=== PATIENT | male | born 1945 | race Caucasian/White ===

== ENCOUNTER → 2019-06-24 13:10 | Outpatient (CLI) | payer OTHER, MEDICAID, SELFPAY ==
--- NOTE | 2019-06-24 13:46 | DI.RAD.S_ITS ---
PROCEDURE: XR CHEST 2V INDICATIONS: PNEUMONIA TECHNIQUE: 2 views of the chest were acquired. COMPARISON: None. FINDINGS: Surgical changes and devices: None. Lungs and pleura: Lungs are abnormal with flattening of the diaphragms on the lateral view, and large lung volumes. No pleural effusions or pneumothorax. Mediastinum: Mediastinal contours are normal. Heart size is normal. Bones and chest wall: No suspicious bony abnormalities. Soft tissues appear unremarkable. IMPRESSION: COPD, mild interstitial prominence over the mid and lower lungs, a definite focal pneumonia is not seen. Dictated by: Red Ramos M.D. on 06/24/2019 at 14:50 Approved by: Red Ramos M.D. on 06/24/2019 at 14:51
== END ==
PROVIDERS: Referring Provider Nurse Practitioner; Visit Provider Nurse Practitioner
DX: J18.9 Pneumonia, unspecified organism (principal); J44.9 Chronic obstructive pulmonary disease, unspecified
CPT/HCPCS: 71046

== ENCOUNTER → 2019-08-02 18:10 | Outpatient (ROUT) | payer OTHER, MEDICAID, SELFPAY ==
[2019-08-02 18:22] LABS: Add Manual Diff / Slide Review NO; Basophils Absolute Auto 0 /uL (0-100); Basophils Percent Auto 0.4 % (0-2); Eosinophils Absolute Auto 200 /uL (0-450); Eosinophils Percent Auto 2.6 % (2-4); Hematocrit 48.2 % (41-53); Lymphocytes Absolute Auto 1200 /uL (1100-4500); Lymphocytes Percent Auto 17.8 % (25-40); Mean Corpuscular HGB Conc 33.1 % (30-36); Mean Corpuscular Hemoglobin 30.4 PG (26-34); Mean Corpuscular Volume 91.7 fL (80-100); Monocytes Absolute Auto 800 /uL (0-900); Monocytes Percent Auto 11.4 % (3-14); Neutrophils Absolute Auto 4500 /uL (1500-7000); Neutrophils Percent Auto 67.8 % (50-75); Platelet Count 183 X10^3/uL (150-400); Red Blood Cell Count 5.26 X10^6/uL (4.5-5.9); Red Cell Distribution Width 14.6 % (11.6-14.8); White Blood Cell Count 6.6 X10^3/uL (4.5-11.0)
== END ==
PROVIDERS: Visit Provider Internal Medicine
DX: I10 Essential (primary) hypertension (principal)
CPT/HCPCS: 85025

== ENCOUNTER → 2019-08-28 15:55 | Outpatient (CLI) | payer OTHER, MEDICAID, SELFPAY | PROVIDERS: PCP Internal Medicine; Referring Provider Nurse Practitioner; Visit Provider Nurse Practitioner | DX: I25.10 Atherosclerotic heart disease of native coronary artery without angina pectoris (principal); J44.9 Chronic obstructive pulmonary disease, unspecified; R62.7 Adult failure to thrive; E66.01 Morbid (severe) obesity due to excess calories; Z68.41 Body mass index [BMI] 40.0-44.9, adult; E11.9 Type 2 diabetes mellitus without complications; F32.9 Major depressive disorder, single episode, unspecified | CPT/HCPCS: 93005 ==

== ENCOUNTER → 2019-09-05 16:20 | Outpatient (CLI) | payer OTHER, MEDICAID, SELFPAY ==
--- NOTE | 2019-09-05 | DI.RAD.S_ITS ---
PROCEDURE: XR FOOT LT MIN 3V INDICATIONS: R/O OSTEOMYELITIS OF THE DISTAL PHALANGES TECHNIQUE: 3 views of the foot were acquired. COMPARISON: None. FINDINGS: Bones: No fractures or dislocations. No suspicious bony lesions. Scattered IP degenerative changes. No definitive erosions are identified. Soft tissues: No tibiotalar joint effusion. Achilles tendon appears normal. IMPRESSION: Scattered IP degenerative changes of definitive or protrusions. If this remains of concern, MRI or bone scan is recommended. Dictated by: Noa Headley M.D. on 09/06/2019 at 10:21 Approved by: Noa Headley M.D. on 09/06/2019 at 10:22
== END ==
PROVIDERS: PCP Internal Medicine; Referring Provider Nurse Practitioner; Visit Provider Nurse Practitioner
DX: R26.89 Other abnormalities of gait and mobility (principal)
CPT/HCPCS: 73630

== ENCOUNTER 2019-09-12 07:53 | Emergency (ER) | payer OTHER, MEDICAID, SELFPAY ==
--- NOTE | 2019-09-12 07:57 | DI.RAD.S_ITS ---
PROCEDURE: XR CHEST 1V INDICATIONS: SOB TECHNIQUE: One view of the chest was acquired. COMPARISON: [facility], , XR CHEST 2V, 06/24/2019, 13:54. FINDINGS: Surgical changes and devices: None. Lungs and pleura: Mild interstitial prominence centrally and bilaterally which is increased compared to prior exam. Emphysematous change. Question of a trace left pleural effusion. No pneumothorax. Mediastinum: Mediastinal contours appear unchanged. Heart size is prominent. Bones and chest wall: No suspicious bony lesions. Overlying soft tissues appear unremarkable. IMPRESSION: Mild fluid overload and questionable trace left pleural effusion. Cardiomegaly. Emphysematous change. Dictated by: Edward Becker M.D. on 09/12/2019 at 9:05 Approved by: Edward Becker M.D. on 09/12/2019 at 9:08
[2019-09-12 08:00] VITALS: BP 177/81; PULSE 66; RESP 19; O2SAT 93
--- NOTE | 2019-09-12 08:02 | ED.SOB ---
HPI - SOB/Dyspnea General Chief Complaint: Shortness of Breath/Dyspnea Stated Complaint: Shortness of Breath Time Seen by Provider: 09/12/19 07:54 Source: patient and EMS Mode of arrival: EMS Limitations: no limitations History of Present Illness HPI Narrative: 74M former smoker with history of COPD, coronary artery disease, morbid obesity presents from a local residential facility with the chief complaint of sudden onset significant shortness of breath with burning sensation in his head. He routinely uses 2 L of oxygen by nasal cannula. Patient is DNR with limited interventions. He went to bed in his normal state of health and woke up feeling this way. Medics were dispatched and found him cyanotic with pulse ox in the 70s, he improved with a non-rebreather to the mid 90s on his arrival here. He denies any chest pain or recent injuries. Recent travel. He denies any headache, runny nose, sore throat, fever or exposure to persons known to be COVID-19 positive Related Data Allergies Allergy/AdvReac Type Severity Reaction Status Date / Time No Known Drug Allergies Allergy Verified 09/12/19 08:56 Review of Systems Constitutional Constitutional: Denies chills, Reports fatigue, Denies fever(s), Denies frequent falls, Reports headache(s), Denies lethargy and Reports weakness Eyes Eyes: Denies change in vision, Denies eye discharge, Denies irritation and Denies loss of vision ENT Ears, Nose, Mouth, and Throat: Denies change in voice, Denies dizziness, Reports headache(s), Denies neck pain, Denies sore throat and Denies throat swelling Cardiovascular Cardiovascular: Denies chest pain, Denies irregular heart rhythm, Denies lightheadedness, Denies palpitations, Reports dyspnea, Denies dyspnea on exertion and Denies orthopnea Respiratory Respiratory: Denies cough, Reports dyspnea, Denies dyspnea on exertion and Denies wheezing Gastrointestinal Gastrointestinal: Denies abdominal pain, Denies change in bowel habits, Denies diarrhea, Denies nausea and Denies vomiting Genitourinary Genitourinary: Denies hematuria, Denies flank pain, Denies urinary incontinence and Denies urinary urgency Musculoskeletal Musculoskeletal: Denies back pain, Denies muscle weakness, Denies neck pain, Denies numbness and Denies tingling Integumentary/Breasts Skin/Breast: Denies pruritus, Denies erythema, Denies rash and Denies wounds Neurologic Neurologic: Denies behavioral changes, Denies confusion, Denies dizziness, Denies frequent falls, Reports headache(s), Denies loss of vision, Denies numbness, Denies tingling and Reports weakness Psychiatric Psychiatric: Denies anxiety, Denies behavioral changes, Denies confusion, Denies depression, Denies homicidal ideation and Denies suicidal ideation Endocrine Endocrine: Reports fatigue, Denies flushing and Denies palpitations Hematologic/Lymphatic Hematologic/Lymphatic: Denies easy bruising Allergic/Immunologic Allergic/Immunologic: Denies urticaria, Denies throat swelling and Denies wheezing Patient History Social History Smoking Status: Former smoker Smoking Status: Former smoker Exam Narrative Exam Narrative: GENERAL: [74] year old patient appears stated age. Morbidly obese, in moderate distress though now is completing full sentences with non-rebreather HEAD: Atraumatic. Normocephalic. EYES: Pupils equal round and reactive. Extraocular motions intact. No scleral icterus. No injection or drainage. ENT: Nose without bleeding, purulent drainage. Throat without erythema, tonsillar hypertrophy or exudate. Airway patent. NECK: Trachea midline. Non tender CARDIOVASCULAR: Regular rate and rhythm without murmurs, gallops, or rubs. RESPIRATORY: Decreased breath sounds bilaterally with prolonged expiratory phase and expiratory wheeze in all matias GASTROINTESTINAL: Abdomen soft, non-tender, nondistended. EXTREMITIES: No edema or joint tenderness. BACK: Nontender without deformity or crepitance. No flank tenderness. NEURO: AOx3. SKIN: No rash or erythema of visible areas Initial Vital Signs Initial Vital Signs: Vital Signs Pulse Rate 66 09/12/19 08:00 Respiratory Rate 19 09/12/19 08:00 Blood Pressure 177/81 H 09/12/19 08:00 Pulse Oximetry 93 09/12/19 08:00 Course Orders Ordered: ED Orders 09/12/19 07:57 XR chest 1V Stat EKG-12 Lead Stat 09/12/19 08:24 C-Reactive Protein Quant Stat Complete Blood Count AUTO DIFF Stat Comprehensive Metabolic Panel Stat D Dimer Stat Ferritin Stat Lactate (Lactic Acid) Stat Lactate Dehydrogenase Stat Lipase Stat NT-proBNP (BNP-Adult 18+) Stat Procalcitonin Stat Troponin & CK Cardiac Panel Stat 09/12/19 08:38 Arterial Blood Gas Stat 09/12/19 09:21 CT angio chest PE protocol Stat 09/12/19 10:45 Blood Culture Stat Sodium Chloride (Normal Saline 0.9%) 1,000 mls @ 150 mls/hr IV CONT JF Last Admin: 09/12/19 09:03 Dose: 150 mls/hr Documented by: CVANCE Discontinued Medications Albuterol (Ventolin Hfa) 2 puff INH NOW ONE Stop: 09/12/19 07:58 Last Admin: 09/12/19 08:03 Dose: 2 puff Documented by: LUIS ENRIQUE Furosemide (Lasix) 40 mg IV NOW ONE Stop: 09/12/19 09:09 Methylprednisolone (Solu-Medrol 125 Mg Vial) 125 mg IV NOW ONE Stop: 09/12/19 07:58 Last Admin: 09/12/19 09:02 Dose: 125 mg Documented by: CVANCE Consultations Consultation #1: call to PCP to discuss, we share the opinion that PE, [place], CHF, Pneumonia ruled out. Patient tremendously improved with above stated therapies. They are happy to accept him back. Patient requiring 2 L oxygen by nasal cannula at 92% which is his baseline Vital Signs Vital signs: Vital Signs - 8 hr 09/12/19 08:00 09/12/19 08:38 09/12/19 08:51 Temperature 97.6 F Pulse Rate 66 74 69 Respiratory Rate 19 23 Blood Pressure 177/81 H Blood Pressure [Left Arm] 177/81 H 157/70 H Pulse Oximetry 93 97 94 09/12/19 11:30 Temperature Pulse Rate 69 Respiratory Rate 22 Blood Pressure Blood Pressure [Left Arm] 140/63 Pulse Oximetry 92 MDM - SOB/Dyspnea Lab Data Result diagrams: 09/12/19 08:24 09/12/19 08:24 Labs: Lab Results 09/12/19 09/12/19 09/12/19 Range/Units 08:24 08:24 08:24 WBC 8.1 (4.5-11.0) X10^3/uL RBC 5.17 (4.5-5.9) X10^6/uL Hgb 15.4 (13.5-17.5) g/dL Hct 48.0 (41-53) % MCV 92.9 (80-100) fL MCH 29.8 (26-34) PG MCHC 32.1 (30-36) % RDW 15.4 H (11.6-14.8) % Plt Count 158 (150-400) X10^3/uL Neut % (Auto) 82.1 H (50-75) % Lymph % (Auto) 14.8 L (25-40) % [place] % (Auto) 2.3 L (3-14) % Eos % (Auto) 0.6 L (2-4) % Baso % (Auto) 0.2 (0-2) % Neut # (Auto) 6700 (7575-5632) /uL Lymph # (Auto) 1200 (3774-7190) /uL [place] # (Auto) 200 (0-900) /uL Eos # (Auto) 100 (0-450) /uL Baso # (Auto) 0 (0-100) /uL D-Dimer 273 H (<230) ng/mL ABG pH (7.35-7.45) ABG pCO2 (35-45) mmHg ABG pO2 (80-100) mmHg ABG HCO3 (22-26) mmol/L ABG Total CO2 (21-31) mmol/L ABG O2 Saturation (95-100) % ABG Base Excess (-2-2) mmol/L FiO2 Sodium 138 (137-145) mmol/L Potassium 4.6 (3.4-5.1) mmol/L Chloride 97 L (98-107) mmol/L Carbon Dioxide 36 H (22-32) mmol/L BUN 18 (9-20) mg/dL Creatinine 0.75 (0.66-1.25) mg/dL Estimated GFR > 60.0 (>60) mL/min BUN/Creatinine Ratio 24.0 H (6-22) Glucose 154 H (80-110) mg/dL Lactate (0.7-2.1) mmol/L Calcium 8.7 (8.4-10.2) mg/dL Ferritin (18-464) ng/mL Total Bilirubin 0.9 (0.2-1.3) mg/dL AST 28 (17-59) IU/L ALT 20 (<50) IU/L Alkaline Phosphatase 43 (38-126) U/L Lactate Dehydrogenase (313-618) U/L Total Creatine Kinase 62 (55-170) U/L CK-MB (CK-2) TNP CK-MB (CK-2) Rel Index TNP Troponin I < 0.012 (0.01-0.034) ng/mL C-Reactive Protein (<1.0) mg/dL NT-Pro-B Natriuret Pep 66 (<450) pg/mL Total Protein 6.6 (6.3-8.2) g/dL Albumin 3.7 (3.5-5.0) g/dL Globulin 2.9 (1.7-4.1) g/dL Albumin/Globulin Ratio 1.3 (1.0-2.8) Lipase 501 H (23-300) U/L Procalcitonin (<0.5) ng/mL COVID-19 PCR (Negative) 09/12/19 09/12/19 09/12/19 Range/Units 08:24 08:24 08:24 WBC (4.5-11.0) X10^3/uL RBC (4.5-5.9) X10^6/uL Hgb (13.5-17.5) g/dL Hct (41-53) % MCV (80-100) fL MCH (26-34) PG MCHC (30-36) % RDW (11.6-14.8) % Plt Count (150-400) X10^3/uL Neut % (Auto) (50-75) % Lymph % (Auto) (25-40) % [place] % (Auto) (3-14) % Eos % (Auto) (2-4) % Baso % (Auto) (0-2) % Neut # (Auto) (6376-2893) /uL Lymph # (Auto) (7324-0649) /uL [place] # (Auto) (0-900) /uL Eos # (Auto) (0-450) /uL Baso # (Auto) (0-100) /uL D-Dimer (<230) ng/mL ABG pH (7.35-7.45) ABG pCO2 (35-45) mmHg ABG pO2 (80-100) mmHg ABG HCO3 (22-26) mmol/L ABG Total CO2 (21-31) mmol/L ABG O2 Saturation (95-100) % ABG Base Excess (-2-2) mmol/L FiO2 Sodium (137-145) mmol/L Potassium (3.4-5.1) mmol/L Chloride (98-107) mmol/L Carbon Dioxide (22-32) mmol/L BUN (9-20) mg/dL Creatinine (0.66-1.25) mg/dL Estimated GFR (>60) mL/min BUN/Creatinine Ratio (6-22) Glucose (80-110) mg/dL Lactate 1.5 (0.7-2.1) mmol/L Calcium (8.4-10.2) mg/dL Ferritin 38 (18-464) ng/mL Total Bilirubin (0.2-1.3) mg/dL AST (17-59) IU/L ALT (<50) IU/L Alkaline Phosphatase (38-126) U/L Lactate Dehydrogenase 368 (313-618) U/L Total Creatine Kinase (55-170) U/L CK-MB (CK-2) CK-MB (CK-2) Rel Index Troponin I (0.01-0.034) ng/mL C-Reactive Protein < 0.5 (<1.0) mg/dL NT-Pro-B Natriuret Pep (<450) pg/mL Total Protein (6.3-8.2) g/dL Albumin (3.5-5.0) g/dL Globulin (1.7-4.1) g/dL Albumin/Globulin Ratio (1.0-2.8) Lipase (23-300) U/L Procalcitonin < 0.05 (<0.5) ng/mL COVID-19 PCR (Negative) 09/12/19 09/12/19 Range/Units 08:25 08:38 WBC (4.5-11.0) X10^3/uL RBC (4.5-5.9) X10^6/uL Hgb (13.5-17.5) g/dL Hct (41-53) % MCV (80-100) fL MCH (26-34) PG MCHC (30-36) % RDW (11.6-14.8) % Plt Count (150-400) X10^3/uL Neut % (Auto) (50-75) % Lymph % (Auto) (25-40) % [place] % (Auto) (3-14) % Eos % (Auto) (2-4) % Baso % (Auto) (0-2) % Neut # (Auto) (4739-6429) /uL Lymph # (Auto) (3464-9636) /uL [place] # (Auto) (0-900) /uL Eos # (Auto) (0-450) /uL Baso # (Auto) (0-100) /uL D-Dimer (<230) ng/mL ABG pH 7.27 L* (7.35-7.45) ABG pCO2 76.0 H* (35-45) mmHg ABG pO2 67 L (80-100) mmHg ABG HCO3 35 H (22-26) mmol/L ABG Total CO2 37 H (21-31) mmol/L ABG O2 Saturation 89 L (95-100) % ABG Base Excess 8.0 H (-2-2) mmol/L FiO2 40 Sodium (137-145) mmol/L Potassium (3.4-5.1) mmol/L Chloride (98-107) mmol/L Carbon Dioxide (22-32) mmol/L BUN (9-20) mg/dL Creatinine (0.66-1.25) mg/dL Estimated GFR (>60) mL/min BUN/Creatinine Ratio (6-22) Glucose (80-110) mg/dL Lactate (0.7-2.1) mmol/L Calcium (8.4-10.2) mg/dL Ferritin (18-464) ng/mL Total Bilirubin (0.2-1.3) mg/dL AST (17-59) IU/L ALT (<50) IU/L Alkaline Phosphatase (38-126) U/L Lactate Dehydrogenase (313-618) U/L Total Creatine Kinase (55-170) U/L CK-MB (CK-2) CK-MB (CK-2) Rel Index Troponin I (0.01-0.034) ng/mL C-Reactive Protein (<1.0) mg/dL NT-Pro-B Natriuret Pep (<450) pg/mL Total Protein (6.3-8.2) g/dL Albumin (3.5-5.0) g/dL Globulin (1.7-4.1) g/dL Albumin/Globulin Ratio (1.0-2.8) Lipase (23-300) U/L Procalcitonin (<0.5) ng/mL COVID-19 PCR Negative (Negative) Discharge Plan Departure Patient Disposition: Home Clinical Impression: Acute exacerbation of chronic obstructive airways disease Activity Restrictions/Additional Instructions: *You have been diagnosed with [acute exacerbation of COPD] *What to do: *Take medications as directed *Follow up with your primary care provider in 2-3 days, call for an appointment. Let them know you were seen in the Emergency Department and that we ask that you be seen in follow up *Return to ER if you should have any new, worsening or concerning symptoms Referrals: Dillon Burr [Primary Care Provider] -
[2019-09-12] MEDS: ALBUTEROL HFA 60 PUFF/8 GM INH INH (08:03)
[2019-09-12 08:33] LABS: Add Manual Diff / Slide Review NO; Basophils Absolute Auto 0 /uL (0-100); Basophils Percent Auto 0.2 % (0-2); Eosinophils Absolute Auto 100 /uL (0-450); Eosinophils Percent Auto 0.6 % (2-4); Hemoglobin 15.4 g/dL (13.5-17.5); Lymphocytes Absolute Auto 1200 /uL (1100-4500); Lymphocytes Percent Auto 14.8 % (25-40); Mean Corpuscular HGB Conc 32.1 % (30-36); Mean Corpuscular Hemoglobin 29.8 PG (26-34); Mean Corpuscular Volume 92.9 fL (80-100); Monocytes Absolute Auto 200 /uL (0-900); Monocytes Percent Auto 2.3 % (3-14); Neutrophils Absolute Auto 6700 /uL (1500-7000); Neutrophils Percent Auto 82.1 % (50-75); Platelet Count 158 X10^3/uL (150-400); Red Blood Cell Count 5.17 X10^6/uL (4.5-5.9); Red Cell Distribution Width 15.4 % (11.6-14.8); White Blood Cell Count 8.1 X10^3/uL (4.5-11.0)
[2019-09-12 08:38] VITALS: BP 177/81; PULSE 74; RESP 23; O2SAT 97
[2019-09-12 08:44] LABS: D Dimer 273 ng/mL (<230)
[2019-09-12 08:46] LABS: Alanine Aminotransferase 20 IU/L (<50); Albumin 3.7 g/dL (3.5-5.0); Albumin Globulin Ratio 1.3 (1.0-2.8); Alkaline Phosphatase 43 U/L (38-126); Aspartate Aminotransferase 28 IU/L (17-59); Bilirubin Total 0.9 mg/dL (0.2-1.3); Blood Urea Nitrogen 18 mg/dL (9-20); Calcium 8.7 mg/dL (8.4-10.2); Carbon Dioxide 36 mmol/L (22-32); Chloride 97 mmol/L (98-107); Creatine Kinase 62 U/L (55-170); Estimated Glomerular Filt Rate > 60.0 mL/min (>60); Globulin 2.9 g/dL (1.7-4.1); Glucose 154 mg/dL (80-110); HEMOLYSIS 21 (0-50); Lipase 501 U/L (23-300); Potassium 4.6 mmol/L (3.4-5.1); Sodium 138 mmol/L (137-145); Total Protein 6.6 g/dL (6.3-8.2)
[2019-09-12 08:47] LABS: Lactate (Lactic Acid) 1.5 mmol/L (0.7-2.1)
[2019-09-12 08:50] LABS: C-Reactive Protein Quant < 0.5 mg/dL (<1.0); Lactate Dehydrogenase 368 U/L (313-618)
[2019-09-12 08:51] VITALS: BP 157/70; PULSE 69; TEMP 36.4; O2SAT 94
[2019-09-12 08:57] LABS: NT-proBNP (BNP-Adult 18+) 66 pg/mL (<450); Troponin I < 0.012 ng/mL (0.01-0.034)
[2019-09-12 09:01] LABS: Procalcitonin < 0.05 ng/mL (<0.5)
[2019-09-12] MEDS: methylPREDNISolone 125 MG/2 ML VIAL IV (09:02)
[2019-09-12] MEDS: SODIUM CHLORIDE 0.9% 1,000 ML 150 ML IV (09:03)
[2019-09-12 09:21] LABS: Ferritin 38 ng/mL (18-464)
--- NOTE | 2019-09-12 09:21 | DI.CT.S_ITS ---
PROCEDURE: CT ANGIO CHEST PE PROTOCOL INDICATIONS: dyspnea, hypoxia TECHNIQUE: After the administration of intravenous contrast, 2 mm thick sections acquired from the pulmonary apices to the posterior costophrenic angles. 3-dimensional maximum intensity projection (MIP) coronal and sagittal reformats were then acquired through the thorax. For radiation dose reduction, the following was used: automated exposure control, adjustment of mA and/or kV according to patient size. COMPARISON: None. FINDINGS: Image quality: Good. Mild beam hardening artifact. Diagnostic to the level of the segmental pulmonary arteries. Pulmonary arteries: Pulmonary arteries are normal in size, and demonstrate no intraluminal filling defects to suggest central pulmonary embolism. Lungs and pleura: Mild dependent atelectasis. Left lower lobe pulmonary nodule measuring 1.8 x 1.3 cm, (6/42). A 2 mm pulmonary nodule in the right middle lobe, (6/46). Punctate calcified granuloma in the left upper lobe. No pleural effusions or pneumothorax. Left hemidiaphragm eventration. Central and peripheral airways are patent. Mediastinum: Heart size is normal, without pericardial effusion. No mediastinal or hilar adenopathy. Thoracic aorta is normal in caliber and enhancement. Esophagus is normal in caliber, small hiatal hernia. Bones and chest wall: No suspicious bony lesions. A few tiny bone islands. Ribs and thoracic spine appear intact throughout. Small subcutaneous sebaceous cysts in the back. Thyroid gland demonstrates a hypodense right thyroid nodule measuring 2.1 cm. No axillary or supraclavicular adenopathy. Abdomen: Right adrenal nodule measuring 2.9 cm, (4/169), containing macroscopic fat consistent with a benign myolipoma. A subtle hypodensities in the left lobe of the liver. Left renal simple appearing cyst partially visualized. IMPRESSION: 1. No pulmonary embolism. 2. Mild dependent atelectasis. 3. Incidental left lower lobe pulmonary nodule with a mean diameter of 1.6 cm. -Recommend followup chest CT without IV contrast in 3 months. PET/CT could also be considered. 4. Incidental right thyroid nodule measuring 2.1 cm. -Recommend dedicated thyroid ultrasound for further evaluation. Additional incidental findings: Small hiatal hernia. Right adrenal benign myelolipoma. Dictated by: Edward Becker M.D. on 09/12/2019 at 9:46 Approved by: Edward Becker M.D. on 09/12/2019 at 10:03
[2019-09-12 09:48] LABS: COVID19 -Nasal RAPID Negative (Negative)
[2019-09-12 11:06] LABS: HCO3 ABG 35 mmol/L (22-26); PO2 ABG 67 mmHg (80-100); pH ABG 7.27 (7.35-7.45)
[2019-09-12 11:07] LABS: Fractionated Inspired Oxygen 40; Oxygen Saturation ABG 89 % (95-100); TCO2 ABG 37 mmol/L (21-31)
[2019-09-12 11:30] VITALS: BP 140/63; PULSE 69; RESP 22; O2SAT 92
[2019-09-12 12:30] VITALS: BP 116/58; PULSE 73; RESP 17; O2SAT 91
== END 2019-09-12 13:31 | disposition home or self-care (01) ==
PROVIDERS: Emergency Provider Emergency Medicine; PCP Internal Medicine
DX: J44.1 Chronic obstructive pulmonary disease with (acute) exacerbation (principal); I25.10 Atherosclerotic heart disease of native coronary artery without angina pectoris; E66.01 Morbid (severe) obesity due to excess calories
CPT/HCPCS: 36415; 36600; 71045; 71275; 80053; 82550; 82728; 82805; 83605; 83615; 83690; 83880; 84145; 84484; 85025; 85379; 86140; 87040; 87635; 93005; 96374; 99285; J2930; Q9967

== ENCOUNTER 2019-10-07 12:59 | Emergency (ER) | payer OTHER, MEDICAID, SELFPAY ==
[2019-10-07 13:13] VITALS: BP 154/68; PULSE 70; RESP 26; TEMP 36.8; O2SAT 97; BMI 43.8
--- NOTE | 2019-10-07 13:14 | ED_ITS ---
HPI - General Adult General Chief complaint: Upper Respiratory Symptoms Stated complaint: change in respiratory fuction Time Seen by Provider: 10/07/19 13:13 Source: patient Mode of arrival: Wheelchair Limitations: no limitations History of Present Illness HPI narrative: Patient is a 74-year-old male. History of COPD. On 3 L by nasal cannula at baseline. Was sent over for concerns of potential pneumonia. Patie nt states he is unsure as to why he is here. He states ?they think I have pneumonia ?patient denies fever. He does have a productive cough but he states this is not new for him. He states he does not think that his respiratory status is any worse than what it normally is. Denies any chest pain. He is on 2 L by nasal cannula upon arrival. Patient states that he feels like he is at his baseline state health. Related Data Previous Rx's Medication Instructions Recorded albuterol sulfate 2 puff INHALATION Q4-6H PRN #18 10/07/19 gram azithromycin 250 mg PO DAILY 4 Days #4 tab 10/07/19 Allergies Allergy/AdvReac Type Severity Reaction Status Date / Time No Known Drug Allergies Allergy Verified 09/12/19 08:56 Review of Systems Constitutional Constitutional: Denies fever(s) Cardiovascular Cardiovascular: Denies chest pain Respiratory Comments: Productive cough which is baseline Shortness of breath which is baseline Gastrointestinal Gastrointestinal: Denies abdominal pain and Denies change in bowel habits Integumentary/Breasts Skin/Breast: Denies rash Neurologic Neurologic: Denies behavioral changes Psychiatric Psychiatric: Denies behavioral changes Hematologic/Lymphatic Hematologic/Lymphatic: Denies easy bleeding and Denies easy bruising Patient History Medical History COPD (chronic obstructive pulmonary disease) (Acute) Social History Smoking Status: Former smoker Smoking Status: Former smoker tobacco type: cigarettes Exam Initial Vital Signs Initial Vital Signs: Vital Signs Temperature 98.3 F 10/07/19 13:13 Pulse Rate 70 10/07/19 13:13 Respiratory Rate 26 H 10/07/19 13:13 Blood Pressure 154/68 H 10/07/19 13:13 Pulse Oximetry 97 10/07/19 13:13 Const General: cooperative Limitations: mental status not altered HENMT Head: normal to inspection and normocephalic Resp Effort & Inspection: not labored and tachypneic Auscultation: rhonchi and wheezes Cardio Rate: regular rate Neuro General: patient alert and patient awake Cognition: normal cognition Psych Appearance: grossly normal and well kempt Course Orders Ordered: ED Orders 10/07/19 13:19 XR chest 1V Stat Discontinued Medications Albuterol (Ventolin) 2.5 mg INH NOW ONE Stop: 10/07/19 13:20 Last Admin: 10/07/19 13:27 Dose: 2.5 mg Documented by: JEFF Azithromycin (Zithromax) 500 mg PO NOW ONE Stop: 10/07/19 14:04 Vital Signs Vital signs: Vital Signs - 8 hr 10/07/19 13:13 10/07/19 13:33 Temperature 98.3 F Pulse Rate 70 70 Respiratory Rate 26 H 20 Blood Pressure 154/68 H Pulse Oximetry 97 Medical Decision Making Imaging Data Chest x-ray: Radiologist's Impression: [address] [id number] XRay Report Signed Patient: Suman Baumann OMR#: [id number] : 5Acct:[id number] Age/Sex: 74 / MDate of Service: 10/07/19 Loc: ED Accession Number: [id number] Procedure: XR chest 1V Ordering Provider: Ector Ngo D.O. PROCEDURE: XR CHEST 1V INDICATIONS: Worsening respiratory status history of COPD TECHNIQUE: One view of the chest was acquired. COMPARISON: [facility], , XR CHEST 1V, 09/12/2019, 8:47. FINDINGS: Surgical changes and devices: None. Lungs and pleura: Developing left basilar consolidation is present. There may also be developing airspace disease at the right lung base. The pulmonary vascular markings are slightly increased. No pneumothorax or pleural effusion is evident. Mediastinum: Mediastinal contours appear normal. Heart size is normal. There is aortic atherosclerosis. Bones and chest wall: No suspicious bony lesions. Overlying soft tissues appear unremarkable. IMPRESSION: Atelectasis versus pneumonia within the lung bases is more pronounced on the left. Dictated by: Tom Marroquin M.D. on 10/07/2019 at 12:43 Approved by: Tom Marroquin M.D. on 10/07/2019 at 12:43 MDM Narrative Medical decision making narrative: Patient's chest x-ray is concerning for potential pneumonia versus atelectasis. Given the fact that the patient was sent over here for concerns of pneumonia feel that treating him with antibiotics is not unreasonable especially given his chronic baseline respiratory status. This is however in the setting of an individual who reports no change in his baseline state of health. He stated that he did feel somewhat better after the albuterol nebulizer. He does not think that he has any nebulizers at the nursing facility. Will send him home with a spacer and a prescription for albuterol. Was given 1st dose of antibiotics here in the emergency department. I do not feel the patient needs admitted to the hospital. He does have oxygen supplementation if needed. He was given return precautions. He expressed understanding and agreement. Discharge Plan Departure Patient Disposition: Home Clinical Impression: COPD (chronic obstructive pulmonary disease) Qualifiers: COPD type: unspecified COPD Qualified Code(s): J44.9 - Chronic obstructive pulmonary disease, unspecified Pneumonia Qualifiers: Pneumonia type: due to unspecified organism Laterality: left Lung location: lower lobe of lung Qualified Code(s): J18.9 - Pneumonia, unspecified organism Instructions: Chronic Obstructive Pulmonary Disease Activity Restrictions/Additional Instructions: Continue with all of your medications as directed. Your 1st dose of antibiotics was given here in the emergency department. Your next dose will be tomorrow. Return to the emergency department for any new or worsening symptoms. Contact your primary provider for follow-up. Prescriptions: New azithromycin 250 mg tablet 250 mg PO DAILY 4 Days Qty: 4 RF: 0 albuterol sulfate 90 mcg/actuation HFA aerosol inhaler 2 puff INHALATION Q4-6H PRN (Reason: shortness of breath or wheezing) Qty: 18 RF: 0 Referrals: Dillon Burr [Primary Care Provider] -
--- NOTE | 2019-10-07 13:19 | DI.RAD.S_ITS ---
PROCEDURE: XR CHEST 1V INDICATIONS: Worsening respiratory status history of COPD TECHNIQUE: One view of the chest was acquired. COMPARISON: [facility], CR, XR CHEST 1V, 09/12/2019, 8:47. FINDINGS: Surgical changes and devices: None. Lungs and pleura: Developing left basilar consolidation is present. There may also be developing airspace disease at the right lung base. The pulmonary vascular markings are slightly increased. No pneumothorax or pleural effusion is evident. Mediastinum: Mediastinal contours appear normal. Heart size is normal. There is aortic atherosclerosis. Bones and chest wall: No suspicious bony lesions. Overlying soft tissues appear unremarkable. IMPRESSION: Atelectasis versus pneumonia within the lung bases is more pronounced on the left. Dictated by: Tom Marroquin M.D. on 10/07/2019 at 12:43 Approved by: Tom Marroquin M.D. on 10/07/2019 at 12:43
[2019-10-07] MEDS: ALBUTEROL 2.5 MG/3 ML NEB (ADULT) INH (13:27)
--- NOTE | 2019-10-07 13:27 | PC.NURSE ---
RT at bedside
[2019-10-07 13:33] VITALS: PULSE 70; RESP 20
[2019-10-07 14:00] VITALS: BP 118/56; PULSE 67; RESP 18; O2SAT 93
[2019-10-07] MEDS: AZITHROMYCIN 250 MG TABLET 500 MG PO (14:15)
[2019-10-07 14:25] VITALS: BP 118/63; PULSE 88; RESP 22; O2SAT 94
== END 2019-10-07 14:26 | disposition home or self-care (01) ==
PROVIDERS: Emergency Provider Emergency Medicine; PCP Internal Medicine
DX: J18.9 Pneumonia, unspecified organism (principal); J44.9 Chronic obstructive pulmonary disease, unspecified
CPT/HCPCS: 71045; 94640; 99283; 99284; J7613

== ENCOUNTER → 2019-10-18 11:25 | Outpatient (ROUT) | payer OTHER, SELFPAY ==
[2019-10-20 19:43] LABS: COVID19 Sendout Not Detected (Not Detected)
== END ==
PROVIDERS: PCP Internal Medicine; Visit Provider Internal Medicine
DX: Z03.818 Encounter for observation for suspected exposure to other biological agents ruled out (principal)
CPT/HCPCS: 87635

== ENCOUNTER → 2019-11-05 07:49 | Outpatient (ROUT) | payer OTHER, MEDICAID, SELFPAY ==
[2019-11-05 08:23] LABS: Hemoglobin A1C% w Est Avg Glu 6.2 % (4.0-6.0)
[2019-11-05 08:26] LABS: Blood Urea Nitrogen 18 mg/dL (9-20); Calcium 9.2 mg/dL (8.4-10.2); Chloride 94 mmol/L (98-107); Estimated Glomerular Filt Rate > 60.0 mL/min (>60); Glucose 98 mg/dL (80-110); HEMOLYSIS < 15 (0-50); Potassium 4.3 mmol/L (3.4-5.1); Sodium 138 mmol/L (137-145)
[2019-11-05 08:32] LABS: Carbon Dioxide 36 mmol/L (22-32)
== END ==
PROVIDERS: PCP Internal Medicine; Visit Provider Internal Medicine
DX: E11.9 Type 2 diabetes mellitus without complications (principal)
CPT/HCPCS: 36415; 80048; 83036

== ENCOUNTER → 2019-11-14 07:34 | Outpatient (ROUT) | payer OTHER, MEDICAID, SELFPAY ==
[2019-11-14 08:29] LABS: Add Manual Diff / Slide Review NO; Basophils Absolute Auto 0 /uL (0-100); Basophils Percent Auto 0.4 % (0-2); Eosinophils Absolute Auto 200 /uL (0-450); Eosinophils Percent Auto 2.8 % (2-4); Hematocrit 43.5 % (41-53); Hemoglobin 14.1 g/dL (13.5-17.5); Lymphocytes Absolute Auto 1100 /uL (1100-4500); Mean Corpuscular HGB Conc 32.5 % (30-36); Mean Corpuscular Hemoglobin 30.3 PG (26-34); Mean Corpuscular Volume 93.1 fL (80-100); Monocytes Absolute Auto 800 /uL (0-900); Monocytes Percent Auto 11.3 % (3-14); Neutrophils Absolute Auto 5100 /uL (1500-7000); Neutrophils Percent Auto 70.5 % (50-75); Platelet Count 187 X10^3/uL (150-400); Red Blood Cell Count 4.67 X10^6/uL (4.5-5.9); Red Cell Distribution Width 14.7 % (11.6-14.8); White Blood Cell Count 7.2 X10^3/uL (4.5-11.0)
[2019-11-14 09:18] LABS: BUN Creatinine Ratio 27.5 (6-22); Blood Urea Nitrogen 22 mg/dL (9-20); Calcium 9.1 mg/dL (8.4-10.2); Chloride 94 mmol/L (98-107); Estimated Glomerular Filt Rate > 60.0 mL/min (>60); Glucose 100 mg/dL (80-110); HEMOLYSIS < 15 (0-50); Potassium 4.3 mmol/L (3.4-5.1); Sodium 137 mmol/L (137-145)
[2019-11-14 09:26] LABS: Carbon Dioxide 35 mmol/L (22-32)
[2019-11-14 09:28] LABS: NT-proBNP (BNP-Adult 18+) 41 pg/mL (<450)
== END ==
PROVIDERS: PCP Internal Medicine; Visit Provider Nurse Practitioner Family
DX: R53.83 Other fatigue (principal); R60.9 Edema, unspecified; Z79.899 Other long term (current) drug therapy; H35.53 Other dystrophies primarily involving the sensory retina
CPT/HCPCS: 36415; 80048; 83880; 85025

== ENCOUNTER → 2019-11-21 07:43 | Outpatient (ROUT) | payer OTHER, MEDICAID, SELFPAY ==
[2019-11-21 09:36] LABS: BUN Creatinine Ratio 28.2 (6-22); Blood Urea Nitrogen 22 mg/dL (9-20); Calcium 9.1 mg/dL (8.4-10.2); Carbon Dioxide 39 mmol/L (22-32); Chloride 94 mmol/L (98-107); Estimated Glomerular Filt Rate > 60.0 mL/min (>60); Glucose 106 mg/dL (80-110); HEMOLYSIS < 15 (0-50); Potassium 4.4 mmol/L (3.4-5.1); Sodium 137 mmol/L (137-145)
== END ==
PROVIDERS: PCP Internal Medicine; Visit Provider Nurse Practitioner Family
DX: I10 Essential (primary) hypertension (principal); Z79.899 Other long term (current) drug therapy
CPT/HCPCS: 36415; 80048

== ENCOUNTER → 2019-12-03 12:05 | Outpatient (CLI) | payer OTHER, SELFPAY ==
--- NOTE | 2019-12-03 | DI.US.S_ITS ---
PROCEDURE: US THYROID INDICATIONS: NODULE TECHNIQUE: Real-time scanning was performed of the thyroid gland, with image documentation. COMPARISON: None. FINDINGS: Bilaterally, no sonographically visible thyroid tissue is seen. No nodule identified. No lymphadenopathy IMPRESSION: No thyroid tissue is sonographically visible which could indicate severe atrophy (reportedly, no history of thyroidectomy) Dictated by: Tian Solomon M.D. on 12/03/2019 at 13:48 Approved by: Tian Solomon M.D. on 12/03/2019 at 13:51
--- NOTE | 2019-12-03 12:13 | DI.CT.S_ITS ---
PROCEDURE: CT CHEST WO CON INDICATIONS: Nontoxic single CHRONIC COUGH TECHNIQUE: Noncontrast 5 mm thick sections acquired from the pulmonary apices to the posterior costophrenic angles. 1 mm lung window, 5 mm thick coronal and sagittal and 7 mm axial MIP reformats were then acquired. For radiation dose reduction, the following was used: automated exposure control, adjustment of mA and/or kV according to patient size. COMPARISON: [facility], CT, CT ANGIO CHEST PE PROTOCOL, 09/12/2019, 9:24. FINDINGS: Image quality: Degraded by motion artifact. Upper lobe centrilobular emphysema. Scattered subsegmental atelectasis and/or scarring. No focal consolidation. No pleural effusions or pneumothorax. Central and peripheral airways are patent and normal in caliber. Mediastinum: Heart size is normal. No pericardial effusion. No mediastinal adenopathy by size criteria. Thoracic aorta and central pulmonary arteries are normal in size. Esophagus is normal in caliber. No hiatal hernia. Bones and chest wall: No suspicious bony lesions. No vertebral body compression fractures. No axillary or supraclavicular adenopathy by size criteria. Thyroid gland negative . Bilateral adrenal nodules , right larger than left, which are only partially visualized. These are likely grossly unchanged since 09/12/19. Partially visualized presumed left renal cyst. IMPRESSION: No acute consolidation. Scattered atelectasis/scarring. Upper lobe predominant centrilobular emphysema. Bilateral adrenal nodules, technically indeterminate although unchanged. Recommend continued surveillance to exclude metastatic or malignant possibilities. As clinically warranted, dedicated adrenal protocol MRI could be performed for further assessment. Dictated by: Tian Solomon M.D. on 12/03/2019 at 15:45 Approved by: Tian Solomon M.D. on 12/03/2019 at 15:53
== END ==
PROVIDERS: PCP Internal Medicine; Referring Provider Nurse Practitioner Family; Visit Provider Nurse Practitioner Family
DX: E04.1 Nontoxic single thyroid nodule (principal); R05 Cough; R91.1 Solitary pulmonary nodule; J43.2 Centrilobular emphysema; E27.9 Disorder of adrenal gland, unspecified
CPT/HCPCS: 71250; 76536

== ENCOUNTER → 2019-12-26 08:23 | Outpatient (ROUT) | payer OTHER, MEDICAID, SELFPAY ==
[2019-12-26 08:51] LABS: BUN Creatinine Ratio 25.5 (6-22); Blood Urea Nitrogen 25 mg/dL (9-20); Calcium 9.1 mg/dL (8.4-10.2); Carbon Dioxide 35 mmol/L (22-32); Chloride 93 mmol/L (98-107); Estimated Glomerular Filt Rate > 60.0 mL/min (>60); Glucose 114 mg/dL (80-110); HEMOLYSIS < 15 (0-50); Potassium 4.7 mmol/L (3.4-5.1); Sodium 134 mmol/L (137-145)
== END ==
PROVIDERS: PCP Internal Medicine; Visit Provider Nurse Practitioner Gerontology
DX: R03.0 Elevated blood-pressure reading, without diagnosis of hypertension (principal); E11.9 Type 2 diabetes mellitus without complications
CPT/HCPCS: 36415; 80048

== ENCOUNTER 2020-01-27 01:48 | Emergency (ER) | payer OTHER, MEDICAID, SELFPAY ==
--- NOTE | 2020-01-27 01:50 | DI.RAD.S_ITS ---
PROCEDURE: XR HIP W PEL IF DONE RT 2V INDICATIONS: pain hx of GEN TECHNIQUE: AP pelvis with lateral view(s) of the right hip(s). COMPARISON: None. FINDINGS: Bones: No fractures or dislocations. Pelvic ring appears intact. No suspicious bony lesions. Bilateral hip arthroplasties. Hardware is intact without evidence of hardware fracture or periprosthetic loosening. Soft tissues: The visualized bowel gas pattern is normal. No suspicious soft tissue calcifications. IMPRESSION: No visualized acute fracture or dislocation. However, if clinical concern and/or pain persist, short interval imaging followup in 7-10 days is recommended, as occult injury cannot be definitively excluded. The above findings are concordant with preliminary report. Dictated by: Noa Headley M.D. on 01/27/2020 at 10:16 Approved by: Noa Headley M.D. on 01/27/2020 at 10:17
--- NOTE | 2020-01-27 01:52 | ED_ITS ---
HPI - General Adult General Chief complaint: Extremity Injury, Lower Stated complaint: Hip pain Time Seen by Provider: 01/27/20 01:50 Source: patient and EMS Mode of arrival: EMS Limitations: no limitations History of Present Illness HPI narrative: 74-year-old male with history of COPD on 3 L of oxygen by nasal cannula here for evaluation of right-sided hip pain. Initial reports were that the patient had bilateral hip pain however in the ambulance and here in the emergency department patient was only complaining of right-sided pain. There was no specific trauma. He states that is been hurting for the past several days purchased increased throughout today. He states he did not fall. He has had bilateral hip replacements. He received Tylenol by his living facility earlier this evening without much improvement in his symptoms. Patient states that he wanted to get ?checked out? Related Data Previous Rx's Medication Instructions Recorded albuterol sulfate 2 puff INHALATION Q4-6H PRN #18 10/07/19 gram Allergies Allergy/AdvReac Type Severity Reaction Status Date / Time No Known Drug Allergies Allergy Verified 09/12/19 08:56 Review of Systems Constitutional Constitutional: Denies fever(s) Cardiovascular Cardiovascular: Denies chest pain Musculoskeletal Comments: Right hip pain Integumentary/Breasts Comments: No changes in skin Neurologic Neurologic: Denies paresthesias Hematologic/Lymphatic Hematologic/Lymphatic: Denies easy bleeding and Denies easy bruising Patient History Medical History COPD (chronic obstructive pulmonary disease) (Acute) Social History Smoking Status: Former smoker Smoking Status: Former smoker tobacco type: cigarettes alcohol intake frequency: 0-2 drinks per day Substance Use Type: does not use Exam Initial Vital Signs Initial Vital Signs: Vital Signs Temperature 98 F 01/27/20 01:54 Pulse Rate 68 01/27/20 01:54 Respiratory Rate 14 01/27/20 01:54 Blood Pressure 124/59 L 01/27/20 01:54 Pulse Oximetry 92 01/27/20 01:54 Const General: cooperative Limitations: mental status not altered HENMT Head: normal to inspection and normocephalic Cardio Rate: regular rate Rhythm: regular rhythm Neuro General: patient alert, patient awake and patient oriented x3 Cognition: normal cognition Extrem Other: Patient can flex and extend at the hip and has minimal tenderness to palpation around the right hip. Psych Appearance: grossly normal and well kempt Course Orders Ordered: ED Orders 01/27/20 01:50 XR hip w pel if done RT 2V Stat Discontinued Medications Hydrocodone Bitart/Acetaminophen ([place] 5/325) 1 tab PO NOW ONE Stop: 01/27/20 02:33 Hydrocodone Bitart/Acetaminophen (Vicod[place] 5/325 Prepack) 1 bottle MISC SEEINSTR ONE Stop: 01/27/20 02:33 Vital Signs Vital signs: Vital Signs - 8 hr 01/27/20 01:54 Temperature 98 F Pulse Rate 68 Respiratory Rate 14 Blood Pressure 124/59 L Pulse Oximetry 92 Medical Decision Making Imaging Data Extremity x-ray #1: Attestation: I personally reviewed and interpreted this imaging study as follows: My Impression: No fractures, no dislocations MDM Narrative Medical decision making narrative: X-rays negative for fractures or dislocations. Patient has minimal objective findings on exam related to his right hip pain. He has not had any falls. Will hold on further workup and treat his symptoms for now. Will discharge home with a prepack of [place]. Patient is not ambulatory at baseline. Will send home by S. Patient was given return precautions. Incidentally we also noted that the forms from [facility] has him down has a DNR code status however his PLOST form has him as a full code. After discussion with the patient he states that he wishes to be full code. Informed him that he needed to talk with his nursing facility to change his code status on their paperwork. He expressed understanding. Discharge Plan Departure Patient Disposition: Home Clinical Impression: Hip pain Instructions: DI for Hip Pain Activity Restrictions/Additional Instructions: There were no fractures on the x-rays. The medication that you were given this evening would be in place of your regular Tylenol. I do recommend you contact your primary provider for follow-up. Also recommend that you discuss your code status with your living facility. Your PLOST form says that you would like us to attempt resuscitation if your heart were to stop or if you were to quit breathing however the forms from the living facility says that you do not want us to make any attempts. I would talk with them about this and make appropriate changes. No restrictions on your activities. Prescriptions: No Action albuterol sulfate 90 mcg/actuation HFA aerosol inhaler 2 puff INHALATION Q4-6H PRN (Reason: shortness of breath or wheezing) Qty: 18 RF: 0 Referrals: Steffi Infante MD [Primary Care Provider] -
[2020-01-27 01:54] VITALS: BP 124/59; PULSE 68; RESP 14; TEMP 36.6; O2SAT 92; BMI 42.5
[2020-01-27] MEDS: HYDROCODONE/ACET 5/325 PREPACK 1 BOTTLE MISC (02:38)
[2020-01-27] MEDS: HYDROCODONE/ACET 5/325 TABLET 1 TAB PO (02:38)
[2020-01-27 03:00] VITALS: BP 136/63; PULSE 63; RESP 14; O2SAT 99
== END 2020-01-27 03:41 | disposition home or self-care (01) ==
LOC: ED 02:51
PROVIDERS: Emergency Provider Emergency Medicine; PCP Internal Medicine
DX: M25.551 Pain in right hip (principal)
CPT/HCPCS: 73502; 99284

== ENCOUNTER → 2020-01-29 10:36 | Outpatient (CLI) | payer OTHER, MEDICAID, SELFPAY | PROVIDERS: PCP Internal Medicine; Referring Provider Internal Medicine; Visit Provider Family Medicine | DX: E11.628 Type 2 diabetes mellitus with other skin complications (principal); S80.821A Blister (nonthermal), right lower leg, initial encounter; S71.101A Unspecified open wound, right thigh, initial encounter; S71.102A Unspecified open wound, left thigh, initial encounter; R21 Rash and other nonspecific skin eruption | CPT/HCPCS: 97597; 97598; 99213 ==

== ENCOUNTER → 2020-02-07 10:38 | Outpatient (CLI) | payer OTHER, MEDICAID, SELFPAY | PROVIDERS: PCP Internal Medicine; Referring Provider Internal Medicine; Visit Provider Family Medicine | DX: S80.821A Blister (nonthermal), right lower leg, initial encounter (principal); S80.822A Blister (nonthermal), left lower leg, initial encounter | CPT/HCPCS: 29581 ==

== ENCOUNTER → 2020-02-19 10:54 | Outpatient (CLI) | payer OTHER, MEDICAID, SELFPAY | PROVIDERS: PCP Internal Medicine; Referring Provider Internal Medicine; Visit Provider Family Medicine | DX: S80.821A Blister (nonthermal), right lower leg, initial encounter (principal); S80.822A Blister (nonthermal), left lower leg, initial encounter | CPT/HCPCS: 29581 ==

== ENCOUNTER → 2020-03-09 11:01 | Outpatient (CLI) | payer OTHER, MEDICAID, SELFPAY | PROVIDERS: PCP Internal Medicine; Referring Provider Internal Medicine; Visit Provider Family Medicine | DX: S31.819A Unspecified open wound of right buttock, initial encounter (principal); S31.829A Unspecified open wound of left buttock, initial encounter; L24.89 Irritant contact dermatitis due to other agents; E11.40 Type 2 diabetes mellitus with diabetic neuropathy, unspecified; R60.0 Localized edema | CPT/HCPCS: 97597; 99212 ==

== ENCOUNTER → 2020-03-18 14:18 | Outpatient (CLI) | payer OTHER, MEDICAID, SELFPAY | PROVIDERS: PCP Internal Medicine; Referring Provider Internal Medicine; Visit Provider Family Medicine | DX: S31.819A Unspecified open wound of right buttock, initial encounter (principal); S31.829A Unspecified open wound of left buttock, initial encounter; L24.89 Irritant contact dermatitis due to other agents; E11.40 Type 2 diabetes mellitus with diabetic neuropathy, unspecified | CPT/HCPCS: 99212; 99213 ==

== ENCOUNTER → 2020-04-08 14:31 | Outpatient (CLI) | payer OTHER, MEDICAID, SELFPAY | PROVIDERS: PCP Internal Medicine; Referring Provider Internal Medicine; Visit Provider Family Medicine | DX: S31.819A Unspecified open wound of right buttock, initial encounter (principal); S31.829A Unspecified open wound of left buttock, initial encounter; L24.89 Irritant contact dermatitis due to other agents; E11.40 Type 2 diabetes mellitus with diabetic neuropathy, unspecified | CPT/HCPCS: 99212; 99213 ==

== ENCOUNTER → 2020-05-04 13:51 | Outpatient (CLI) | payer OTHER, MEDICAID, SELFPAY | PROVIDERS: Visit Provider Family Medicine | DX: E11.628 Type 2 diabetes mellitus with other skin complications (principal); S31.819A Unspecified open wound of right buttock, initial encounter; S31.829A Unspecified open wound of left buttock, initial encounter; L24.89 Irritant contact dermatitis due to other agents; E11.40 Type 2 diabetes mellitus with diabetic neuropathy, unspecified; R53.1 Weakness; R60.0 Localized edema; E27.8 Other specified disorders of adrenal gland | CPT/HCPCS: 99212; 99214 ==

== ENCOUNTER → 2020-05-12 08:04 | Outpatient (ROUT) | payer OTHER, MEDICAID, SELFPAY ==
[2020-05-12 08:47] LABS: BUN Creatinine Ratio 26.3 (6-22); Blood Urea Nitrogen 30 mg/dL (9-20); Calcium 9.2 mg/dL (8.4-10.2); Carbon Dioxide 38 mmol/L (22-32); Chloride 97 mmol/L (98-107); Estimated Glomerular Filt Rate > 60.0 mL/min (>60); Glucose 95 mg/dL (80-110); HEMOLYSIS < 15 (0-50); Potassium 4.7 mmol/L (3.4-5.1); Sodium 136 mmol/L (137-145)
[2020-05-12 09:19] LABS: Thyroid Stimulating Hormone 0.918 uIU/mL (0.47-4.68)
[2020-05-21 15:58] LABS: Renin Activity 14.625 ng/mL/hr (0.167-5.380)
== END ==
PROVIDERS: Family Medicine; Visit Provider Nurse Practitioner Gerontology
DX: M62.81 Muscle weakness (generalized) (principal); R53.83 Other fatigue; E66.9 Obesity, unspecified; E11.9 Type 2 diabetes mellitus without complications
CPT/HCPCS: 36415; 80048; 82088; 83036; 84244; 84443

== ENCOUNTER → 2020-05-15 13:26 | Outpatient (CLI) | payer OTHER, MEDICAID, SELFPAY | PROVIDERS: Referring Provider Nurse Practitioner Family; Visit Provider Nurse Practitioner Family | DX: E27.9 Disorder of adrenal gland, unspecified (principal); Z53.20 Procedure and treatment not carried out because of patient's decision for unspecified reasons ==

== ENCOUNTER → 2020-05-25 14:30 | Outpatient (CLI) | payer OTHER, MEDICAID, SELFPAY | PROVIDERS: Referring Provider Internal Medicine; Visit Provider Family Medicine | DX: S31.819A Unspecified open wound of right buttock, initial encounter (principal); S31.829A Unspecified open wound of left buttock, initial encounter; L24.89 Irritant contact dermatitis due to other agents; E11.622 Type 2 diabetes mellitus with other skin ulcer; E27.8 Other specified disorders of adrenal gland | CPT/HCPCS: 99213; 99214 ==

== ENCOUNTER → 2020-06-15 13:57 | Outpatient (CLI) | payer OTHER, MEDICAID, SELFPAY | PROVIDERS: PCP Nurse Practitioner Gerontology; Referring Provider Nurse Practitioner Gerontology; Visit Provider Family Medicine | DX: E11.628 Type 2 diabetes mellitus with other skin complications (principal); S31.819A Unspecified open wound of right buttock, initial encounter; S31.829A Unspecified open wound of left buttock, initial encounter; L24.89 Irritant contact dermatitis due to other agents; E27.8 Other specified disorders of adrenal gland | CPT/HCPCS: 97597; 99214 ==

== ENCOUNTER 2020-07-05 00:21 | Observation (INO) | payer OTHER, MEDICAID, SELFPAY ==
[2020-07-05] VITALS (23 sets, daily range): BP systolic 105–136; BP diastolic 46–80; PULSE 65–89; RESP 20–24; TEMP 36.6–37.5; O2SAT 87–96; BMI 41.7
--- NOTE | 2020-07-05 01:57 | ED.GIBLEED ---
HPI - GI Bleed General Chief complaint: GI Bleed Stated complaint: Rectal Bleed Time Seen by Provider: 07/05/20 01:56 Source: patient and EMS Mode of arrival: EMS Limitations: no limitations History of Present Illness HPI Narrative: This is a 75-year-old male comes emergency department with complaint of rectal bleeding. Patient states he has had hemorrhoids that have been longstanding he has had bright red blood in his stool in the past. He states today he was having a bowel movement. He has been very constipated and there blood present. He is unsure if it was bright or melanotic. He was being assisted at his care facility and he states that they insisted he come here for evaluation. Patient denies fevers, he denies chills. He denies any abdominal pain. He denies any nausea or vomiting. He does state he has been constipated. He denies any urinary symptoms. He states he is on a lot of medications but he does not know what they are. Patient does wear home O2 regularly. He states he has had multiple orthopedic surgeries in the past including on bilateral feet well as hip replacement. Related Data Home Medications Medication Instructions Recorded Confirmed acetaminophen 650 mg PO BID 07/05/20 07/05/20 acetaminophen [Tylenol] 650 mg PO Q6H PRN 07/05/20 07/05/20 albuterol sulfate 2 puff INHALATION BID 07/05/20 07/05/20 albuterol sulfate 2 puff INHALATION Q4H PRN 07/05/20 07/05/20 aspirin 325 mg PO DAILY 07/05/20 07/05/20 baclofen 10 mg PO BID 07/05/20 07/05/20 cholecalciferol (vitamin D3) 5,000 unit PO DAILY 07/05/20 07/05/20 citalopram 30 mg PO DAILY 07/05/20 07/05/20 docusate sodium [Colace] 200 mg PO BID 07/05/20 07/05/20 furosemide [Lasix] 40 mg PO DAILY 07/05/20 07/05/20 furosemide [Lasix] 80 mg PO DAILY 07/05/20 07/05/20 hydrocodone-acetaminophen 1 tab PO Q6H PRN 07/05/20 07/05/20 hydrocortisone [Anusol-HC] ea TOPICAL Q8H PRN 07/05/20 lisinopril 20 mg PO DAILY 07/05/20 07/05/20 loratadine 10 mg PO DAILY 07/05/20 07/05/20 menthol [Biofreeze (menthol)] 1 applic TOPICAL BID 07/05/20 07/05/20 menthol [Biofreeze (menthol)] 1 applic TOPICAL Q4H PRN 07/05/20 07/05/20 metformin 500 mg PO BID 07/05/20 07/05/20 multivitamin with iron-mineral 1 tab PO DAILY 07/05/20 07/05/20 [Multivitamin-Minerals] nystatin 1 applic TOPICAL BID 07/05/20 07/05/20 nystatin 1 applic TOPICAL PRN 07/05/20 potassium chloride 40 meq PO DAILY 07/05/20 07/05/20 sennosides [senna] 8.6 mg PO Q12HR PRN 07/05/20 07/05/20 trazodone 25 mg PO BEDTIME 07/05/20 07/05/20 Allergies Allergy/AdvReac Type Severity Reaction Status Date / Time No Known Drug Allergies Allergy Verified 09/12/19 08:56 Review of Systems Review of Systems ROS Unobtainable: All systems reviewed & are unremarkable except as noted in HPI and below Patient History Medical History (Updated 07/05/20 @ 03:34 by ARIELLE Lopez) Atherosclerotic heart disease of [place] coronary artery without angina pectoris Benign prostatic hyperplasia without lower urinary tract symptoms Cardiomegaly COPD (chronic obstructive pulmonary disease) Essential hypertension History of traumatic brain injury Major depressive disorder Morbid obesity with BMI of 40.0-44.9, adult Muscle weakness (generalized) Nocturia Other abnormalities of gait and mobility Surgical History (Updated 07/05/20 @ 05:52 by ARIELLE Lopez) H/O left knee surgery History of ankle surgery History of foot surgery History of hip surgery Family History Mother Diabetes mellitus Hypertension Father Congestive heart failure Social History household members: caregiver Smoking Status: Former smoker alcohol intake: former Smoking Status: Former smoker tobacco type: cigarettes alcohol intake frequency: 0-2 drinks per day Substance Use Type: does not use Exam Initial Vital Signs Initial Vital Signs: Vital Signs Temperature 99.5 F 07/05/20 00:25 Pulse Rate 65 07/05/20 00:25 Respiratory Rate 22 07/05/20 00:25 Blood Pressure 135/80 07/05/20 00:25 Pulse Oximetry 94 07/05/20 00:25 GENERAL: Alert and oriented x three obese male in mild distress. HEENT: Head normocephalic, atraumatic, EOMI, pupils reactive, face symmetric, moist mucous membranes, patient is on nasal cannula. NECK: Supple, full range of motion CARDIOVASCULAR: Regular rate and rhythm without murmurs, rubs or gallops. RESPIRATORY: Breath sounds equal bilaterally, no wheezes rales or rhonchi. ABDOMEN: Soft, nontender. Normoactive bowel sounds all 4 quadrants. No guarding or rebound, rigidity, no mass, patient does have hemorrhoids present. There is some scant bright red blood on the bed and on stool occult positive guaiac. Patient also has significant erythema and some skin breakdown of the buttocks as well as perineal area. : No CVA tenderness EXTREMITIES: Normal range of motion, no clubbing or edema. Neurovascularly intact NEUROLOGICAL: Cranial nerves II through XII grossly intact. Moving all extremities. SKIN: Warm, dry, patient has some erythema bilateral feet. No warmth to the area. Course Orders Ordered: ED Orders 07/05/20 01:50 Complete Blood Count AUTO DIFF Stat Comprehensive Metabolic Panel Stat Partial Thromboplastin Time Stat Prothrombin Time INR Stat 07/05/20 03:10 COVID19 Stat Acetaminophen (Acetaminophen 325 Mg Tablet) 650 mg PO Q6HR PRN PRN Reason: Fever/Mild Pain (1-3) Acetaminophen (Acetaminophen 325 Mg Tablet) 650 mg PO Q6H PRN PRN Reason: pain management Hydrocodone Bitart/Acetaminophen (Hydrocodone/Acet 5/325 Tablet) 1 tab PO Q6H PRN PRN Reason: pain management Albuterol/Ipratropium (Albuterol/Ipratropium 3 Ml Ampul) 3 ml INH RTQ4HR JF Albuterol/Ipratropium (Albuterol/Ipratropium 3 Ml Ampul) 3 ml INH RTQ4HR PRN PRN Reason: Shortness Of Breath Aspirin (Aspirin 325 Mg Tablet) 325 mg PO DAILY JF Baclofen (Baclofen 10 Mg Tablet) 10 mg PO BID PRN PRN Reason: Muscle Pain Citalopram Hydrobromide (Citalopram 10 Mg Tablet) 30 mg PO DAILY JF Dextrose (Dextrose 50 % In Water 25 Gm/50 Ml Syringe) 25 gm IV PRN PRN PRN Reason: Hypoglycemia Docusate Sodium (Docusate 100 Mg Capsule) 100 mg PO BID JF Sodium Chloride (Normal Saline 0.9%) 1,000 mls @ 125 mls/hr IV CONT JF Last Infusion: 07/05/20 04:05 Dose: 0 mls/hr Documented by: Admin: 07/05/20 03:12 Dose: 125 mls/hr Documented by: NEDA Sodium Chloride (Normal Saline 0.9%) 1,000 mls @ 60 mls/hr IV CONT JF Last Admin: 07/05/20 04:18 Dose: 60 mls/hr Documented by: AMELIA Insulin Aspart (Insulin Aspart 100 Unit/Ml Insuln Pen) 0 unit SUBCUT ACHS [facility]; Protocol Lisinopril (Lisinopril 20 Mg Tablet) 20 mg PO DAILY [facility] Naloxone HCl (Naloxone 0.4 Mg/Ml Vial) 0.2 mg IV Q2MIN PRN PRN Reason: Opiate Reversal Nystatin (Nystatin Powder 15gm) 1 applic TOP BID [facility] Ondansetron HCl (Ondansetron 4 Mg Odt) 4 mg PO Q8HR PRN PRN Reason: Nausea And Vomiting Pantoprazole Sodium (Pantoprazole 20 Mg Tablet) 20 mg PO 0600 [facility] Sennosides (Sennosides 8.6 Mg Tablet) 17.2 mg PO BEDTIME [facility] Trazodone HCl (Trazodone 50 Mg Tablet) 25 mg PO BEDTIME [facility] Discontinued Medications Acetaminophen (Acetaminophen 325 Mg Tablet) 975 mg PO NOW ONE Stop: 07/05/20 04:06 Last Admin: 07/05/20 04:45 Dose: Not Given Documented by: AMELIA Pantoprazole Sodium (Pantoprazole 40 Mg Vial) 40 mg IV NOW ONE Stop: 07/05/20 03:59 Last Admin: 07/05/20 04:39 Dose: 40 mg Documented by: AMELIA Reevaluation(s) Reevaluation #1: patient states he is feeling bored but otherwise fine. Reviewed his labs and findings from tonight. Time: 03:00 Consultations Consultation #1: Spoke with Dr. Padilla general surgery she is happy to consult on the patient this morning. Time: 03:00 Consultation #2: Spoke with SEEDLING SORTER Binh. Will get covid and will see patient. Time: 03:09 Vital Signs Vital signs: Vital Signs - 8 hr 07/05/20 00:25 07/05/20 00:28 07/05/20 00:30 Temperature 99.5 F Pulse Rate 65 69 71 Respiratory Rate 22 Blood Pressure 135/80 135/80 135/69 Pulse Oximetry 94 94 94 07/05/20 01:00 07/05/20 01:01 07/05/20 01:30 Temperature Pulse Rate 80 74 71 Respiratory Rate Blood Pressure 123/58 L Pulse Oximetry 95 95 94 07/05/20 02:00 07/05/20 02:13 07/05/20 02:22 Temperature Pulse Rate 74 72 69 Respiratory Rate Blood Pressure 123/60 136/64 Pulse Oximetry 87 L 94 95 07/05/20 02:30 07/05/20 03:01 Temperature Pulse Rate 69 69 Respiratory Rate Blood Pressure 126/60 128/62 Pulse Oximetry 95 95 MDM - GI Bleed Lab Data Attestation: I reviewed the patient's lab results. Result diagrams: 07/05/20 04:33 07/05/20 04:33 Labs: Lab Results 07/05/20 07/05/20 07/05/20 Range/Units 01:50 01:50 01:50 WBC 7.1 (4.5-11.0) X10^3/uL RBC 4.01 L (4.5-5.9) X10^6/uL Hgb 12.2 L (13.5-17.5) g/dL Hct 38.1 L (41-53) % MCV 95.0 (80-100) fL MCH 30.4 (26-34) PG MCHC 32.0 (30-36) % RDW 13.7 (11.6-14.8) % Plt Count 180 (150-400) X10^3/uL Neut % (Auto) 62.5 (50-75) % Lymph % (Auto) 20.7 L (25-40) % [place] % (Auto) 12.0 (3-14) % Eos % (Auto) 4.6 H (2-4) % Baso % (Auto) 0.2 (0-2) % Neut # (Auto) 4400 (0738-2734) /uL Lymph # (Auto) 1500 (8482-6789) /uL [place] # (Auto) 800 (0-900) /uL Eos # (Auto) 300 (0-450) /uL Baso # (Auto) 0 (0-100) /uL PT 11.1 (10.1-12.7) SECONDS INR 1.0 (0.9-1.3) APTT 32 (26.4-36.2) SECONDS Sodium 137 (137-145) mmol/L Potassium 5.2 H (3.4-5.1) mmol/L Chloride 94 L (98-107) mmol/L Carbon Dioxide 40 H* (22-32) mmol/L BUN 38 H (9-20) mg/dL Creatinine 1.30 H (0.66-1.25) mg/dL Estimated GFR 53.7 L (>60) mL/min BUN/Creatinine Ratio 29.2 H (6-22) Glucose 100 (80-110) mg/dL Hemoglobin A1c (4.0-6.0) % Calcium 9.4 (8.4-10.2) mg/dL Magnesium (1.6-2.3) mg/dL Total Bilirubin 0.2 (0.2-1.3) mg/dL AST 21 (17-59) IU/L ALT 19 (<50) IU/L Alkaline Phosphatase 47 (38-126) U/L Total Protein 6.6 (6.3-8.2) g/dL Albumin 3.8 (3.5-5.0) g/dL Globulin 2.8 (1.7-4.1) g/dL Albumin/Globulin Ratio 1.4 (1.0-2.8) SARS-CoV-2 (PCR) (Negative) 07/05/20 07/05/20 07/05/20 Range/Units 01:50 01:50 03:10 WBC (4.5-11.0) X10^3/uL RBC (4.5-5.9) X10^6/uL Hgb (13.5-17.5) g/dL Hct (41-53) % MCV (80-100) fL MCH (26-34) PG MCHC (30-36) % RDW (11.6-14.8) % Plt Count (150-400) X10^3/uL Neut % (Auto) (50-75) % Lymph % (Auto) (25-40) % [place] % (Auto) (3-14) % Eos % (Auto) (2-4) % Baso % (Auto) (0-2) % Neut # (Auto) (0994-8038) /uL Lymph # (Auto) (1233-3177) /uL [place] # (Auto) (0-900) /uL Eos # (Auto) (0-450) /uL Baso # (Auto) (0-100) /uL PT (10.1-12.7) SECONDS INR (0.9-1.3) APTT (26.4-36.2) SECONDS Sodium (137-145) mmol/L Potassium (3.4-5.1) mmol/L Chloride (98-107) mmol/L Carbon Dioxide (22-32) mmol/L BUN (9-20) mg/dL Creatinine (0.66-1.25) mg/dL Estimated GFR (>60) mL/min BUN/Creatinine Ratio (6-22) Glucose (80-110) mg/dL Hemoglobin A1c 6.2 H (4.0-6.0) % Calcium (8.4-10.2) mg/dL Magnesium 1.9 (1.6-2.3) mg/dL Total Bilirubin (0.2-1.3) mg/dL AST (17-59) IU/L ALT (<50) IU/L Alkaline Phosphatase (38-126) U/L Total Protein (6.3-8.2) g/dL Albumin (3.5-5.0) g/dL Globulin (1.7-4.1) g/dL Albumin/Globulin Ratio (1.0-2.8) SARS-CoV-2 (PCR) Negative (Negative) Point of Care Testing Stool Occult Blood Positive Urine Dip Bedside Urine Glucose Negative Bedside Urine Bilirubin - Negative Bedside Urine Ketone - Negative Urine Specific [place] 1.025 Bedside Urine Occult Blood - Negative Bedside Urine pH 6.0 Bedside Urine Protein - Negative Bedside Urine Urobilinogen - Negative Bedside Urine Nitrite - Negative Bedside Urine Leukocytes - Negative Esterase MDM Narrative Medical decision making narrative: 75 year old male comes in with complaint of rectal bleeding. Patient did not visualize the bleeding but the staff at his assisted living were concerned enough to that patient need to be seen in the emergency department. Patient hemoglobin is 12 today with prior from October at 14. Patient has some mild electrolyte abnormalities with a potassium of 5.2, creatinine is slightly elevated 1.3 but fairly close to his normal baseline. Suspect he has slightly dry from his regular medications. Stool occult patient has bright red blood on exam with hemorrhoids. Unclear if all of his bleeding is hemorrhoidal. He is on aspirin 325 mg. Discussed with general surgery is happy to consult with the patient. He seems stable here in the department today. Patient was admitted for observation to the hospitalist. Discharge Plan Departure Patient Disposition: Admitted as Observation Clinical Impression: Bright red rectal bleeding, Anemia Admit Date/Time: 07/05/20 03:11 Admit Provider: Rosaura Purcell
[2020-07-05 02:05] LABS: Add Manual Diff / Slide Review NO; Basophils Absolute Auto 0 /uL (0-100); Basophils Percent Auto 0.2 % (0-2); Eosinophils Absolute Auto 300 /uL (0-450); Eosinophils Percent Auto 4.6 % (2-4); Hematocrit 38.1 % (41-53); Hemoglobin 12.2 g/dL (13.5-17.5); Lymphocytes Absolute Auto 1500 /uL (1100-4500); Lymphocytes Percent Auto 20.7 % (25-40); Mean Corpuscular Hemoglobin 30.4 PG (26-34); Monocytes Absolute Auto 800 /uL (0-900); Neutrophils Absolute Auto 4400 /uL (1500-7000); Neutrophils Percent Auto 62.5 % (50-75); Platelet Count 180 X10^3/uL (150-400); Red Blood Cell Count 4.01 X10^6/uL (4.5-5.9); Red Cell Distribution Width 13.7 % (11.6-14.8); White Blood Cell Count 7.1 X10^3/uL (4.5-11.0)
[2020-07-05 02:09] LABS: Prothrombin Time 11.1 SECONDS (10.1-12.7)
[2020-07-05 02:12] LABS: PTT Partial Thromboplastin Tim 32 SECONDS (26.4-36.2)
[2020-07-05 02:13] LABS: Alanine Aminotransferase 19 IU/L (<50); Albumin 3.8 g/dL (3.5-5.0); Albumin Globulin Ratio 1.4 (1.0-2.8); Alkaline Phosphatase 47 U/L (38-126); Aspartate Aminotransferase 21 IU/L (17-59); BUN Creatinine Ratio 29.2 (6-22); Bilirubin Total 0.2 mg/dL (0.2-1.3); Blood Urea Nitrogen 38 mg/dL (9-20); Calcium 9.4 mg/dL (8.4-10.2); Chloride 94 mmol/L (98-107); Estimated Glomerular Filt Rate 53.7 mL/min (>60); Globulin 2.8 g/dL (1.7-4.1); Glucose 100 mg/dL (80-110); HEMOLYSIS < 15 (0-50); Sodium 137 mmol/L (137-145); Total Protein 6.6 g/dL (6.3-8.2)
[2020-07-05 02:22] LABS: Carbon Dioxide 40 mmol/L (22-32); Potassium 5.2 mmol/L (3.4-5.1)
[2020-07-05] MEDS: SODIUM CHLORIDE 0.9% 1,000 ML 125 ML IV (03:12)
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
[2020-07-05 03:33] LABS: COVID19 -Nasal RAPID Negative (Negative)
[2020-07-05] MEDS: SODIUM CHLORIDE 0.9% 1,000 ML 60 ML IV ×2 (04:18→20:25)
[2020-07-05 04:22] LABS: Magnesium 1.9 mg/dL (1.6-2.3)
[2020-07-05 04:28] LABS: Hemoglobin A1C% w Est Avg Glu 6.2 % (4.0-6.0)
[2020-07-05] MEDS: PANTOPRAZOLE 40 MG VIAL IV (04:39)
[2020-07-05 04:56] LABS: Prothrombin Time 11.6 SECONDS (10.1-12.7)
[2020-07-05 04:57] LABS: Add Manual Diff / Slide Review NO; Basophils Absolute Auto 0 /uL (0-100); Basophils Percent Auto 0.5 % (0-2); Eosinophils Absolute Auto 400 /uL (0-450); Eosinophils Percent Auto 5.3 % (2-4); Hematocrit 37.4 % (41-53); Hemoglobin 12.2 g/dL (13.5-17.5); Lymphocytes Absolute Auto 1600 /uL (1100-4500); Lymphocytes Percent Auto 22.8 % (25-40); Mean Corpuscular HGB Conc 32.5 % (30-36); Mean Corpuscular Hemoglobin 30.8 PG (26-34); Mean Corpuscular Volume 94.8 fL (80-100); Monocytes Absolute Auto 700 /uL (0-900); Monocytes Percent Auto 10.5 % (3-14); Neutrophils Absolute Auto 4300 /uL (1500-7000); Neutrophils Percent Auto 60.9 % (50-75); Platelet Count 176 X10^3/uL (150-400); Red Blood Cell Count 3.94 X10^6/uL (4.5-5.9)
[2020-07-05 05:04] LABS: Alanine Aminotransferase 19 IU/L (<50); Albumin 3.7 g/dL (3.5-5.0); Albumin Globulin Ratio 1.3 (1.0-2.8); Alkaline Phosphatase 45 U/L (38-126); Aspartate Aminotransferase 24 IU/L (17-59); BUN Creatinine Ratio 29.8 (6-22); Bilirubin Total 0.2 mg/dL (0.2-1.3); Blood Urea Nitrogen 37 mg/dL (9-20); Calcium 9.2 mg/dL (8.4-10.2); Chloride 93 mmol/L (98-107); Estimated Glomerular Filt Rate 56.7 mL/min (>60); Globulin 2.8 g/dL (1.7-4.1); Glucose 100 mg/dL (80-110); HEMOLYSIS < 15 (0-50); Potassium 4.9 mmol/L (3.4-5.1); Sodium 136 mmol/L (137-145); Total Protein 6.5 g/dL (6.3-8.2)
--- NOTE | 2020-07-05 05:07 | DI.CT.S_ITS ---
PROCEDURE: CT CHEST WO CON INDICATIONS: SOB exac/morbidobesity w/o con TECHNIQUE: Noncontrast 5 mm thick sections acquired from the pulmonary apices to the posterior costophrenic angles. 1 mm lung window, 5 mm thick coronal and sagittal and 7 mm axial MIP reformats were then acquired. For radiation dose reduction, the following was used: automated exposure control, adjustment of mA and/or kV according to patient size. COMPARISON: [facility], CT, CT ANGIO CHEST PE PROTOCOL, 09/12/2019, 9:24. [facility], [place], PET NECK TO MID THIGH, 05/13/2020, 9:52. [facility], CT, CT CHEST WO CON, 12/03/2019, 12:03. FINDINGS: Image quality: Excellent. Lungs and pleura: Moderate centrilobular emphysema. A 1.4 cm left lower lobe pulmonary nodule is unchanged from the initial CT chest imaging study dated 09/12/2019. Interestingly, it had the appearance of a solid pulmonary nodule on the initial study, but on more recent imaging, appear to represent a subsolid pulmonary nodule. It again has a solid appearance. Minimal bibasilar scarring, left greater than right. No acute air space opacities. No pleural effusions or pneumothorax. Central and peripheral airways are patent and normal in caliber. Mediastinum: Heart size is normal. No pericardial effusion. No mediastinal adenopathy by size criteria. Thoracic aorta and central pulmonary arteries are normal in size. Esophagus is normal in caliber. No hiatal hernia. Bones and chest wall: No suspicious bony lesions. No vertebral body compression fractures. No axillary or supraclavicular adenopathy by size criteria. Thyroid gland is unremarkable as imaged. Abdomen: Diffuse hepatic steatosis. Visualized upper abdominal solid organs and bowel loops otherwise appear normal in the absence of contrast. IMPRESSION: 1. Moderate centrilobular emphysema. 2. Unchanged 1.4 cm left lower lobe pulmonary nodule. 3. No evidence acute pulmonary process. 4. Diffuse hepatic steatosis. Comment: As per recent PET-CT dated 05/13/2020, the left lower lobe pulmonary nodule has low FDG activity. However, it could potentially represent a indolent adenocarcinoma. Therefore, follow-up CT is recommended in 6 months. Dictated by: Vidal Garibay M.D. on 07/05/2020 at 7:50 Approved by: Vidal Garibay M.D. on 07/05/2020 at 8:03
[2020-07-05 05:11] LABS: Carbon Dioxide 39 mmol/L (22-32)
[2020-07-05] MEDS: ALBUTEROL/IPRATROPIUM 3 ML AMPUL INH ×4 (05:32→19:32)
[2020-07-05 06:14] LABS: HEMOLYSIS < 15 (0-50); Iron 55 ug/dL (49-181); Lactate (Lactic Acid) 0.9 mmol/L (0.7-2.1)
[2020-07-05 06:24] LABS: Percent Iron Saturation 18 % (20-50); Total Iron Binding Capacity 303 ug/dL (261-462); Transferrin 213 mg/dL (206-381)
--- NOTE | 2020-07-05 06:26 | PC.NURSE ---
[id number] Pt. was first assigned to room 221, but the lift in the room is not functioning. He was moved to room 218, pt. reported he's bed & wheel chair bound in [place] assisted [facility]. Reported he has multiple falls, fall precautions implemented. Denies any CP & other discomfort. Oriented to his room, poor historian not able to recall 's, daughter's cell or telephone numbers. States I keep their tel. phone numbers in [place]. Will get info.from [place] [facility]. Cont. POC & monitor.
--- NOTE | 2020-07-05 09:00 | P.CONS_ITS ---
History of Present Illness Consult details Date Patient Seen: 07/05/20 Time Patient Seen: 09:00 Chief complaint: Rectal Bleed Reason for consult: rectal bleeding and anemia Requesting provider: Sarah Bailey Narrative: Patient brought to ED after BM with bright red blood. no other symptoms, no bm since that time. Hydrodynamics normal, no pain, no GI distress. has history of hemorrhoids. last colonoscopy was 4 - 5 years ago where polyps where found. Meds Home Medications and Allergies Home Medications Medication Instructions Recorded Confirmed Type acetaminophen 650 mg PO BID 07/05/20 07/05/20 History acetaminophen [Tylenol] 650 mg PO Q6H PRN 07/05/20 07/05/20 History albuterol sulfate 2 puff INHALATION BID 07/05/20 07/05/20 History albuterol sulfate 2 puff INHALATION Q4H PRN 07/05/20 07/05/20 History aspirin 325 mg PO DAILY 07/05/20 07/05/20 History baclofen 10 mg PO BID 07/05/20 07/05/20 History cholecalciferol (vitamin D3) 5,000 unit PO DAILY 07/05/20 07/05/20 History citalopram 30 mg PO DAILY 07/05/20 07/05/20 History docusate sodium [Colace] 200 mg PO BID 07/05/20 07/05/20 History furosemide [Lasix] 40 mg PO DAILY 07/05/20 07/05/20 History furosemide [Lasix] 80 mg PO DAILY 07/05/20 07/05/20 History hydrocodone-acetaminophen 1 tab PO Q6H PRN 07/05/20 07/05/20 History hydrocortisone [Anusol-HC] ea TOPICAL Q8H PRN 07/05/20 History lisinopril 20 mg PO DAILY 07/05/20 07/05/20 History loratadine 10 mg PO DAILY 07/05/20 07/05/20 History menthol [Biofreeze (menthol)] 1 applic TOPICAL BID 07/05/20 07/05/20 History menthol [Biofreeze (menthol)] 1 applic TOPICAL Q4H PRN 07/05/20 07/05/20 History metformin 500 mg PO BID 07/05/20 07/05/20 History multivitamin with iron-mineral 1 tab PO DAILY 07/05/20 07/05/20 History [Multivitamin-Minerals] nystatin 1 applic TOPICAL BID 07/05/20 07/05/20 History nystatin 1 applic TOPICAL PRN 07/05/20 History potassium chloride 40 meq PO DAILY 07/05/20 07/05/20 History sennosides [senna] 8.6 mg PO Q12HR PRN 07/05/20 07/05/20 History trazodone 25 mg PO BEDTIME 07/05/20 07/05/20 History Allergies Allergy/AdvReac Type Severity Reaction Status Date / Time No Known Drug Allergies Allergy Verified 09/12/19 08:56 Review of Systems Review of Systems Narrative: blood in stool, cough, SOB ROS: Yes All systems reviewed with the patient and are negative except as otherwise documented Exam Vital Signs (past 8 hours): - 07/05/20 01:01 07/05/20 01:30 07/05/20 02:00 Temperature Pulse Rate 74 71 74 Respiratory Rate Blood Pressure 123/58 L Pulse Oximetry 95 94 87 L 07/05/20 02:13 07/05/20 02:22 07/05/20 02:30 Temperature Pulse Rate 72 69 69 Respiratory Rate Blood Pressure 123/60 136/64 126/60 Pulse Oximetry 94 95 95 07/05/20 03:01 07/05/20 03:31 07/05/20 04:45 Temperature 97.8 F Pulse Rate 69 70 75 Respiratory Rate 22 Blood Pressure 128/62 134/62 115/46 L Pulse Oximetry 95 95 96 07/05/20 05:32 07/05/20 05:53 07/05/20 08:00 Temperature 97.8 F Pulse Rate 89 68 Respiratory Rate 22 21 Blood Pressure 110/67 Pulse Oximetry 95 95 93 07/05/20 08:49 Temperature Pulse Rate 74 Respiratory Rate 20 Blood Pressure Pulse Oximetry 95 Oxygen Delivery Method Nasal Cannula Oxygen Flow Rate 3 Const General: cooperative Nutritional Appearance: obese Orientation: alert and awake [facility] Head: normocephalic and atraumatic Eyes General: appearance normal, both eyes and all related structures Neck Neck: trachea midline Chest Chest: normal inspection of the chest Resp Effort & Inspection: able to speak in complete sentences and cough Quality of cough: wet Cardio Rate: regular rate Rhythm: abnormal rhythm GI Inspection: obesity Palpation: soft Other: non tender Skin General: turgor normal Neuro General: patient alert, patient awake and patient oriented x3 Psych Appearance: grossly normal and disheveled Judgment: judgment good Objective Labs Result Diagrams: 07/05/20 04:33 07/05/20 04:33 Labs: Laboratory Results - last 24 hr 07/05/20 07/05/20 07/05/20 01:50 01:50 01:50 WBC 7.1 RBC 4.01 L Hgb 12.2 L Hct 38.1 L MCV 95.0 MCH 30.4 MCHC 32.0 RDW 13.7 Plt Count 180 Neut % (Auto) 62.5 Lymph % (Auto) 20.7 L [place] % (Auto) 12.0 Eos % (Auto) 4.6 H Baso % (Auto) 0.2 Neut # (Auto) 4400 Lymph # (Auto) 1500 [place] # (Auto) 800 Eos # (Auto) 300 Baso # (Auto) 0 Percent Retic PT 11.1 INR 1.0 APTT 32 Sodium 137 Potassium 5.2 H Chloride 94 L Carbon Dioxide 40 H* BUN 38 H Creatinine 1.30 H Estimated GFR 53.7 L BUN/Creatinine Ratio 29.2 H Glucose 100 Hemoglobin A1c Lactate Calcium 9.4 Magnesium Iron TIBC % Saturation Transferrin Total Bilirubin 0.2 AST 21 ALT 19 Alkaline Phosphatase 47 Total Protein 6.6 Albumin 3.8 Globulin 2.8 Albumin/Globulin Ratio 1.4 SARS-CoV-2 (PCR) Blood Type Antibody Screen 07/05/20 07/05/20 07/05/20 01:50 01:50 01:50 WBC RBC Hgb Hct MCV MCH MCHC RDW Plt Count Neut % (Auto) Lymph % (Auto) [place] % (Auto) Eos % (Auto) Baso % (Auto) Neut # (Auto) Lymph # (Auto) [place] # (Auto) Eos # (Auto) Baso # (Auto) Percent Retic PT INR APTT Sodium Potassium Chloride Carbon Dioxide BUN Creatinine Estimated GFR BUN/Creatinine Ratio Glucose Hemoglobin A1c 6.2 H Lactate 0.9 Calcium Magnesium 1.9 Iron TIBC % Saturation Transferrin Total Bilirubin AST ALT Alkaline Phosphatase Total Protein Albumin Globulin Albumin/Globulin Ratio SARS-CoV-2 (PCR) Blood Type Antibody Screen 07/05/20 07/05/20 07/05/20 01:50 03:10 04:33 WBC RBC Hgb Hct MCV MCH MCHC RDW Plt Count Neut % (Auto) Lymph % (Auto) [place] % (Auto) Eos % (Auto) Baso % (Auto) Neut # (Auto) Lymph # (Auto) [place] # (Auto) Eos # (Auto) Baso # (Auto) Percent Retic PT INR APTT Sodium Potassium Chloride Carbon Dioxide BUN Creatinine Estimated GFR BUN/Creatinine Ratio Glucose Hemoglobin A1c Lactate Calcium Magnesium Iron 55 TIBC 303 % Saturation 18 L Transferrin 213 Total Bilirubin AST ALT Alkaline Phosphatase Total Protein Albumin Globulin Albumin/Globulin Ratio SARS-CoV-2 (PCR) Negative Blood Type AB Positive Antibody Screen Negative 07/05/20 07/05/20 07/05/20 04:33 04:33 04:33 WBC 7.0 RBC 3.94 L Hgb 12.2 L Hct 37.4 L MCV 94.8 MCH 30.8 MCHC 32.5 RDW 14.0 Plt Count 176 Neut % (Auto) 60.9 Lymph % (Auto) 22.8 L [place] % (Auto) 10.5 Eos % (Auto) 5.3 H Baso % (Auto) 0.5 Neut # (Auto) 4300 Lymph # (Auto) 1600 [place] # (Auto) 700 Eos # (Auto) 400 Baso # (Auto) 0 Percent Retic PT 11.6 INR 1.0 APTT Sodium 136 L Potassium 4.9 Chloride 93 L Carbon Dioxide 39 H BUN 37 H Creatinine 1.24 Estimated GFR 56.7 L BUN/Creatinine Ratio 29.8 H Glucose 100 Hemoglobin A1c Lactate Calcium 9.2 Magnesium Iron TIBC % Saturation Transferrin Total Bilirubin 0.2 AST 24 ALT 19 Alkaline Phosphatase 45 Total Protein 6.5 Albumin 3.7 Globulin 2.8 Albumin/Globulin Ratio 1.3 SARS-CoV-2 (PCR) Blood Type Antibody Screen 07/05/20 04:33 WBC RBC Hgb Hct MCV MCH MCHC RDW Plt Count Neut % (Auto) Lymph % (Auto) [place] % (Auto) Eos % (Auto) Baso % (Auto) Neut # (Auto) Lymph # (Auto) [place] # (Auto) Eos # (Auto) Baso # (Auto) Percent Retic 2.0 PT INR APTT Sodium Potassium Chloride Carbon Dioxide BUN Creatinine Estimated GFR BUN/Creatinine Ratio Glucose Hemoglobin A1c Lactate Calcium Magnesium Iron TIBC % Saturation Transferrin Total Bilirubin AST ALT Alkaline Phosphatase Total Protein Albumin Globulin Albumin/Globulin Ratio SARS-CoV-2 (PCR) Blood Type Antibody Screen Assessment & Plan Assessment & Plan narrative: GI bleed with associated mild anemia in a male with multiple comorbidities including COPD, obesity and diabetes. Plan: bowel prep and colonoscopy tomorrow. COVID-19 COVID-19 status: Negative Time Spent With Patient Time with patient: 25 - 35 minutes
[2020-07-05] MEDS: ASPIRIN 325 MG TABLET PO (10:00)
[2020-07-05] MEDS: CITALOPRAM 10 MG TABLET 30 MG PO (10:00)
[2020-07-05] MEDS: PEG3350/SOD SULF,BICARB,CL/KCL 4,000 ML SOLUTION 4000 ML PO (10:00)
[2020-07-05] MEDS: lisinopriL 20 MG TABLET PO (10:00)
[2020-07-05] MEDS: NYSTATIN POWDER 15GM 1 APPLIC TOP ×2 (10:01→20:26)
[2020-07-05] MEDS: HYDROCODONE/ACET 5/325 TABLET 1 TAB PO ×2 (10:20→20:26)
--- NOTE | 2020-07-05 12:50 | PC.NURSE ---
Assess-Patient is alert and oriented x3. Given 1 hydrocodone for neck discomfort and helpful. Patient just started on his bowel prep after he ate a carb consistent diet, he will now be clear liquid diet and npo after midnight. Tele taken off as patient has too much body hair even after shaving area's off. He uses the urinal to void and is unable to stand or ambulate at this time. He lives in assisted living and is in wheel chair bound. BS wnl and no sliding scale coverage needed. He does have some skin issues and these can be seen under physical assessment under work list. Gown changed and he is watching television. Patient will either use the bedpan when he starts having bowel movements from prep or may use a sit to stand key. We will get orders as needed when patient needs to start getting up.
--- NOTE | 2020-07-05 14:32 | P.EN_ITS ---
Event Note Date Patient Seen: 07/05/20 Event Note: Patient was seen in follow-up from his admission earlier this morning. Patient is a 75-year-old male with history of DM 2, COPD, chronic hypoxic respiratory failure on 3 liters/minute HTN, TBI/major depression, morbid obesity who presents to the ED via EMS from an assisted living facility with complaint of rectal bleeding. Blood was noted on his sheets. Patient states that he was unaware of any bleeding other than reported to him by the nursing staff. Patient's body habitus makes it impossible for him to visualize rectal bleeding. He was therefore admitted for his rectal bleeding. Also when seen on the floor during admission he was significantly tachypneic and short of breath, audible respiratory wheezing, using accessory muscles following transfer by lift from [facility] to the bed. Because of his pulmonary symptoms he underwent CT chest noncontrast which revealed: 1. Moderate centrilobular emphysema. 2. Unchanged 1.4 cm left lower lobe pulmonary nodule. 3. No evidence acute pulmonary process. 4. Diffuse hepatic steatosis. He is felt to have COPD exacerbation His H&H has remained stable at 12.2. He is hemodynamically stable with blood pressure is 105/56-115/46 and heart rate 68-89 On my exam is a morbidly obese male with some tachypnea but no respiratory distress no chest pain Plan will continue as per DANISHA Lopez, [facility] hospitalist Service Surgery has seen and plan on colonoscopy in a.m.
--- NOTE | 2020-07-05 15:14 | CM.DANOTE ---
Discharge Planning/Care Management DCP: assessment: case received, EMR reviewed and met with pt. Introduced self and role. Pt is a 75 year old male who admitted early this morning to care of hospitalist team. Consulting: [facility] team: colonoscopy is planned for tomorrow. Pt reports he has been living at [facility] [place] for about 4 months. Prior to this he was in [place]. Has a daughter Aylin in [place]. Pt admits with signs of rectal bleeding. Carries dx of morbid obesity (342 lbs). He states he sleeps in a special recliner at the facility. Uses supplemental oxygen / for COPD). Mobility is very limited. Recliner: up via key lift to manual w/c and also to Bedside commode. Says he has a motorized w/c but they don't let me use it in the facility. He hopes to return to [facility] when ok'd for d/c. DCP team will follow tomorrow with [facility] staff. CM Discharge Assessment Start: 07/05/20 15:12 Freq: Status: Active Protocol: Document 07/05/20 15:12 ITV (Rec: 07/05/20 15:14 ITV [id number]) Discharge Planning Assessment Advance Directives? Yes: POLST History Provided By Patient,Medical Record Prior Living Arrangements Assisted Living Facility Name Admitted From: [facility] Willing to Return to Facility? Yes Independent with ADL's No Is patient alert and oriented? Yes Comment has all needed DME at his Assisted living facility Discharge Plan Assisted Living Facility Review Status In Process
[2020-07-05] MEDS: SENNOSIDES 8.6 MG TABLET 17.2 MG PO (20:26)
[2020-07-05] MEDS: TRAZODONE 50 MG TABLET 25 MG PO (20:26)
[2020-07-05] MEDS: DOCUSATE 100 MG CAPSULE PO (20:26)
[2020-07-06] VITALS (16 sets, daily range): BP systolic 107–134; BP diastolic 53–63; PULSE 57–85; RESP 18–24; TEMP 36.4–36.8; O2SAT 92–97
[2020-07-06] MEDS: BACLOFEN 10 MG TABLET PO (04:21)
[2020-07-06 05:09] LABS: Add Manual Diff / Slide Review NO; Basophils Absolute Auto 0 /uL (0-100); Basophils Percent Auto 0.3 % (0-2); Eosinophils Absolute Auto 300 /uL (0-450); Eosinophils Percent Auto 4.4 % (2-4); Hematocrit 34.6 % (41-53); Hemoglobin 11.4 g/dL (13.5-17.5); INR 1.1 (0.9-1.3); Lymphocytes Absolute Auto 1100 /uL (1100-4500); Lymphocytes Percent Auto 19.7 % (25-40); Mean Corpuscular HGB Conc 32.9 % (30-36); Mean Corpuscular Hemoglobin 30.9 PG (26-34); Monocytes Absolute Auto 600 /uL (0-900); Monocytes Percent Auto 10.8 % (3-14); Neutrophils Absolute Auto 3700 /uL (1500-7000); Neutrophils Percent Auto 64.8 % (50-75); Platelet Count 154 X10^3/uL (150-400); Prothrombin Time 12.7 SECONDS (10.1-12.7); Red Blood Cell Count 3.68 X10^6/uL (4.5-5.9); Red Cell Distribution Width 14.1 % (11.6-14.8); White Blood Cell Count 5.7 X10^3/uL (4.5-11.0)
[2020-07-06 05:17] LABS: Alanine Aminotransferase 19 IU/L (<50); Albumin 3.5 g/dL (3.5-5.0); Albumin Globulin Ratio 1.3 (1.0-2.8); Alkaline Phosphatase 46 U/L (38-126); Aspartate Aminotransferase 28 IU/L (17-59); Bilirubin Total 0.3 mg/dL (0.2-1.3); Blood Urea Nitrogen 30 mg/dL (9-20); Calcium 8.7 mg/dL (8.4-10.2); Carbon Dioxide 38 mmol/L (22-32); Chloride 95 mmol/L (98-107); Estimated Glomerular Filt Rate > 60.0 mL/min (>60); Globulin 2.7 g/dL (1.7-4.1); Glucose 96 mg/dL (80-110); HEMOLYSIS < 15 (0-50); Potassium 4.5 mmol/L (3.4-5.1); Sodium 135 mmol/L (137-145); Total Protein 6.2 g/dL (6.3-8.2)
[2020-07-06] MEDS: PEG3350/SOD SULF,BICARB,CL/KCL 4,000 ML SOLUTION 4000 ML PO ×2 (09:28→22:08)
[2020-07-06] MEDS: lisinopriL 20 MG TABLET PO (09:28)
[2020-07-06] MEDS: DOCUSATE 100 MG CAPSULE PO ×2 (09:28→22:08)
[2020-07-06] MEDS: CITALOPRAM 10 MG TABLET 30 MG PO (09:28)
[2020-07-06] MEDS: ALBUTEROL/IPRATROPIUM 3 ML AMPUL INH ×2 (09:28→20:40)
[2020-07-06] MEDS: ASPIRIN 325 MG TABLET PO (09:29)
[2020-07-06] MEDS: NYSTATIN POWDER 15GM 1 APPLIC TOP ×2 (09:31→22:09)
[2020-07-06] MEDS: BISACODYL 5 MG TABLET 20 MG PO (09:33)
--- NOTE | 2020-07-06 10:39 | P.PN_ITS ---
Subjective Subjective Date Patient Seen: 07/06/20 Time Patient Seen: 09:30 Interval history: No acute events overnight. Attempted bowel prep yesterday, but still passing solid stool and blood per nursing notes. Pt states he is not sure what he has been passing. Exam Vital Signs (past 8 hours): - 07/06/20 04:00 07/06/20 07:30 07/06/20 08:00 Temperature 97.9 F 97.8 F Pulse Rate 67 76 73 Respiratory Rate 18 24 24 Blood Pressure 116/57 L 127/61 Pulse Oximetry 94 92 93 07/06/20 08:31 07/06/20 09:28 07/06/20 09:32 Temperature Pulse Rate 73 81 Respiratory Rate 20 Blood Pressure 127/61 Pulse Oximetry 93 93 Oxygen Delivery Method Nasal Cannula Oxygen Flow Rate 2 Narrative Exam Narrative: GENERAL: Drowsy, lethargic, slow to awaken. He gives appropriate verbal responses once awakened; morbidly obese. HENT: Normocephalic, atraumatic. Hearing intact. EYES: Conjunctiva pink, sclera white, no periorbital swelling. CARDIOVASCULAR: Regular rate.2+ pedal edema with skin changes c/w venous stasis RESPIRATORY: Non-tachypneic, breathing comfortably on room 2L NC GASTROINTESTINAL: Abdomen soft, severely obese; nontender MUSCULOSKELETAL: Equal tone and mass bilaterally. SKIN: Warm, dry, soft, appropriate color for ethnicity. No other lesions, rashes, or wounds. NEURO: Oriented to self and situation. No gross sensory deficits on visual exam; no gross cognitive issues. PSYCH: Flattened affect and mood. Objective Labs Result Diagrams: 07/06/20 04:41 07/06/20 04:41 Labs: Laboratory Results - last 24 hr 07/06/20 07/06/20 07/06/20 04:41 04:41 04:41 WBC 5.7 RBC 3.68 L Hgb 11.4 L Hct 34.6 L MCV 94.0 MCH 30.9 MCHC 32.9 RDW 14.1 Plt Count 154 Neut % (Auto) 64.8 Lymph % (Auto) 19.7 L Christian % (Auto) 10.8 Eos % (Auto) 4.4 H Baso % (Auto) 0.3 Neut # (Auto) 3700 Lymph # (Auto) 1100 Christian # (Auto) 600 Eos # (Auto) 300 Baso # (Auto) 0 PT 12.7 INR 1.1 Sodium 135 L Potassium 4.5 Chloride 95 L Carbon Dioxide 38 H BUN 30 H Creatinine 1.11 Estimated GFR > 60.0 BUN/Creatinine Ratio 27.0 H Glucose 96 Calcium 8.7 Total Bilirubin 0.3 AST 28 ALT 19 Alkaline Phosphatase 46 Total Protein 6.2 L Albumin 3.5 Globulin 2.7 Albumin/Globulin Ratio 1.3 PFSH Medical History Atherosclerotic heart disease of [place] coronary artery without angina pectoris Benign prostatic hyperplasia without lower urinary tract symptoms Cardiomegaly COPD (chronic obstructive pulmonary disease) Essential hypertension History of traumatic brain injury Major depressive disorder Morbid obesity with BMI of 40.0-44.9, adult Muscle weakness (generalized) Nocturia Other abnormalities of gait and mobility Surgical History H/O left knee surgery History of ankle surgery History of foot surgery History of hip surgery Family History Mother Diabetes mellitus Hypertension Father Congestive heart failure Social History household members: caregiver Smoking Status: Former smoker alcohol intake: former Assessment & Plan Assessment and plan (1) Diabetes mellitus type 2, controlled, without complications: Qualifiers: 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 His prep was not adequate, and was recommended to continue prep today, make NPO tonight, and attempt colonoscopy tomorrow. Dr. Velasco will plan on colonoscopy in the OR tomorrow with anesthesia due to his high risk for respiratory or cardiac complications. PLan: Repeat prep today clear liquid diet today Medical management per hospitalist NPO at midnight scope tomorrow COVID-19 COVID-19 status: Negative Result date/Date tested (Pos, Neg/Pending): 07/05/20 Time Spent With Patient Time with patient: Greater than 35 minutes (reviewing records, examining and talking with patient, talking with nurse, talking with Dr. Velasco and Dr. Larson) Quality VTE Deep Vein Thrombosis/Pulmonary Embolism Present on Admission: No
--- NOTE | 2020-07-06 15:28 | P.PN_ITS ---
Subjective Subjective Date Patient Seen: 07/06/20 Time Patient Seen: 16:04 Interval history: Suman Baumann is a 75-year-old male with a past medical history of type 2 diabetes, COPD on home O2, CAD, and hypertension, resident of an assisted living facility who was sent in for bright red blood per rectum. He is awaiting colonoscopy. Unfortunately, his prep yesterday did not result in clear bowel movements, so colonoscopy has been delayed until tomorrow. He feels well today, denies chest pain shortness of breath, nausea, vomiting abdominal pain. Hg dropped slightly to 11.4. Will continue to trend with AM labs unless more hematochezia or becomes symptomatic. Exam Vital Signs (past 8 hours): - 07/06/20 07:30 07/06/20 08:00 07/06/20 08:31 Temperature 97.8 F Pulse Rate 76 73 Respiratory Rate 24 24 Blood Pressure 127/61 Pulse Oximetry 92 93 93 07/06/20 09:28 07/06/20 09:32 07/06/20 12:00 Temperature 97.7 F Pulse Rate 73 81 85 Respiratory Rate 20 24 Blood Pressure 127/61 131/53 L Pulse Oximetry 93 92 07/06/20 12:01 Temperature Pulse Rate Respiratory Rate Blood Pressure Pulse Oximetry 95 Oxygen Delivery Method Nasal Cannula Oxygen Flow Rate 4 Narrative Exam Narrative: General: Patient is a well-developed, morbidly obese male in moderate respiratory distress at this time. Patient has difficulty moving around due to his weight and body habitus. HEENT: Normocephalic, atraumatic, extraocular muscles intact, oral pharynx is clear and mucous membranes are dry. Neck is supple and symmetric, trachea is midline, no adenopathy, no thyroid enlargement, nontender, no masses palpated. Negative for JVD Chest: Normal AP diameter and contour without kyphoscoliosis, no nasal flaring, retractions, or tachypneic labored Lungs: Auscultation of all lung matias are profound expiratory wheezing throughout, decreased, tight, shallow. Cardio: S1 & S2 with regular rate and rhythm without murmur, rubs, or gallops, no carotid bruit, no cardiac pulsations present. Abdomen: Soft nontender, negative for organomegaly, or masses. Bowel sounds are hyperactive in the right upper quadrant present in all 4 quadrants without guarding or rebound, no CVA tenderness. patient does have hemorrhoids present. There is some scant bright red blood on the bed and on stool occult positive guaiac in ED. Patient also has significant erythema and some skin breakdown of the buttocks as well as perineal area. Musculoskeletal: Muscle strength and tone are equal within normal limits, no deformity, crepitus, effusions, cyanosis, clubbing or edema present. Full range of motion impaired by obesity radial and pedal pulses are normal. Skin: Bilateral erythematous and nonpitting mildly edematous lower extremities with bilateral wrapping of calfs and bilateral feet. Bilateral feet are also dry cracked and highly callused on the soles of his feet nail fungus present to all toenails. Neuro: Alert and orientated x3, strength is +5/5 in all extremities, sensation to touch intact, no gross deficits noted of cranial nerves. Psych: Patient has a moderate kept appearance, appropriate affect, mental status attitude thought context and judgment are appropriate for age. Objective Labs Result Diagrams: 07/06/20 04:41 07/06/20 04:41 Labs: Laboratory Results - last 24 hr 07/06/20 07/06/20 07/06/20 04:41 04:41 04:41 WBC 5.7 RBC 3.68 L Hgb 11.4 L Hct 34.6 L MCV 94.0 MCH 30.9 MCHC 32.9 RDW 14.1 Plt Count 154 Neut % (Auto) 64.8 Lymph % (Auto) 19.7 L [place] % (Auto) 10.8 Eos % (Auto) 4.4 H Baso % (Auto) 0.3 Neut # (Auto) 3700 Lymph # (Auto) 1100 [place] # (Auto) 600 Eos # (Auto) 300 Baso # (Auto) 0 PT 12.7 INR 1.1 Sodium 135 L Potassium 4.5 Chloride 95 L Carbon Dioxide 38 H BUN 30 H Creatinine 1.11 Estimated GFR > 60.0 BUN/Creatinine Ratio 27.0 H Glucose 96 Calcium 8.7 Total Bilirubin 0.3 AST 28 ALT 19 Alkaline Phosphatase 46 Total Protein 6.2 L Albumin 3.5 Globulin 2.7 Albumin/Globulin Ratio 1.3 PFSH Medical History Atherosclerotic heart disease of [place] coronary artery without angina pectoris Benign prostatic hyperplasia without lower urinary tract symptoms Cardiomegaly COPD (chronic obstructive pulmonary disease) Essential hypertension History of traumatic brain injury Major depressive disorder Morbid obesity with BMI of 40.0-44.9, adult Muscle weakness (generalized) Nocturia Other abnormalities of gait and mobility Surgical History H/O left knee surgery History of ankle surgery History of foot surgery History of hip surgery Family History Mother Diabetes mellitus Hypertension Father Congestive heart failure Social History household members: caregiver Smoking Status: Former smoker alcohol intake: former Assessment & Plan Assessment & Plan narrative: Suman Baumann is a 75-year-old male with a past medical history of type 2 diabetes, COPD, CAD, and hypertension, resident of an assisted living facility who was sent in for bright red blood per rectum. He is awaiting colonoscopy. Unfortunately, his prep yesterday did not result in clear bowel movement, so colonoscopy has been delayed until tomorrow. 1. Acute lower GI bleed/ acute blood loss Anemia, acute, present on admission -possibly secondary to hemorrhoids, however differential is broad. -plan for colonoscopy with surgery tomorrow, repeat bowel prep ordered today. Continue until clear stools are present. -continue CLD today, NPO @ [facility]. -Hg stable today, 12.2 on admission, 11.4 today. Asymptomatic today, will continue to follow tomorrow unless more bleeding is noted. Transfusion goal Hg >7 unless symptomatic. 2. Chronic acute respiratory failure secondary to COPD, requires oxygen at assisted living, acute exacerbation on chronic, present on admission -respiratory consult, patient O2 saturation 95% on 3 liters/minute continue patient's albuterol inhaler as needed -DuoNeb nebulizers ordered 4 times daily -consults ordered: respiratory therapy. -chest CT ordered without contrast rule out PE 3. Atherosclerotic heart disease of [place] coronary artery as caused by in conjunction with essential hypertension, type 2 diabetes, resulting in cardiomegaly, chronic, not present on admission -continue patient's lisinopril, Lasix, potassium. Hold home asa 325. Consider reducing to baby aspirin as an outpatient. 4. Type 2 non insulin dependent diabetes, control unknown, not present on admission -will hold patient's oral medication and ordered insulin low-dose sliding scale per hospital protocol, blood sugar checks ACHS 5. Morbid obesity, as evidence by documented BMI 40-44 per patient's medical record, acute on chronic, present on admission -patient's morbid obesity will worsen contribute to his chronic acute respiratory failure secondary to COPD, and a combination of both may also limit surgical interventions such as a colonoscopy to diagnose cause of rectal bleeding -encouraged dietary, lifestyle changes, and weight management. Code status: Limited code- see polst on file Surrogate/plan of care: Aurelia Waterman (in [facility] with family) COVID PCR: Negative VTE prophylaxis: SCDs only, medication prophylaxis contraindicated. Quality VTE Deep Vein Thrombosis/Pulmonary Embolism Present on Admission: No
--- NOTE | 2020-07-06 15:35 | CM.DPC ---
Addendum entered by Keila Payne R.N. 07/06/20 15:51: Met with patient in his room. He is pleasant, let him know that the delay in discharge is regarding getting more specifics on his chemo medications. Let him know that there is a second referral over at [facility], if the [facility] facility does not work out. Eusebia Greenberg called back and indicated that she has been in contact with fdc services. They are working with Mary Ann at [facility] to get a carve out for his medications. [facility] is also in touch with oncology regarding plan of treatment. Discharge should occur tomorrow, and will be back in contact with Johanna Bush, since she will be back in the office tomorrow and is patient's supervisor case loading. Original Note: DCP Cont: Contacted Israel at [facility], and gave him an updated. During team rounds it was indicated that patient would be having his colonoscopy today, and being prepped. Dr. Larson indicated that patient would most likely be ready for discharge tomorrow. Israel stated that this supervisor case loading can contact him, and he will be here to evaluate patient, and then, can set up transportation back to their facility. P: DCP to continue to follow. Patient could possibly go back to [facility] tomorrow if medically stable. Keila Payne RN/[employer]
[2020-07-06] MEDS: LACTATED RINGERS 1,000 ML 42 ML IV (17:49)
--- NOTE | 2020-07-06 18:46 | PC.NURSE ---
Pt is sitting up in chair, feet on the floor; 2+ edema to BLLE, venous stasis; patient does not want to put feet up because of difficulty moving and using urinal; O2 4L=94%, ls diminished, expiratory wheeze to LLL; pt is still working on last of 2nd bottle of Go-lyte and is encouraged and instructed regarding need for Go-lyte throughout shift
[2020-07-06] MEDS: SENNOSIDES 8.6 MG TABLET 17.2 MG PO (22:08)
[2020-07-06] MEDS: TRAZODONE 50 MG TABLET 25 MG PO (22:09)
[2020-07-07] VITALS (12 sets, daily range): BP systolic 109–142; BP diastolic 45–65; PULSE 55–84; RESP 10–22; TEMP 36.3–37.3; O2SAT 94–99; BMI 41.7
[2020-07-07] MEDS: SODIUM CHLORIDE 0.9% 1,000 ML 100 ML IV (01:00)
--- NOTE | 2020-07-07 02:49 | PC.NURSE ---
0117: patient is alert and oriented. Breath sounds diminished with expiratory wheezes throughout; denies SOB. On oxygen at 3L/min per NC (per home regimen) with sat of 96%. HRR. Denies nausea. Drinking Go-Lytely at shift change for planned colonoscopy in a.m. and at time of this charting has just been up to commode and had highly colored brown liquid stool with blood tinge noted. Is voiding per urinal; denies dysuria. Sitting up in recliner and refuses to get into bed. Is being moved via key lift as not able to walk. Refuses SCD's. Denies pain. Fall risk score is high and chair alarm placed.
[2020-07-07] MEDS: ALBUTEROL/IPRATROPIUM 3 ML AMPUL INH ×2 (07:26→10:00)
[2020-07-07 08:43] LABS: Add Manual Diff / Slide Review NO; Basophils Absolute Auto 0 /uL (0-100); Basophils Percent Auto 0.2 % (0-2); Eosinophils Absolute Auto 300 /uL (0-450); Eosinophils Percent Auto 4.7 % (2-4); Hematocrit 36.1 % (41-53); Hemoglobin 11.7 g/dL (13.5-17.5); Lymphocytes Absolute Auto 1400 /uL (1100-4500); Lymphocytes Percent Auto 24.7 % (25-40); Mean Corpuscular HGB Conc 32.4 % (30-36); Mean Corpuscular Hemoglobin 30.8 PG (26-34); Mean Corpuscular Volume 95.1 fL (80-100); Monocytes Absolute Auto 500 /uL (0-900); Monocytes Percent Auto 9.6 % (3-14); Neutrophils Absolute Auto 3500 /uL (1500-7000); Neutrophils Percent Auto 60.8 % (50-75); Platelet Count 138 X10^3/uL (150-400); Red Cell Distribution Width 14.1 % (11.6-14.8); White Blood Cell Count 5.7 X10^3/uL (4.5-11.0)
[2020-07-07 08:53] LABS: INR 1.1 (0.9-1.3); Prothrombin Time 12.6 SECONDS (10.1-12.7)
[2020-07-07 08:58] LABS: Alanine Aminotransferase 21 IU/L (<50); Albumin 3.7 g/dL (3.5-5.0); Albumin Globulin Ratio 1.4 (1.0-2.8); Alkaline Phosphatase 49 U/L (38-126); Aspartate Aminotransferase 32 IU/L (17-59); BUN Creatinine Ratio 19.6 (6-22); Bilirubin Total 0.2 mg/dL (0.2-1.3); Blood Urea Nitrogen 20 mg/dL (9-20); Calcium 8.7 mg/dL (8.4-10.2); Carbon Dioxide 38 mmol/L (22-32); Chloride 97 mmol/L (98-107); Estimated Glomerular Filt Rate > 60.0 mL/min (>60); Globulin 2.7 g/dL (1.7-4.1); Glucose 94 mg/dL (80-110); HEMOLYSIS < 15 (0-50); Magnesium 1.8 mg/dL (1.6-2.3); Potassium 4.1 mmol/L (3.4-5.1); Sodium 136 mmol/L (137-145); Total Protein 6.4 g/dL (6.3-8.2)
--- NOTE | 2020-07-07 09:49 | PM.PREOP ---
Pre-operative Note Interval Note History & Physical reviewed/Exam performed by Physician: Yes Changes to H&P: No
--- NOTE | 2020-07-07 10:51 | P.OP.ENDO_ITS ---
Operative Date/Time/Diagnoses Date of procedure: 07/07/20 Time of procedure: 10:51 Pre-op diagnosis: GI bleed Post-op diagnosis: same Procedure & Clinicians Study performed: colonoscopy Same procedure as scheduled: Yes Indications: 75M morbidly obese COPD admitted for bright red blood per rectum last colonoscopy 5 yrs ago. Surgeon: Brendan Velasco Procedure Notes Procedure in detail: The history and physical was performed/updated and the patient is ASA class is 4. The procedure was discussed in detail with the patient. Potential risks complications including infection, bleeding, missed diagnosis, perforation, need for surgery, and were explained. Their questions were answered and informed consent was obtained. Patient was brought to the procedure room and placed standard monitoring equipment. The patient's vital signs were monitored continuously throughout the entire procedure. Prior to starting time-out was performed. The patient was placed in the left lateral recumbent position. Anesthesia provided MAC. [place] began with a thorough inspection of the perianal area there was no evidence of fissures, fistulae, external hemorrhoids or cutaneous malignancy. The colonoscopy scope was then placed into the anal canal and was advanced to the cecum, which was identified by the ileocecal valve, the appendiceal orifice and the confluence of the taenia. The scope was then slowly withdrawn examining colon thoroughly in all directions, irrigating it of any residual stool. No masses or polyps No active hemorrhage or clot Diverticulosis The patient tolerated the procedure well. The prep was of fair quality. The withdrawl time was 10 minutes. Specimen(s): none sent Complications: none Impression: Diverticulosis Post-procedure Plan for aftercare: May return to [facility], follow up as needed
--- NOTE | 2020-07-07 11:43 | CM.DPNOTE ---
Faxed OP & last 2 PN on 07/07/20 per Regina, and received fax confirmation. Florencia Paul CM Asst.
[2020-07-07] MEDS: INSULIN ASPART 100 UNIT/ML INSULN PEN SUBCUT (13:17)
--- NOTE | 2020-07-07 14:49 | P.DS_ITS ---
History of Present Illness History of Present Illness Date Patient Seen: 07/07/20 Time Patient Seen: 14:49 Chief complaint: Rectal Bleed Narrative: As per ARIELLE Lopez: Patient is a 75-year-old male Suman Baumann who presents to the ED via EMS from an assisted living facility with complaint of rectal bleeding. Patient sta olaf he has had hemorrhoids that have been longstanding he has had bright red blood in his stool in the past. He states today he was having a bowel movement. He has been very constipated and there blood present. He is unsure if it was bright or melanotic due to his size he is unable to visualize and the nurses at his facility witnessed. He was being assisted at his care facility and he states that they insisted he come here for evaluation. Patient denies fevers, he denies chills. He denies any abdominal pain. He denies any nausea or vomiting. He does state he has been constipated. He denies any urinary symptoms. He states he is on a lot of medications but he does not know what they are. Patient does wear home O2 regularly. He states he has had multiple orthopedic surgeries in the past including on bilateral feet well as hip replacement. Upon admit to the floor patient is significantly tachypneic and short of breath, audible respiratory wheezing, using accessory muscles following transfer by lift from [facility] to the bed. Patient's obesity required changing rooms because the staffs inability to transfer him to the bed and requiring overhead lift. Respiratory called for bedside consult. Patient complains of chronic back of head and neck pain related [email or web address], denies chest pain, shortness of breath, acute changes in vision, abdominal pain, nausea or vomiting, acute numbness or tingling, rectal pain, or pain with bowel movements, or dysuria, fever, body aches, or chills. Patient states that he was unaware of any bleeding other than reported to him by the nursing staff. Patient's body habitus makes it impossible for him to visualize rectal bleeding. Patient's vitals upon admit to floor temp 99.5? BP 126/60, HR 22, 95% on 3 L nasal cannula. Labs HGB 12.2, HCT 38.1, RBC 4.01, K 5.2, chloride 94, bicarb 40, BUN 38, creatinine 1.3, EGFR 53.7, BUN creatinine ratio 29.2. Patient is Min for lower GI bleed and acute on chronic respiratory failure complicated by morbid obesity. Discharge Providers Provider Date of admission: 07/05/20 03:11 Discharge Date: 07/07/20 Primary care physician: DANISHA Lay Consults: 07/05/20 03:59 Consult to Discharge Planning Routine Comment: 07/05/20 04:01 Consult to General Surgery Routine Comment: Consulting Provider: Isaura Padilla Reason for consultation: Lower GI bleed Has provider been notified: Yes Discharge provider: Ramírez Larson DO Summary Hospital Course Discharge Diagnosis: Please see hospital course by problem list noted below. Hospital Course: Suman Baumann is a 75-year-old male with a past medical history of type 2 diabetes, COPD, CAD, and hypertension, resident of an assisted living facility who was sent in for bright red blood per rectum. Hemoglobin and hemocrit remained stable during his hospital stay. He underwent colonoscopy which revealed diverticulosis but no overt source of bleeding. 1. Acute lower GI bleed/ acute blood loss Anemia, acute, present on admission -unclear source but possibly hemorrhoids or diverticular. Colonoscopy did not reveal an acute source of bleeding, only diverticulosis. -h/h remained stable during his hospital stay and he had no recurrence of bloody bowel movements. 2. acute exacerbation of COPD, resolved. acute on chronic hypoxemic respiratory failure, acute resolved. -CT negative for PE. Acute exacerbation may be related to acute blood loss anemia. -resolved quickly with nebulizer treaments, no need for continued steroid therapy. -patient required as high as 6L of supplemental oxygen, improved with above therapies. Returned to baseline home O2 use quickly and stable upon discharge. 3. Atherosclerotic heart disease of [place] coronary artery as caused by in conjunction with essential hypertension, type 2 diabetes, resulting in cardiomegaly, chronic, not present on admission -continue patient's lisinopril, Lasix, potassium. Hold home asa 325 upon di scharge. Consider reducing to baby aspirin as an outpatient. 4. Type 2 non insulin dependent diabetes, control unknown, not present on admission -no medication changes are recommended upon discharge. sliding scal insulin provided during admission. 5. Morbid obesity, as evidence by documented BMI 40-44 per patient's medical record, acute on chronic, present on admission -patient's morbid obesity will worsen contribute to his chronic acute respiratory failure secondary to COPD, and a combination of both may also limit surgical interventions such as a colonoscopy to diagnose cause of rectal ble eding -encouraged dietary, lifestyle changes, and weight management. Exam Vital Signs (past 8 hours): - 07/07/20 07:30 07/07/20 08:00 07/07/20 09:43 Temperature 97.8 F 99.1 F Pulse Rate 64 58 L 59 L Respiratory Rate 20 17 18 Blood Pressure 131/64 109/56 L Pulse Oximetry 97 96 94 07/07/20 10:50 07/07/20 10:55 07/07/20 11:00 Temperature 97.7 F Pulse Rate 59 L 84 63 Respiratory Rate 10 L 22 16 Blood Pressure 117/56 L 119/61 122/65 Pulse Oximetry 97 98 98 07/07/20 11:05 07/07/20 11:10 07/07/20 11:20 Temperature 97.3 F L Pulse Rate 62 62 60 Respiratory Rate 17 21 18 Blood Pressure 137/62 132/64 130/52 L Pulse Oximetry 99 99 99 07/07/20 11:35 07/07/20 12:48 Temperature 97.6 F Pulse Rate 63 Respiratory Rate 16 Blood Pressure 142/62 H Pulse Oximetry 95 95 Oxygen Delivery Method Nasal Cannula Oxygen Flow Rate 3 Narrative Exam Narrative: General: Patient is a well-developed, morbidly obese male in no acute distress. HEENT: Normocephalic, atraumatic, extraocular muscles intact, oral pharynx is clear and mucous membranes are dry. Neck is supple and symmetric, trachea is midline, no adenopathy, no thyroid enlargement, nontender, no masses palpated. Negative for JVD Chest: Normal AP diameter and contour without kyphoscoliosis, no nasal flaring, retractions, or tachypneic labored Lungs: Auscultation of all lung matias are clear without wheezing, rhonchi, rales. Cardio: S1 & S2 with regular rate and rhythm without murmur, rubs, or gallops, no carotid bruit, no cardiac pulsations present. Abdomen: Soft nontender, non-distended. Musculoskeletal: Muscle strength and tone are equal within normal limits, no deformity, crepitus, effusions, cyanosis, clubbing or edema present. Skin: Bilateral erythematous and nonpitting mildly edematous lower extremities with bilateral wrapping of calfs and bilateral feet. Bilateral feet are also dry cracked and highly callused on the soles of his feet nail fungus present to all toenails. Neuro: Alert and orientated x3, strength is +5/5 in all extremities, sensation to touch intact, no gross deficits noted of cranial nerves. Psych: Patient has a moderate kept appearance, appropriate affect, mental status attitude thought context and judgment are appropriate for age. Objective Labs Result Diagrams: 07/07/20 08:20 07/07/20 08:20 Labs: Laboratory Results - last 24 hr 07/07/20 07/07/20 07/07/20 08:20 08:20 08:20 WBC 5.7 RBC 3.80 L Hgb 11.7 L Hct 36.1 L MCV 95.1 MCH 30.8 MCHC 32.4 RDW 14.1 Plt Count 138 L Neut % (Auto) 60.8 Lymph % (Auto) 24.7 L [place] % (Auto) 9.6 Eos % (Auto) 4.7 H Baso % (Auto) 0.2 Neut # (Auto) 3500 Lymph # (Auto) 1400 [place] # (Auto) 500 Eos # (Auto) 300 Baso # (Auto) 0 PT 12.6 INR 1.1 Sodium 136 L Potassium 4.1 Chloride 97 L Carbon Dioxide 38 H BUN 20 Creatinine 1.02 Estimated GFR > 60.0 BUN/Creatinine Ratio 19.6 Glucose 94 Calcium 8.7 Magnesium Total Bilirubin 0.2 AST 32 ALT 21 Alkaline Phosphatase 49 Total Protein 6.4 Albumin 3.7 Globulin 2.7 Albumin/Globulin Ratio 1.4 07/07/20 08:20 WBC RBC Hgb Hct MCV MCH MCHC RDW Plt Count Neut % (Auto) Lymph % (Auto) [place] % (Auto) Eos % (Auto) Baso % (Auto) Neut # (Auto) Lymph # (Auto) [place] # (Auto) Eos # (Auto) Baso # (Auto) PT INR Sodium Potassium Chloride Carbon Dioxide BUN Creatinine Estimated GFR BUN/Creatinine Ratio Glucose Calcium Magnesium 1.8 Total Bilirubin AST ALT Alkaline Phosphatase Total Protein Albumin Globulin Albumin/Globulin Ratio [facility] Medical History Atherosclerotic heart disease of [place] coronary artery without angina pectoris Benign prostatic hyperplasia without lower urinary tract symptoms Cardiomegaly COPD (chronic obstructive pulmonary disease) Essential hypertension History of traumatic brain injury Major depressive disorder Morbid obesity with BMI of 40.0-44.9, adult Muscle weakness (generalized) Nocturia Other abnormalities of gait and mobility Surgical History H/O left knee surgery History of ankle surgery History of foot surgery History of hip surgery Family History Mother Diabetes mellitus Hypertension Father Congestive heart failure Social History household members: caregiver Smoking Status: Former smoker alcohol intake: former Discharge Plan Discharge Plan Patient Disposition: Home Provider Discharge Comment: Patient admitted with suspected lower GI bleeding. Colonoscopy performed revealed diverticulosis without active bleeding. h/h now stable and improving. Patient stable for return to assisted living. Recommend discontinuation of asa 325 mg daily, can reconsider baby aspirin at a later date with PCP. Discharge orders & Medications Prescriptions: Continued citalopram 20 mg Tablet 30 mg PO DAILY RF: 0 furosemide [Lasix] 40 mg Tablet 40 mg PO DAILY RF: 0 furosemide [Lasix] 80 mg Tablet 80 mg PO DAILY RF: 0 lisinopril 20 mg Tablet 20 mg PO DAILY RF: 0 loratadine 10 mg Tablet 10 mg PO DAILY RF: 0 multivitamin with iron-mineral Tablet 1 tab PO DAILY RF: 0 potassium chloride 20 mEq Tablet Extended Release 40 meq PO DAILY RF: 0 trazodone 50 mg Tablet 25 mg PO BEDTIME RF: 0 acetaminophen 325 mg Tablet 650 mg PO BID RF: 0 cholecalciferol (vitamin D3) 125 mcg (5,000 unit) Tablet 5,000 unit PO DAILY RF: 0 albuterol sulfate 90 mcg/actuation HFA aerosol inhaler 2 puff INHALATION BID RF: 0 baclofen 10 mg Tablet 10 mg PO BID RF: 0 Biofreeze (menthol) 4 % Gel 1 applic TOPICAL BID RF: 0 metformin 500 mg Tablet 500 mg PO BID RF: 0 docusate sodium [Colace] 100 mg Capsule 200 mg PO BID RF: 0 nystatin 100,000 unit/gram Powder 1 applic TOPICAL BID RF: 0 hydrocodone-acetaminophen 5-325 mg Tablet 1 tab PO Q6H PRN (Reason: pain management) RF: 0 nystatin 100,000 unit/gram Powder 1 applic TOPICAL PRN (Reason: Rash) RF: 0 albuterol sulfate 90 mcg/actuation Hfa Aerosol Inhaler 2 puff INHALATION Q4H PRN (Reason: wheezing/SOB) RF: 0 Biofreeze (menthol) 4 % Gel 1 applic TOPICAL Q4H PRN (Reason: pain management) RF: 0 hydrocortisone 2.5 % Cream With Applicator topical Q8H PRN (Reason: rectal itching) RF: 0 sennosides [senna] 8.6 mg Tablet 8.6 mg PO Q12HR PRN (Reason: Constipation) RF: 0 acetaminophen [Tylenol] 325 mg Tablet 650 mg PO Q6H PRN (Reason: pain management) RF: 0 Discontinued aspirin 325 mg Tablet 325 mg PO DAILY RF: 0 Follow up/Referrals: Ellen Us ARNP [Primary Care Provider] - Diet/Activity/Treatments Diet: Diet as Tolerated Activity: As tolerated Visit Report/Discharge Packet Instructions: DI for Colon Polypectomy, DI for Diverticulosis Stand Alone Forms: Colonoscopy Result: [facility] Discharge Data Primary Care Provider: Ellen Us Attending Provider: Rosaura Purcell VTE Deep Vein Thrombosis/Pulmonary Embolism Present on Admission: No
--- NOTE | 2020-07-07 15:15 | PC.NURSE ---
Patient alert, oriented, denies pain. Abelardo used to transfer patient to the bed for colonoscopy. After removing sling this RN noted bilat abrasions to groin from the abelrado sling. Abrasions cleansed. Used sit to stand to transfer back to chair.
--- NOTE | 2020-07-07 17:27 | PC.NURSE ---
discharge paper work given to patient. pt on 2L O2 94%. pt used sit to stand to transfer to the wheelchair. placed allyvn dressing to L. side buttock/groin area, day shift RN said it might have been from using the key lift sling. picture taken.
--- NOTE | 2020-07-10 11:11 | PC.NURSE ---
Late Entry; LR infusion initiated 07/06 at 17:49, stopped per MD order 07/07 at 00:56. NS infusion initiated 07/07 at 01:00 stopped per MD order at 11:32.
== END 2020-07-07 16:15 | disposition home or self-care (01) ==
LOC: ED 03:09 → AC 03:11
PROVIDERS: Internal Medicine; Surgery; Admitting Provider Nurse Practitioner Family; Emergency Provider Emergency Medicine; PCP Nurse Practitioner Gerontology; Visit Provider Nurse Practitioner Family
PROC: 0DJD8ZZ Inspection of Lower Intestinal Tract, Via Natural or Artificial Opening Endoscopic (ICD-10-PCS; CPT 45378; principal; 2020-07-07 09:15)
DX: K62.5 Hemorrhage of anus and rectum (principal); K57.30 Diverticulosis of large intestine without perforation or abscess without bleeding; D62 Acute posthemorrhagic anemia; J96.01 Acute respiratory failure with hypoxia; R91.1 Solitary pulmonary nodule; J44.9 Chronic obstructive pulmonary disease, unspecified; I25.10 Atherosclerotic heart disease of native coronary artery without angina pectoris; I10 Essential (primary) hypertension; E11.9 Type 2 diabetes mellitus without complications; K76.0 Fatty (change of) liver, not elsewhere classified; E66.01 Morbid (severe) obesity due to excess calories; Z68.41 Body mass index [BMI] 40.0-44.9, adult; Z99.81 Dependence on supplemental oxygen; Z87.891 Personal history of nicotine dependence; Z79.84 Long term (current) use of oral hypoglycemic drugs; Z20.822 Contact with and (suspected) exposure to COVID-19
CPT/HCPCS: 45378; 36415; 71250; 80053; 81003; 82272; 82962; 83036; 83540; 83550; 83605; 83735; 85025; 85045; 85610; 85730; 86850; 86900; 86901; 87635; 93005; 94640; 94760; 96361; 96372; 96374; 99218; 99224; 99284; C9803; G0378; A9270; C9113

== ENCOUNTER → 2020-07-14 08:57 | Outpatient (ROUT) | payer OTHER, MEDICAID, SELFPAY ==
[2020-07-05 05:37] VITALS: BMI 41.7
[2020-07-14 09:18] LABS: Add Manual Diff / Slide Review NO; Basophils Absolute Auto 0 /uL (0-100); Basophils Percent Auto 0.3 % (0-2); Eosinophils Absolute Auto 300 /uL (0-450); Eosinophils Percent Auto 4.7 % (2-4); Hematocrit 38.4 % (41-53); Hemoglobin 12.6 g/dL (13.5-17.5); Lymphocytes Absolute Auto 1200 /uL (1100-4500); Lymphocytes Percent Auto 21.2 % (25-40); Mean Corpuscular HGB Conc 32.8 % (30-36); Mean Corpuscular Hemoglobin 31.1 PG (26-34); Mean Corpuscular Volume 94.5 fL (80-100); Monocytes Absolute Auto 400 /uL (0-900); Neutrophils Absolute Auto 3700 /uL (1500-7000); Neutrophils Percent Auto 66.8 % (50-75); Platelet Count 172 X10^3/uL (150-400); Red Blood Cell Count 4.07 X10^6/uL (4.5-5.9); Red Cell Distribution Width 14.1 % (11.6-14.8); White Blood Cell Count 5.6 X10^3/uL (4.5-11.0)
[2020-07-14 09:39] LABS: BUN Creatinine Ratio 26.5 (6-22); Blood Urea Nitrogen 31 mg/dL (9-20); Calcium 9.5 mg/dL (8.4-10.2); Chloride 92 mmol/L (98-107); Estimated Glomerular Filt Rate > 60.0 mL/min (>60); Glucose 151 mg/dL (80-110); HEMOLYSIS < 15 (0-50); Potassium 4.3 mmol/L (3.4-5.1); Sodium 136 mmol/L (137-145)
[2020-07-14 09:48] LABS: Carbon Dioxide 39 mmol/L (22-32)
== END ==
PROVIDERS: PCP Nurse Practitioner Gerontology; Visit Provider Nurse Practitioner Family
DX: K60.4 Rectal fistula (principal)
CPT/HCPCS: 36415; 80048; 85025

== ENCOUNTER → 2020-07-21 08:07 | Outpatient (ROUT) | payer OTHER, MEDICAID, SELFPAY ==
[2020-07-05 05:37] VITALS: BMI 41.7
[2020-07-21 08:50] LABS: Add Manual Diff / Slide Review NO; Basophils Absolute Auto 0 /uL (0-100); Basophils Percent Auto 0.3 % (0-2); Eosinophils Absolute Auto 300 /uL (0-450); Eosinophils Percent Auto 4.3 % (2-4); Hemoglobin 12.3 g/dL (13.5-17.5); Lymphocytes Absolute Auto 1400 /uL (1100-4500); Lymphocytes Percent Auto 22.1 % (25-40); Mean Corpuscular HGB Conc 32.4 % (30-36); Mean Corpuscular Hemoglobin 30.4 PG (26-34); Mean Corpuscular Volume 93.8 fL (80-100); Monocytes Absolute Auto 700 /uL (0-900); Monocytes Percent Auto 11.1 % (3-14); Neutrophils Absolute Auto 3900 /uL (1500-7000); Neutrophils Percent Auto 62.2 % (50-75); Platelet Count 171 X10^3/uL (150-400); Red Blood Cell Count 4.06 X10^6/uL (4.5-5.9); Red Cell Distribution Width 14.2 % (11.6-14.8); White Blood Cell Count 6.3 X10^3/uL (4.5-11.0)
== END ==
PROVIDERS: PCP Nurse Practitioner Gerontology; Visit Provider Nurse Practitioner Gerontology
DX: K62.5 Hemorrhage of anus and rectum (principal)
CPT/HCPCS: 36415; 85025

== ENCOUNTER → 2020-07-21 14:35 | Outpatient (CLI) | payer OTHER, MEDICAID, SELFPAY ==
[2020-07-05 05:37] VITALS: BMI 41.7
== END ==
PROVIDERS: PCP Nurse Practitioner Gerontology; Referring Provider Nurse Practitioner Gerontology; Visit Provider Family Medicine
DX: S31.819A Unspecified open wound of right buttock, initial encounter (principal); S31.829A Unspecified open wound of left buttock, initial encounter; L24.89 Irritant contact dermatitis due to other agents; E11.622 Type 2 diabetes mellitus with other skin ulcer; E27.8 Other specified disorders of adrenal gland; S71.102A Unspecified open wound, left thigh, initial encounter; L03.116 Cellulitis of left lower limb
CPT/HCPCS: 99213; 99214

== ENCOUNTER → 2020-08-11 13:26 | Outpatient (CLI) | payer OTHER, MEDICAID, SELFPAY ==
[2020-07-05 05:37] VITALS: BMI 41.7
== END ==
PROVIDERS: PCP Nurse Practitioner Gerontology; Referring Provider Nurse Practitioner Gerontology; Visit Provider Family Medicine
DX: S31.819A Unspecified open wound of right buttock, initial encounter (principal); S31.829A Unspecified open wound of left buttock, initial encounter; L24.89 Irritant contact dermatitis due to other agents; E11.622 Type 2 diabetes mellitus with other skin ulcer; S71.102A Unspecified open wound, left thigh, initial encounter
CPT/HCPCS: 99213

== ENCOUNTER 2020-10-19 10:23 | Emergency (ER) | payer OTHER, MEDICAID, SELFPAY ==
[2020-07-05 05:37] VITALS: BMI 41.7
[2020-10-19] VITALS (23 sets, daily range): BP systolic 103–154; BP diastolic 45–67; PULSE 57–67; RESP 34; TEMP 37.3; O2SAT 89–98
--- NOTE | 2020-10-19 10:31 | DI.RAD.S_ITS ---
PROCEDURE: XR CHEST 1V INDICATIONS: suspected sepsis TECHNIQUE: One view of the chest was acquired. COMPARISON: [facility], CR, XR CHEST 1V, 10/07/2019, 13:25. FINDINGS: Surgical changes and devices: None. Lungs and pleura: Scattered subsegmental scarring and/or atelectasis. No acute consolidation. No pleural effusions or pneumothorax. Mediastinum: Mediastinal contours appear normal. Heart size is normal. Bones and chest wall: No suspicious bony lesions. Overlying soft tissues appear unremarkable. IMPRESSION: No acute disease. Dictated by: Tian Solomon M.D. on 10/19/2020 at 11:03 Approved by: Tian Solomon M.D. on 10/19/2020 at 11:16
[2020-10-19 11:56] LABS: Add Manual Diff / Slide Review NO; Basophils Absolute Auto 0 /uL (0-100); Basophils Percent Auto 0.1 % (0-2); Eosinophils Absolute Auto 100 /uL (0-450); Eosinophils Percent Auto 2.3 % (2-4); Hematocrit 39.1 % (41-53); Hemoglobin 12.8 g/dL (13.5-17.5); Lymphocytes Absolute Auto 1200 /uL (1100-4500); Lymphocytes Percent Auto 20.3 % (25-40); Mean Corpuscular HGB Conc 32.6 % (30-36); Mean Corpuscular Hemoglobin 30.6 PG (26-34); Mean Corpuscular Volume 93.9 fL (80-100); Monocytes Absolute Auto 700 /uL (0-900); Monocytes Percent Auto 11.8 % (3-14); Neutrophils Absolute Auto 4000 /uL (1500-7000); Neutrophils Percent Auto 65.5 % (50-75); Platelet Count 179 X10^3/uL (150-400); Red Blood Cell Count 4.17 X10^6/uL (4.5-5.9); Red Cell Distribution Width 14.6 % (11.6-14.8); White Blood Cell Count 6.1 X10^3/uL (4.5-11.0)
[2020-10-19 12:02] LABS: Lactate (Lactic Acid) 1.3 mmol/L (0.7-2.1)
[2020-10-19 12:05] LABS: Alanine Aminotransferase 23 IU/L (<50); Albumin 4.1 g/dL (3.5-5.0); Albumin Globulin Ratio 1.3 (1.0-2.8); Alkaline Phosphatase 53 U/L (38-126); Aspartate Aminotransferase 28 IU/L (17-59); Bilirubin Total 0.2 mg/dL (0.2-1.3); Blood Urea Nitrogen 31 mg/dL (9-20); Calcium 9.7 mg/dL (8.4-10.2); Carbon Dioxide 36 mmol/L (22-32); Chloride 96 mmol/L (98-107); Creatine Kinase 104 U/L (55-170); Estimated Glomerular Filt Rate > 60.0 mL/min (>60); Globulin 3.2 g/dL (1.7-4.1); Glucose 127 mg/dL (80-110); HEMOLYSIS < 15 (0-50); Lipase 194 U/L (23-300); Potassium 5.1 mmol/L (3.4-5.1); Sodium 138 mmol/L (137-145); Total Protein 7.3 g/dL (6.3-8.2)
[2020-10-19 12:16] LABS: NT-proBNP (BNP-Adult 18+) 168 pg/mL (<450); Troponin I < 0.012 ng/mL (0.01-0.034)
--- NOTE | 2020-10-19 12:18 | ED.WEAKNESS ---
HPI - Weakness General Chief complaint: Weakness Stated complaint: dizzy, weak, confusion Time Seen by Provider: 10/19/20 11:32 Source: patient and EMS Mode of arrival: EMS Limitations: no limitations History of Present Illness HPI Narrative: This is a 75-year-old male who comes emergency department with complaint of weakness and shortness of breath. Patient has known history of COPD is normally on 2 L nasal cannula. Patient has noted he has had some just slowly worsening shortness of breath. He states maybe he has some worsening orthopnea. He denies any fevers or chills. Denies any headache, no vision changes, denies any chest pain or pressure. He has not any nausea or vomiting he denies any GI issues such as diarrhea constipation or black or bloody stools. He states he has had some urinary frequency. He has chronic wounds on both his legs as well as on his left buttock and sacral region. Patient is currently at a [facility] locally. Patient states he does not have any known CHF but he is on diuretics. He has known COPD, he denies any known cardiac issues but states he does take medication for hypertension, possibly dyslipidemia and diabetes. Patient states he spends the majority time either in a recliner or wheelchair in isn't really ambulatory. He denies any surgeries besides orthopedic surgeries on his lower extremities. He states none of these are recent. He was a prior smoker, used to drink alcohol, denies any illicit. Related Data Home Medications Medication Instructions Recorded Confirmed Biofreeze (menthol) 1 applic TOPICAL BID 07/05/20 07/05/20 Biofreeze (menthol) 1 applic TOPICAL Q4H PRN 07/05/20 07/05/20 acetaminophen 650 mg PO BID 07/05/20 07/05/20 acetaminophen [Tylenol] 650 mg PO Q6H PRN 07/05/20 07/05/20 albuterol sulfate 2 puff INHALATION BID 07/05/20 07/05/20 albuterol sulfate 2 puff INHALATION Q4H PRN 07/05/20 07/05/20 baclofen 10 mg PO BID 07/05/20 07/05/20 cholecalciferol (vitamin D3) 5,000 unit PO DAILY 07/05/20 07/05/20 citalopram 30 mg PO DAILY 07/05/20 07/05/20 docusate sodium [Colace] 200 mg PO BID 07/05/20 07/05/20 furosemide [Lasix] 40 mg PO DAILY 07/05/20 07/05/20 furosemide [Lasix] 80 mg PO DAILY 07/05/20 07/05/20 hydrocodone-acetaminophen 1 tab PO Q6H PRN 07/05/20 07/05/20 hydrocortisone ea TOPICAL Q8H PRN 07/05/20 lisinopril 20 mg PO DAILY 07/05/20 07/05/20 loratadine 10 mg PO DAILY 07/05/20 07/05/20 metformin 500 mg PO BID 07/05/20 07/05/20 multivitamin with iron-mineral 1 tab PO DAILY 07/05/20 07/05/20 nystatin 1 applic TOPICAL BID 07/05/20 07/05/20 nystatin 1 applic TOPICAL PRN 07/05/20 potassium chloride 40 meq PO DAILY 07/05/20 07/05/20 sennosides [senna] 8.6 mg PO Q12HR PRN 07/05/20 07/05/20 trazodone 25 mg PO BEDTIME 07/05/20 07/05/20 Previous Rx's Medication Instructions Recorded furosemide [Lasix] 40 mg PO DAILY #7 tab 10/19/20 Allergies Allergy/AdvReac Type Severity Reaction Status Date / Time No Known Drug Allergies Allergy Verified 09/12/19 08:56 Review of Systems Review of Systems ROS Unobtainable: All systems reviewed & are unremarkable except as noted in HPI and below Patient History Medical History Atherosclerotic heart disease of [place] coronary artery without angina pectoris Benign prostatic hyperplasia without lower urinary tract symptoms Cardiomegaly COPD (chronic obstructive pulmonary disease) Essential hypertension History of traumatic brain injury Major depressive disorder Morbid obesity with BMI of 40.0-44.9, adult Muscle weakness (generalized) Nocturia Other abnormalities of gait and mobility Surgical History H/O left knee surgery History of ankle surgery History of foot surgery History of hip surgery Family History Mother Diabetes mellitus Hypertension Father Congestive heart failure Social History household members: caregiver Smoking Status: Former smoker alcohol intake: former Smoking Status: Former smoker tobacco type: cigarettes alcohol intake frequency: 0-2 drinks per day Substance Use Type: does not use Exam Narrative Exam Narrative: GEN: Obese, chronically ill-appearing male, alert and oriented x 3, patient appears to be in mild distress. HEENT: Atraumatic, pupils are equal round reactive to light, extraocular movements are intact, nares are clear. Throat is clear without any exudates, erythema, tonsillar enlargement or uvular deviation, no facial droop. Clear speech. HEART: Regular rate and rhythm without murmur, clicks, rubs. Pulses are equal in upper and lower extremities LUNGS:Lungs clear to auscultation, no wheezes, rales, crackles, chest moves symmetrically, mild tachypnea. Lungs are difficult to auscultate secondary to body habitus. ABD:bowel sounds normal, soft, non-tender, no guarding, rebound, rigidity, no masses noted, no hepatosplenomegaly :No CVA tenderness MSCL: Non-tender, no muscle atrophy. Patient has swelling of all 4 extremities. He has some erythema of his bilateral lower extremities with wounds on his lower legs. Patient also has skin breakdown on the left buttock as well as hyperkeratotic changes on the sacral decubitus NEURO:CN 2-12 intact, sensation normal Initial Vital Signs Initial Vital Signs: Vital Signs Temperature 99.2 F 10/19/20 10:32 Pulse Rate 67 10/19/20 10:32 Respiratory Rate 34 H 10/19/20 10:32 Pulse Oximetry 96 10/19/20 10:32 Scores GCS Aguilar coma scale eye opening: Spontaneous [place] coma scale verbal response: Orientated [place] coma scale motor response: Obey commands [place] coma scale total score: 15 Course Orders Ordered: ED Orders 10/19/20 11:40 Complete Blood Count AUTO DIFF Stat Comprehensive Metabolic Panel Stat Lactate (Lactic Acid) Stat Lipase Stat NT-proBNP (BNP-Adult 18+) Stat Procalcitonin Stat Troponin & CK Cardiac Panel Stat 10/19/20 12:25 Blood Culture Stat COVID19 - ADMIT ([employer] swab/PCR) Stat Partial Thromboplastin Time Stat Prothrombin Time INR Stat 10/19/20 13:10 ABG [Arterial Blood Gas] Stat 10/19/20 14:50 CT head/brain wo con Stat Discontinued Medications Furosemide (Furosemide 40 Mg/4 Ml Vial) 40 mg IV NOW ONE Stop: 10/19/20 12:18 Last Admin: 10/19/20 12:25 Dose: 40 mg Documented by: ANAHI Methylprednisolone (Methylprednisolone 125 Mg/2 Ml Vial) 125 mg IV NOW ONE Stop: 10/19/20 12:18 Last Admin: 10/19/20 12:25 Dose: 125 mg Documented by: ANAHI Reevaluation(s) Reevaluation #1: Patient labs reviewed. Patient notes his weight is up by 7 lb from his last visit. We discussed his findings today plan to give him a course of Lasix although his BNP is not elevated he otherwise appears fluid overloaded clinically. Reviewed patient's labs and imaging. Time: 15:24 Vital Signs Vital signs: Vital Signs - 8 hr 10/19/20 12:00 10/19/20 12:25 10/19/20 12:30 Pulse Rate 61 62 61 Respiratory Rate 34 H Blood Pressure 135/60 Pulse Oximetry 95 95 98 10/19/20 12:31 10/19/20 12:57 10/19/20 13:01 Pulse Rate 63 60 Respiratory Rate Blood Pressure 128/56 L 113/54 L Pulse Oximetry 93 97 10/19/20 13:02 10/19/20 13:30 10/19/20 13:31 Pulse Rate 61 60 61 Respiratory Rate Blood Pressure 137/62 Pulse Oximetry 98 92 92 10/19/20 14:00 10/19/20 14:01 10/19/20 14:30 Pulse Rate 59 L 58 L 61 Respiratory Rate Blood Pressure 140/63 Pulse Oximetry 93 10/19/20 14:32 10/19/20 14:52 10/19/20 15:00 Pulse Rate 61 62 61 Respiratory Rate Blood Pressure 154/67 H 103/45 L Pulse Oximetry 89 L 93 95 10/19/20 15:01 10/19/20 15:30 10/19/20 15:31 Pulse Rate 61 58 L 58 L Respiratory Rate Blood Pressure 129/63 119/56 L Pulse Oximetry 95 93 93 10/19/20 16:00 10/19/20 16:01 10/19/20 16:30 Pulse Rate 58 L 57 L 61 Respiratory Rate Blood Pressure 125/58 L Pulse Oximetry 94 92 94 10/19/20 16:41 Pulse Rate 65 Respiratory Rate Blood Pressure 138/63 Pulse Oximetry 94 MDM - Weakness Lab Data Attestation: I reviewed the patient's lab results. Result diagrams: 10/19/20 11:40 10/19/20 11:40 Labs: Lab Results 10/19/20 10/19/20 10/19/20 Range/Units 11:40 11:40 11:40 WBC 6.1 (4.5-11.0) X10^3/uL RBC 4.17 L (4.5-5.9) X10^6/uL Hgb 12.8 L (13.5-17.5) g/dL Hct 39.1 L (41-53) % MCV 93.9 (80-100) fL MCH 30.6 (26-34) PG MCHC 32.6 (30-36) % RDW 14.6 (11.6-14.8) % Plt Count 179 (150-400) X10^3/uL Neut % (Auto) 65.5 (50-75) % Lymph % (Auto) 20.3 L (25-40) % [place] % (Auto) 11.8 (3-14) % Eos % (Auto) 2.3 (2-4) % Baso % (Auto) 0.1 (0-2) % Neut # (Auto) 4000 (5387-5354) /uL Lymph # (Auto) 1200 (0732-3314) /uL [place] # (Auto) 700 (0-900) /uL Eos # (Auto) 100 (0-450) /uL Baso # (Auto) 0 (0-100) /uL PT (10.1-12.7) SECONDS INR (0.9-1.3) APTT (26.4-36.2) SECONDS ABG pH (7.35-7.45) ABG pCO2 (35-45) mmHg ABG pO2 (80-100) mmHg ABG HCO3 (22-26) mmol/L ABG Total CO2 (21-31) mmol/L ABG O2 Saturation (95-100) % ABG Base Excess (-2-2) mmol/L FiO2 Sodium 138 (137-145) mmol/L Potassium 5.1 (3.4-5.1) mmol/L Chloride 96 L (98-107) mmol/L Carbon Dioxide 36 H (22-32) mmol/L BUN 31 H (9-20) mg/dL Creatinine 1.15 (0.66-1.25) mg/dL Estimated GFR > 60.0 (>60) mL/min BUN/Creatinine Ratio 27.0 H (6-22) Glucose 127 H (80-110) mg/dL Lactate 1.3 (0.7-2.1) mmol/L Calcium 9.7 (8.4-10.2) mg/dL Total Bilirubin 0.2 (0.2-1.3) mg/dL AST 28 (17-59) IU/L ALT 23 (<50) IU/L Alkaline Phosphatase 53 (38-126) U/L Total Creatine Kinase 104 (55-170) U/L CK-MB (CK-2) 6.07 H (<2.37) ng/mL CK-MB (CK-2) Rel Index 5.8 H (1.5-5.0) % Troponin I < 0.012 (0.01-0.034) ng/mL NT-Pro-B Natriuret Pep 168 (<450) pg/mL Total Protein 7.3 (6.3-8.2) g/dL Albumin 4.1 (3.5-5.0) g/dL Globulin 3.2 (1.7-4.1) g/dL Albumin/Globulin Ratio 1.3 (1.0-2.8) Lipase 194 (23-300) U/L Procalcitonin 0.23 (<0.5) ng/mL SARS-CoV-2 (PCR) (Negative) 10/19/20 10/19/20 10/19/20 Range/Units 12:25 12:25 13:10 WBC (4.5-11.0) X10^3/uL RBC (4.5-5.9) X10^6/uL Hgb (13.5-17.5) g/dL Hct (41-53) % MCV (80-100) fL MCH (26-34) PG MCHC (30-36) % RDW (11.6-14.8) % Plt Count (150-400) X10^3/uL Neut % (Auto) (50-75) % Lymph % (Auto) (25-40) % [place] % (Auto) (3-14) % Eos % (Auto) (2-4) % Baso % (Auto) (0-2) % Neut # (Auto) (1016-6085) /uL Lymph # (Auto) (1807-9215) /uL [place] # (Auto) (0-900) /uL Eos # (Auto) (0-450) /uL Baso # (Auto) (0-100) /uL PT 11.7 (10.1-12.7) SECONDS INR 1.0 (0.9-1.3) APTT 32 (26.4-36.2) SECONDS ABG pH 7.34 L (7.35-7.45) ABG pCO2 70.2 H* (35-45) mmHg ABG pO2 92 (80-100) mmHg ABG HCO3 38 H (22-26) mmol/L ABG Total CO2 40 H (21-31) mmol/L ABG O2 Saturation 96 (95-100) % ABG Base Excess 12.0 H (-2-2) mmol/L FiO2 28 Sodium (137-145) mmol/L Potassium (3.4-5.1) mmol/L Chloride (98-107) mmol/L Carbon Dioxide (22-32) mmol/L BUN (9-20) mg/dL Creatinine (0.66-1.25) mg/dL Estimated GFR (>60) mL/min BUN/Creatinine Ratio (6-22) Glucose (80-110) mg/dL Lactate (0.7-2.1) mmol/L Calcium (8.4-10.2) mg/dL Total Bilirubin (0.2-1.3) mg/dL AST (17-59) IU/L ALT (<50) IU/L Alkaline Phosphatase (38-126) U/L Total Creatine Kinase (55-170) U/L CK-MB (CK-2) (<2.37) ng/mL CK-MB (CK-2) Rel Index (1.5-5.0) % Troponin I (0.01-0.034) ng/mL NT-Pro-B Natriuret Pep (<450) pg/mL Total Protein (6.3-8.2) g/dL Albumin (3.5-5.0) g/dL Globulin (1.7-4.1) g/dL Albumin/Globulin Ratio (1.0-2.8) Lipase (23-300) U/L Procalcitonin (<0.5) ng/mL SARS-CoV-2 (PCR) Negative (Negative) Imaging Data Chest x-ray: Radiologist Impression: [address] [id number] ReportSigned Patient: Suman Baumann OMR#: [id number]: 5Acct:[id number]/Sex: 75 / MDate of Service: 10/19/20Lo: EDAccession Number: [id number] Procedure: XR chest 1V Ordering Provider: Michelle Zuniga D.O. PROCEDURE: XR CHEST 1V INDICATIONS: suspected sepsis TECHNIQUE: One view of the chest was acquired. COMPARISON: [facility], XR CHEST 1V, 10/07/2019, 13:25. FINDINGS: Surgical changes and devices: None. Lungs and pleura: Scattered subsegmental scarring and/or atelectasis. No acute consolidation. No pleural effusions or pneumothorax. Mediastinum: Mediastinal contours appear normal. Heart size is normal. Bones and chest wall: No suspicious bony lesions. Overlying soft tissues appear unremarkable. IMPRESSION: No acute disease. Dictated by: Tian Solomon M.D. on 10/19/2020 at 11:03 Approved by: Tian Solomon M.D. on 10/19/2020 at 11:16 CT scan - head: Radiologist Impression: [address] [id number] Scan ReportSigned Patient: Suman Baumann OMR#: [id number]: 5Acct:[id number]/Sex: 75 / MDate of Service: 10/19/20Loc: EDAccession Number: [id number] Procedure: CT head/brain wo con Ordering Provider: Michelle Zuniga D.O. PROCEDURE: CT HEAD/BRAIN WO CON INDICATIONS: confusion TECHNIQUE: Noncontrast 4.5 mm thick angled axial sections acquired from the foramen magnum to the vertex, with coronal and sagittal reformats. For radiation dose reduction, the following was used: automated exposure control, adjustment of mA and/or kV according to patient size. COMPARISON: [facility], MR, MR BRAIN WITH/WITHOUT CONTRAST, 09/11/2020, 11:54. FINDINGS: Image quality: Excellent. CSF spaces: Basal cisterns are patent. No extra-axial fluid collections. The ventricles are symmetric in size and shape. Brain: No intracranial bleeds. 19 millimeter hyperdense, parafalcine, left parietal extra-axial mass most compatible with meningioma is stable compared to prior MRIs. There is cerebral volume loss for age, with resultant ventricular and sulcal prominence. There are periventricular and deep white matter chronic small vessel ischemic changes. There is intracranial internal carotid artery atherosclerosis. Skull and face: Calvarium and visualized facial bones appear intact, without suspicious lesions. Sinuses: Chronic inspissated mucosal thickening noted in the right frontal sinus which is stable compared to prior MRIs. mastoids are clear. IMPRESSION: No acute intracranial disease process. Dictated by: Jenelle Meeks MD, PhD on 10/19/2020 at 14:55 Approved by: Jenelle Meeks MD, PhD on 10/19/2020 at 15:00 ECG Data Attestation: I personally reviewed and interpreted this ECG as follows: Prior ECG tracings: available for review Interpretation: Normal sinus rhythm, left axis deviation. Rate of 63 P are 202 QRS of [address] No acute [address] elevation depression appreciated. Patient has prior EKG from 07/[address] appears [address] [facility] Narrative Medical decision making narrative: This is a 75-year-old male who comes in with complaint of possible episode confusion. Patient states he feels generally weak and more short of breath than normal. On his usual 2 L nasal cannula for COPD with chronic wounds on his lower extremities. Patient's head CT, neuro exam not show any acute findings. Patient appears to be stable. Patient ABG appears similar to prior with chronic hypercapnic respiratory, increasing oxygen requirements here in the department. Hemoglobin is stable although chronically anemia. Patient has BUN at 31 but similar to prior from June of 2020. No acute renal dysfunction. Potassium and sodium were not significantly elevated or low. Patient's troponin is negative. CK-MB is slightly elevated at 6 negative procalcitonin. COVID swab today is negative. Patient has not any chest pain or pressure. Symptoms do not seem consistent with an anginal equivalent today. In for turned patient's facility which he feels comfortable with. He has not had any altered mental status or confusion here in the department that I appreciate. Discharge Plan Departure Patient Disposition: Home Clinical Impression: Chronic wound of extremity, Chronic skin ulcer of sacrum, Weakness Activity Restrictions/Additional Instructions: Follow up with your physician in the next 2-3 days for recheck. You have chronic appearing changes to your labs but no acute changes. Your anemia is at baseline with no changes. You have stable renal function. Glucose is appropriate at 127 with no obvious infection or other changes today. I would recommend some additional lasix for the short term you may still have some fluid overload although your bnp is normal today. Return for new or worsening symptoms, passing out, altered mental status, persistent vomiting, new chest pain or shortness of breath, black or bloody stools, or other new or concerning symptoms. Prescriptions: New furosemide [Lasix] 40 mg tablet 40 mg PO DAILY Qty: 7 RF: 0 No Action citalopram 20 mg Tablet 30 mg PO DAILY RF: 0 furosemide [Lasix] 40 mg Tablet 40 mg PO DAILY RF: 0 furosemide [Lasix] 80 mg Tablet 80 mg PO DAILY RF: 0 lisinopril 20 mg Tablet 20 mg PO DAILY RF: 0 loratadine 10 mg Tablet 10 mg PO DAILY RF: 0 multivitamin with iron-mineral Tablet 1 tab PO DAILY RF: 0 potassium chloride 20 mEq Tablet Extended Release 40 meq PO DAILY RF: 0 trazodone 50 mg Tablet 25 mg PO BEDTIME RF: 0 acetaminophen 325 mg Tablet 650 mg PO BID RF: 0 cholecalciferol (vitamin D3) 125 mcg (5,000 unit) Tablet 5,000 unit PO DAILY RF: 0 albuterol sulfate 90 mcg/actuation HFA aerosol inhaler 2 puff INHALATION BID RF: 0 baclofen 10 mg Tablet 10 mg PO BID RF: 0 Biofreeze (menthol) 4 % Gel 1 applic TOPICAL BID RF: 0 metformin 500 mg Tablet 500 mg PO BID RF: 0 docusate sodium [Colace] 100 mg Capsule 200 mg PO BID RF: 0 nystatin 100,000 unit/gram Powder 1 applic TOPICAL BID RF: 0 hydrocodone-acetaminophen 5-325 mg Tablet 1 tab PO Q6H PRN (Reason: pain management) RF: 0 nystatin 100,000 unit/gram Powder 1 applic TOPICAL PRN (Reason: Rash) RF: 0 albuterol sulfate 90 mcg/actuation Hfa Aerosol Inhaler 2 puff INHALATION Q4H PRN (Reason: wheezing/SOB) RF: 0 Biofreeze (menthol) 4 % Gel 1 applic TOPICAL Q4H PRN (Reason: pain management) RF: 0 hydrocortisone 2.5 % Cream With Applicator topical Q8H PRN (Reason: rectal itching) RF: 0 sennosides [senna] 8.6 mg Tablet 8.6 mg PO Q12HR PRN (Reason: Constipation) RF: 0 acetaminophen [Tylenol] 325 mg Tablet 650 mg PO Q6H PRN (Reason: pain management) RF: 0 Referrals: Ellen Us ARNP [Primary Care Provider] -
[2020-10-19 12:20] LABS: CKMB % Relative Index 5.8 % (1.5-5.0); Creatine Kinase MB 6.07 ng/mL (<2.37); Procalcitonin 0.23 ng/mL (<0.5)
[2020-10-19] MEDS: FUROSEMIDE 40 MG/4 ML VIAL IV (12:25)
[2020-10-19] MEDS: methylPREDNISolone 125 MG/2 ML VIAL IV (12:25)
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
--- NOTE | 2020-10-19 12:30 | PC.NURSE ---
Patient has urinated in bed. Was turned with 2 person assist. Rupal care provided while bed linens were changed. Wounds noted to upper thighs in stages of healing. Left inner thigh wound still draining serosanguinous fluid. Patient repositioned in bed.
[2020-10-19 12:43] LABS: Prothrombin Time 11.7 SECONDS (10.1-12.7)
[2020-10-19 12:45] LABS: PTT Partial Thromboplastin Tim 32 SECONDS (26.4-36.2)
[2020-10-19 13:19] LABS: COVID19 - ADMIT (NP swab/PCR) Negative (Negative)
[2020-10-19 13:25] LABS: PCO2 ABG 70.2 mmHg (35-45); PO2 ABG 92 mmHg (80-100); pH ABG 7.34 (7.35-7.45)
[2020-10-19 13:26] LABS: Fractionated Inspired Oxygen 28; HCO3 ABG 38 mmol/L (22-26); Oxygen Saturation ABG 96 % (95-100); TCO2 ABG 40 mmol/L (21-31)
--- NOTE | 2020-10-19 14:50 | DI.CT.S_ITS ---
PROCEDURE: CT HEAD/BRAIN WO CON INDICATIONS: confusion TECHNIQUE: Noncontrast 4.5 mm thick angled axial sections acquired from the foramen magnum to the vertex, with coronal and sagittal reformats. For radiation dose reduction, the following was used: automated exposure control, adjustment of mA and/or kV according to patient size. COMPARISON: [facility], MR, MR BRAIN WITH/WITHOUT CONTRAST, 09/11/2020, 11:54. FINDINGS: Image quality: Excellent. CSF spaces: Basal cisterns are patent. No extra-axial fluid collections. The ventricles are symmetric in size and shape. Brain: No intracranial bleeds. 19 millimeter hyperdense, parafalcine, left parietal extra-axial mass most compatible with meningioma is stable compared to prior MRIs. There is cerebral volume loss for age, with resultant ventricular and sulcal prominence. There are periventricular and deep white matter chronic small vessel ischemic changes. There is intracranial internal carotid artery atherosclerosis. Skull and face: Calvarium and visualized facial bones appear intact, without suspicious lesions. Sinuses: Chronic inspissated mucosal thickening noted in the right frontal sinus which is stable compared to prior MRIs. mastoids are clear. IMPRESSION: No acute intracranial disease process. Dictated by: Jenelle Meeks MD, PhD on 10/19/2020 at 14:55 Approved by: Jenelle Meeks MD, PhD on 10/19/2020 at 15:00
== END 2020-10-19 17:09 | disposition home or self-care (01) ==
PROVIDERS: Emergency Provider Emergency Medicine; PCP Nurse Practitioner Gerontology
DX: L98.429 Non-pressure chronic ulcer of back with unspecified severity (principal); S80.922A Unspecified superficial injury of left lower leg, initial encounter; S80.921A Unspecified superficial injury of right lower leg, initial encounter; J44.9 Chronic obstructive pulmonary disease, unspecified; R53.1 Weakness; Z20.822 Contact with and (suspected) exposure to COVID-19
CPT/HCPCS: 36415; 36600; 70450; 71045; 80053; 82550; 82553; 82805; 83605; 83690; 83880; 84145; 84484; 85025; 85610; 85730; 87040; 87635; 93005; 93010; 96374; 96375; 99285; C9803; J1940; J2930

== ENCOUNTER 2020-12-24 12:24 | Emergency (ER) | payer OTHER, MEDICAID, SELFPAY ==
[2020-07-05 05:37] VITALS: BMI 41.7
[2020-12-24] VITALS (15 sets, daily range): BP systolic 101–130; BP diastolic 49–61; PULSE 58–75; RESP 16–26; TEMP 36.6; O2SAT 82–94
--- NOTE | 2020-12-24 12:38 | ED.ALLEREA ---
HPI - Allergic Reaction <Nestor Vargas PA-C - Last Filed: 12/24/20 17:00> General Chief complaint: Allergic Reaction Stated complaint: angioedema Time Seen by Provider: 12/24/20 12:38 History of Present Illness HPI narrative: Suman presents today with chief complaint of left tongue swelling that he 1st noticed this morning after waking up. He has never experienced this before. He denies any significant difficulty breathing, difficulty swallowing, sore throat, neck swelling, chest pain, fever, facial swelling or any other acute concerns or complaints at this time. He lives at an assisted living home and was brought here via EMS. He takes lisinopril daily and has been doing so since last June. Denies any new medications, new foods, new environmental exposures. Related Data Home Medications Medication Instructions Recorded Confirmed acetaminophen 325 mg tablet 650 mg PO BID 07/05/20 07/05/20 acetaminophen 325 mg tablet 650 mg PO Q6H PRN 07/05/20 07/05/20 (Tylenol) albuterol sulfate 90 mcg/actuation 2 puff INHALATION BID 07/05/20 07/05/20 aerosol inhaler albuterol sulfate 90 mcg/actuation 2 puff INHALATION Q4H PRN 07/05/20 07/05/20 aerosol inhaler baclofen 10 mg tablet 10 mg PO BID 07/05/20 07/05/20 cholecalciferol (vitamin D3) 125 5,000 unit PO DAILY 07/05/20 07/05/20 mcg (5,000 unit) tablet citalopram 20 mg tablet 30 mg PO DAILY 07/05/20 07/05/20 docusate sodium 100 mg capsule 200 mg PO BID 07/05/20 07/05/20 (Colace) furosemide 40 mg tablet (Lasix) 40 mg PO DAILY 07/05/20 07/05/20 furosemide 80 mg tablet (Lasix) 80 mg PO DAILY 07/05/20 07/05/20 hydrocodone 5 mg-acetaminophen 325 1 tab PO Q6H PRN 07/05/20 07/05/20 mg tablet hydrocortisone 2.5 % rectal cream ea TOPICAL Q8H PRN 07/05/20 with applicator loratadine 10 mg tablet 10 mg PO DAILY 07/05/20 07/05/20 menthol 4 % topical gel (Biofreeze 1 applic TOPICAL BID 07/05/20 07/05/20 (menthol)) menthol 4 % topical gel (Biofreeze 1 applic TOPICAL Q4H PRN 07/05/20 07/05/20 (menthol)) metformin 500 mg tablet 500 mg PO BID 07/05/20 07/05/20 multivitamin with iron-mineral 1 tab PO DAILY 07/05/20 07/05/20 nystatin 100,000 unit/gram topical 1 applic TOPICAL BID 07/05/20 07/05/20 powder nystatin 100,000 unit/gram topical 1 applic TOPICAL PRN 07/05/20 powder potassium chloride 20 mEq 40 meq PO DAILY 07/05/20 07/05/20 tablet,extended release sennosides 8.6 mg tablet (senna) 8.6 mg PO Q12HR PRN 07/05/20 07/05/20 trazodone 50 mg tablet 25 mg PO BEDTIME 07/05/20 07/05/20 Previous Rx's Medication Instructions Recorded furosemide 40 mg tablet (Lasix) 40 mg PO DAILY #7 tab 10/19/20 famotidine 40 mg tablet 40 mg PO DAILY #7 tab 12/24/20 fexofenadine 60 mg tablet 60 mg PO BID 7 Days #14 tab 12/24/20 methylprednisolone 4 mg tablets in See Rx Instructions .ROUTE 12/24/20 a dose pack (Medrol ([place])) .COMPLEX #21 ea Allergies Allergy/AdvReac Type Severity Reaction Status Date / Time No Known Drug Allergies Allergy Verified 09/12/19 08:56 Review of Systems <Nestor Vargas PA-C - Last Filed: 12/24/20 17:00> Review of Systems Narrative: As per HPI Patient History <Nestor Vargas PA-C - Last Filed: 12/24/20 17:00> Medical History Atherosclerotic heart disease of [place] coronary artery without angina pectoris Benign prostatic hyperplasia without lower urinary tract symptoms Cardiomegaly COPD (chronic obstructive pulmonary disease) Essential hypertension History of traumatic brain injury Major depressive disorder Morbid obesity with BMI of 40.0-44.9, adult Muscle weakness (generalized) Nocturia Other abnormalities of gait and mobility Surgical History H/O left knee surgery History of ankle surgery History of foot surgery History of hip surgery Family History Mother Diabetes mellitus Hypertension Father Congestive heart failure Social History household members: caregiver Smoking Status: Former smoker alcohol intake: former Smoking Status: Former smoker tobacco type: cigarettes alcohol intake frequency: 0-2 drinks per day Substance Use Type: does not use Exam <Nestor Vargas PA-C - Last Filed: 12/24/20 17:00> Narrative Exam Narrative: Const General: Cooperative, comfortable, no acute distress Nutritional Appearance: Morbidly obese Orientation: alert and oriented x3 HENMT Head: normal to inspection and normocephalic Ears: hearing grossly normal bilaterally, external ears normal, TM's normal bilaterally, EAC's normal, mastoids normal and no periauricular adenopathy Nose: external nose normal, nares normal and no nasal discharge Face and sinus: normal facial exam, sinuses nontender and face symmetric Mouth: oral mucosae normal, lip normal, left-sided tongue swelling noted, and moist mucous membranes Throat: posterior oropharynx normal, uvula midline, no uvular edema Eyes periorbital findings normal, eyelids normal, conjunctivae normal Neck: normal visual inspection, full ROM, no lymphadenopathy, no meningeal signs and supple Resp normal respiratory effort, on oxygen via nasal cannula, non tachypneic, decreased breath sounds bilaterally, no retractions Cardio regular rate regular rhythm Heart Sounds: no gallops, no murmurs and no rubs Skin Nonhealing abrasion noted to left buttock. Tender to the touch. No significant discharge, surrounding erythema, or underlying fluctuations appreciated. Initial Vital Signs Initial Vital Signs: Vital Signs Temperature 97.8 F 12/24/20 12:29 Pulse Rate 70 12/24/20 12:29 Respiratory Rate 20 12/24/20 12:29 Blood Pressure 101/49 L 12/24/20 12:29 Pulse Oximetry 94 12/24/20 12:29 <Kong Fernandez MD - Last Filed: 12/26/20 21:27> Initial Vital Signs Initial Vital Signs: Vital Signs Temperature 97.8 F 12/24/20 12:29 Pulse Rate 70 12/24/20 12:29 Respiratory Rate 20 12/24/20 12:29 Blood Pressure 101/49 L 12/24/20 12:29 Pulse Oximetry 94 12/24/20 12:29 Course <Nestor Vargas PA-C - Last Filed: 12/24/20 17:00> Orders Ordered: Discontinued Medications Diphenhydramine HCl (Diphenhydramine 50 Mg/Ml Vial) 50 mg IV NOW ONE Stop: 12/24/20 12:43 Last Admin: 12/24/20 12:54 Dose: 50 mg Documented by: YVONNE Famotidine (Famotidine 20 Mg/2 Ml Vial) 20 mg IV NOW JF Last Admin: 12/24/20 12:54 Dose: 20 mg Documented by: YVONNE Methylprednisolone (Methylprednisolone 125 Mg/2 Ml Vial) 125 mg IV NOW ONE Stop: 12/24/20 12:43 Last Admin: 12/24/20 12:54 Dose: 125 mg Documented by: YVONNE Vital Signs Vital signs: Vital Signs - 8 hr 12/24/20 12:29 12/24/20 12:32 12/24/20 12:52 Temperature 97.8 F Pulse Rate 70 72 67 Respiratory Rate 20 23 17 Blood Pressure 101/49 L Pulse Oximetry 94 86 L 93 12/24/20 12:53 12/24/20 13:00 12/24/20 13:30 Temperature Pulse Rate 66 66 68 Respiratory Rate 17 17 17 Blood Pressure 113/56 L 116/54 L Pulse Oximetry 93 94 93 12/24/20 13:31 12/24/20 14:00 12/24/20 14:01 Temperature Pulse Rate 69 72 69 Respiratory Rate 19 21 26 H Blood Pressure 118/56 L 126/61 Pulse Oximetry 92 89 L 90 L 12/24/20 14:30 12/24/20 14:31 12/24/20 15:00 Temperature Pulse Rate 64 58 L 64 Respiratory Rate 16 Blood Pressure 129/60 Pulse Oximetry 82 L 82 L 94 12/24/20 15:01 12/24/20 15:30 12/24/20 15:31 Temperature Pulse Rate 68 69 75 Respiratory Rate 19 20 Blood Pressure 121/58 L 130/60 Pulse Oximetry 94 92 <Kong Fernandez MD - Last Filed: 12/26/20 21:27> Orders Ordered: Discontinued Medications Diphenhydramine HCl (Diphenhydramine 50 Mg/Ml Vial) 50 mg IV NOW ONE Stop: 12/24/20 12:43 Last Admin: 12/24/20 12:54 Dose: 50 mg Documented by: YVONNE Famotidine (Famotidine 20 Mg/2 Ml Vial) 20 mg IV NOW JF Last Admin: 12/24/20 12:54 Dose: 20 mg Documented by: YVONNE Methylprednisolone (Methylprednisolone 125 Mg/2 Ml Vial) 125 mg IV NOW ONE Stop: 12/24/20 12:43 Last Admin: 12/24/20 12:54 Dose: 125 mg Documented by: YVONNE Vital Signs Vital signs: Vital Signs - 8 hr 12/24/20 12:29 12/24/20 12:32 12/24/20 12:52 Temperature 97.8 F Pulse Rate 70 72 67 Respiratory Rate 20 23 17 Blood Pressure 101/49 L Pulse Oximetry 94 86 L 93 12/24/20 12:53 12/24/20 13:00 12/24/20 13:30 Temperature Pulse Rate 66 66 68 Respiratory Rate 17 17 17 Blood Pressure 113/56 L 116/54 L Pulse Oximetry 93 94 93 12/24/20 13:31 12/24/20 14:00 12/24/20 14:01 Temperature Pulse Rate 69 72 69 Respiratory Rate 19 21 26 H Blood Pressure 118/56 L 126/61 Pulse Oximetry 92 89 L 90 L 12/24/20 14:30 12/24/20 14:31 12/24/20 15:00 Temperature Pulse Rate 64 58 L 64 Respiratory Rate 16 Blood Pressure 129/60 Pulse Oximetry 82 L 82 L 94 12/24/20 15:01 12/24/20 15:30 12/24/20 15:31 Temperature Pulse Rate 68 69 75 Respiratory Rate 19 20 Blood Pressure 121/58 L 130/60 Pulse Oximetry 94 92 MDM - Allergic Reaction <Nestor Vargas PA-C - Last Filed: 12/24/20 17:00> MDM Narrative Medical decision making narrative: Differential diagnosis includes anaphylaxis, sepsis, dental abscess, [place] angina. No significant evidence of infection at this time. Patient does not have any other systemic symptoms that would suggest anaphylaxis. He is on CARLOS-inhibitor which is a contributor to angioedema. Symptoms improved significantly with methylprednisolone and antihistamine therapy. We will have him discontinue his lisinopril and continue on a short course of steroid and antihistamine therapy. Strict ER return precautions were discussed with the patient. Patient verbalizes understanding and agrees to plan and has no further concerns at this time. Thank you A [id number] system was used with the dictation of this note. Please disregard any spelling or grammatical errors. Discharge Plan Departure Patient Disposition: Home Clinical Impression: Angioedema Qualifiers: Encounter type: initial encounter Qualified Code(s): T78.3XXA - Angioneurotic edema, initial encounter Instructions: DI for Adverse Drug Reaction -- Allergic Activity Restrictions/Additional Instructions: It was very nice to meet you this afternoon. Please take the medications as recommended and discussed. Recommend stopping the lisinopril as this is likely the reason why your tongue started swelling. Please consult with your PCP for another antihypertensive. Return precautions include difficulty swallowing, difficulty breathing, worsening tongue swelling, chest tightness or any other acute concerns or complaints at this time. Thank you Nestor Vargas PA-C Prescriptions: New methylprednisolone [Medrol ([place])] 4 mg tablets,dose pack See Rx Instructions .ROUTE .COMPLEX Qty: 21 RF: 0 famotidine 40 mg tablet 40 mg PO DAILY Qty: 7 RF: 0 fexofenadine 60 mg tablet 60 mg PO BID 7 Days Qty: 14 RF: 0 Discontinued lisinopril 20 mg Tablet 20 mg PO DAILY RF: 0 No Action citalopram 20 mg Tablet 30 mg PO DAILY RF: 0 furosemide [Lasix] 40 mg Tablet 40 mg PO DAILY RF: 0 furosemide [Lasix] 80 mg Tablet 80 mg PO DAILY RF: 0 loratadine 10 mg Tablet 10 mg PO DAILY RF: 0 multivitamin with iron-mineral Tablet 1 tab PO DAILY RF: 0 potassium chloride 20 mEq Tablet Extended Release 40 meq PO DAILY RF: 0 trazodone 50 mg Tablet 25 mg PO BEDTIME RF: 0 acetaminophen 325 mg Tablet 650 mg PO BID RF: 0 cholecalciferol (vitamin D3) 125 mcg (5,000 unit) Tablet 5,000 unit PO DAILY RF: 0 albuterol sulfate 90 mcg/actuation HFA aerosol inhaler 2 puff INHALATION BID RF: 0 baclofen 10 mg Tablet 10 mg PO BID RF: 0 Biofreeze (menthol) 4 % Gel 1 applic TOPICAL BID RF: 0 metformin 500 mg Tablet 500 mg PO BID RF: 0 docusate sodium [Colace] 100 mg Capsule 200 mg PO BID RF: 0 nystatin 100,000 unit/gram Powder 1 applic TOPICAL BID RF: 0 hydrocodone-acetaminophen 5-325 mg Tablet 1 tab PO Q6H PRN (Reason: pain management) RF: 0 nystatin 100,000 unit/gram Powder 1 applic TOPICAL PRN (Reason: Rash) RF: 0 albuterol sulfate 90 mcg/actuation Hfa Aerosol Inhaler 2 puff INHALATION Q4H PRN (Reason: wheezing/SOB) RF: 0 Biofreeze (menthol) 4 % Gel 1 applic TOPICAL Q4H PRN (Reason: pain management) RF: 0 hydrocortisone 2.5 % Cream With Applicator topical Q8H PRN (Reason: rectal itching) RF: 0 sennosides [senna] 8.6 mg Tablet 8.6 mg PO Q12HR PRN (Reason: Constipation) RF: 0 acetaminophen [Tylenol] 325 mg Tablet 650 mg PO Q6H PRN (Reason: pain management) RF: 0 furosemide [Lasix] 40 mg tablet 40 mg PO DAILY Qty: 7 RF: 0 Referrals: Ellen Us ARNP [Primary Care Provider] - <Kong Fernandez MD - Last Filed: 12/26/20 21:27> Cosign ED Attending Cosignature Attestation: I was immediately available in the department for consultation. This documentation has been reviewed and I agree with assessment and plan. Supervised by Kong Fernandez MD
[2020-12-24] MEDS: FAMOTIDINE 20 MG/2 ML VIAL IV (12:54)
[2020-12-24] MEDS: diphenhydrAMINE 50 MG/ML VIAL IV (12:54)
[2020-12-24] MEDS: methylPREDNISolone 125 MG/2 ML VIAL IV (12:54)
--- NOTE | 2020-12-24 14:58 | PC.NURSE ---
L sided tongue swelling appears to be improving
== END 2020-12-24 16:10 | disposition home or self-care (01) ==
PROVIDERS: Emergency Provider Physician Assistant; PCP Nurse Practitioner Gerontology
DX: T78.3XXA Angioneurotic edema, initial encounter (principal)
CPT/HCPCS: 36415; 96374; 96375; 99284; J1200; J2930

== ENCOUNTER → 2021-02-16 08:15 | Outpatient (ROUT) | payer OTHER, MEDICAID, SELFPAY ==
[2020-07-05 05:37] VITALS: BMI 41.7
[2021-02-16 08:51] LABS: Add Manual Diff / Slide Review NO; Basophils Absolute Auto 0 /uL (0-100); Basophils Percent Auto 0.3 % (0-2); Eosinophils Absolute Auto 200 /uL (0-450); Eosinophils Percent Auto 4.2 % (2-4); Hematocrit 41.9 % (41-53); Hemoglobin 13.3 g/dL (13.5-17.5); Lymphocytes Absolute Auto 1200 /uL (1100-4500); Lymphocytes Percent Auto 23.1 % (25-40); Mean Corpuscular HGB Conc 31.8 % (30-36); Mean Corpuscular Hemoglobin 28.6 PG (26-34); Mean Corpuscular Volume 89.9 fL (80-100); Monocytes Absolute Auto 400 /uL (0-900); Monocytes Percent Auto 8.6 % (3-14); Neutrophils Absolute Auto 3200 /uL (1500-7000); Neutrophils Percent Auto 63.8 % (50-75); Platelet Count 157 X10^3/uL (150-400); Red Blood Cell Count 4.66 X10^6/uL (4.5-5.9); Red Cell Distribution Width 14.8 % (11.6-14.8)
[2021-02-16 08:58] LABS: Alanine Aminotransferase 18 IU/L (<50); Albumin 4.1 g/dL (3.5-5.0); Albumin Globulin Ratio 1.6 (1.0-2.8); Alkaline Phosphatase 54 U/L (38-126); Aspartate Aminotransferase 21 IU/L (17-59); BUN Creatinine Ratio 22.5 (6-22); Bilirubin Total 0.3 mg/dL (0.2-1.3); Blood Urea Nitrogen 25 mg/dL (9-20); Calcium 9.1 mg/dL (8.4-10.2); Carbon Dioxide 36 mmol/L (22-32); Chloride 97 mmol/L (98-107); Estimated Glomerular Filt Rate > 60.0 mL/min (>60); Globulin 2.6 g/dL (1.7-4.1); Glucose 94 mg/dL (80-110); HEMOLYSIS < 15 (0-50); Potassium 4.4 mmol/L (3.4-5.1); Sodium 140 mmol/L (137-145); Total Protein 6.7 g/dL (6.3-8.2)
== END ==
PROVIDERS: PCP Nurse Practitioner Gerontology; Visit Provider Nurse Practitioner Family
DX: I10 Essential (primary) hypertension (principal); E11.8 Type 2 diabetes mellitus with unspecified complications
CPT/HCPCS: 36415; 80053; 85025

== ENCOUNTER 2021-07-23 13:33 | Emergency (ER) | payer OTHER, MEDICAID, SELFPAY ==
[2020-07-05 05:37] VITALS: BMI 41.7
[2021-07-23] VITALS (19 sets, daily range): BP systolic 89–175; BP diastolic 53–143; PULSE 58–69; RESP 10–28; TEMP 37.2; O2SAT 83–97; BMI 43.7
--- NOTE | 2021-07-23 14:05 | DI.RAD.S_ITS ---
PROCEDURE: XR CHEST 1V INDICATIONS: chest pain TECHNIQUE: One view of the chest was acquired. COMPARISON: [facility], CT, CT CHEST WITHOUT CONTRAST, 01/05/2021, 10:58. [facility], CR, XR CHEST 1V, 10/19/2020, 10:33. [facility], CR, XR CHEST 1V, 10/07/2019, 13:25. FINDINGS: Surgical changes and devices: None. Lungs and pleura: Lungs appear clear. Emphysematous change. No pleural effusions or pneumothorax. Mediastinum: Mediastinal contours appear normal. Heart size is normal. Bones and chest wall: No suspicious bony lesions. Overlying soft tissues appear unremarkable. IMPRESSION: No acute cardiopulmonary abnormality. Dictated by: Edward Becker M.D. on 07/23/2021 at 14:42 Approved by: Edward Becker M.D. on 07/23/2021 at 14:43
[2021-07-23 14:26] LABS: Add Manual Diff / Slide Review NO; Basophils Absolute Auto 0 /uL (0-100); Basophils Percent Auto 0.2 % (0-2); Eosinophils Absolute Auto 200 /uL (0-450); Eosinophils Percent Auto 3.3 % (2-4); Hematocrit 40.3 % (41-53); Hemoglobin 13.2 g/dL (13.5-17.5); Lymphocytes Absolute Auto 1100 /uL (1100-4500); Lymphocytes Percent Auto 18.5 % (25-40); Mean Corpuscular HGB Conc 32.6 % (30-36); Mean Corpuscular Hemoglobin 29.6 PG (26-34); Mean Corpuscular Volume 90.7 fL (80-100); Monocytes Absolute Auto 500 /uL (0-900); Monocytes Percent Auto 8.9 % (3-14); Neutrophils Absolute Auto 4100 /uL (1500-7000); Neutrophils Percent Auto 69.1 % (50-75); Platelet Count 162 X10^3/uL (150-400); Red Blood Cell Count 4.45 X10^6/uL (4.5-5.9); Red Cell Distribution Width 15.1 % (11.6-14.8)
[2021-07-23 14:30] LABS: D Dimer 247 ng/mL (<230)
[2021-07-23 14:38] LABS: Lactate (Lactic Acid) 1.8 mmol/L (0.7-2.1)
[2021-07-23 14:40] LABS: BUN Creatinine Ratio 22.7 (6-22); Blood Urea Nitrogen 29 mg/dL (9-20); Calcium 8.7 mg/dL (8.4-10.2); Carbon Dioxide 36 mmol/L (22-32); Chloride 97 mmol/L (98-107); Creatine Kinase 102 U/L (55-170); Estimated Glomerular Filt Rate 54.5 mL/min (>60); Glucose 145 mg/dL (80-110); HEMOLYSIS 16 (0-50); Magnesium 1.9 mg/dL (1.6-2.3); Potassium 4.5 mmol/L (3.4-5.1); Sodium 138 mmol/L (137-145)
[2021-07-23 14:51] LABS: NT-proBNP (BNP-Adult 18+) 124 pg/mL (<450); Troponin I < 0.012 ng/mL (0.01-0.034)
[2021-07-23 14:55] LABS: CKMB % Relative Index 3.5 % (1.5-5.0); Creatine Kinase MB 3.56 ng/mL (<2.37)
--- NOTE | 2021-07-23 15:11 | ED.SOB ---
HPI - SOB/Dyspnea General Chief Complaint: Shortness of Breath/Dyspnea Stated Complaint: sob Time Seen by Provider: 07/23/21 14:04 Source: patient and EMS Mode of arrival: EMS History of Present Illness HPI Narrative: The patient is a resident of a nearby care facility. He is O2 dependent COPD. He arrives by EMS with increased work of breathing. Apparently there was an episode or drooling, his mentation was felt to apparently to apparently be altered. Upon arrival he is alert, oriented, he comprehends all interactions. He denies headache or sore throat. He denies fever. He has intermittent, nonproductive cough. He has COPD. He does have slight increased effort of breathing. He denies orthopnea. He takes Lasix. He has no peripheral edema. Medical records indicate a history of atherosclerotic heart disease with cardiomegaly. He personally denies a history of CHF. Related Data Home Medications Medication Instructions Recorded Confirmed acetaminophen 325 mg tablet 650 mg PO BID 07/05/20 07/05/20 acetaminophen 325 mg tablet 650 mg PO Q6H PRN 07/05/20 07/05/20 (Tylenol) albuterol sulfate 90 mcg/actuation 2 puff INHALATION BID 07/05/20 07/05/20 aerosol inhaler albuterol sulfate 90 mcg/actuation 2 puff INHALATION Q4H PRN 07/05/20 07/05/20 aerosol inhaler baclofen 10 mg tablet 10 mg PO BID 07/05/20 07/05/20 cholecalciferol (vitamin D3) 125 5,000 unit PO DAILY 07/05/20 07/05/20 mcg (5,000 unit) tablet citalopram 20 mg tablet 30 mg PO DAILY 07/05/20 07/05/20 docusate sodium 100 mg capsule 200 mg PO BID 07/05/20 07/05/20 (Colace) furosemide 40 mg tablet (Lasix) 40 mg PO DAILY 07/05/20 07/05/20 furosemide 80 mg tablet (Lasix) 80 mg PO DAILY 07/05/20 07/05/20 hydrocodone 5 mg-acetaminophen 325 1 tab PO Q6H PRN 07/05/20 07/05/20 mg tablet hydrocortisone 2.5 % rectal cream ea TOPICAL Q8H PRN 07/05/20 with applicator loratadine 10 mg tablet 10 mg PO DAILY 07/05/20 07/05/20 menthol 4 % topical gel (Biofreeze 1 applic TOPICAL BID 07/05/20 07/05/20 (menthol)) menthol 4 % topical gel (Biofreeze 1 applic TOPICAL Q4H PRN 07/05/20 07/05/20 (menthol)) metformin 500 mg tablet 500 mg PO BID 07/05/20 07/05/20 multivitamin with iron-mineral 1 tab PO DAILY 07/05/20 07/05/20 nystatin 100,000 unit/gram topical 1 applic TOPICAL BID 07/05/20 07/05/20 powder nystatin 100,000 unit/gram topical 1 applic TOPICAL PRN 07/05/20 powder potassium chloride 20 mEq 40 meq PO DAILY 07/05/20 07/05/20 tablet,extended release sennosides 8.6 mg tablet (senna) 8.6 mg PO Q12HR PRN 07/05/20 07/05/20 trazodone 50 mg tablet 25 mg PO BEDTIME 07/05/20 07/05/20 Previous Rx's Medication Instructions Recorded furosemide 40 mg tablet (Lasix) 40 mg PO DAILY #7 tab 10/19/20 famotidine 40 mg tablet 40 mg PO DAILY #7 tab 12/24/20 methylprednisolone 4 mg tablets in See Rx Instructions .ROUTE 12/24/20 a dose pack (Medrol ([place])) .COMPLEX #21 ea prednisone 20 mg tablet 60 mg PO DAILY 5 Days tab 07/23/21 Allergies Allergy/AdvReac Type Severity Reaction Status Date / Time No Known Drug Allergies Allergy Verified 07/23/21 13:36 Review of Systems Constitutional Constitutional: Denies body ache(s), Denies chills, Reports fatigue and Denies fever(s) Eyes Eyes: Denies blurry vision and Denies change in vision ENT Ears, Nose, Mouth, and Throat: Denies vertigo, Denies dizziness, Denies dry mouth, Denies mouth lesions, Denies sinus pressure and Denies sore throat Cardiovascular Cardiovascular: Denies chest pain, Denies syncope, Denies rapid heart rate, Denies pedal edema, Denies edema and Reports dyspnea Respiratory Respiratory: Denies change in phlegm color, Denies chest congestion, Reports cough, Reports dyspnea and Denies wheezing Gastrointestinal Gastrointestinal: Denies abdominal pain, Denies nausea and Denies vomiting Genitourinary Genitourinary: Denies dysuria Musculoskeletal Musculoskeletal: Denies back pain, Denies joint swelling and Denies numbness Integumentary/Breasts Skin/Breast: Denies lesions and Denies rash Neurologic Neurologic: Denies confusion, Denies vertigo, Denies dizziness, Denies syncope and Denies numbness Psychiatric Psychiatric: Denies anxiety, Denies confusion and Denies depression Endocrine Endocrine: Reports fatigue Hematologic/Lymphatic On Anticoagulants: No Allergic/Immunologic Allergic/Immunologic: Denies wheezing Patient History Medical History Atherosclerotic heart disease of [place] coronary artery without angina pectoris Benign prostatic hyperplasia without lower urinary tract symptoms Cardiomegaly COPD (chronic obstructive pulmonary disease) Essential hypertension History of traumatic brain injury Major depressive disorder Morbid obesity with BMI of 40.0-44.9, adult Muscle weakness (generalized) Nocturia Other abnormalities of gait and mobility Surgical History H/O left knee surgery History of ankle surgery History of foot surgery History of hip surgery Family History Mother Diabetes mellitus Hypertension Father Congestive heart failure Social History household members: caregiver Smoking Status: Former smoker alcohol intake: former Smoking Status: Former smoker tobacco type: cigarettes alcohol intake frequency: 0-2 drinks per day Substance Use Type: does not use Exam Initial Vital Signs Initial Vital Signs: Vital Signs Temperature 98.9 F 07/23/21 13:36 Pulse Rate 67 07/23/21 13:36 Respiratory Rate 20 07/23/21 13:36 Blood Pressure 173/143 H 07/23/21 13:36 Pulse Oximetry 94 07/23/21 13:36 Const General: cooperative, healthy appearing and comfortable [facility] Head: normocephalic and atraumatic Face and sinus: normal facial exam and sinuses tender Mouth: mucous membranes abnormal Throat: posterior oropharynx normal Eyes General: appearance normal, both eyes and all related structures Neck Neck: normal visual inspection and No JVD Chest Chest: normal inspection of the chest Resp Effort & Inspection: normal respiratory effort Other: Mild bilateral wheezes. No rales or rhonchi. Cardio Rhythm: regular rhythm Heart Sounds: S1 normal, S2 normal, no click, no murmurs and no rubs GI Inspection: obesity Palpation: soft, No mass and No tender Auscultation: normal bowel sounds Back/Spine/Pelvis Back: normal to inspection and No CVA tenderness Skin General: no rashes or lesions noted Neuro General: patient alert, patient awake, patient oriented x3 and no focal motor deficits Extrem General: normal to inspection, no pedal edema and no calf tenderness Psych Mental Status: mental status grossly normal Course Course Course Narrative: The patient denied hip treatments, feeling he did not need them. He did accept Solu-Medrol. He has been alert, coherent his entire ER visit. There have been no neurologic deficits. There are no acute findings on chest x-ray. There is no obvious pneumonia. He has subjectively improved, he will be discharged home with his current medications with a burst dose of prednisone. Orders Ordered: Discontinued Medications Albuterol (Albuterol 2.5 Mg/3 Ml Neb (Adult)) 5 mg INH NOW ONE Stop: 07/23/21 15:13 Last Admin: 07/23/21 17:03 Dose: Not Given Documented by: DANIELA Albuterol/Ipratropium (Albuterol/Ipratropium 3 Ml Ampul) 3 ml INH NOW ONE Stop: 07/23/21 14:05 Last Admin: 07/23/21 17:03 Dose: Not Given Documented by: DANIELA Methylprednisolone (Methylprednisolone 125 Mg/2 Ml Vial) 125 mg IV NOW ONE Stop: 07/23/21 16:04 Last Admin: 07/23/21 16:44 Dose: 125 mg Documented by: DANIELA Vital Signs Vital signs: Vital Signs - 8 hr 07/23/21 13:36 07/23/21 13:39 07/23/21 14:00 Temperature 98.9 F Pulse Rate 67 66 63 Respiratory Rate 20 20 Blood Pressure 173/143 H Pulse Oximetry 94 94 96 07/23/21 14:01 07/23/21 14:30 07/23/21 14:31 Temperature Pulse Rate 64 64 65 Respiratory Rate 22 28 H 19 Blood Pressure 175/70 H 167/70 H Pulse Oximetry 97 93 93 07/23/21 15:00 07/23/21 15:30 07/23/21 15:31 Temperature Pulse Rate 65 62 65 Respiratory Rate 19 Blood Pressure 168/114 H 167/68 H Pulse Oximetry 92 96 95 07/23/21 16:00 07/23/21 16:01 07/23/21 16:19 Temperature Pulse Rate 62 61 61 Respiratory Rate 14 10 L 14 Blood Pressure 89/53 L 140/64 Pulse Oximetry 88 L 83 L 91 07/23/21 16:30 07/23/21 16:51 07/23/21 17:00 Temperature Pulse Rate 63 58 L 63 Respiratory Rate Blood Pressure 120/55 L 126/91 H 126/61 Pulse Oximetry 95 95 96 07/23/21 17:30 07/23/21 18:00 07/23/21 18:01 Temperature Pulse Rate 63 58 L 62 Respiratory Rate Blood Pressure 131/61 144/65 H Pulse Oximetry 92 94 93 07/23/21 18:30 Temperature Pulse Rate 69 Respiratory Rate Blood Pressure 134/91 H Pulse Oximetry 92 MDM - SOB/Dyspnea Lab Data Result diagrams: 07/23/21 13:30 07/23/21 13:30 Labs: Lab Results 07/23/21 07/23/21 07/23/21 Range/Units 13:30 13:30 13:30 WBC 6.0 (4.5-11.0) X10^3/uL RBC 4.45 L (4.5-5.9) X10^6/uL Hgb 13.2 L (13.5-17.5) g/dL Hct 40.3 L (41-53) % MCV 90.7 (80-100) fL MCH 29.6 (26-34) PG MCHC 32.6 (30-36) % RDW 15.1 H (11.6-14.8) % Plt Count 162 (150-400) X10^3/uL Neut % (Auto) 69.1 (50-75) % Lymph % (Auto) 18.5 L (25-40) % [place] % (Auto) 8.9 (3-14) % Eos % (Auto) 3.3 (2-4) % Baso % (Auto) 0.2 (0-2) % Neut # (Auto) 4100 (4252-5814) /uL Lymph # (Auto) 1100 (4520-9221) /uL [place] # (Auto) 500 (0-900) /uL Eos # (Auto) 200 (0-450) /uL Baso # (Auto) 0 (0-100) /uL D-Dimer 247 H (<230) ng/mL Sodium 138 (137-145) mmol/L Potassium 4.5 (3.4-5.1) mmol/L Chloride 97 L (98-107) mmol/L Carbon Dioxide 36 H (22-32) mmol/L BUN 29 H (9-20) mg/dL Creatinine 1.28 H (0.66-1.25) mg/dL Estimated GFR 54.5 L (>60) mL/min BUN/Creatinine Ratio 22.7 H (6-22) Glucose 145 H (80-110) mg/dL Lactate (0.7-2.1) mmol/L Calcium 8.7 (8.4-10.2) mg/dL Magnesium 1.9 (1.6-2.3) mg/dL Total Creatine Kinase 102 (55-170) U/L CK-MB (CK-2) 3.56 H (<2.37) ng/mL CK-MB (CK-2) Rel Index 3.5 (1.5-5.0) % Troponin I < 0.012 (0.01-0.034) ng/mL NT-Pro-B Natriuret Pep 124 (<450) pg/mL Procalcitonin 0.10 (<0.5) ng/mL Chlamy pneumoniae PCR (Not Detect) Adenovirus (PCR) (Not Detect) B. pertussis DNA (PCR) (Not Detecte) B.parapertussis DNA PCR (Not Detecte) Coronavirus OC43 (PCR) (Not Detect) Coronavirus HKU1 (PCR) (Not Detect) Coronavirus 229E (PCR) (Not Detect) SARS-CoV-2 (PCR) (Not Detecte) Coronavirus NL63 (PCR) (Not Detect) Human Metapneumovir PCR (Not Detect) Influenza Type A (PCR) (Not Detect) Influenza Type B (PCR) (Not Detect) M. pneumoniae (PCR) (Not Detect) Parainfluenza 1 (PCR) (Not Detect) Parainfluenza 2 (PCR) (Not Detect) Parainfluenza 3 (PCR) (Not Detect) Parainfluenza 4 (PCR) (Not Detect) RSV (PCR) (Not Detect) Entero/Rhino (PCR) (Not Detect) 07/23/21 07/23/21 Range/Units 13:30 14:07 WBC (4.5-11.0) X10^3/uL RBC (4.5-5.9) X10^6/uL Hgb (13.5-17.5) g/dL Hct (41-53) % MCV (80-100) fL MCH (26-34) PG MCHC (30-36) % RDW (11.6-14.8) % Plt Count (150-400) X10^3/uL Neut % (Auto) (50-75) % Lymph % (Auto) (25-40) % [place] % (Auto) (3-14) % Eos % (Auto) (2-4) % Baso % (Auto) (0-2) % Neut # (Auto) (4944-8188) /uL Lymph # (Auto) (9785-9849) /uL [place] # (Auto) (0-900) /uL Eos # (Auto) (0-450) /uL Baso # (Auto) (0-100) /uL D-Dimer (<230) ng/mL Sodium (137-145) mmol/L Potassium (3.4-5.1) mmol/L Chloride (98-107) mmol/L Carbon Dioxide (22-32) mmol/L BUN (9-20) mg/dL Creatinine (0.66-1.25) mg/dL Estimated GFR (>60) mL/min BUN/Creatinine Ratio (6-22) Glucose (80-110) mg/dL Lactate 1.8 (0.7-2.1) mmol/L Calcium (8.4-10.2) mg/dL Magnesium (1.6-2.3) mg/dL Total Creatine Kinase (55-170) U/L CK-MB (CK-2) (<2.37) ng/mL CK-MB (CK-2) Rel Index (1.5-5.0) % Troponin I (0.01-0.034) ng/mL NT-Pro-B Natriuret Pep (<450) pg/mL Procalcitonin (<0.5) ng/mL Chlamy pneumoniae PCR Not detected (Not Detect) Adenovirus (PCR) Not detected (Not Detect) B. pertussis DNA (PCR) Not detected (Not Detecte) B.parapertussis DNA PCR Not detected (Not Detecte) Coronavirus OC43 (PCR) Not detected (Not Detect) Coronavirus HKU1 (PCR) Not detected (Not Detect) Coronavirus 229E (PCR) Not detected (Not Detect) SARS-CoV-2 (PCR) Not detected (Not Detecte) Coronavirus NL63 (PCR) Not detected (Not Detect) Human Metapneumovir PCR Not detected (Not Detect) Influenza Type A (PCR) Not detected (Not Detect) Influenza Type B (PCR) Not detected (Not Detect) M. pneumoniae (PCR) Not detected (Not Detect) Parainfluenza 1 (PCR) Not detected (Not Detect) Parainfluenza 2 (PCR) Not detected (Not Detect) Parainfluenza 3 (PCR) Not detected (Not Detect) Parainfluenza 4 (PCR) Not detected (Not Detect) RSV (PCR) Not detected (Not Detect) Entero/Rhino (PCR) Not detected (Not Detect) Urine Dip Bedside Urine Glucose Negative Bedside Urine Bilirubin - Negative Bedside Urine Ketone - Negative Urine Specific Willis 1.02 Bedside Urine Occult Blood - Negative Bedside Urine pH 6.0 Bedside Urine Protein - Negative Bedside Urine Urobilinogen - Negative Bedside Urine Nitrite - Negative Bedside Urine Leukocytes - Negative Esterase Imaging Data Chest x-ray: Radiologist's Impression: 195 3 Wilmer Evans [facility] Routine Call Back Main ED ?18? My List ?8? Waiting ?5? Surge ED ?0? Sign Outs 3A? Charlie Bueno? Judy Barney? 67 M? With Doctor? 1h 5m? 4-Less Urgent? ?? Wound/Laceration? laceration left index finger? ?? 07/23/21 15:02? REG ER? Draft? Ellen Mcclellanw Soledad Sharma in triage room Order BP 181/87 Pulse 93 Resp 18 Temp 98.5 F O2 Sat 98% (RA) Imaging MAR R01? Moe? Susanne? 81 F? With Doctor? 3h 3m? 3-Urgent? ?? Shortness of Breath/Dyspnea? SOB & Pneumonia? C19S/S? 07/23/21 12:59? REG ER? Draft? Wilmer Sepulvedaah L Order BP 173/81 Pulse 97 Resp 21 Temp O2 Sat 97% Respirator... ?Chem ?Complete B... Magnesium ... Lactate (L... Troponin &... Imaging ?D Dimer St... MAR Consult to... EKG-12 Carie... Cardiac mo... Microbiolo... POC/IKE NT-proBNP ... R02? Cesar? Nusrat? 89 F? Waiting Room? 8m? 3-Urgent? ?? Urogenital-Female? UTI? ?? No Time Seen? PRE ER? No Document? Sign Up Order R04? Pastor? Suman? 76 M? With Doctor? 2h 28m? 3-Urgent? ?? Shortness of Breath/Dyspnea? sob? ISO, C19S/S? 07/23/21 14:04? REG ER? Draft? Wilmer Bird Aurelia Baumann- Would like update [phone] Order BP 167/70 Pulse 65 Resp 19 Temp O2 Sat 93% Respirator... ?D Dimer St... Lactate (L... NT-proBNP ... Procalcito... ?Chem ?Complete B... Magnesium ... ?Troponin &... Imaging MAR Consult to... Cardiac mo... Microbiolo... POC/IKE RT Consult... NPO Diet EKG-12 Carie... Measure pe... R06? Buchacher? Meenakshi? 64 F? With Doctor? 7h 47m? 3-Urgent? ?? Abdominal Pain? left side pain/diverticulitis/high fever? ISO, C19S/S? 07/23/21 08:32? REG ER? Draft? Wilmer Velasquez ? Order BP 213/95 Pulse 80 Resp Temp O2 Sat 97% ?Urine Micr... Imaging ?Chem COVID19 -N... ?Complete B... Lipase Sta... POC/IKE MAR R07? Jacob? Steffi? 53 F? With Doctor? 2h 3m? 3-Urgent? ?? Abdominal Pain? lower back and pelvic pain? ?? 07/23/21 15:03? REG ER? Draft? Ellen Osborne Nathalia S ? Order BP 131/59 Pulse 106 Resp 18 Temp 99.3 F O2 Sat 98% (RA) ?Complete B... ?Chem ?Lipase Sta... ?Urinalysis... Lactate (L... Imaging Amylase St... MAR NPO Diet Cardiac mo... POC/IEK Microbiolo... R08? Chris? Belinda? 81 F? With Doctor? 2h 46m? 2-Emergent? ?? Shortness of Breath/Dyspnea? hard time to breath x2days? C19S/S? 07/23/21 14:24? REG ER? Draft? Wilmer Evans Soledad H ? Order BP Pulse 75 Resp Temp O2 Sat 95% Lactate (L... Imaging ?Complete B... ?Chem COVID19 -N... ?NT-proBNP ... ?Troponin &... MAR EKG-12 Carie... Measure pe... RT Consult... Cardiac mo... R09? Ravinder? Suman? 37 M? With Doctor? 54m? 4-Less Urgent? ?? Eye Problems? Wood chip in eye, can't remove? ?? 07/23/21 15:34? REG ER? No Document? Ellen Crew Order BP Pulse 95 Resp 18 Temp 98.2 F O2 Sat 99% (RA) MAR R10? Barcott? Aurelia? 78 M? With Doctor? 6h 54m? 2-Emergent? ?? Weakness? Lower extremity weakness? ?? 07/23/21 09:26? REG ER? Draft? Wilmer Luissaeed Rodriguez ? Order BP 125/66 Pulse 89 Resp Temp O2 Sat 100% Imaging Magnesium ... ?Troponin &... ?Complete B... ?Chem ?Prothrombi... ?NT-proBNP ... ?Urine Micr... MAR EKG-12 Carie... NPO Diet Cardiac mo... Consult to... Microbiolo... R11? Daniel? Agustina? 89 F? With Doctor? 2h 24m? 2-Emergent? ?? Syncope? Syncope? ?? 07/23/21 14:40? REG ER? Draft? Wilmer Eastman Michael [phone] Lizzeth; daughter Order BP 219/95 (+) Pulse 88 (+) Resp Temp O2 Sat ?Chem Lipase Sta... Magnesium ... ?Complete B... Troponin &... Imaging ?Urine Micr... MAR EKG-12 Carie... NPO Diet EKG-12 Carie... Cardiac mo... Microbiolo... NT-proBNP ... R12? Macphail? Genesis? 87 F? Admitted Observation Patient? 4h 21m? 2-Emergent? ?? Neuro Symptoms/Deficit? TIA? ISO? 07/23/21 11:39? ADM MCKENNA? Draft? Wilmer Eastman S 206- Yossarian/Jackson Order BP 172/97 Pulse 80 Resp 17 Temp O2 Sat 95% Imaging ?Chem ?Complete B... Urine Drug... POC/IKE ?Urine Micr... MAR EKG-12 Carie... Cardiac mo... Microbiolo... COVID19 -N... R13? Zaidi? Sabrina? 11 F? Boarding? 24h 34m? 2-Emergent? ?? Psychiatric Symptoms? SI? SA, SI, ?? 07/22/21 15:44? REG ER? I-Signed? Michelle Eastman S voluntary, should not leave yet [facility], full & long waitlist -[facility] outpatient appt booked for 08/27 @ 10:30 AM Needs morning meds ordered Order BP 98/57 Pulse 80 Resp 20 Temp 98.3 F O2 Sat 99% (RA) Acetaminop... Free T4, D... ?Complete B... ?Chem Ethanol (E... Salicylate... Thyroid St... Urine Drug... POC/IKE COVID19 -N... ?Urine Micr... ?Microbiolo... MAR Consult to... General (R... General (R... Happy? Al? Ave? 40 F? In Room? 33m? 2-Emergent? ?? Chest Pain? Chest pains, high BP 160/123? ?? No Time Seen? REG ER? No Document? Sign Up Order BP Pulse 121 Resp 18 Temp 98.2 F O2 Sat 98% (RA) MAR NPO Diet Complete B... Magnesium ... EKG-12 Carie... Cardiac mo... Chem Lipase Sta... Troponin &... Imaging WRoom? Chacho? Claire? 80 F? Registered? 2h 15m? 4-Less Urgent? ?? Extremity Injury, Lower? Fell, Right leg injury, Kneecap injury? ?? No Time Seen? REG ER? No Document? Sign Up Order BP 146/67 Pulse 75 Resp 20 Temp 98.6 F O2 Sat 99% (RA) Imaging [facility]oom? Kev? Emelyn? 78 F? Registered? 32m? 2-Emergent? ?? Fever? pain from ear to chest from dental cleaning? C19S/S? No Time Seen? REG ER? No Document? Sign Up Order BP 193/87 Pulse 110 Resp 20 Temp 102.3 F O2 Sat 96% (RA) MAR NPO Diet NPO Diet Lactate (L... Lipase Sta... EKG-12 Carie... EKG-12 Carie... RT Consult... Cardiac mo... Cardiac mo... Complete B... Chem Magnesium ... Procalcito... Troponin &... Imaging Microbiolo... POC/IKE WRoom? Leisocorro? Neena? 58 F? Registered? 4m? No Chief Complaint? hallucinating? ?? No Time Seen? REG ER? No Document? Sign Up Order WRoom? Karin? Shea? 35 F? Registered? 2h 20m? 3-Urgent? ?? Abdominal Pain? jaundice? ?? No Time Seen? REG ER? No Document? Sign Up iv and blood done Order BP 156/85 Pulse 85 Resp 20 Temp 97.3 F O2 Sat 99% (RA) ?Complete B... ?Chem Lipase Sta... NPO Diet EKG-12 Carie... Cardiac mo... POC/IKE WRoom? Dung? Francisco? 49 M? Registered? 46m? 3-Urgent? ?? Wound/Laceration? rt leg infection? ?? No Time Seen? REG ER? No Document? Sign Up Order BP Pulse 73 Resp 18 Temp 97.8 F O2 Sat 100% (RA) Imaging - XR chest 1V Suman Baumann??76??M??1945 ? Allergy/Adv: No Known Drug Allergies (More??) Close Imaging ACTIVITY DATE EXAM STATUS AUTHOR 07/23/21 14:05 Chest X-Ray Signed Rosita,Edward Imaging Reports Close Chest X-Ray (Signed) Edward Becker - 07/23/21 Launch?Image [address] [address] XRay Report Signed Patient: Suman Baumann MR#: [id number] : 1945 Acct:[id number] Age/Sex: 76 / M Date of Service: 07/23/21 Loc: ED Accession Number: [id number] ?? Procedure: XR chest 1V Ordering Provider: Wilmer Evans MD PROCEDURE:? XR CHEST 1V ? INDICATIONS:? chest pain ? TECHNIQUE:? One view of the chest was acquired.? ? COMPARISON:? [facility], CT, CT CHEST WITHOUT CONTRAST, 01/05/2021, 10:58.? [facility], CR, XR CHEST 1V, 10/19/2020, 10:33.? [facility], CR, XR CHEST 1V, 10/07/2019, 13:25. ? FINDINGS:? ? Surgical changes and devices:? None.? ? Lungs and pleura:? Lungs appear clear.? Emphysematous change.? No pleural effusions or pneumothorax.? ? Mediastinum:? Mediastinal contours appear normal.? Heart size is normal.? ? Bones and chest wall:? No suspicious bony lesions.? Overlying soft tissues appear unremarkable.? ? IMPRESSION:? No acute cardiopulmonary abnormality. ? ? ? Dictated by: Edward Becker M.D. on 07/23/2021 at 14:42 ? ? Approved by: Edward Becker M.D. on 07/23/2021 at 14:43 ? ECG Data Attestation: I personally reviewed and interpreted this ECG as follows: (Normal sinus rhythm rate 66 beats per minute. First-degree AV block. Left axis deviation. Old inferior AR. No acute ST elevations.) Discharge Plan Departure Patient Disposition: Home Clinical Impression: COPD exacerbation Instructions: Chronic Obstructive Pulmonary Disease Activity Restrictions/Additional Instructions: Continue your current, regular medications. Prednisone 60 mg daily for 5 days. Oxygen as previously prescribed Return here if symptoms exacerbate. Prescriptions: New prednisone 20 mg tablet 60 mg PO DAILY 5 Days 0RF No Action citalopram 20 mg Tablet 30 mg PO DAILY 0RF furosemide [Lasix] 40 mg Tablet 40 mg PO DAILY 0RF furosemide [Lasix] 80 mg Tablet 80 mg PO DAILY 0RF loratadine 10 mg Tablet 10 mg PO DAILY 0RF multivitamin with iron-mineral Tablet 1 tab PO DAILY 0RF potassium chloride 20 mEq Tablet Extended Release 40 meq PO DAILY 0RF trazodone 50 mg Tablet 25 mg PO BEDTIME 0RF acetaminophen 325 mg Tablet 650 mg PO BID 0RF cholecalciferol (vitamin D3) 125 mcg (5,000 unit) Tablet 5,000 unit PO DAILY 0RF albuterol sulfate 90 mcg/actuation HFA aerosol inhaler 2 puff INHALATION BID 0RF baclofen 10 mg Tablet 10 mg PO BID 0RF Biofreeze (menthol) 4 % Gel 1 applic TOPICAL BID 0RF metformin 500 mg Tablet 500 mg PO BID 0RF docusate sodium [Colace] 100 mg Capsule 200 mg PO BID 0RF nystatin 100,000 unit/gram Powder 1 applic TOPICAL BID 0RF hydrocodone-acetaminophen 5-325 mg Tablet 1 tab PO Q6H PRN (Reason: pain management) 0RF Rx Instructions: do not reorder once medication gone nystatin 100,000 unit/gram Powder 1 applic TOPICAL PRN (Reason: Rash) 0RF albuterol sulfate 90 mcg/actuation Hfa Aerosol Inhaler 2 puff INHALATION Q4H PRN (Reason: wheezing/SOB) 0RF Biofreeze (menthol) 4 % Gel 1 applic TOPICAL Q4H PRN (Reason: pain management) 0RF hydrocortisone 2.5 % Cream With Applicator topical Q8H PRN (Reason: rectal itching) 0RF sennosides [senna] 8.6 mg Tablet 8.6 mg PO Q12HR PRN (Reason: Constipation) 0RF acetaminophen [Tylenol] 325 mg Tablet 650 mg PO Q6H PRN (Reason: pain management) 0RF furosemide [Lasix] 40 mg tablet 40 mg PO DAILY Qty: 7 0RF methylprednisolone [Medrol ([place])] 4 mg tablets,dose pack See Rx Instructions .ROUTE .COMPLEX Qty: 21 0RF Rx Instructions: orally per package directions famotidine 40 mg tablet 40 mg PO DAILY Qty: 7 0RF Referrals: Ellen Us ARNP [Primary Care Provider] -
[2021-07-23 15:46] LABS: Adenovirus Not Detected (Not Detect); B. parapertussis Not Detected (Not Detecte); Bordetella pertussis Not Detected (Not Detecte); Chlamydophila pneumoniae Not Detected (Not Detect); Coronavirus 229E Not Detected (Not Detect); Coronavirus HKU1 Not Detected (Not Detect); Coronavirus NL 63 Not Detected (Not Detect); Coronavirus OC43 Not Detected (Not Detect); Human Metapneumovirus Not Detected (Not Detect); Human Rhinovirus/Enterovirus Not Detected (Not Detect); Influenza A Not Detected (Not Detect); Influenza B Not Detected (Not Detect); Mycoplasma pneumoniae Not Detected (Not Detect); Parainfluenza Virus 1 Not Detected (Not Detect); Parainfluenza Virus 2 Not Detected (Not Detect); Parainfluenza Virus 3 Not Detected (Not Detect); Parainfluenza Virus 4 Not Detected (Not Detect); Respiratory Syncytial Virus Not Detected (Not Detect); SARS- CoV-2 Not Detected (Not Detecte)
[2021-07-23] MEDS: methylPREDNISolone 125 MG/2 ML VIAL IV (16:44)
== END 2021-07-23 20:10 | disposition home or self-care (01) ==
PROVIDERS: Emergency Provider Emergency Medicine; PCP Nurse Practitioner Gerontology
DX: J44.1 Chronic obstructive pulmonary disease with (acute) exacerbation (principal); I44.0 Atrioventricular block, first degree; Z87.891 Personal history of nicotine dependence
CPT/HCPCS: 36415; 71045; 80048; 81003; 82550; 82553; 83605; 83735; 83880; 84145; 84484; 85025; 85379; 87040; 87633; 93005; 99284; 99285; J2930

== ENCOUNTER → 2021-08-19 19:02 | Outpatient (ROUT) | payer OTHER, MEDICAID, SELFPAY ==
[2020-07-05 05:37] VITALS: BMI 41.7
[2021-08-19 19:11] LABS: Appearance Urine UA CLEAR; Bilirubin Urine UA NEGATIVE (NEGATIVE); Color Urine UA YELLOW; Glucose Urine UA NEGATIVE (Negative); Ketones Urine UA NEGATIVE (NEGATIVE); Leukocyte Esterase Urine UA NEGATIVE (NEGATIVE); Nitrite Urine UA NEGATIVE (Negative); Occult Blood Urine UA NEGATIVE (Negative); Protein Urine UA NEGATIVE (Negative); Urobilinogen Urine UA 0.2 E.U./dL (0.2)
[2021-08-19 19:28] LABS: Bacteria Urine None Seen; Culture Indicated Urine Cult Not Indicated; RBC Urine None Seen (0-5/HPF); WBC Urine None Seen (0-5/HPF)
== END ==
PROVIDERS: PCP Nurse Practitioner Gerontology; Visit Provider Nurse Practitioner Family
DX: R33.9 Retention of urine, unspecified (principal)
CPT/HCPCS: 81001

== ENCOUNTER → 2021-08-24 08:03 | Outpatient (ROUT) | payer OTHER, MEDICAID, SELFPAY ==
[2020-07-05 05:37] VITALS: BMI 41.7
[2021-08-24 08:29] LABS: Hemoglobin A1C% w Est Avg Glu 6.2 % (4.0-6.0)
[2021-08-24 08:36] LABS: Add Manual Diff / Slide Review NO; Basophils Absolute Auto 0 /uL (0-100); Basophils Percent Auto 0.2 % (0-2); Eosinophils Absolute Auto 200 /uL (0-450); Eosinophils Percent Auto 3.8 % (2-4); Hematocrit 41.5 % (41-53); Hemoglobin 13.4 g/dL (13.5-17.5); Lymphocytes Absolute Auto 1300 /uL (1100-4500); Lymphocytes Percent Auto 26.7 % (25-40); Mean Corpuscular HGB Conc 32.4 % (30-36); Mean Corpuscular Hemoglobin 29.7 PG (26-34); Mean Corpuscular Volume 91.6 fL (80-100); Monocytes Absolute Auto 500 /uL (0-900); Neutrophils Absolute Auto 2900 /uL (1500-7000); Neutrophils Percent Auto 59.3 % (50-75); Platelet Count 159 X10^3/uL (150-400); Red Blood Cell Count 4.53 X10^6/uL (4.5-5.9); Red Cell Distribution Width 14.9 % (11.6-14.8); White Blood Cell Count 4.8 X10^3/uL (4.5-11.0)
[2021-08-24 08:52] LABS: Alanine Aminotransferase 16 IU/L (<50); Albumin Globulin Ratio 1.5 (1.0-2.8); Alkaline Phosphatase 42 U/L (38-126); Aspartate Aminotransferase 23 IU/L (17-59); BUN Creatinine Ratio 21.6 (6-22); Bilirubin Total 0.4 mg/dL (0.2-1.3); Blood Urea Nitrogen 22 mg/dL (9-20); Calcium 8.9 mg/dL (8.4-10.2); Carbon Dioxide 37 mmol/L (22-32); Chloride 99 mmol/L (98-107); Estimated Glomerular Filt Rate > 60 mL/min (>60); Globulin 2.6 g/dL (1.7-4.1); Glucose 103 mg/dL (80-110); HEMOLYSIS 25 (0-50); Potassium 4.5 mmol/L (3.4-5.1); Sodium 140 mmol/L (137-145); Total Protein 6.6 g/dL (6.3-8.2)
[2021-08-24 09:13] LABS: Prostate Specific Antigen 0.596 ng/mL (0.10-4.00)
== END ==
PROVIDERS: PCP Nurse Practitioner Gerontology; Visit Provider Internal Medicine
DX: R73.03 Prediabetes (principal); R33.9 Retention of urine, unspecified
CPT/HCPCS: 36415; 80053; 83036; 84153; 85025

== ENCOUNTER → 2021-10-12 08:05 | Outpatient (ROUT) | payer OTHER, MEDICAID, SELFPAY ==
[2020-07-05 05:37] VITALS: BMI 41.7
[2021-10-12 08:48] LABS: Blood Urea Nitrogen 24 mg/dL (9-20); Calcium 8.9 mg/dL (8.4-10.2); Carbon Dioxide 38 mmol/L (22-32); Chloride 95 mmol/L (98-107); Estimated Glomerular Filt Rate > 60 mL/min (>60); Glucose 91 mg/dL (80-110); HEMOLYSIS < 15 (0-50); Potassium 4.5 mmol/L (3.4-5.1); Sodium 138 mmol/L (137-145)
== END ==
PROVIDERS: PCP Nurse Practitioner Gerontology; Visit Provider Nurse Practitioner Family
DX: N18.9 Chronic kidney disease, unspecified (principal)
CPT/HCPCS: 36415; 80048

== ENCOUNTER → 2021-10-14 10:01 | Outpatient (CLI) | payer OTHER, MEDICAID, SELFPAY ==
[2020-07-05 05:37] VITALS: BMI 41.7
--- NOTE | 2021-10-14 | DI.CT.S_ITS ---
PROCEDURE: CT ABDOMEN ADRENAL PROTOCOL INDICATIONS: Disorders of adrenal gland/Pulmonary nodule TECHNIQUE: Noncontrast 3 mm thick sections acquired from the diaphragms to the iliac crests. After the administration of intravenous contrast, 3 mm thick venous-phase and 15-minute delayed images acquired from the diaphragms to the iliac crests. For radiation dose reduction, the following was used: automated exposure control, adjustment of mA and/or kV according to patient size. COMPARISON: [facility], CT, CT CHEST WO CON, 12/03/2019, 12:03. Located Within [facility], MR, MR ABDOMEN ADRENAL PROTOCOL, 05/29/2020, 8:49. [facility], CT, CT ANGIO CHEST PE PROTOCOL, 09/12/2019, 9:24. [facility], CT, CT CHEST WO CON, 10/14/2021, 10:26. FINDINGS: Image quality: Excellent. Lung bases: Mild facet mass changes are seen at the lung bases. 1.6 cm nodule at the left lung base is demonstrated, previously evaluated. Tiny left posterior lung base consolidation. Normal size heart. Tiny hiatal hernia. Adrenal glands: 3.1 cm right adrenal nodule demonstrates heterogeneous attenuation precontrast, with both macroscopic fat foci and a 1.7 cm intrinsic hyperdense nodule. 2.5 x 1.7 cm left adrenal nodule also demonstrates precontrast Hounsfield units less than 10. No significant change in size or morphology of either nodule since 09/12/19. Solid organs: Liver is normal size and mildly diffusely hypodense. There are two cysts in the left hepatic lobe. The gallbladder, pancreas, and spleen appear normal. Kidneys are normal in size and enhancement. There are cysts in each kidney, largest arising from the left upper pole measuring 6.2 cm in diameter. There are a few mildly hyperdense cysts in each kidney. No suspicious masses. Nonobstructing nephrolithiasis in the lower pole of the left kidney measuring 6 mm with Hounsfield units of 335, and three punctate calculi in the right kidney. Peritoneum and bowel: Unenhanced bowel loops are normal in caliber and wall thickness. The colon is redundant. No free fluid or air. Nodes and vessels: No retroperitoneal or mesenteric adenopathy by size criteria. Aorta and inferior vena cava are normal in size. Miscellaneous: No ventral hernias. Bones: No suspicious bony lesions. Multilevel disc and endplate degeneration. No vertebral body compression fractures. IMPRESSION: 1. Stable bilateral adrenal adenomas. 2. Bilateral nonobstructing nephrolithiasis. 3. Multiple renal cysts, simple and hyperdense. 4. Mild hepatic steatosis. 5. Stable left lower lobe lung nodule. Dictated by: Petty Allen M.D. on 10/14/2021 at 13:27 Approved by: Petty Allen M.D. on 10/14/2021 at 13:46
--- NOTE | 2021-10-14 | DI.CT.S_ITS ---
PROCEDURE: CT CHEST WO CON INDICATIONS: /Pulmonary nodule follow up TECHNIQUE: Noncontrast 5 mm thick sections acquired from the pulmonary apices to the posterior costophrenic angles. 1 mm lung window, 5 mm thick coronal and sagittal and 7 mm axial MIP reformats were then acquired. For radiation dose reduction, the following was used: automated exposure control, adjustment of mA and/or kV according to patient size. COMPARISON: [facility], CT, CT ANGIO CHEST PE PROTOCOL, 09/12/2019, 9:24. [facility], CT, CT ABDOMEN ADRENAL PROTOCOL, 10/14/2021, 10:26. [facility], CT, CT CHEST WITHOUT CONTRAST, 01/05/2021, 10:58. [facility], CT, CT CHEST WO CON, 07/05/2020, 8:11. [facility], CT, CT CHEST WO CON, 12/03/2019, 12:03. FINDINGS: Image quality: Excellent. Lungs and pleura: Stable pulmonary nodule, left lower lobe. On previous image 222/3 it measured approximately 1.6 x 1.2 cm. On current image 208/3 it measures 1.7 x 1.0 cm. On the early study available, 09/12/2019, the lesion measured 1.7 x 1.1 cm, as well. No new or increasing pulmonary nodules. Moderate centrilobular emphysema. No acute air space opacities. No pleural effusions or pneumothorax. Central and peripheral airways are patent and normal in caliber. Mediastinum: Heart size is normal. No pericardial effusion. No mediastinal adenopathy by size criteria. Thoracic aorta and central pulmonary arteries are normal in size. Esophagus is normal in caliber. No hiatal hernia. Bones and chest wall: No suspicious bony lesions. No vertebral body compression fractures. No axillary or supraclavicular adenopathy by size criteria. Thyroid gland is unremarkable as visualized . Abdomen: Visualized upper abdominal solid organs and bowel loops appear normal in the absence of contrast. IMPRESSION: 1. Stable left lower lobe pulmonary nodule dating back to Aug, 2019. 2. Moderate centrilobular emphysema. Comment: Consider yearly lung screen CT in this patient. Dictated by: Vidal Garibay M.D. on 10/14/2021 at 12:46 Approved by: Vidal Garibay M.D. on 10/14/2021 at 12:56
== END ==
PROVIDERS: PCP Nurse Practitioner Gerontology; Referring Provider Nurse Practitioner Family; Visit Provider Nurse Practitioner Family
DX: D35.02 Benign neoplasm of left adrenal gland (principal); D35.01 Benign neoplasm of right adrenal gland; R91.1 Solitary pulmonary nodule; J43.2 Centrilobular emphysema; N20.0 Calculus of kidney; N28.1 Cyst of kidney, acquired; K76.0 Fatty (change of) liver, not elsewhere classified
CPT/HCPCS: 71250; 74170; Q9967

== ENCOUNTER → 2021-11-30 07:57 | Outpatient (ROUT) | payer OTHER, MEDICAID, SELFPAY ==
[2020-07-05 05:37] VITALS: BMI 41.7
[2021-11-30 09:41] LABS: Cholesterol 99 mg/dL (140-199); HDL Cholesterol 23 mg/dL (40-60); LDL Cholesterol Calculated 51 mg/dL (<100); Triglycerides 127 mg/dL (35-150)
[2021-11-30 09:53] LABS: Hemoglobin A1C% w Est Avg Glu 6.1 % (4.0-6.0)
== END ==
PROVIDERS: PCP Nurse Practitioner Gerontology; Visit Provider Nurse Practitioner Gerontology
DX: I10 Essential (primary) hypertension (principal); E78.5 Hyperlipidemia, unspecified; E11.01 Type 2 diabetes mellitus with hyperosmolarity with coma
CPT/HCPCS: 36415; 80061; 83036

== ENCOUNTER 2021-12-05 13:46 | Emergency (ER) | payer OTHER, MEDICAID, SELFPAY ==
[2020-07-05 05:37] VITALS: BMI 41.7
[2021-12-05] VITALS (14 sets, daily range): BP systolic 111–156; BP diastolic 60–69; PULSE 54–70; RESP 13–19; TEMP 36.8; O2SAT 94–98; BMI 50.5
--- NOTE | 2021-12-05 14:07 | DI.RAD.S_ITS ---
PROCEDURE: XR HIP W PEL IF DONE LT 2V INDICATIONS: fall TECHNIQUE: AP pelvis and lateral view of the left hip acquired. COMPARISON: [facility], DIANE, XR HIP W PEL IF DONE RT 2V, 01/27/2020, 1:42. FINDINGS: Bones: Patient is status post bilateral hip arthroplasty, with hardware components in expected positions. The hip joint appears congruent. The visualized bony structures appear intact. Stable osteophytic fragment adjacent to the left superolateral acetabulum. Soft tissues: Overlying postoperative changes are noted. No suspicious soft tissue densities. IMPRESSION: Postsurgical changes of bilateral hip replacements without evidence of an acute osseous abnormality or hardware complication. Dictated by: Kev Kilpatrick D.O. on 12/05/2021 at 13:44 Approved by: Kev Kilpatrick D.O. on 12/05/2021 at 13:46
--- NOTE | 2021-12-05 15:09 | ED_ITS ---
HPI - Extremity Injury (Lower) General Chief Complaint: Extremity Injury, Lower Stated Complaint: L hip px Time Seen by Provider: 12/05/21 14:47 Source: patient and EMS Mode of arrival: EMS History of Present Illness HPI Narrative: 76-year-old male, former smoker, presents emergency department with complaints of left hip pain after falling out of his wheelchair at [employer] earlier today. Patient states that he just lost his balance and fell forward out of his wheelchair. History of bilateral hip replacements 2-3 years ago. Patient denies hitting his head or any loss of consciousness. Patient is concerned because his left hip feels different. Related Data Home Medications Medication Instructions Recorded Confirmed acetaminophen 325 mg tablet 650 mg PO BID 07/05/20 07/05/20 acetaminophen 325 mg tablet 650 mg PO Q6H PRN pain management 07/05/20 07/05/20 (Tylenol) albuterol sulfate 90 mcg/actuation 2 puff inhalation BID 07/05/20 07/05/20 aerosol inhaler albuterol sulfate 90 mcg/actuation 2 puff inhalation Q4H PRN 07/05/20 07/05/20 aerosol inhaler wheezing/SOB baclofen 10 mg tablet 10 mg PO BID 07/05/20 07/05/20 cholecalciferol (vitamin D3) 125 5,000 unit PO DAILY 07/05/20 07/05/20 mcg (5,000 unit) tablet citalopram 20 mg tablet 30 mg PO DAILY 07/05/20 07/05/20 docusate sodium 100 mg capsule 200 mg PO BID 07/05/20 07/05/20 (Colace) furosemide 40 mg tablet (Lasix) 40 mg PO DAILY 07/05/20 07/05/20 furosemide 80 mg tablet (Lasix) 80 mg PO DAILY 07/05/20 07/05/20 hydrocodone 5 mg-acetaminophen 325 1 tab PO Q6H PRN pain management 07/05/20 07/05/20 mg tablet hydrocortisone 2.5 % rectal cream ea topical Q8H PRN rectal itching 07/05/20 with applicator loratadine 10 mg tablet 10 mg PO DAILY 07/05/20 07/05/20 menthol 4 % topical gel (Biofreeze 1 applic topical BID 07/05/20 07/05/20 (menthol)) menthol 4 % topical gel (Biofreeze 1 applic topical Q4H PRN pain 07/05/20 07/05/20 (menthol)) management metformin 500 mg tablet 500 mg PO BID 07/05/20 07/05/20 multivitamin with iron-mineral 1 tab PO DAILY 07/05/20 07/05/20 nystatin 100,000 unit/gram topical 1 applic topical BID 07/05/20 07/05/20 powder nystatin 100,000 unit/gram topical 1 applic topical PRN Rash 07/05/20 powder potassium chloride 20 mEq 40 meq PO DAILY 07/05/20 07/05/20 tablet,extended release sennosides 8.6 mg tablet (senna) 8.6 mg PO Q12HR PRN Constipation 07/05/20 07/05/20 trazodone 50 mg tablet 25 mg PO BEDTIME 07/05/20 07/05/20 Previous Rx's Medication Instructions Recorded furosemide 40 mg tablet (Lasix) 40 mg PO DAILY #7 tabs 10/19/20 famotidine 40 mg tablet 40 mg PO DAILY #7 tabs 12/24/20 methylprednisolone 4 mg tablets in See Rx Instructions PO .COMPLEX 12/24/20 a dose pack (Medrol ([place])) #21 ea Allergies Allergy/AdvReac Type Severity Reaction Status Date / Time No Known Drug Allergies Allergy Verified 07/23/21 13:36 Review of Systems Review of Systems Narrative: Narrative: GENERAL: Denies chills, fatigue, fever, sweats. See HPI HEENT: Denies sinus pain, ear pain, sore throat, difficulty swallowing, dizziness. RESPIRATORY: Denies dyspnea, cough, wheezing, sputum. CARDIOVASCULAR: Denies chest pain, palpitations, edema. GASTROINTESTINAL: Denies nausea, vomiting, abdominal pain, diarrhea, constipation. : Denies dysuria, frequency, incontinence, hematuria, urinary retention, flank pain. MSK: Denies unusual weakness but endorses left hip discomfort. SKIN: Denies rash, skin lesions, or pruritis. NEUROLOGIC: Denies weakness, dizziness, headache, numbness, confusion. PSYCHIATRIC: No concerning psychosocial issues. Patient History Medical History Atherosclerotic heart disease of [place] coronary artery without angina pectoris Benign prostatic hyperplasia without lower urinary tract symptoms Cardiomegaly COPD (chronic obstructive pulmonary disease) Essential hypertension History of traumatic brain injury Major depressive disorder Morbid obesity with BMI of 40.0-44.9, adult Muscle weakness (generalized) Nocturia Other abnormalities of gait and mobility Surgical History H/O left knee surgery History of ankle surgery History of foot surgery History of hip surgery Family History Mother Diabetes mellitus Hypertension Father Congestive heart failure Social History household members: caregiver Smoking Status: Former smoker alcohol intake: former Smoking Status: Former smoker tobacco type: cigarettes alcohol intake frequency: 0-2 drinks per day Substance Use Type: does not use Exam Narrative Exam Narrative: Exam Narrative: GENERAL: This is a well-nourished, well-developed patient, in no acute distress HEAD: Atraumatic. Normocephalic. EYES: Pupils equal round and reactive. Extraocular motions intact. No scleral icterus, injection or drainage. ENT: Nose without bleeding, purulent drainage. Throat without erythema, tonsillar hypertrophy or exudate. Airway patent. NECK: Trachea midline. No JVD or lymphadenopathy. Nontender. CARDIOVASCULAR: Regular rate and rhythm without murmurs, peripheral pulses intact, cap refill <2 sec. RESPIRATORY: Breath sounds equal and clear bilaterally. No wheezes, rales, or rhonchi. No cough. No increased respiratory effort. No accessory muscle use. GASTROINTESTINAL: Abdomen soft, non-tender, obese without guarding or rebound. No suprapubic pain. MSK: Moves all extremities, but weak. Limited range of motion, no clubbing or edema. Neurovascularly intact. NEURO: A&O x 3. SKIN: Warm, dry, no rashes or lesions noted. No bruising noted to left hip. Initial Vital Signs Initial Vital Signs: Vital Signs Pulse Rate 60 12/05/21 13:45 Pulse Oximetry 94 12/05/21 13:45 Reviewed Course Orders Ordered: ED Orders 12/05/21 14:07 XR hip w pel if done LT 2V Stat Vital Signs Vital signs: Vital Signs - 8 hr 12/05/21 13:53 12/05/21 13:45 12/05/21 13:53 Temperature 98.2 F Pulse Rate 70 60 Respiratory Rate 18 Blood Pressure 122/60 147/62 H Pulse Oximetry 98 94 Oxygen Delivery Method Nasal Cannula Oxygen Flow Rate 4 12/05/21 13:53 12/05/21 14:00 12/05/21 14:00 Temperature Pulse Rate 58 L 58 L Respiratory Rate 19 18 Blood Pressure 122/60 Pulse Oximetry 94 94 Oxygen Delivery Method Oxygen Flow Rate 12/05/21 14:32 12/05/21 15:00 12/05/21 15:30 Temperature Pulse Rate 59 L 58 L 58 L Respiratory Rate 18 Blood Pressure Pulse Oximetry 94 96 96 Oxygen Delivery Method Oxygen Flow Rate 12/05/21 15:41 12/05/21 16:06 Temperature Pulse Rate 62 54 L Respiratory Rate 18 18 Blood Pressure 111/60 122/60 Pulse Oximetry 97 96 Oxygen Delivery Method Nasal Cannula Nasal Cannula Oxygen Flow Rate MDM - Extremity Injury (Lower) Differential Diagnosis Differential diagnosis: Likely other (Fall injury, left hip pain) Imaging Data Extremity x-ray #1: Radiologist's Impression: [address] [address] XRay Report Signed Patient: Suman Baumann MR#: [id number] : 1945 Acct:[id number] Age/Sex: 76 / M Date of Service: 12/05/21 Loc: ED Accession Number: [id number] ?? Procedure: XR hip w pel if done LT 2V Ordering Provider: Yang Torres MD PROCEDURE:? XR HIP W PEL IF DONE LT 2V ? INDICATIONS:? fall ? TECHNIQUE:? AP pelvis and lateral view of the left hip acquired.? ? COMPARISON:? [facility], CR, XR HIP W PEL IF DONE RT 2V, 01/27/2020, 1:42. ? FINDINGS:? ? Bones:? Patient is status post bilateral hip arthroplasty, with hardware components in expected positions.? The hip joint appears congruent.? The visualized bony structures appear intact.? Stable osteophytic fragment adjacent to the left superolateral acetabulum. ? Soft tissues:? Overlying postoperative changes are noted.? No suspicious soft tissue densities.? ? ? IMPRESSION:? ? Postsurgical changes of bilateral hip replacements without evidence of an acute osseous abnormality or hardware complication. ? ? Dictated by: Kev Kilpatrick D.O. on 12/05/2021 at 13:44 ? ? Approved by: Kev Kilpatrick D.O. on 12/05/2021 at 13:46 ? MDM Narrative Medical decision making narrative: 76-year-old male that was brought into the emergency department via EMS after a ground level fall out of a wheelchair at [facility] earlier today. X-ray was normal. Assessment was unremarkable. Patient is neurovascularly intact with no obvious deformity or bruising of left hip. Discussed plan of care and return precautions with patient, who is agreeable to course of action. Discharge Plan Departure Patient Disposition: Home Clinical Impression: Acute pain of left hip Instructions: DI for Hip Pain Activity Restrictions/Additional Instructions: *You have been diagnosed with left hip pain. Your x-ray was normal and my assessment was unremarkable. I recommend you follow-up with your family doctor later this week. For any worsening symptoms, please feel free to return to the emergency department or see your family doctor or nearest urgent care. *What to do: *Please continue to take your regular medications as directed. [ ] New medication prescriptions sent to your pharmacy: [ ] [ ] New medication written as a paper prescription [x ] No new medications given *Please follow up with your primary care provider in 2-3 days, call for an appoi ntment. Let them know you were seen in the Emergency Department and that we ask that you be seen in follow up. We will electronically transmit a record of today's note if your PCP is in our system *If you do not have a primary care provider please contact the [facility] Resource line at [phone]. They will ask some questions about your medical history and help get you set up with a doctor in the community. ? Return to ER if you should have any new, worsening or concerning symptoms, such as worsening pain, severe headache, confusion, chest pain, difficulty breathing, fever greater than 101 F, shaking chills, persistent vomiting to the point that you cannot drink fluids, or other new or worsening symptoms. Prescriptions: No Action citalopram 20 mg Tablet 30 mg PO DAILY furosemide [Lasix] 40 mg Tablet 40 mg PO DAILY furosemide [Lasix] 80 mg Tablet 80 mg PO DAILY loratadine 10 mg Tablet 10 mg PO DAILY multivitamin with iron-mineral Tablet 1 tab PO DAILY potassium chloride 20 mEq Tablet Extended Release 40 meq PO DAILY trazodone 50 mg Tablet 25 mg PO BEDTIME acetaminophen 325 mg Tablet 650 mg PO BID cholecalciferol (vitamin D3) 125 mcg (5,000 unit) Tablet 5,000 unit PO DAILY albuterol sulfate 90 mcg/actuation HFA aerosol inhaler 2 puff INHALATION BID baclofen 10 mg Tablet 10 mg PO BID Biofreeze (menthol) 4 % Gel 1 applic TOPICAL BID metformin 500 mg Tablet 500 mg PO BID docusate sodium [Colace] 100 mg Capsule 200 mg PO BID nystatin 100,000 unit/gram Powder 1 applic TOPICAL BID hydrocodone-acetaminophen 5-325 mg Tablet 1 tab PO Q6H PRN (Reason: pain management) Rx Instructions: do not reorder once medication gone nystatin 100,000 unit/gram Powder 1 applic TOPICAL PRN (Reason: Rash) albuterol sulfate 90 mcg/actuation Hfa Aerosol Inhaler 2 puff INHALATION Q4H PRN (Reason: wheezing/SOB) Biofreeze (menthol) 4 % Gel 1 applic TOPICAL Q4H PRN (Reason: pain management) hydrocortisone 2.5 % Cream With Applicator topical Q8H PRN (Reason: rectal itching) sennosides [senna] 8.6 mg Tablet 8.6 mg PO Q12HR PRN (Reason: Constipation) acetaminophen [Tylenol] 325 mg Tablet 650 mg PO Q6H PRN (Reason: pain management) furosemide [Lasix] 40 mg tablet 40 mg PO DAILY Qty: 7 0RF methylprednisolone [Medrol ([place])] 4 mg tablets,dose pack See Rx Instructions .ROUTE .COMPLEX Qty: 21 0RF Rx Instructions: orally per package directions famotidine 40 mg tablet 40 mg PO DAILY Qty: 7 0RF Referrals: Ellen Us ARNP [Primary Care Provider] -
== END 2021-12-05 17:40 | disposition home or self-care (01) ==
PROVIDERS: Emergency Provider Registered Nurse; PCP Nurse Practitioner Gerontology
DX: M25.552 Pain in left hip (principal); W05.0XXA Fall from non-moving wheelchair, initial encounter
CPT/HCPCS: 73502; 99283; 99284

== ENCOUNTER → 2021-12-14 13:24 | Outpatient (ROUT) | payer OTHER, MEDICAID, SELFPAY ==
[2020-07-05 05:37] VITALS: BMI 41.7
[2021-12-14 14:13] LABS: Add Manual Diff / Slide Review NO; Basophils Absolute Auto 0 /uL (0-100); Basophils Percent Auto 0.4 % (0-2); Eosinophils Absolute Auto 200 /uL (0-450); Hematocrit 40.9 % (41-53); Hemoglobin 13.4 g/dL (13.5-17.5); Lymphocytes Absolute Auto 900 /uL (1100-4500); Lymphocytes Percent Auto 18.7 % (25-40); Mean Corpuscular HGB Conc 32.9 % (30-36); Mean Corpuscular Hemoglobin 29.7 PG (26-34); Mean Corpuscular Volume 90.3 fL (80-100); Monocytes Absolute Auto 400 /uL (0-900); Monocytes Percent Auto 8.3 % (3-14); Neutrophils Absolute Auto 3300 /uL (1500-7000); Neutrophils Percent Auto 68.6 % (50-75); Platelet Count 155 X10^3/uL (150-400); Red Blood Cell Count 4.52 X10^6/uL (4.5-5.9); Red Cell Distribution Width 14.9 % (11.6-14.8); White Blood Cell Count 4.9 X10^3/uL (4.5-11.0)
[2021-12-14 14:21] LABS: Alanine Aminotransferase 16 IU/L (<50); Albumin 3.8 g/dL (3.5-5.0); Albumin Globulin Ratio 1.5 (1.0-2.8); Alkaline Phosphatase 49 U/L (38-126); Aspartate Aminotransferase 26 IU/L (17-59); BUN Creatinine Ratio 18.6 (6-22); Bilirubin Total 0.4 mg/dL (0.2-1.3); Blood Urea Nitrogen 22 mg/dL (9-20); Calcium 8.6 mg/dL (8.4-10.2); Carbon Dioxide 34 mmol/L (22-32); Chloride 96 mmol/L (98-107); Estimated Glomerular Filt Rate > 60 mL/min (>60); Globulin 2.6 g/dL (1.7-4.1); Glucose 118 mg/dL (80-110); HEMOLYSIS < 15 (0-50); Potassium 4.2 mmol/L (3.4-5.1); Sodium 137 mmol/L (137-145); Total Protein 6.4 g/dL (6.3-8.2)
[2021-12-14 14:52] LABS: Thyroid Stimulating Hormone 0.464 uIU/mL (0.47-4.68)
[2021-12-14 15:10] LABS: Vitamin B12 375 pg/mL (239-931)
[2021-12-16 18:25] LABS: Vitamin D 25 Hydroxy (D3) 64.1 ng/mL (30.0-100.0)
== END ==
PROVIDERS: PCP Nurse Practitioner Gerontology; Visit Provider Nurse Practitioner Family
DX: F32.4 Major depressive disorder, single episode, in partial remission (principal); E56.9 Vitamin deficiency, unspecified
CPT/HCPCS: 80053; 82306; 82607; 84443; 85025

== ENCOUNTER → 2022-05-10 07:43 | Outpatient (ROUT) | payer OTHER, MEDICAID, SELFPAY ==
[2020-07-05 05:37] VITALS: BMI 41.7
[2022-05-10 09:06] LABS: Prostate Specific Antigen 1.19 ng/mL (0.10-4.00)
== END ==
PROVIDERS: PCP Nurse Practitioner Gerontology; Visit Provider Internal Medicine
DX: E11.9 Type 2 diabetes mellitus without complications (principal); Z12.5 Encounter for screening for malignant neoplasm of prostate
CPT/HCPCS: 36415; 84153; G0103

== ENCOUNTER → 2022-05-10 10:44 | Outpatient (CLI) | payer OTHER, MEDICAID, SELFPAY ==
[2020-07-05 05:37] VITALS: BMI 41.7
== END ==
PROVIDERS: PCP Nurse Practitioner Gerontology; Referring Provider Internal Medicine; Visit Provider Surgery
DX: S90.512A Abrasion, left ankle, initial encounter (principal); E11.628 Type 2 diabetes mellitus with other skin complications; R22.43 Localized swelling, mass and lump, lower limb, bilateral; Z99.3 Dependence on wheelchair
CPT/HCPCS: 99213; 99214

== ENCOUNTER → 2022-05-31 13:30 | Outpatient (CLI) | payer OTHER, MEDICAID, SELFPAY ==
[2020-07-05 05:37] VITALS: BMI 41.7
== END ==
PROVIDERS: PCP Nurse Practitioner Gerontology; Referring Provider Nurse Practitioner Gerontology; Visit Provider Surgery
DX: S90.512A Abrasion, left ankle, initial encounter (principal); E11.628 Type 2 diabetes mellitus with other skin complications; R22.43 Localized swelling, mass and lump, lower limb, bilateral
CPT/HCPCS: 97597

== ENCOUNTER → 2022-06-07 14:56 | Outpatient (CLI) | payer OTHER, MEDICAID, SELFPAY ==
[2020-07-05 05:37] VITALS: BMI 41.7
== END ==
PROVIDERS: PCP Nurse Practitioner Gerontology; Referring Provider Nurse Practitioner Gerontology; Visit Provider Surgery
DX: S90.512D Abrasion, left ankle, subsequent encounter (principal); Z99.3 Dependence on wheelchair
CPT/HCPCS: 99212; 99213

== ENCOUNTER → 2022-06-30 19:27 | Outpatient (ROUT) | payer OTHER, MEDICAID, SELFPAY ==
[2020-07-05 05:37] VITALS: BMI 41.7
== END ==
PROVIDERS: PCP Nurse Practitioner Gerontology; Visit Provider Nurse Practitioner Family
DX: S91.002A Unspecified open wound, left ankle, initial encounter (principal)
CPT/HCPCS: 87070; 87075; 87077; 87147; 87186; 87205

== ENCOUNTER 2022-07-13 01:46 | Emergency (ER) | payer OTHER, MEDICAID, SELFPAY ==
[2020-07-05 05:37] VITALS: BMI 41.7
[2022-07-13] VITALS (26 sets, daily range): BP systolic 116–151; BP diastolic 62–79; PULSE 54–71; RESP 18; O2SAT 86–98; BMI 40.7
--- NOTE | 2022-07-13 06:23 | DI.RAD.S_ITS ---
PROCEDURE: XR ANKLE LT MIN 3V INDICATIONS: chronic wound TECHNIQUE: 3 views of the ankle were acquired. COMPARISON: None. FINDINGS: Bones: No fractures or dislocations. Ankle mortise is normally aligned. No suspicious bony lesions. Soft tissues: No tibiotalar joint effusion. Achilles tendon appears normal. IMPRESSION: No evidence acute bony abnormality of the left ankle. Comment: Final report is concordant with preliminary interpretation provided by [facility]. If clinical suspicion and/or symptoms persist, further assessment with repeat plain films, or advanced imaging (e.g., CT, MRI, or bone scan) may be helpful for further assessment. Dictated by: iVdal Garibay M.D. on 07/13/2022 at 8:14 Approved by: Vidal Garibay M.D. on 07/13/2022 at 8:15
[2022-07-13] MEDS: HYDROCODONE/ACET 5/325 TABLET 1 TAB PO (06:36)
--- NOTE | 2022-07-13 06:57 | ED.EXTPRO ---
HPI - Extremity Problem General Chief complaint: Extremity Problem,Nontraumatic Stated complaint: leg pain x 2 weeks Time Seen by Provider: 07/13/22 06:23 Mode of arrival: EMS History of Present Illness HPI Narrative: Patient is a 77-year-old male who resides at [facility] care facility. He is history of COPD he is on O2, hypertension, diabetes cardiomegaly, coronary artery disease presents today with ongoing pain in his left ankle. He is had a chronic wound there for a couple of weeks he has an [place] dressing on it. He was already given his maximum out pain medications so he came to the ED for more pain meds. He is not had any fever or chills. There is no extra drainage from the wound. Related Data Home Medications Medication Instructions Recorded Confirmed acetaminophen 325 mg tablet 650 mg PO BID 07/05/20 07/05/20 acetaminophen 325 mg tablet 650 mg PO Q6H PRN pain management 07/05/20 07/05/20 (Tylenol) albuterol sulfate 90 mcg/actuation 2 puff inhalation BID 07/05/20 07/05/20 aerosol inhaler albuterol sulfate 90 mcg/actuation 2 puff inhalation Q4H PRN 07/05/20 07/05/20 aerosol inhaler wheezing/SOB baclofen 10 mg tablet 10 mg PO BID 07/05/20 07/05/20 cholecalciferol (vitamin D3) 125 5,000 unit PO DAILY 07/05/20 07/05/20 mcg (5,000 unit) tablet citalopram 20 mg tablet 30 mg PO DAILY 07/05/20 07/05/20 docusate sodium 100 mg capsule 200 mg PO BID 07/05/20 07/05/20 (Colace) furosemide 40 mg tablet (Lasix) 40 mg PO DAILY 07/05/20 07/05/20 furosemide 80 mg tablet (Lasix) 80 mg PO DAILY 07/05/20 07/05/20 hydrocodone 5 mg-acetaminophen 325 1 tab PO Q6H PRN pain management 07/05/20 07/05/20 mg tablet hydrocortisone 2.5 % rectal cream ea topical Q8H PRN rectal itching 07/05/20 with applicator loratadine 10 mg tablet 10 mg PO DAILY 07/05/20 07/05/20 menthol 4 % topical gel (Biofreeze 1 applic topical BID 07/05/20 07/05/20 (menthol)) menthol 4 % topical gel (Biofreeze 1 applic topical Q4H PRN pain 07/05/20 07/05/20 (menthol)) management metformin 500 mg tablet 500 mg PO BID 07/05/20 07/05/20 multivitamin with iron-mineral 1 tab PO DAILY 07/05/20 07/05/20 nystatin 100,000 unit/gram topical 1 applic topical BID 07/05/20 07/05/20 powder nystatin 100,000 unit/gram topical 1 applic topical PRN Rash 07/05/20 powder potassium chloride 20 mEq 40 meq PO DAILY 07/05/20 07/05/20 tablet,extended release sennosides 8.6 mg tablet (senna) 8.6 mg PO Q12HR PRN Constipation 07/05/20 07/05/20 trazodone 50 mg tablet 25 mg PO BEDTIME 07/05/20 07/05/20 Previous Rx's Medication Instructions Recorded furosemide 40 mg tablet (Lasix) 40 mg PO DAILY #7 tabs 10/19/20 famotidine 40 mg tablet 40 mg PO DAILY #7 tabs 12/24/20 methylprednisolone 4 mg tablets in See Rx Instructions PO .COMPLEX 12/24/20 a dose pack (Medrol ([place])) #21 ea Allergies Allergy/AdvReac Type Severity Reaction Status Date / Time No Known Drug Allergies Allergy Verified 07/23/21 13:36 Review of Systems Review of Systems ROS Unobtainable: All systems reviewed & are unremarkable except as noted in HPI and below Patient History Medical History Atherosclerotic heart disease of [place] coronary artery without angina pectoris Benign prostatic hyperplasia without lower urinary tract symptoms Cardiomegaly COPD (chronic obstructive pulmonary disease) Essential hypertension History of traumatic brain injury Major depressive disorder Morbid obesity with BMI of 40.0-44.9, adult Muscle weakness (generalized) Nocturia Other abnormalities of gait and mobility Surgical History H/O left knee surgery History of ankle surgery History of foot surgery History of hip surgery Family History Mother Diabetes mellitus Hypertension Father Congestive heart failure Social History household members: caregiver Smoking Status: Former smoker alcohol intake: former Smoking Status: Former smoker tobacco type: cigarettes alcohol intake frequency: 0-2 drinks per day Substance Use Type: does not use Exam Initial Vital Signs Initial Vital Signs: Vital Signs Pulse Rate 62 07/13/22 01:51 Respiratory Rate 18 07/13/22 01:51 Blood Pressure 132/64 07/13/22 01:51 Pulse Oximetry 98 07/13/22 01:51 Oxygen Delivery Method Room Air 07/13/22 01:51 GENERAL: Alert 69-year-old male chronically HEENT: Head atraumatic,EOMI, pupils reactive, CARDIOVASCULAR: Regular rate and rhythm without murmurs, rubs or gallops. RESPIRATORY: Breath sounds equal bilaterally, no wheezes rales or rhonchi. ABDOMEN: Soft, nontender. Normoactive bowel sounds all 4 quadrants. No guarding or rebound. EXTREMITIES: Normal range of motion, no clubbing or edema. Neurovascularly intact NEUROLOGICAL: Alert and oriented x4 moving all extremities SKIN: Left medial malleoli wound is chronic minimally erythematous tender to touch no gross drainage Xeroform has been placed. Course Orders Ordered: Discontinued Medications Hydrocodone Bitart/Acetaminophen (Hydrocodone/Acet 5/325 Tablet) 1 tab PO NOW ONE Stop: 07/13/22 06:26 Last Admin: 07/13/22 06:36 Dose: 1 tab Documented By: MERISSA Vital Signs Vital signs: Vital Signs - 8 hr 07/13/22 01:51 07/13/22 01:51 07/13/22 01:52 Pulse Rate 62 60 Respiratory Rate 18 Blood Pressure 132/64 132/64 Pulse Oximetry 98 90 L Oxygen Delivery Method Room Air 07/13/22 02:00 07/13/22 02:00 07/13/22 02:30 Pulse Rate 61 54 L Respiratory Rate Blood Pressure 116/71 Pulse Oximetry 91 Oxygen Delivery Method 07/13/22 02:31 07/13/22 02:31 07/13/22 03:00 Pulse Rate 54 L Respiratory Rate Blood Pressure 132/62 141/79 H Pulse Oximetry 86 L Oxygen Delivery Method 07/13/22 03:00 07/13/22 03:30 07/13/22 03:31 Pulse Rate 58 L 63 63 Respiratory Rate Blood Pressure Pulse Oximetry 92 94 93 Oxygen Delivery Method 07/13/22 03:31 07/13/22 04:00 07/13/22 04:01 Pulse Rate 59 L 60 Respiratory Rate Blood Pressure 137/71 Pulse Oximetry 90 L 89 L Oxygen Delivery Method 07/13/22 04:01 07/13/22 04:30 07/13/22 04:31 Pulse Rate 62 Respiratory Rate Blood Pressure 126/64 143/66 H Pulse Oximetry 89 L Oxygen Delivery Method 07/13/22 04:31 07/13/22 05:00 07/13/22 05:01 Pulse Rate 59 L 55 L Respiratory Rate Blood Pressure 151/65 H Pulse Oximetry 89 L 90 L Oxygen Delivery Method 07/13/22 05:01 07/13/22 05:30 07/13/22 05:31 Pulse Rate 55 L 59 L 59 L Respiratory Rate Blood Pressure Pulse Oximetry 90 L 92 91 Oxygen Delivery Method 07/13/22 05:31 07/13/22 06:00 07/13/22 06:01 Pulse Rate 57 L Respiratory Rate Blood Pressure 146/66 H 140/63 Pulse Oximetry 95 Oxygen Delivery Method 07/13/22 06:01 Pulse Rate 57 L Respiratory Rate Blood Pressure Pulse Oximetry 95 Oxygen Delivery Method MDM - Extremity (Nontraumatic) Imaging Data Extremity x-ray #1: Radiologist's Impression: Preliminary report: No acute findings MDM Narrative Medical decision making narrative: Patient is 69-year-old male with multiple comorbidities presenting today with ongoing and worsening pain of his left ankle wound. His wound is getting appropriate dressings. He is not had any fever there is no gross drainage. It is quite tender to touch. X-ray does not show any evidence of osteomyelitis pain is better after [place] after multiple hours in the ED he actually has been sleeping quite a bit. At this time I do not see need for blood work wound looks stable and chronic. I have explained this to patient he agrees he is overall much more comfortable Discharge Plan Departure Patient Disposition: Home Clinical Impression: Ankle pain, Chronic wound of extremity Instructions: DI for Wound Infection Activity Restrictions/Additional Instructions: *You have been diagnosed with ankle pain, chronic *What to do: At this time there is no evidence of bone infection. You do not need oral antibiotics. Please continue with wound care. *Continue to take medications as directed [place] 1 tablet every 4-6 hours if needed for severe pain *Follow up with your primary care provider in 2-3 days or call [phone] *Return to ER if you should have increasing pain increasing redness fever or any new, worsening or concerning symptoms Prescriptions: No Action citalopram 20 mg Tablet 30 mg PO DAILY furosemide [Lasix] 40 mg Tablet 40 mg PO DAILY furosemide [Lasix] 80 mg Tablet 80 mg PO DAILY loratadine 10 mg Tablet 10 mg PO DAILY multivitamin with iron-mineral Tablet 1 tab PO DAILY potassium chloride 20 mEq Tablet Extended Release 40 meq PO DAILY trazodone 50 mg Tablet 25 mg PO BEDTIME acetaminophen 325 mg Tablet 650 mg PO BID cholecalciferol (vitamin D3) 125 mcg (5,000 unit) Tablet 5,000 unit PO DAILY albuterol sulfate 90 mcg/actuation HFA aerosol inhaler 2 puff INHALATION BID baclofen 10 mg Tablet 10 mg PO BID Biofreeze (menthol) 4 % Gel 1 applic TOPICAL BID metformin 500 mg Tablet 500 mg PO BID docusate sodium [Colace] 100 mg Capsule 200 mg PO BID nystatin 100,000 unit/gram Powder 1 applic TOPICAL BID hydrocodone-acetaminophen 5-325 mg Tablet 1 tab PO Q6H PRN (Reason: pain management) Rx Instructions: do not reorder once medication gone nystatin 100,000 unit/gram Powder 1 applic TOPICAL PRN (Reason: Rash) albuterol sulfate 90 mcg/actuation Hfa Aerosol Inhaler 2 puff INHALATION Q4H PRN (Reason: wheezing/SOB) Biofreeze (menthol) 4 % Gel 1 applic TOPICAL Q4H PRN (Reason: pain management) hydrocortisone 2.5 % Cream With Applicator topical Q8H PRN (Reason: rectal itching) sennosides [senna] 8.6 mg Tablet 8.6 mg PO Q12HR PRN (Reason: Constipation) acetaminophen [Tylenol] 325 mg Tablet 650 mg PO Q6H PRN (Reason: pain management) furosemide [Lasix] 40 mg tablet 40 mg PO DAILY Qty: 7 0RF methylprednisolone [Medrol ([place])] 4 mg tablets,dose pack See Rx Instructions .ROUTE .COMPLEX Qty: 21 0RF Rx Instructions: orally per package directions famotidine 40 mg tablet 40 mg PO DAILY Qty: 7 0RF Referrals: Gruenwald,Ellen, EXTENSION EDUCATOR [Primary Care Provider] - Stand Alone Forms: Patient Portal/API
--- NOTE | 2022-07-13 07:43 | PC.NURSE ---
Went to tell pt transport will be here at 0840 but pt was sleeping. VS appear stable. Resp even and unlabored
--- NOTE | 2022-07-13 08:20 | PC.NURSE ---
ADRIANNA Joy at [facility] called and given report. Their transport will be here in approx 30 min
== END 2022-07-13 08:55 | disposition home or self-care (01) ==
PROVIDERS: Emergency Provider Emergency Medicine; PCP Nurse Practitioner Gerontology
DX: S90.912A Unspecified superficial injury of left ankle, initial encounter (principal); X58.XXXA Exposure to other specified factors, initial encounter
CPT/HCPCS: 73610; 99283

== ENCOUNTER → 2022-07-14 13:19 | Outpatient (CLI) | payer OTHER, MEDICAID, SELFPAY ==
[2020-07-05 05:37] VITALS: BMI 41.7
== END ==
PROVIDERS: PCP Nurse Practitioner Gerontology; Referring Provider Registered Nurse; Visit Provider Surgery
DX: E11.621 Type 2 diabetes mellitus with foot ulcer (principal); L97.322 Non-pressure chronic ulcer of left ankle with fat layer exposed; R60.0 Localized edema
CPT/HCPCS: 11042; 99213; 99214

== ENCOUNTER → 2022-07-28 13:13 | Outpatient (CLI) | payer OTHER, MEDICAID, SELFPAY ==
[2020-07-05 05:37] VITALS: BMI 41.7
== END ==
PROVIDERS: PCP Nurse Practitioner Gerontology; Referring Provider Nurse Practitioner Family; Visit Provider Surgery
DX: E11.621 Type 2 diabetes mellitus with foot ulcer (principal); L97.322 Non-pressure chronic ulcer of left ankle with fat layer exposed; I96 Gangrene, not elsewhere classified; R60.0 Localized edema; Z99.3 Dependence on wheelchair
CPT/HCPCS: 11042; 99213

== ENCOUNTER → 2022-08-01 13:11 | Outpatient (CLI) | payer OTHER, MEDICAID, SELFPAY ==
[2020-07-05 05:37] VITALS: BMI 41.7
--- NOTE | 2022-08-01 13:17 | DI.MRI.S_ITS ---
PROCEDURE: MR ANKLE LT WO/W CON INDICATIONS: non-healing ulcer on medial left ankle TECHNIQUE: Noncontrast sagittal T1 spin echo and T2 fast spin echo with fat saturation, axial proton density fast spin echo and T2 fast spin echo with fat saturation, axial T1 spin echo with fat saturation, coronal T1 spin echo and T2 fast spin echo with fat saturation through the ankle/hindfoot. Post-contrast axial, coronal, and sagittal T1 spin echo with fat saturation through the ankle/hindfoot. COMPARISON: None. FINDINGS: Image quality: Degraded by motion artifact. Bones and joints: No suspicious osseous enhancement. No bone marrow contusions or fractures. No hindfoot coalitions. No osteochondral injuries of the talar dome. No pathologic joint effusions. Medial structures: Moderate ill-defined T2 signal elevation within the medial subcutaneous fat. The posterior tibialis, flexor digitorum longus, and flexor hallucis longus tendons are intact. The posterior tibial neurovascular bundle appears normal within the tarsal tunnel, without extrinsic mass effect. The deep layer (anterior and posterior tibiotalar ligaments) and superficial layer (tibionavicular, tibiospring, and tibiocalcaneal ligaments) of the deltoid ligament appear normal. The spring ligament components (superomedial calcaneonavicular, medioplantar oblique calcaneonavicular, and inferoplantar longitudinal ligaments) are intact. Lateral structures: The anterior talofibular, calcaneofibular, and posterior talofibular ligaments appear intact. More superiorly, the anterior and posterior tibiofibular ligaments appear intact, as is the intermalleolar ligament. The tibiofibular syndesmosis is normal in width at 2 mm or less. The peroneus longus and brevis tendons demonstrate normal location and morphology. Adjacent bony peroneal tubercle and retrotrochlear prominence are normal in size. The sinus tarsi demonstrates normal fatty signal, without edema, fibrosis, or cyst formation. Visualized sinus tarsi components (cervical ligament, interosseous talocalcaneal ligament, roots of the inferior extensor retinaculum) appear normal. The calcaneonavicular and calcaneocuboid components of the bifurcate ligament appear intact. The dorsal calcaneocuboid ligament appears intact. Anterior structures: The tibialis anterior, extensor hallucis longus, and extensor digitorum longus tendons appear intact. The dorsal talonavicular ligament appears intact. Posterior and plantar structures: Achilles tendon is intact. Medial and lateral bands of the plantar fascia are of normal thickness. No abductor digiti quinti muscle atrophy to suggest [place] neuropathy. IMPRESSION: 1. Limited examination demonstrating no osseous abnormality. No evidence of osteomyelitis. Dictated by: Eleanor Carrillo M.D. on 08/01/2022 at 15:41 Transcribed by: ELICIA on 08/01/2022 at 15:43 Approved by: Eleanor Carrillo M.D. on 08/01/2022 at 16:48
[2022-08-01 14:31] LABS: Add Manual Diff / Slide Review NO; Basophils Absolute Auto 0 /uL (0-100); Basophils Percent Auto 0.2 % (0-2); Eosinophils Absolute Auto 200 /uL (0-450); Eosinophils Percent Auto 3.6 % (2-4); Hematocrit 44.4 % (41-53); Hemoglobin 14.5 g/dL (13.5-17.5); Lymphocytes Absolute Auto 1300 /uL (1100-4500); Mean Corpuscular HGB Conc 32.6 % (30-36); Monocytes Absolute Auto 500 /uL (0-900); Monocytes Percent Auto 8.3 % (3-14); Neutrophils Absolute Auto 4100 /uL (1500-7000); Neutrophils Percent Auto 66.9 % (50-75); Platelet Count 165 X10^3/uL (150-400); Red Blood Cell Count 4.83 X10^6/uL (4.5-5.9); Red Cell Distribution Width 15.2 % (11.6-14.8); White Blood Cell Count 6.1 X10^3/uL (4.5-11.0)
[2022-08-01 14:48] LABS: BUN Creatinine Ratio 19.3 (6-22); Blood Urea Nitrogen 26 mg/dL (9-20); C-Reactive Protein Quant 0.9 mg/dL (<1.0); Carbon Dioxide 30 mmol/L (22-32); Chloride 97 mmol/L (98-107); Estimated Glomerular Filt Rate 54 mL/min (>60); Glucose 124 mg/dL (80-110); HEMOLYSIS < 15 (0-50); Potassium 4.3 mmol/L (3.4-5.1); Sodium 137 mmol/L (137-145)
[2022-08-01 15:36] LABS: Erythrocyte Sedimentation Rate 2 MM/HR (0-15)
[2022-08-02 07:53] LABS: x Labcorp Estim. Avg Glu (eAG) 131 mg/dL (.); x Labcorp Hemoglobin A1c 6.2 % (4.8-5.6)
== END ==
PROVIDERS: PCP Nurse Practitioner Gerontology; Referring Provider Surgery; Visit Provider Surgery
DX: E11.621 Type 2 diabetes mellitus with foot ulcer (principal); L97.329 Non-pressure chronic ulcer of left ankle with unspecified severity; E11.22 Type 2 diabetes mellitus with diabetic chronic kidney disease; N18.9 Chronic kidney disease, unspecified; F32.A Depression, unspecified
CPT/HCPCS: 36415; 73723; 80048; 83036; 85025; 85651; 86140

== ENCOUNTER → 2022-08-11 13:20 | Outpatient (CLI) | payer OTHER, MEDICAID, SELFPAY ==
[2020-07-05 05:37] VITALS: BMI 41.7
== END ==
PROVIDERS: PCP Nurse Practitioner Gerontology; Referring Provider Nurse Practitioner Family; Visit Provider Surgery
DX: E11.621 Type 2 diabetes mellitus with foot ulcer (principal); L97.322 Non-pressure chronic ulcer of left ankle with fat layer exposed; Z99.3 Dependence on wheelchair
CPT/HCPCS: 11042; 99213

== ENCOUNTER → 2022-08-25 13:06 | Outpatient (CLI) | payer OTHER, MEDICAID, SELFPAY ==
[2020-07-05 05:37] VITALS: BMI 41.7
== END ==
PROVIDERS: PCP Nurse Practitioner Gerontology; Referring Provider Nurse Practitioner Family; Visit Provider Surgery
DX: E11.621 Type 2 diabetes mellitus with foot ulcer (principal); L97.322 Non-pressure chronic ulcer of left ankle with fat layer exposed; R60.0 Localized edema
CPT/HCPCS: 11042

== ENCOUNTER → 2022-09-08 13:02 | Outpatient (CLI) | payer OTHER, MEDICAID, SELFPAY ==
[2020-07-05 05:37] VITALS: BMI 41.7
== END ==
PROVIDERS: PCP Nurse Practitioner Gerontology; Referring Provider Nurse Practitioner Family; Visit Provider Surgery
DX: E11.621 Type 2 diabetes mellitus with foot ulcer (principal); L97.322 Non-pressure chronic ulcer of left ankle with fat layer exposed; R60.0 Localized edema
CPT/HCPCS: 11042; 99212; 99213

== ENCOUNTER → 2022-09-29 13:17 | Outpatient (CLI) | payer OTHER, MEDICAID, SELFPAY ==
[2020-07-05 05:37] VITALS: BMI 41.7
== END ==
PROVIDERS: PCP Nurse Practitioner Gerontology; Referring Provider Nurse Practitioner Gerontology; Visit Provider Surgery
DX: Z86.31 Personal history of diabetic foot ulcer (principal)
CPT/HCPCS: 99213

== ENCOUNTER → 2022-11-08 08:16 | Outpatient (ROUT) | payer OTHER, MEDICAID, SELFPAY ==
[2020-07-05 05:37] VITALS: BMI 41.7
[2022-11-08 08:56] LABS: Add Manual Diff / Slide Review NO; Basophils Absolute Auto 0 /uL (0-100); Basophils Percent Auto 0.3 % (0-2); Eosinophils Absolute Auto 200 /uL (0-450); Eosinophils Percent Auto 3.3 % (2-4); Hematocrit 39.4 % (41-53); Hemoglobin 13.3 g/dL (13.5-17.5); Lymphocytes Absolute Auto 1000 /uL (1100-4500); Lymphocytes Percent Auto 21.7 % (25-40); Mean Corpuscular HGB Conc 33.7 % (30-36); Mean Corpuscular Hemoglobin 30.7 PG (26-34); Mean Corpuscular Volume 91.2 fL (80-100); Monocytes Absolute Auto 400 /uL (0-900); Monocytes Percent Auto 9.5 % (3-14); Neutrophils Absolute Auto 2900 /uL (1500-7000); Neutrophils Percent Auto 65.2 % (50-75); Platelet Count 144 X10^3/uL (150-400); Red Blood Cell Count 4.32 X10^6/uL (4.5-5.9); White Blood Cell Count 4.5 X10^3/uL (4.5-11.0)
[2022-11-08 09:17] LABS: BUN Creatinine Ratio 18.3 (6-22); Blood Urea Nitrogen 24 mg/dL (9-20); Calcium 8.6 mg/dL (8.4-10.2); Carbon Dioxide 33 mmol/L (22-32); Chloride 98 mmol/L (98-107); Estimated Glomerular Filt Rate 56 mL/min (>60); Glucose 86 mg/dL (80-110); HEMOLYSIS < 15 (0-50); Potassium 4.1 mmol/L (3.4-5.1); Sodium 136 mmol/L (137-145)
== END ==
PROVIDERS: PCP Nurse Practitioner Gerontology; Visit Provider Nurse Practitioner Gerontology
DX: E87.5 Hyperkalemia (principal); A49.9 Bacterial infection, unspecified
CPT/HCPCS: 36415; 80048; 85025

== ENCOUNTER → 2023-01-19 11:14 | Outpatient (CLI) | payer OTHER, MEDICAID, SELFPAY ==
[2020-07-05 05:37] VITALS: BMI 41.7
== END ==
PROVIDERS: PCP Nurse Practitioner Gerontology; Referring Provider Internal Medicine; Visit Provider Surgery
DX: E11.621 Type 2 diabetes mellitus with foot ulcer (principal); L97.312 Non-pressure chronic ulcer of right ankle with fat layer exposed; R60.0 Localized edema; L53.9 Erythematous condition, unspecified
CPT/HCPCS: 11042; 87070; 87075; 87077; 87147; 87186; 87205; 99213

== ENCOUNTER → 2023-01-25 13:48 | Outpatient (CLI) | payer OTHER, MEDICAID, SELFPAY ==
[2020-07-05 05:37] VITALS: BMI 41.7
--- NOTE | 2023-01-25 13:50 | DI.RAD.S_ITS ---
PROCEDURE: XR ANKLE RT MIN 3V INDICATIONS: wound to right ankle TECHNIQUE: 3 views of the ankle were acquired. COMPARISON: [facility], CR, XR ANKLE LT MIN 3V, 07/13/2022, 6:24. FINDINGS: Bones: Moderate tibiotalar degenerative changes, without acute fracture or dislocation identified. There are tiny adjacent bone fragments, probably from degeneration or prior injury. Plantar calcaneal enthesopathy. Plantar fascia calcification. Partially evaluated fixation hardware in the calcaneus. No convincing osseous erosion. Soft tissues: There is soft tissue swelling. IMPRESSION: Postsurgical changes and degenerative changes of the ankle and calcaneus. No acute radiographic abnormality. There is soft tissue swelling. Consider cross-sectional imaging or nuclear medicine bone scan to further evaluate if there is further clinical concern. Dictated by: Bravo Thomas M.D. on 01/25/2023 at 15:37 Approved by: Bravo Thomas M.D. on 01/25/2023 at 15:39
== END ==
PROVIDERS: PCP Nurse Practitioner Gerontology; Referring Provider Surgery; Visit Provider Surgery
DX: S91.001A Unspecified open wound, right ankle, initial encounter (principal); M79.89 Other specified soft tissue disorders; M77.31 Calcaneal spur, right foot
CPT/HCPCS: 73610

== ENCOUNTER → 2023-01-26 13:54 | Outpatient (CLI) | payer OTHER, MEDICAID, SELFPAY ==
[2020-07-05 05:37] VITALS: BMI 41.7
== END ==
PROVIDERS: PCP Nurse Practitioner Gerontology; Referring Provider Internal Medicine; Visit Provider Surgery
DX: E11.621 Type 2 diabetes mellitus with foot ulcer (principal); L97.312 Non-pressure chronic ulcer of right ankle with fat layer exposed; E11.40 Type 2 diabetes mellitus with diabetic neuropathy, unspecified; L53.9 Erythematous condition, unspecified
CPT/HCPCS: 11042; 99213

== ENCOUNTER → 2023-02-02 15:34 | Outpatient (CLI) | payer OTHER, MEDICAID, SELFPAY ==
[2020-07-05 05:37] VITALS: BMI 41.7
== END ==
PROVIDERS: PCP Nurse Practitioner Gerontology; Referring Provider Internal Medicine; Visit Provider Surgery
DX: E11.628 Type 2 diabetes mellitus with other skin complications (principal); L97.312 Non-pressure chronic ulcer of right ankle with fat layer exposed; L53.9 Erythematous condition, unspecified; Z74.09 Other reduced mobility
CPT/HCPCS: 11042

== ENCOUNTER → 2023-02-09 15:34 | Outpatient (CLI) | payer OTHER, MEDICAID, SELFPAY ==
[2020-07-05 05:37] VITALS: BMI 41.7
== END ==
PROVIDERS: PCP Nurse Practitioner Gerontology; Referring Provider Internal Medicine; Visit Provider Surgery
DX: E11.621 Type 2 diabetes mellitus with foot ulcer (principal); L97.312 Non-pressure chronic ulcer of right ankle with fat layer exposed; E11.40 Type 2 diabetes mellitus with diabetic neuropathy, unspecified; M25.571 Pain in right ankle and joints of right foot; R60.0 Localized edema; L53.9 Erythematous condition, unspecified
CPT/HCPCS: 11042

== ENCOUNTER → 2023-02-23 15:43 | Outpatient (CLI) | payer OTHER, MEDICAID, SELFPAY ==
[2020-07-05 05:37] VITALS: BMI 41.7
== END ==
PROVIDERS: PCP Nurse Practitioner Gerontology; Referring Provider Nurse Practitioner Gerontology; Visit Provider Surgery
DX: E11.621 Type 2 diabetes mellitus with foot ulcer (principal); L97.312 Non-pressure chronic ulcer of right ankle with fat layer exposed; E11.40 Type 2 diabetes mellitus with diabetic neuropathy, unspecified; R60.0 Localized edema; L53.9 Erythematous condition, unspecified; L98.8 Other specified disorders of the skin and subcutaneous tissue
CPT/HCPCS: 11042

== ENCOUNTER 2023-02-26 00:57 | Emergency (ER) | payer OTHER, MEDICAID, SELFPAY ==
[2020-07-05 05:37] VITALS: BMI 41.7
[2023-02-26] VITALS (9 sets, daily range): BP systolic 122–171; BP diastolic 59–72; PULSE 54–60; RESP 16–18; TEMP 36.3–36.9; O2SAT 93–95; BMI 39.1
--- NOTE | 2023-02-26 01:10 | DI.CT.S_ITS ---
PROCEDURE: CT ABDOMEN PELVIS W CON INDICATIONS: L flank pain TECHNIQUE: After the administration of intravenous contrast, axial sections acquired from the lung bases to the pubic symphysis. Coronal and sagittal reformats were performed. For radiation dose reduction, the following was used: automated exposure control, adjustment of mA and/or kV according to patient size. COMPARISON: [facility], CT, CT ANGIO CHEST PE PROTOCOL, 09/12/2019, 9:24. [facility], CT, CT ABDOMEN ADRENAL PROTOCOL, 10/14/2021, 10:26. [facility], CT, CT CHEST WO CON, 10/14/2021, 10:26. FINDINGS: Image quality: Excellent. Lung bases: Unremarkable. Stable appearance of a small pulmonary nodule seen on multiple prior CT scans within the left lower lobe posteriorly. Heart: No significant findings. ABDOMEN: Liver: Unremarkable. Gallbladder: Unremarkable. Biliary ducts: Unremarkable. Pancreas: Unremarkable. Spleen: Unremarkable. Adrenal Glands: Bilateral adrenal nodules, previously present. The nodules have not changed appreciably in size from the comparison study in August of 2019. Kidneys and Ureters: Unremarkable except for interval development of a 3 mm rounded calculus that is nonobstructive adjacent to a previously present 6.5 cm cyst at the upper 3rd of the left kidney.. Stomach and Bowel: Stomach, small bowel loops, and colon are unremarkable. Peritoneum: No abnormal intraperitoneal fluid. No free air. Ventral Wall: No hernias. Abdominal Nodes: No retroperitoneal or mesenteric adenopathy by size criteria. Vessels: Aorta and inferior vena cava are normal in size. PELVIS: Pelvic Organs: Unremarkable. Bladder: Unremarkable. Pelvic Nodes: No enlarged lymph nodes. Miscellaneous: No hernias are seen. Bones: Unremarkable. IMPRESSION: There is a new finding of a 3 mm rounded left collecting system calculus that appears nonobstructive, at the upper 3rd of the left kidney, adjacent to a dominant previously present 6.5 cm renal cortical cyst. No inflammation is associated. No hydronephrosis or nephrolithiasis is found otherwise. The patient has previously documented bilateral adrenal nodules, larger on the right than the left, and these are again seen without change from August 2019. No follow-up recommended. Stable appearance of a small smoothly marginated nodule documented on multiple prior CT scans at the posterior left lung base. No follow-up recommended. Dictated by: Red Ramos M.D. on 02/26/2023 at 1:51 Approved by: Red Ramos M.D. on 02/26/2023 at 2:03
[2023-02-26 01:17] LABS: Add Manual Diff / Slide Review NO; Basophils Absolute Auto 100 /uL (0-100); Basophils Percent Auto 0.7 % (0-2); Eosinophils Absolute Auto 200 /uL (0-450); Eosinophils Percent Auto 2.6 % (2-4); Hematocrit 39.9 % (41-53); Hemoglobin 13.1 g/dL (13.5-17.5); Lymphocytes Absolute Auto 1500 /uL (1100-4500); Lymphocytes Percent Auto 19.1 % (25-40); Mean Corpuscular HGB Conc 32.8 % (30-36); Mean Corpuscular Hemoglobin 29.8 PG (26-34); Mean Corpuscular Volume 90.8 fL (80-100); Monocytes Absolute Auto 800 /uL (0-900); Monocytes Percent Auto 10.2 % (3-14); Neutrophils Absolute Auto 5300 /uL (1500-7000); Neutrophils Percent Auto 67.4 % (50-75); Platelet Count 219 X10^3/uL (150-400); Red Blood Cell Count 4.39 X10^6/uL (4.5-5.9); Red Cell Distribution Width 14.3 % (11.6-14.8); White Blood Cell Count 7.8 X10^3/uL (4.5-11.0)
--- NOTE | 2023-02-26 01:18 | ED_ITS ---
HPI - Back Pain/Injury General Chief Complaint: Back Pain/Injury Stated Complaint: Left flank pain Time Seen by Provider: 02/26/23 00:58 Source: patient and EMS Mode of arrival: EMS History of Present Illness HPI Narrative: 77-year-old male who is here for evaluation of 3 days of left-sided flank pain. States that it actually has been going on for the past couple days but he did not mentioned it to the nursing staff where he lives until today. No nausea or vomiting. No change in bowel habits. No urinary symptoms. No skin changes. He did receive a pain pill by the staff prior to arrival without any improvement. Related Data Home Medications Medication Instructions Recorded Confirmed acetaminophen 325 mg tablet 650 mg PO BID 07/05/20 07/05/20 acetaminophen 325 mg tablet 650 mg PO Q6H PRN pain management 07/05/20 07/05/20 (Tylenol) albuterol sulfate 90 mcg/actuation 2 puff inhalation BID 07/05/20 07/05/20 aerosol inhaler albuterol sulfate 90 mcg/actuation 2 puff inhalation Q4H PRN 07/05/20 07/05/20 aerosol inhaler wheezing/SOB baclofen 10 mg tablet 10 mg PO BID 07/05/20 07/05/20 cholecalciferol (vitamin D3) 125 5,000 unit PO DAILY 07/05/20 07/05/20 mcg (5,000 unit) tablet citalopram 20 mg tablet 30 mg PO DAILY 07/05/20 07/05/20 docusate sodium 100 mg capsule 200 mg PO BID 07/05/20 07/05/20 (Colace) furosemide 40 mg tablet (Lasix) 40 mg PO DAILY 07/05/20 07/05/20 furosemide 80 mg tablet (Lasix) 80 mg PO DAILY 07/05/20 07/05/20 hydrocodone 5 mg-acetaminophen 325 1 tab PO Q6H PRN pain management 07/05/20 07/05/20 mg tablet hydrocortisone 2.5 % rectal cream ea topical Q8H PRN rectal itching 07/05/20 with applicator loratadine 10 mg tablet 10 mg PO DAILY 07/05/20 07/05/20 menthol 4 % topical gel (Biofreeze 1 applic topical BID 07/05/20 07/05/20 (menthol)) menthol 4 % topical gel (Biofreeze 1 applic topical Q4H PRN pain 07/05/20 07/05/20 (menthol)) management metformin 500 mg tablet 500 mg PO BID 07/05/20 07/05/20 multivitamin with iron-mineral 1 tab PO DAILY 07/05/20 07/05/20 nystatin 100,000 unit/gram topical 1 applic topical BID 07/05/20 07/05/20 powder nystatin 100,000 unit/gram topical 1 applic topical PRN Rash 07/05/20 powder potassium chloride 20 mEq 40 meq PO DAILY 07/05/20 07/05/20 tablet,extended release sennosides 8.6 mg tablet (senna) 8.6 mg PO Q12HR PRN Constipation 07/05/20 07/05/20 trazodone 50 mg tablet 25 mg PO BEDTIME 07/05/20 07/05/20 Previous Rx's Medication Instructions Recorded furosemide 40 mg tablet (Lasix) 40 mg PO DAILY #7 tabs 10/19/20 famotidine 40 mg tablet 40 mg PO DAILY #7 tabs 12/24/20 methylprednisolone 4 mg tablets in See Rx Instructions PO .COMPLEX 12/24/20 a dose pack (Medrol ([place])) #21 ea Allergies Allergy/AdvReac Type Severity Reaction Status Date / Time No Known Drug Allergies Allergy Verified 07/23/21 13:36 Review of Systems Constitutional Constitutional: Reports system reviewed and no additional complaints, except as documented Gastrointestinal Gastrointestinal: Reports system reviewed and no additional complaints, except as documented Genitourinary Genitourinary: Reports system reviewed and no additional complaints, except as documented Musculoskeletal Musculoskeletal: Reports system reviewed and no additional complaints, except as documented Integumentary/Breasts Skin/Breast: Reports system reviewed and no additional complaints, except as documented Patient History Medical History Nocturia Morbid obesity with BMI of 40.0-44.9, adult Atherosclerotic heart disease of [place] coronary artery without angina pectoris History of traumatic brain injury Other abnormalities of gait and mobility Muscle weakness (generalized) Major depressive disorder Essential hypertension Cardiomegaly Benign prostatic hyperplasia without lower urinary tract symptoms COPD (chronic obstructive pulmonary disease) Surgical History H/O left knee surgery History of ankle surgery History of foot surgery History of hip surgery Family History Mother Diabetes mellitus Hypertension Father Congestive heart failure Social History household members: caregiver Smoking Status: Former smoker alcohol intake: former Smoking Status: Former smoker tobacco type: cigarettes alcohol intake frequency: holidays/special occasions only Substance Use Type: does not use Exam Initial Vital Signs Initial Vital Signs: Vital Signs Pulse Oximetry 93 02/26/23 00:58 Const General: cooperative, comfortable and No ill appearing HENMT Head: normal to inspection and normocephalic Resp Effort & Inspection: normal respiratory effort Auscultation: clear to auscultation bilaterally GI Inspection: normal to inspection and non-distended Palpation: soft and No tender Back/Spine/Pelvis Back: No CVA tenderness Skin General: no rashes or lesions noted Course Orders Ordered: ED Orders 02/26/23 01:04 Complete Blood Count AUTO DIFF Stat Comprehensive Metabolic Panel Stat Lipase Stat 02/26/23 01:10 CT abdomen pelvis w con Stat Discontinued Medications Ondansetron HCl (Ondansetron 4 Mg Odt Prepack) 1 bottle MISC SEEINSTR ONE Stop: 02/26/23 01:20 Last Admin: 02/26/23 01:25 Dose: Not Given Documented By: Vital Signs Vital signs: Vital Signs - 8 hr 02/26/23 00:58 02/26/23 00:59 02/26/23 01:00 Temperature Pulse Rate 56 L 55 L Respiratory Rate Blood Pressure Pulse Oximetry 93 94 94 Oxygen Delivery Method Oxygen Flow Rate 02/26/23 01:00 02/26/23 01:01 02/26/23 01:39 Temperature 97.4 F L Pulse Rate 54 L 55 L Respiratory Rate 16 Blood Pressure 136/66 136/66 Pulse Oximetry 93 95 Oxygen Delivery Method Nasal Cannula Oxygen Flow Rate 2 02/26/23 01:40 02/26/23 01:40 Temperature Pulse Rate 60 Respiratory Rate Blood Pressure 122/59 L Pulse Oximetry 95 Oxygen Delivery Method Oxygen Flow Rate MDM - Back Pain/Injury Lab Data Attestation: I reviewed the patient's lab results. 02/26/23 01:04 02/26/23 01:04 Labs: Lab Results 10/29/23 Range/Units 01:04 WBC 7.8 (4.5-11.0) X10^3/uL RBC 4.39 L (4.5-5.9) X10^6/uL Hgb 13.1 L (13.5-17.5) g/dL Hct 39.9 L (41-53) % MCV 90.8 (80-100) fL MCH 29.8 (26-34) PG MCHC 32.8 (30-36) % RDW 14.3 (11.6-14.8) % Plt Count 219 (150-400) X10^3/uL Neut % (Auto) 67.4 (50-75) % Lymph % (Auto) 19.1 L (25-40) % [place] % (Auto) 10.2 (3-14) % Eos % (Auto) 2.6 (2-4) % Baso % (Auto) 0.7 (0-2) % Neut # (Auto) 5300 (0783-5120) /uL Lymph # (Auto) 1500 (9948-6060) /uL [place] # (Auto) 800 (0-900) /uL Eos # (Auto) 200 (0-450) /uL Baso # (Auto) 100 (0-100) /uL Sodium 135 L (137-145) mmol/L Potassium 4.4 (3.4-5.1) mmol/L Chloride 100 (98-107) mmol/L Carbon Dioxide 29 (22-32) mmol/L BUN 29 H (9-20) mg/dL Creatinine 1.25 (0.66-1.25) mg/dL Estimated GFR 59 L (>60) mL/min BUN/Creatinine Ratio 23.2 H (6-22) Glucose 99 (80-110) mg/dL Calcium 8.9 (8.4-10.2) mg/dL Total Bilirubin 0.3 (0.2-1.3) mg/dL AST 23 (17-59) IU/L ALT 20 (<50) IU/L Alkaline Phosphatase 46 (38-126) U/L Total Protein 6.6 (6.3-8.2) g/dL Albumin 3.6 (3.5-5.0) g/dL Globulin 3.0 (1.7-4.1) g/dL Albumin/Globulin Ratio 1.2 (1.0-2.8) Lipase 279 (23-300) U/L Urine Dip Bedside Urine Glucose Negative Bedside Urine Bilirubin - Negative Bedside Urine Ketone - Negative Urine Specific [place] 1.015 Bedside Urine Occult Blood - Negative Bedside Urine pH 6 Bedside Urine Protein - Negative Bedside Urine Urobilinogen - Negative Bedside Urine Nitrite - Negative Bedside Urine Leukocytes - Negative Esterase Imaging Data CT scan - abdomen/pelvis: Radiologist's Impression: PROCEDURE: CT ABDOMEN PELVIS W CON INDICATIONS: L flank pain TECHNIQUE: After the administration of intravenous contrast, axial sections acquired from the lung bases to the pubic symphysis. Coronal and sagittal reformats were performed. For radiation dose reduction, the following was used: automated exposure control, adjustment of mA and/or kV according to patient size. COMPARISON: [facility], CT, CT ANGIO CHEST PE PROTOCOL, 09/12/2019, 9:24. [facility], CT, CT ABDOMEN ADRENAL PROTOCOL, 10/14/2021, 10:26. [facility], CT, CT CHEST WO CON, 10/14/2021, 10:26. FINDINGS: Image quality: Excellent. Lung bases: Unremarkable. Stable appearance of a small pulmonary nodule seen on multiple prior CT scans within the left lower lobe posteriorly. Heart: No significant findings. ABDOMEN: Liver: Unremarkable. Gallbladder: Unremarkable. Biliary ducts: Unremarkable. Pancreas: Unremarkable. Spleen: Unremarkable. Adrenal Glands: Bilateral adrenal nodules, previously present. The nodules have not changed appreciably in size from the comparison study in August of 2019. Kidneys and Ureters: Unremarkable except for interval development of a 3 mm rounded calculus that is nonobstructive adjacent to a previously present 6.5 cm cyst at the upper 3rd of the left kidney.. Stomach and Bowel: Stomach, small bowel loops, and colon are unremarkable. Peritoneum: No abnormal intraperitoneal fluid. No free air. Ventral Wall: No hernias. Abdominal Nodes: No retroperitoneal or mesenteric adenopathy by size criteria. Vessels: Aorta and inferior vena cava are normal in size. PELVIS: Pelvic Organs: Unremarkable. Bladder: Unremarkable. Pelvic Nodes: No enlarged lymph nodes. Miscellaneous: No hernias are seen. Bones: Unremarkable. IMPRESSION: There is a new finding of a 3 mm rounded left collecting system calculus that appears nonobstructive, at the upper 3rd of the left kidney, adjacent to a dominant previously present 6.5 cm renal cortical cyst. No inflammation is associated. No hydronephrosis or nephrolithiasis is found otherwise. The patient has previously documented bilateral adrenal nodules, larger on the right than the left, and these are again seen without change from August 2019. No follow-up recommended. Stable appearance of a small smoothly marginated nodule documented on multiple prior CT scans at the posterior left lung base. No follow-up recommended. [facility] Narrative Medical decision making narrative: He does have a left-sided kidney stone. His kidney function is unchanged. Afebrile. No skin changes concerning for zoster. The rest of his CT scan is unremarkable. Urinalysis shows no signs of infection. Low suspicion for pyelonephritis. No indication for admission to the hospital or urologic consultation. Will discharge patient home with return precautions. I discussed the CT scan with him. He was given return precautions. He expressed understanding and agreement. Discharge Plan Departure Patient Disposition: Home Clinical Impression: Kidney stone on left side Instructions: Acute Abdominal Pain Activity Restrictions/Additional Instructions: Like we discussed you do have a kidney stone on the left which could be the cause of your discomfort today. There is no signs of an infection. Recommend that you continue to take all of your medications as directed. You can continue to take pain medicine as needed. You can contact the urologist if your symptoms are not improving. Return to the emergency department for worsening symptoms. Prescriptions: No Action citalopram 20 mg Tablet 30 mg PO DAILY furosemide [Lasix] 40 mg Tablet 40 mg PO DAILY furosemide [Lasix] 80 mg Tablet 80 mg PO DAILY loratadine 10 mg Tablet 10 mg PO DAILY multivitamin with iron-mineral Tablet 1 tab PO DAILY potassium chloride 20 mEq Tablet Extended Release 40 meq PO DAILY trazodone 50 mg Tablet 25 mg PO BEDTIME acetaminophen 325 mg Tablet 650 mg PO BID cholecalciferol (vitamin D3) 125 mcg (5,000 unit) Tablet 5,000 unit PO DAILY albuterol sulfate 90 mcg/actuation HFA aerosol inhaler 2 puff INHALATION BID baclofen 10 mg Tablet 10 mg PO BID Biofreeze ([place]hol) 4 % Gel 1 applic TOPICAL BID metformin 500 mg Tablet 500 mg PO BID docusate sodium [Colace] 100 mg Capsule 200 mg PO BID nystatin 100,000 unit/gram Powder 1 applic TOPICAL BID hydrocodone-acetaminophen 5-325 mg Tablet 1 tab PO Q6H PRN (Reason: pain management) Rx Instructions: do not reorder once medication gone nystatin 100,000 unit/gram Powder 1 applic TOPICAL PRN (Reason: Rash) albuterol sulfate 90 mcg/actuation Hfa Aerosol Inhaler 2 puff INHALATION Q4H PRN (Reason: wheezing/SOB) Biofreeze ([place]hol) 4 % Gel 1 applic TOPICAL Q4H PRN (Reason: pain management) hydrocortisone 2.5 % Cream With Applicator topical Q8H PRN (Reason: rectal itching) sennosides [senna] 8.6 mg Tablet 8.6 mg PO Q12HR PRN (Reason: Constipation) acetaminophen [Tylenol] 325 mg Tablet 650 mg PO Q6H PRN (Reason: pain management) furosemide [Lasix] 40 mg tablet 40 mg PO DAILY Qty: 7 0RF methylprednisolone [Medrol ([place])] 4 mg tablets,dose pack See Rx Instructions .ROUTE .COMPLEX Qty: 21 0RF Rx Instructions: orally per package directions famotidine 40 mg tablet 40 mg PO DAILY Qty: 7 0RF Referrals: Ellen Us ARNP [Primary Care Provider] - Edwin Chao MD [Physician] - Stand Alone Forms: Patient Portal/API
[2023-02-26 01:22] LABS: Alanine Aminotransferase 20 IU/L (<50); Albumin 3.6 g/dL (3.5-5.0); Albumin Globulin Ratio 1.2 (1.0-2.8); Alkaline Phosphatase 46 U/L (38-126); Aspartate Aminotransferase 23 IU/L (17-59); BUN Creatinine Ratio 23.2 (6-22); Bilirubin Total 0.3 mg/dL (0.2-1.3); Blood Urea Nitrogen 29 mg/dL (9-20); Calcium 8.9 mg/dL (8.4-10.2); Carbon Dioxide 29 mmol/L (22-32); Chloride 100 mmol/L (98-107); Estimated Glomerular Filt Rate 59 mL/min (>60); Glucose 99 mg/dL (80-110); HEMOLYSIS 28 (0-50); Lipase 279 U/L (23-300); Potassium 4.4 mmol/L (3.4-5.1); Sodium 135 mmol/L (137-145); Total Protein 6.6 g/dL (6.3-8.2)
--- NOTE | 2023-02-26 01:27 | PC.NURSE ---
Pt cleaned of saturated urine linens that patient arrived in. Clean sheets and depends on patient.
== END 2023-02-26 03:46 | disposition home or self-care (01) ==
PROVIDERS: Emergency Provider Emergency Medicine; PCP Nurse Practitioner Gerontology
DX: N20.0 Calculus of kidney (principal)
CPT/HCPCS: 36415; 51701; 74177; 80053; 81003; 83690; 85025; 99284; Q9967

== ENCOUNTER → 2023-03-02 09:44 | Outpatient (CLI) | payer OTHER, MEDICAID, SELFPAY ==
[2020-07-05 05:37] VITALS: BMI 41.7
== END ==
PROVIDERS: PCP Nurse Practitioner Gerontology; Referring Provider Internal Medicine; Visit Provider Surgery
DX: E11.621 Type 2 diabetes mellitus with foot ulcer (principal); L97.312 Non-pressure chronic ulcer of right ankle with fat layer exposed; E11.42 Type 2 diabetes mellitus with diabetic polyneuropathy
CPT/HCPCS: 99213

== ENCOUNTER → 2023-10-10 08:10 | Outpatient (ROUT) | payer OTHER, MEDICAID, SELFPAY ==
[2020-07-05 05:37] VITALS: BMI 41.7
[2023-10-10 09:19] LABS: BUN Creatinine Ratio 20.9 (6-22); Blood Urea Nitrogen 31 mg/dL (9-20); Calcium 8.7 mg/dL (8.4-10.2); Carbon Dioxide 35 mmol/L (22-32); Chloride 101 mmol/L (98-107); Estimated Glomerular Filt Rate 48 mL/min (>60); Glucose 88 mg/dL (80-110); HEMOLYSIS < 15 (0-50); Potassium 4.5 mmol/L (3.4-5.1); Sodium 140 mmol/L (137-145)
[2023-10-10 10:08] LABS: Vitamin B12 383 pg/mL (239-931)
[2023-10-10 11:39] LABS: Hemoglobin A1C% w Est Avg Glu 5.6 % (4.0-6.0)
== END ==
PROVIDERS: PCP Nurse Practitioner Gerontology; Visit Provider Registered Nurse
DX: Z01.89 Encounter for other specified special examinations (principal)
CPT/HCPCS: 36415; 80048; 82607; 83036

== ENCOUNTER → 2023-10-23 16:30 | Outpatient (ROUT) | payer OTHER, MEDICAID, SELFPAY ==
[2020-07-05 05:37] VITALS: BMI 41.7
[2023-10-23 16:46] LABS: Add Manual Diff / Slide Review NO; Appearance Urine UA CLEAR; Basophils Absolute Auto 0 /uL (0-100); Basophils Percent Auto 0.4 % (0-2); Bilirubin Urine UA NEGATIVE (NEGATIVE); Color Urine UA YELLOW; Eosinophils Absolute Auto 200 /uL (0-450); Eosinophils Percent Auto 3.8 % (2-4); Glucose Urine UA NEGATIVE (Negative); Hemoglobin 14.2 g/dL (13.5-17.5); Ketones Urine UA NEGATIVE (NEGATIVE); Leukocyte Esterase Urine UA NEGATIVE (NEGATIVE); Lymphocytes Absolute Auto 1400 /uL (1100-4500); Lymphocytes Percent Auto 21.1 % (25-40); Mean Corpuscular HGB Conc 33.1 % (30-36); Mean Corpuscular Hemoglobin 30.8 PG (26-34); Mean Corpuscular Volume 93.2 fL (80-100); Monocytes Absolute Auto 500 /uL (0-900); Monocytes Percent Auto 7.2 % (3-14); Neutrophils Absolute Auto 4400 /uL (1500-7000); Neutrophils Percent Auto 67.5 % (50-75); Nitrite Urine UA NEGATIVE (Negative); Occult Blood Urine UA NEGATIVE (Negative); Platelet Count 179 X10^3/uL (150-400); Protein Urine UA NEGATIVE (Negative); Red Blood Cell Count 4.62 X10^6/uL (4.5-5.9); Red Cell Distribution Width 14.9 % (11.6-14.8); Urobilinogen Urine UA 0.2 E.U./dL (0.2); White Blood Cell Count 6.5 X10^3/uL (4.5-11.0); pH Urine UA 6.5 (4.5-8.0)
[2023-10-23 16:51] LABS: Bacteria Urine None Seen; Culture Indicated Urine Cult Not Indicated; RBC Urine None Seen (0-5/HPF); Squamous Epithelial Cell Urine 1-5 /HPF (0-5/HPF); Urine Volume 10mL (spun); WBC Urine 0-1/HPF (0-5/HPF)
[2023-10-23 16:56] LABS: Blood Urea Nitrogen 26 mg/dL (9-20); Calcium 8.7 mg/dL (8.4-10.2); Carbon Dioxide 27 mmol/L (22-32); Chloride 104 mmol/L (98-107); Estimated Glomerular Filt Rate 52 mL/min (>60); Glucose 117 mg/dL (80-110); HEMOLYSIS < 15 (0-50); Potassium 4.6 mmol/L (3.4-5.1); Sodium 139 mmol/L (137-145)
== END ==
PROVIDERS: PCP Nurse Practitioner Gerontology; Visit Provider Registered Nurse
DX: Z01.89 Encounter for other specified special examinations (principal)
CPT/HCPCS: 80048; 81001; 85025

== ENCOUNTER → 2023-10-24 07:21 | Outpatient (ROUT) | payer OTHER, MEDICAID, SELFPAY ==
[2020-07-05 05:37] VITALS: BMI 41.7
[2023-10-24 08:00] LABS: Add Manual Diff / Slide Review NO; Basophils Absolute Auto 0 /uL (0-100); Basophils Percent Auto 0.3 % (0-2); Eosinophils Absolute Auto 200 /uL (0-450); Eosinophils Percent Auto 3.8 % (2-4); Hematocrit 43.2 % (41-53); Hemoglobin 14.3 g/dL (13.5-17.5); Lymphocytes Absolute Auto 1400 /uL (1100-4500); Lymphocytes Percent Auto 24.5 % (25-40); Mean Corpuscular HGB Conc 33.1 % (30-36); Mean Corpuscular Hemoglobin 30.9 PG (26-34); Mean Corpuscular Volume 93.4 fL (80-100); Monocytes Absolute Auto 500 /uL (0-900); Monocytes Percent Auto 9.1 % (3-14); Neutrophils Absolute Auto 3700 /uL (1500-7000); Neutrophils Percent Auto 62.3 % (50-75); Platelet Count 160 X10^3/uL (150-400); Red Blood Cell Count 4.62 X10^6/uL (4.5-5.9); Red Cell Distribution Width 14.7 % (11.6-14.8); White Blood Cell Count 5.9 X10^3/uL (4.5-11.0)
[2023-10-24 08:21] LABS: BUN Creatinine Ratio 19.4 (6-22); Blood Urea Nitrogen 26 mg/dL (9-20); Calcium 9.2 mg/dL (8.4-10.2); Carbon Dioxide 33 mmol/L (22-32); Chloride 102 mmol/L (98-107); Estimated Glomerular Filt Rate 54 mL/min (>60); Glucose 89 mg/dL (80-110); HEMOLYSIS < 15 (0-50); Potassium 4.7 mmol/L (3.4-5.1); Sodium 138 mmol/L (137-145)
== END ==
PROVIDERS: PCP Nurse Practitioner Gerontology; Visit Provider Registered Nurse
DX: Z01.89 Encounter for other specified special examinations (principal)
CPT/HCPCS: 36415; 80048; 85025

== ENCOUNTER → 2023-10-25 13:22 | Outpatient (ROUT) | payer OTHER, MEDICAID, SELFPAY ==
[2020-07-05 05:37] VITALS: BMI 41.7
[2023-10-25 13:27] LABS: Appearance Urine UA CLEAR; Bilirubin Urine UA NEGATIVE (NEGATIVE); Color Urine UA YELLOW; Glucose Urine UA NEGATIVE (Negative); Ketones Urine UA NEGATIVE (NEGATIVE); Leukocyte Esterase Urine UA NEGATIVE (NEGATIVE); Nitrite Urine UA NEGATIVE (Negative); Occult Blood Urine UA NEGATIVE (Negative); Protein Urine UA NEGATIVE (Negative); Specific Gravity Urine UA 1.015 (1.000-1.035); Urobilinogen Urine UA 0.2 E.U./dL (0.2)
[2023-10-25 13:34] LABS: Bacteria Urine Occasional (0-1); Culture Indicated Urine Cult Not Indicated; RBC Urine 0-1/HPF (0-5/HPF); Squamous Epithelial Cell Urine None Seen (0-5/HPF); Urine Volume 10mL (spun); WBC Urine 0-1/HPF (0-5/HPF)
== END ==
PROVIDERS: PCP Nurse Practitioner Gerontology; Visit Provider Registered Nurse
DX: Z01.89 Encounter for other specified special examinations (principal)
CPT/HCPCS: 81001

== ENCOUNTER → 2023-12-18 12:33 | Outpatient (ROUT) | payer OTHER, MEDICAID, SELFPAY ==
[2020-07-05 05:37] VITALS: BMI 41.7
[2023-12-18 13:52] LABS: Appearance Urine UA CLEAR; Bilirubin Urine UA NEGATIVE (NEGATIVE); Color Urine UA YELLOW; Glucose Urine UA NEGATIVE (Negative); Ketones Urine UA NEGATIVE (NEGATIVE); Leukocyte Esterase Urine UA NEGATIVE (NEGATIVE); Nitrite Urine UA NEGATIVE (Negative); Occult Blood Urine UA NEGATIVE (Negative); Protein Urine UA NEGATIVE (Negative); Urobilinogen Urine UA 0.2 E.U./dL (0.2); pH Urine UA 5.5 (4.5-8.0)
[2023-12-18 14:10] LABS: Bacteria Urine Occasional (0-1); Culture Indicated Urine Cult Not Indicated; RBC Urine None Seen (0-5/HPF); Squamous Epithelial Cell Urine None Seen (0-5/HPF); Urine Volume 10mL (spun); WBC Urine 0-1/HPF (0-5/HPF)
== END ==
PROVIDERS: PCP Nurse Practitioner Gerontology; Visit Provider Registered Nurse
DX: R30.0 Dysuria (principal); R32 Unspecified urinary incontinence; R10.9 Unspecified abdominal pain
CPT/HCPCS: 81001

== ENCOUNTER 2024-01-06 01:50 | Emergency (ER) | payer OTHER, MEDICAID, SELFPAY ==
[2020-07-05 05:37] VITALS: BMI 41.7
[2024-01-06] VITALS (15 sets, daily range): BP systolic 125–153; BP diastolic 59–69; PULSE 53–62; RESP 18–24; TEMP 36.7; O2SAT 90–95; BMI 39.1
--- NOTE | 2024-01-06 01:54 | DI.RAD.S_ITS ---
PROCEDURE: XR CHEST 1V INDICATIONS: chest pain TECHNIQUE: One view of the chest was acquired. COMPARISON: [facility], CR, XR CHEST 1V, 07/23/2021, 14:26. [facility], CR, XR CHEST 1V, 10/19/2020, 10:33. FINDINGS: Surgical changes and devices: None. Lungs and pleura: Lungs show bibasilar atelectasis without consolidation. No pleural effusions or pneumothorax. Mediastinum: Mediastinal contours appear normal. Heart size is normal. Bones and chest wall: No suspicious bony lesions. Overlying soft tissues appear unremarkable. IMPRESSION: No acute cardiopulmonary abnormality is seen. Dictated by: Candy Choi M.D. on 01/06/2024 at 8:02 Approved by: Candy Choi M.D. on 01/06/2024 at 8:03
[2024-01-06 02:15] LABS: Add Manual Diff / Slide Review NO; Basophils Absolute Auto 0 /uL (0-100); Basophils Percent Auto 0.4 % (0-2); Eosinophils Absolute Auto 200 /uL (0-450); Eosinophils Percent Auto 3.5 % (2-4); Hematocrit 43.8 % (41-53); Hemoglobin 14.3 g/dL (13.5-17.5); Lymphocytes Absolute Auto 1800 /uL (1100-4500); Lymphocytes Percent Auto 26.1 % (25-40); Mean Corpuscular HGB Conc 32.7 % (30-36); Mean Corpuscular Hemoglobin 30.5 PG (26-34); Mean Corpuscular Volume 93.4 fL (80-100); Monocytes Absolute Auto 700 /uL (0-900); Monocytes Percent Auto 10.2 % (3-14); Neutrophils Absolute Auto 4100 /uL (1500-7000); Neutrophils Percent Auto 59.8 % (50-75); Platelet Count 161 X10^3/uL (150-400); Red Blood Cell Count 4.69 X10^6/uL (4.5-5.9); Red Cell Distribution Width 14.7 % (11.6-14.8); White Blood Cell Count 6.9 X10^3/uL (4.5-11.0)
[2024-01-06] MEDS: ALBUTEROL/IPRATROPIUM 3 ML AMPUL INH (02:19)
[2024-01-06] MEDS: methylPREDNISolone 125 MG/2 ML VIAL IV (02:19)
--- NOTE | 2024-01-06 02:30 | ED.SOB ---
HPI - SOB/Dyspnea General Chief Complaint: Shortness of Breath/Dyspnea Stated Complaint: SOB/Difficulty breathing Time Seen by Provider: 01/06/24 01:53 Source: patient and EMS Mode of arrival: EMS Limitations: physical limitation History of Present Illness HPI Narrative: Patient is 78-year-old male resides at long-term care facility history of COPD on as needed oxygen, hypertension diabetes cardiomegaly coronary artery disease presents today with increasing shortness of breath. He has had some congestion and clear cough ongoing for last couple of days. Denies any sort of chest pain. He is some audible wheezing currently. Denies any fever or chills.. No significant lower extremity edema. He received DuoNeb with EMS and reports improvement. He reports some weakness no significant fever. Related Data Home Medications Medication Instructions Recorded Confirmed acetaminophen 325 mg tablet 650 mg PO BID 07/05/20 07/05/20 acetaminophen 325 mg tablet 650 mg PO Q6H PRN pain management 07/05/20 07/05/20 (Tylenol) albuterol sulfate 90 mcg/actuation 2 puff inhalation BID 07/05/20 07/05/20 aerosol inhaler albuterol sulfate 90 mcg/actuation 2 puff inhalation Q4H PRN 07/05/20 07/05/20 aerosol inhaler wheezing/SOB baclofen 10 mg tablet 10 mg PO BID 07/05/20 07/05/20 cholecalciferol (vitamin D3) 125 5,000 unit PO DAILY 07/05/20 07/05/20 mcg (5,000 unit) tablet citalopram 20 mg tablet 30 mg PO DAILY 07/05/20 07/05/20 docusate sodium 100 mg capsule 200 mg PO BID 07/05/20 07/05/20 (Colace) furosemide 40 mg tablet (Lasix) 40 mg PO DAILY 07/05/20 07/05/20 furosemide 80 mg tablet (Lasix) 80 mg PO DAILY 07/05/20 07/05/20 hydrocodone 5 mg-acetaminophen 325 1 tab PO Q6H PRN pain management 07/05/20 07/05/20 mg tablet hydrocortisone 2.5 % rectal cream ea topical Q8H PRN rectal itching 07/05/20 with applicator loratadine 10 mg tablet 10 mg PO DAILY 07/05/20 07/05/20 menthol 4 % topical gel (Biofreeze 1 applic topical BID 07/05/20 07/05/20 (menthol)) menthol 4 % topical gel (Biofreeze 1 applic topical Q4H PRN pain 07/05/20 07/05/20 (menthol)) management metformin 500 mg tablet 500 mg PO BID 07/05/20 07/05/20 multivitamin with iron-mineral 1 tab PO DAILY 07/05/20 07/05/20 nystatin 100,000 unit/gram topical 1 applic topical BID 07/05/20 07/05/20 powder nystatin 100,000 unit/gram topical 1 applic topical PRN Rash 07/05/20 powder potassium chloride 20 mEq 40 meq PO DAILY 07/05/20 07/05/20 tablet,extended release sennosides 8.6 mg tablet (senna) 8.6 mg PO Q12HR PRN Constipation 07/05/20 07/05/20 trazodone 50 mg tablet 25 mg PO BEDTIME 07/05/20 07/05/20 Previous Rx's Medication Instructions Recorded furosemide 40 mg tablet (Lasix) 40 mg PO DAILY #7 tabs 10/19/20 famotidine 40 mg tablet 40 mg PO DAILY #7 tabs 12/24/20 methylprednisolone 4 mg tablets in See Rx Instructions PO .COMPLEX 12/24/20 a dose pack (Medrol ([place])) #21 ea levofloxacin 750 mg tablet 750 mg PO DAILY 5 days #5 tabs 01/06/24 prednisone 20 mg tablet 40 mg (2 x 20 mg) PO DAILY #10 tabs 01/06/24 Allergies Allergy/AdvReac Type Severity Reaction Status Date / Time lisinopril Allergy Unknown Cough Verified 01/06/24 01:58 Patient History Medical History Nocturia Morbid obesity with BMI of 40.0-44.9, adult Atherosclerotic heart disease of [place] coronary artery without angina pectoris History of traumatic brain injury Other abnormalities of gait and mobility Muscle weakness (generalized) Major depressive disorder Essential hypertension Cardiomegaly Benign prostatic hyperplasia without lower urinary tract symptoms COPD (chronic obstructive pulmonary disease) Surgical History H/O left knee surgery History of ankle surgery History of foot surgery History of hip surgery Family History Mother Diabetes mellitus Hypertension Father Congestive heart failure Social History household members: caregiver Smoking Status: Former smoker alcohol intake: former Smoking Status: Former smoker tobacco type: cigarettes alcohol intake frequency: holidays/special occasions only Substance Use Type: does not use Exam Initial Vital Signs Initial Vital Signs: Vital Signs Pulse Rate 53 L 01/06/24 01:54 Pulse Oximetry 93 01/06/24 01:54 GENERAL: Alert 78-year-old male and in no acute distress. HEENT: Head atraumatic,EOMI, pupils reactive, face symmetric, moist mucous membranes CARDIOVASCULAR: Regular rate and rhythm without murmurs, rubs or gallops. RESPIRATORY: Wheezing throughout no significant tachypnea speaks in full sentences without difficulty ABDOMEN: Soft, nontender. Normoactive bowel sounds all 4 quadrants. No guarding or rebound. EXTREMITIES: Normal range of motion, no clubbing or edema. Neurovascularly intact NEUROLOGICAL: Alert and oriented x4.Normal gait and speech. Cranial nerves II through XII grossly intact. SKIN: Warm, dry, no laceration, no petechiae, no rashes or lesions. Course Orders Ordered: ED Orders 01/06/24 01:54 XR chest 1V Stat EKG-12 Lead Stat 01/06/24 02:05 Complete Blood Count AUTO DIFF Stat 01/06/24 02:25 Respiratory Panel (Film Array) Stat 01/06/24 02:27 Blood Culture Stat Comprehensive Metabolic Panel Stat Lactate (Lactic Acid) Stat Lipase Stat NT-proBNP (BNP-Adult 18+) Stat Procalcitonin Stat Troponin & CK Cardiac Panel Stat Discontinued Medications Albuterol/Ipratropium (Albuterol/Ipratropium 3 Ml Ampul) 3 ml INH NOW ONE Stop: 01/06/24 01:54 Last Admin: 01/06/24 02:19 Dose: 3 ml Documented By: MARILEE Levofloxacin (Levofloxacin 250 Mg Tablet) 750 mg PO NOW ONE Stop: 01/06/24 04:15 Last Admin: 01/06/24 04:19 Dose: 750 mg Documented By: AB Methylprednisolone (Methylprednisolone 125 Mg/2 Ml Vial) 125 mg IV NOW ONE Stop: 01/06/24 01:54 Last Admin: 01/06/24 02:19 Dose: 125 mg Documented By: MARILEE Vital Signs Vital signs: Vital Signs - 8 hr 01/06/24 01:54 01/06/24 01:55 01/06/24 01:55 Temperature Pulse Rate 53 L 53 L Respiratory Rate Blood Pressure 141/67 H Pulse Oximetry 93 94 Oxygen Delivery Method Oxygen Flow Rate 01/06/24 01:58 01/06/24 02:00 01/06/24 02:30 Temperature 98.1 F Pulse Rate 54 L 53 L 58 L Respiratory Rate 24 Blood Pressure 141/67 H Pulse Oximetry 95 90 L Oxygen Delivery Method Room Air Room Air Oxygen Flow Rate 01/06/24 02:48 01/06/24 02:48 01/06/24 03:00 Temperature Pulse Rate 55 L Respiratory Rate Blood Pressure 153/69 H 139/65 Pulse Oximetry 95 Oxygen Delivery Method Nasal Cannula Oxygen Flow Rate 2 01/06/24 03:00 01/06/24 03:30 01/06/24 03:31 Temperature Pulse Rate 62 58 L Respiratory Rate 18 21 Blood Pressure 134/63 Pulse Oximetry 94 92 Oxygen Delivery Method Oxygen Flow Rate 01/06/24 03:31 01/06/24 04:00 01/06/24 04:01 Temperature Pulse Rate 57 L 59 L Respiratory Rate 21 20 Blood Pressure 129/62 Pulse Oximetry 92 93 Oxygen Delivery Method Oxygen Flow Rate 01/06/24 04:01 01/06/24 04:30 01/06/24 04:31 Temperature Pulse Rate 62 55 L Respiratory Rate 18 21 Blood Pressure 130/59 L Pulse Oximetry 95 95 Oxygen Delivery Method Oxygen Flow Rate 01/06/24 04:31 01/06/24 05:00 01/06/24 05:01 Temperature Pulse Rate 57 L 57 L 57 L Respiratory Rate 21 20 19 Blood Pressure Pulse Oximetry 95 93 94 Oxygen Delivery Method Nasal Cannula Nasal Cannula Oxygen Flow Rate 2 2 01/06/24 05:01 Temperature Pulse Rate Respiratory Rate Blood Pressure 125/60 Pulse Oximetry Oxygen Delivery Method Oxygen Flow Rate MDM - SOB/Dyspnea Lab Data 01/06/24 02:05 01/06/24 02:27 Labs: Lab Results 01/06/24 01/06/24 01/06/24 Range/Units 02:05 02:25 02:27 WBC 6.9 (4.5-11.0) X10^3/uL RBC 4.69 (4.5-5.9) X10^6/uL Hgb 14.3 (13.5-17.5) g/dL Hct 43.8 (41-53) % MCV 93.4 (80-100) fL MCH 30.5 (26-34) PG MCHC 32.7 (30-36) % RDW 14.7 (11.6-14.8) % Plt Count 161 (150-400) X10^3/uL Neut % (Auto) 59.8 (50-75) % Lymph % (Auto) 26.1 (25-40) % [place] % (Auto) 10.2 (3-14) % Eos % (Auto) 3.5 (2-4) % Baso % (Auto) 0.4 (0-2) % Neut # (Auto) 4100 (4380-7892) /uL Lymph # (Auto) 1800 (8385-5254) /uL [place] # (Auto) 700 (0-900) /uL Eos # (Auto) 200 (0-450) /uL Baso # (Auto) 0 (0-100) /uL Sodium 134 L (137-145) mmol/L Potassium 4.4 (3.4-5.1) mmol/L Chloride 98 (98-107) mmol/L Carbon Dioxide 33 H (22-32) mmol/L BUN 28 H (9-20) mg/dL Creatinine 1.43 H (0.66-1.25) mg/dL Estimated GFR 50 L (>60) mL/min BUN/Creatinine Ratio 19.6 (6-22) Glucose 106 (80-110) mg/dL Lactate 1.3 (0.7-2.1) mmol/L Calcium 8.9 (8.4-10.2) mg/dL Total Bilirubin 0.5 (0.2-1.3) mg/dL AST 23 (17-59) IU/L ALT 17 (<50) IU/L Alkaline Phosphatase 54 (38-126) U/L Total Creatine Kinase 91 (55-170) U/L Troponin I < 0.012 (0.01-0.034) ng/mL NT-Pro-B Natriuret Pep 67 (<450) pg/mL Total Protein 6.5 (6.3-8.2) g/dL Albumin 3.8 (3.5-5.0) g/dL Globulin 2.7 (1.7-4.1) g/dL Albumin/Globulin Ratio 1.4 (1.0-2.8) Lipase 349 H (23-300) U/L Procalcitonin 0.088 (<0.5) ng/mL Chlamy pneumoniae PCR Not detected (Not Detect) Adenovirus (PCR) Not detected (Not Detect) B.parapertussis DNA PCR Not detected (Not Detecte) Coronavirus OC43 (PCR) Not detected (Not Detect) Coronavirus HKU1 (PCR) Not detected (Not Detect) Coronavirus 229E (PCR) Not detected (Not Detect) SARS-CoV-2 (PCR) Not detected (Not Detecte) Coronavirus NL63 (PCR) Not detected (Not Detect) Human Metapneumovir PCR Not detected (Not Detect) Influenza Type A (PCR) Not detected (Not Detect) Influenza Type B (PCR) Not detected (Not Detect) M. pneumoniae (PCR) Not detected (Not Detect) Parainfluenza 1 (PCR) Not detected (Not Detect) Parainfluenza 2 (PCR) Not detected (Not Detect) Parainfluenza 3 (PCR) Not detected (Not Detect) Parainfluenza 4 (PCR) Not detected (Not Detect) RSV (PCR) Not detected (Not Detect) Entero/Rhino (PCR) Not detected (Not Detect) Imaging Data Chest x-ray: Radiologist's Impression: Preliminary report multifocal bilateral pulmonary infiltrates ECG Data Attestation: I personally reviewed and interpreted this ECG as follows: Prior ECG tracings: available for review Interpretation: Sinus rhythm rate [address] changes MDM Narrative Medical decision making narrative: MDM CC: Shortness of breath Complicating co-morbidities: halfway Care Facility COPD home oxygen as needed, hypertension diabetes TBI COPD Data collected from: Paperwork from [facility] assisted [facility], and EMS Medical records reviewed: Previous ED visits Differential considered: COPD CHF acute coronary syndrome pneumonia viral syndrome Exam documented above, pertinent findings include: Audible wheezing minimal conversational dyspnea no lower extremity edema Lab Test results independently reviewed as above. Pertinent findings: CBC does not show any significant leukocytosis or anemia, WBC is 6.9 hemoglobin 14.2 hematocrit 43.8 CMP no significant electrolyte abnormality or TACHO creatinine looks at about baseline sodium 134 potassium 4.4 chloride 98 carbon dioxide 33 BUN 28 creatinine 1.4 Lactate 1.3, procalcitonin 0.088 Troponin negative, BNP 67 Bilirubin AST ALT normal Independently reviewed EKG as above: Sinus rhythm without ischemia Imaging studies independently reviewed: Multifocal pneumonia Consultations: None Treatments: Albuterol Solu-Medrol Levaquin Re-evaluations: Patient improved significantly with albuterol he is requiring 1-2 L of oxygen he has oxygen at home as needed Discussion: Patient is 78-year-old male presents assisted living facility presents today with upper respiratory like symptoms ongoing for couple days and increased respiratory symptoms tonight. He did have some audible wheezing which improved with DuoNeb treatments. He does not clinically look fluid overloaded he has no pitting edema BNP is also less than 100 I do not suspect congestive heart failure at this time. He has no signs severe sepsis he has no leukocytosis he is afebrile his lactate is 1.3 however chest x-ray does suggest possible multifocal pneumonia. Reasonable to place him on Levaquin and steroids Levaquin would cover for more assisted-living organisms not necessarily community-acquired He is requiring oxygen but has oxygen at home he overall feels better nontoxic vitals are stable does seem reasonable to send him home with steroids and antibiotics he overall is feeling better and agrees with this plan Discharge Plan Departure Patient Disposition: Home Clinical Impression: Chronic obstructive pulmonary disease with (acute) exacerbation, Pneumonia Instructions: Chronic Obstructive Pulmonary Disease, DI for Pneumonia -- Adult Activity Restrictions/Additional Instructions: *You have been diagnosed with pneumonia and COPD *What to do: At this time you do have a mild pneumonia but blood work is overall reassuring. Please use your albuterol every 4 *Continue to take medications as directed Levaquin 750 mg once a day for 5 days Prednisone 40 mg once a day for 5 days Albuterol every 4 hours *Follow up with your primary care provider in 2-3 days or call [phone] *Return to ER if you should have increasing shortness of breath increasing oxygen need increasing cough confusion or any new, worsening or concerning symptoms Prescriptions: New prednisone 20 mg tablet 40 mg PO DAILY Qty: 10 0RF levofloxacin 750 mg tablet 750 mg PO DAILY 5 Days Qty: 5 0RF No Action citalopram 20 mg Tablet 30 mg PO DAILY furosemide [Lasix] 40 mg Tablet 40 mg PO DAILY furosemide [Lasix] 80 mg Tablet 80 mg PO DAILY loratadine 10 mg Tablet 10 mg PO DAILY multivitamin with iron-mineral Tablet 1 tab PO DAILY potassium chloride 20 mEq Tablet Extended Release 40 meq PO DAILY trazodone 50 mg Tablet 25 mg PO BEDTIME acetaminophen 325 mg Tablet 650 mg PO BID cholecalciferol (vitamin D3) 125 mcg (5,000 unit) Tablet 5,000 unit PO DAILY albuterol sulfate 90 mcg/actuation HFA aerosol inhaler 2 puff INHALATION BID baclofen 10 mg Tablet 10 mg PO BID Biofreeze (menthol) 4 % Gel 1 applic TOPICAL BID metformin 500 mg Tablet 500 mg PO BID docusate sodium [Colace] 100 mg Capsule 200 mg PO BID nystatin 100,000 unit/gram Powder 1 applic TOPICAL BID hydrocodone-acetaminophen 5-325 mg Tablet 1 tab PO Q6H PRN (Reason: pain management) Rx Instructions: do not reorder once medication gone nystatin 100,000 unit/gram Powder 1 applic TOPICAL PRN (Reason: Rash) albuterol sulfate 90 mcg/actuation Hfa Aerosol Inhaler 2 puff INHALATION Q4H PRN (Reason: wheezing/SOB) Biofreeze (menthol) 4 % Gel 1 applic TOPICAL Q4H PRN (Reason: pain management) hydrocortisone 2.5 % Cream With Applicator topical Q8H PRN (Reason: rectal itching) sennosides [senna] 8.6 mg Tablet 8.6 mg PO Q12HR PRN (Reason: Constipation) acetaminophen [Tylenol] 325 mg Tablet 650 mg PO Q6H PRN (Reason: pain management) furosemide [Lasix] 40 mg tablet 40 mg PO DAILY Qty: 7 0RF methylprednisolone [Medrol ([place])] 4 mg tablets,dose pack See Rx Instructions .ROUTE .COMPLEX Qty: 21 0RF Rx Instructions: orally per package directions famotidine 40 mg tablet 40 mg PO DAILY Qty: 7 0RF Referrals: Ellen Us ARNP [Primary Care Provider] - Stand Alone Forms: Patient Portal/API
--- NOTE | 2024-01-06 02:39 | EKG_ITS ---
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
--- NOTE | 2024-01-06 02:40 | EKG_ITS ---
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
[2024-01-06 02:48] LABS: Lactate (Lactic Acid) 1.3 mmol/L (0.7-2.1)
[2024-01-06 02:49] LABS: Alanine Aminotransferase 17 IU/L (<50); Albumin 3.8 g/dL (3.5-5.0); Albumin Globulin Ratio 1.4 (1.0-2.8); Alkaline Phosphatase 54 U/L (38-126); Aspartate Aminotransferase 23 IU/L (17-59); BUN Creatinine Ratio 19.6 (6-22); Bilirubin Total 0.5 mg/dL (0.2-1.3); Blood Urea Nitrogen 28 mg/dL (9-20); Calcium 8.9 mg/dL (8.4-10.2); Carbon Dioxide 33 mmol/L (22-32); Chloride 98 mmol/L (98-107); Creatine Kinase 91 U/L (55-170); Estimated Glomerular Filt Rate 50 mL/min (>60); Globulin 2.7 g/dL (1.7-4.1); Glucose 106 mg/dL (80-110); HEMOLYSIS < 15 (0-50); Lipase 349 U/L (23-300); Potassium 4.4 mmol/L (3.4-5.1); Sodium 134 mmol/L (137-145); Total Protein 6.5 g/dL (6.3-8.2)
[2024-01-06 03:01] LABS: NT-proBNP (BNP-Adult 18+) 67 pg/mL (<450); Troponin I < 0.012 ng/mL (0.01-0.034)
[2024-01-06 03:06] LABS: Procalcitonin 0.088 ng/mL (<0.5)
[2024-01-06 03:25] LABS: Adenovirus Not Detected (Not Detect); B. parapertussis Not Detected (Not Detecte); Bordetella pertussis Not Detected (Not Detect); Chlamydophila pneumoniae Not Detected (Not Detect); Coronavirus 229E Not Detected (Not Detect); Coronavirus HKU1 Not Detected (Not Detect); Coronavirus NL 63 Not Detected (Not Detect); Coronavirus OC43 Not Detected (Not Detect); Human Metapneumovirus Not Detected (Not Detect); Human Rhinovirus/Enterovirus Not Detected (Not Detect); Influenza A Not Detected (Not Detect); Influenza B Not Detected (Not Detect); Mycoplasma pneumoniae Not Detected (Not Detect); Parainfluenza Virus 1 Not Detected (Not Detect); Parainfluenza Virus 2 Not Detected (Not Detect); Parainfluenza Virus 3 Not Detected (Not Detect); Parainfluenza Virus 4 Not Detected (Not Detect); Respiratory Syncytial Virus Not Detected (Not Detect); SARS- CoV-2 Not Detected (Not Detecte)
[2024-01-06] MEDS: levoFLOXacin 250 MG TABLET 750 MG PO (04:19)
--- NOTE | 2024-01-06 04:58 | PC.NURSE ---
Attempted to contact Marycarmen at [phone]. LMTCB. 01/06/24 @ [id number]
--- NOTE | 2024-01-06 05:22 | PC.NURSE ---
Report to Raulito at [facility] advised that pt prescription was sent to [facility].
== END 2024-01-06 05:36 | disposition home or self-care (01) ==
PROVIDERS: Emergency Provider Emergency Medicine; PCP Nurse Practitioner Gerontology
DX: J44.1 Chronic obstructive pulmonary disease with (acute) exacerbation (principal); J18.9 Pneumonia, unspecified organism; R07.9 Chest pain, unspecified; I49.8 Other specified cardiac arrhythmias; I44.0 Atrioventricular block, first degree; Z79.899 Other long term (current) drug therapy; Z11.52 Encounter for screening for COVID-19
CPT/HCPCS: 36415; 71045; 80053; 82550; 83605; 83690; 83880; 84145; 84484; 85025; 87040; 87633; 93005; 93010; 96374; 99284; 99285; J2919

== ENCOUNTER → 2024-03-27 06:19 | Outpatient (ROUT) | payer OTHER, MEDICAID, SELFPAY ==
[2020-07-05 05:37] VITALS: BMI 41.7
[2024-03-27 08:09] LABS: Hemoglobin A1C% w Est Avg Glu 5.5 % (4.0-6.0)
== END ==
PROVIDERS: PCP Nurse Practitioner Gerontology
DX: E11.42 Type 2 diabetes mellitus with diabetic polyneuropathy (principal)
CPT/HCPCS: 36415; 83036

== ENCOUNTER 2024-06-11 16:06 | Emergency (ER) | payer MEDICAID, SELFPAY ==
[2020-07-05 05:37] VITALS: BMI 41.7
[2024-06-11] VITALS (19 sets, daily range): BP systolic 123–146; BP diastolic 58–85; PULSE 65–85; RESP 15–26; TEMP 36.5; O2SAT 93–96
--- NOTE | 2024-06-11 16:09 | DI.RAD.S_ITS ---
PROCEDURE: XR CHEST 1V INDICATIONS: chest pain TECHNIQUE: One view of the chest was acquired. COMPARISON: [facility], CR, XR CHEST 1V, 01/06/2024, 1:58. FINDINGS: Surgical changes and devices: None. Lungs and pleura: Patchy opacity of the left lung base. No pneumothorax. No substantial pleural effusion. Mediastinum: Mediastinal contours appear normal. Heart size is normal. Bones and chest wall: No suspicious bony lesions. Overlying soft tissues appear unremarkable. IMPRESSION: Patchy opacity of the left lung base which may represent atelectasis versus possible pneumonia aspiration. Recommend follow up chest radiograph 4-6 weeks after treatment to document resolution of findings and/or return to baseline examination. Dictated by: Larry Cruz M.D. on 06/11/2024 at 17:04 Approved by: Larry Cruz M.D. on 06/11/2024 at 17:05
--- NOTE | 2024-06-11 16:09 | EKG_ITS ---
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
--- NOTE | 2024-06-11 16:41 | EKG_ITS ---
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
[2024-06-11 16:48] LABS: Add Manual Diff / Slide Review NO; Basophils Absolute Auto 0 /uL (0-100); Basophils Percent Auto 0.1 % (0-2); Eosinophils Absolute Auto 0 /uL (0-450); Eosinophils Percent Auto 0.2 % (2-4); Hematocrit 50.3 % (41-53); Hemoglobin 16.2 g/dL (13.5-17.5); INR 1.1 (0.9-1.3); Lymphocytes Absolute Auto 300 /uL (1100-4500); Lymphocytes Percent Auto 2.5 % (25-40); Mean Corpuscular HGB Conc 32.2 % (30-36); Mean Corpuscular Hemoglobin 30.3 PG (26-34); Mean Corpuscular Volume 94.1 fL (80-100); Monocytes Absolute Auto 300 /uL (0-900); Monocytes Percent Auto 2.8 % (3-14); Neutrophils Absolute Auto 10800 /uL (1500-7000); Neutrophils Percent Auto 94.4 % (50-75); Platelet Count 171 X10^3/uL (150-400); Prothrombin Time 12.7 SECONDS (9.4-12.5); Red Blood Cell Count 5.35 X10^6/uL (4.5-5.9); White Blood Cell Count 11.4 X10^3/uL (4.5-11.0)
[2024-06-11 16:50] LABS: PTT Partial Thromboplastin Tim 35 SECONDS (25.1-36.5)
[2024-06-11 16:52] LABS: Alanine Aminotransferase 28 IU/L (<50); Albumin 4.5 g/dL (3.5-5.0); Albumin Globulin Ratio 1.6 (1.0-2.8); Alkaline Phosphatase 58 U/L (38-126); Aspartate Aminotransferase 30 IU/L (17-59); BUN Creatinine Ratio 27.5 (6-22); Bilirubin Total 0.7 mg/dL (0.2-1.3); Blood Urea Nitrogen 38 mg/dL (9-20); Calcium 9.1 mg/dL (8.4-10.2); Carbon Dioxide 28 mmol/L (22-32); Chloride 101 mmol/L (98-107); Creatine Kinase 77 U/L (55-170); Estimated Glomerular Filt Rate 52 mL/min (>60); Globulin 2.8 g/dL (1.7-4.1); Glucose 160 mg/dL (80-110); HEMOLYSIS 23 (0-50); Lipase 105 U/L (23-300); Magnesium 1.7 mg/dL (1.6-2.3); Potassium 5.2 mmol/L (3.4-5.1); Sodium 137 mmol/L (137-145); Total Protein 7.3 g/dL (6.3-8.2)
[2024-06-11 17:03] LABS: NT-proBNP (BNP-Adult 18+) 98 pg/mL (<450); Troponin I < 0.012 ng/mL (0.01-0.034)
--- NOTE | 2024-06-11 17:16 | PC.NURSE ---
Pt states his stomach feels fine. Pt otherwise resting with eyes closed, respirations regular and unlabored.
--- NOTE | 2024-06-11 17:58 | PC.NURSE ---
Pt denies abd pain. Pt states he has been feeling little under the weather (ie upper respiratory congestion). Pt noted to have vomit on himself at facility. Pt denies any current complaints. Pt denies having any fevers.
[2024-06-11 18:19] LABS: COVID-19 CEPHEID 4-PLEX PCR Negative (Negative); Influenza A - CEPHEID Flu A NEGATIVE (NEGATIVE); Influenza B - CEPHEID Flu B NEGATIVE (NEGATIVE); Respiratory Syncytial Virus Negative (Negative)
[2024-06-11] MEDS: LIDOCAINE 2% (GLYDO) 6 ML GEL TOP (18:28)
--- NOTE | 2024-06-11 19:59 | PC.NURSE ---
Estrellita from [facility] given update on pt status as of now
--- NOTE | 2024-06-11 21:16 | PC.NURSE ---
No signs noted of N/V/D since 1899. Will continue to monitor.
[2024-06-12] VITALS (9 sets, daily range): BP systolic 141–151; BP diastolic 63–76; PULSE 63–76; RESP 21–26; O2SAT 91–98
--- NOTE | 2024-06-12 00:09 | ED_ITS ---
HPI - Nausea/Vomiting/Diarrhea General Chief complaint: Nausea/Vomiting/Diarrhea Stated complaint: Vomit/Lethargic Time Seen by Provider: 06/12/24 00:09 Source: EMS Mode of arrival: EMS History of Present Illness HPI Narrative: Patient is an 79-year-old male resides at long-term care facility COPD on oxygen as needed, hypertension diabetes cardiomegaly coronary artery disease presents today with nausea. He has no vomiting does report productive cough but no significant shortness of breath or chest pain. He actually is tolerating fluids. No fever or chills. He was found with vomit all over this morning. He was alert and oriented at baseline mental status. No fall or trauma. Related Data Home Medications Medication Instructions Recorded Confirmed acetaminophen 325 mg tablet 650 mg PO BID 07/05/20 07/05/20 acetaminophen 325 mg tablet 650 mg PO Q6H PRN pain management 07/05/20 07/05/20 (Tylenol) albuterol sulfate 90 mcg/actuation 2 puff inhalation BID 07/05/20 07/05/20 aerosol inhaler albuterol sulfate 90 mcg/actuation 2 puff inhalation Q4H PRN 07/05/20 07/05/20 aerosol inhaler wheezing/SOB baclofen 10 mg tablet 10 mg PO BID 07/05/20 07/05/20 cholecalciferol (vitamin D3) 125 5,000 unit PO DAILY 07/05/20 07/05/20 mcg (5,000 unit) tablet citalopram 20 mg tablet 30 mg PO DAILY 07/05/20 07/05/20 docusate sodium 100 mg capsule 200 mg PO BID 07/05/20 07/05/20 (Colace) furosemide 40 mg tablet (Lasix) 40 mg PO DAILY 07/05/20 07/05/20 furosemide 80 mg tablet (Lasix) 80 mg PO DAILY 07/05/20 07/05/20 hydrocodone 5 mg-acetaminophen 325 1 tab PO Q6H PRN pain management 07/05/20 07/05/20 mg tablet hydrocortisone 2.5 % rectal cream ea topical Q8H PRN rectal itching 07/05/20 with applicator loratadine 10 mg tablet 10 mg PO DAILY 07/05/20 07/05/20 menthol 4 % topical gel (Biofreeze 1 applic topical BID 07/05/20 07/05/20 (menthol)) menthol 4 % topical gel (Biofreeze 1 applic topical Q4H PRN pain 07/05/20 07/05/20 (menthol)) management metformin 500 mg tablet 500 mg PO BID 07/05/20 07/05/20 multivitamin with iron-mineral 1 tab PO DAILY 07/05/20 07/05/20 nystatin 100,000 unit/gram topical 1 applic topical BID 07/05/20 07/05/20 powder nystatin 100,000 unit/gram topical 1 applic topical PRN Rash 07/05/20 powder potassium chloride 20 mEq 40 meq PO DAILY 07/05/20 07/05/20 tablet,extended release sennosides 8.6 mg tablet (senna) 8.6 mg PO Q12HR PRN Constipation 07/05/20 07/05/20 trazodone 50 mg tablet 25 mg PO BEDTIME 07/05/20 07/05/20 Previous Rx's Medication Instructions Recorded furosemide 40 mg tablet (Lasix) 40 mg PO DAILY #7 tabs 10/19/20 famotidine 40 mg tablet 40 mg PO DAILY #7 tabs 12/24/20 methylprednisolone 4 mg tablets in See Rx Instructions PO .COMPLEX 12/24/20 a dose pack (Medrol ([place])) #21 ea prednisone 20 mg tablet 40 mg (2 x 20 mg) PO DAILY #10 tabs 01/06/24 amoxicillin 500 mg capsule 1,000 mg (2 x 500 mg) PO TID 5 06/12/24 days #30 caps azithromycin 250 mg tablet See Rx Instructions PO .COMPLEX #6 06/12/24 tabs ondansetron 4 mg disintegrating 4 mg PO Q8H PRN nausea and 06/12/24 tablet vomiting #10 tabs Allergies Allergy/AdvReac Type Severity Reaction Status Date / Time lisinopril Allergy Unknown Cough Verified 01/06/24 01:58 Patient History Medical History Nocturia Morbid obesity with BMI of 40.0-44.9, adult Atherosclerotic heart disease of [place] coronary artery without angina pectoris History of traumatic brain injury Other abnormalities of gait and mobility Muscle weakness (generalized) Major depressive disorder Essential hypertension Cardiomegaly Benign prostatic hyperplasia without lower urinary tract symptoms COPD (chronic obstructive pulmonary disease) Surgical History H/O left knee surgery History of ankle surgery History of foot surgery History of hip surgery Family History Mother Diabetes mellitus Hypertension Father Congestive heart failure Social History household members: caregiver Smoking Status: Former smoker alcohol intake: former Smoking Status: Former smoker tobacco type: cigarettes alcohol intake frequency: holidays/special occasions only Exam Initial Vital Signs Initial Vital Signs: Vital Signs Temperature 97.7 F 06/11/24 16:06 Pulse Rate 84 06/11/24 16:06 Respiratory Rate 17 06/11/24 16:06 Blood Pressure 138/78 06/11/24 16:06 Pulse Oximetry 94 06/11/24 16:06 Oxygen Delivery Method Nasal Cannula 06/11/24 16:06 Oxygen Flow Rate 4 06/11/24 16:06 GENERAL: Alert pleasant elderly year old male and in no acute distress. HEENT: Head atraumatic,EOMI, pupils reactive, face symmetric, moist mucous membranes CARDIOVASCULAR: Regular rate and rhythm without murmurs, rubs or gallops. RESPIRATORY: Slight rales no conversational dyspnea no wheezing ABDOMEN: Soft, nontender. Normoactive bowel sounds all 4 quadrants. No guarding or rebound. EXTREMITIES: Normal range of motion, no clubbing or edema. Neurovascularly intact NEUROLOGICAL: Alert and oriented x4. Normal speech SKIN: Warm, dry, no laceration, no petechiae, no rashes or lesions. Course Orders Ordered: Discontinued Medications Ceftriaxone Sodium 1,000 mg/ (Sodium Chloride) 100 mls @ 200 mls/hr IV NOW ONE Stop: 06/12/24 00:22 Last Infusion: 06/12/24 01:10 Dose: Infused Documented By: Admin: 06/12/24 00:35 Dose: 200 mls/hr Documented By: BEN Azithromycin 500 mg/ Dextrose 250 mls @ 250 mls/hr IV NOW ONE Stop: 06/12/24 00:22 Last Infusion: 06/12/24 02:13 Dose: Infused Documented By: Admin: 06/12/24 01:11 Dose: 250 mls/hr Documented By: Lidocaine HCl (Lidocaine 2% (Glydo) 6 Ml Gel) 6 ml TOP NOW ONE Stop: 06/11/24 18:24 Last Admin: 06/11/24 18:28 Dose: 6 ml Documented By: TUCKER Ondansetron HCl (Ondansetron 4 Mg/2 Ml Inj) 4 mg IV NOW ONE Stop: 06/11/24 16:10 Last Admin: 06/11/24 20:52 Dose: Not Given Documented By: AB Vital Signs Vital signs: Vital Signs - 8 hr 06/11/24 21:30 06/11/24 21:30 06/11/24 22:00 Pulse Rate 75 73 Respiratory Rate 26 H 16 Blood Pressure 146/67 H Pulse Oximetry 96 95 Oxygen Delivery Method Oxygen Flow Rate 06/11/24 22:01 06/11/24 22:01 06/11/24 22:30 Pulse Rate 74 Respiratory Rate Blood Pressure 139/63 146/68 H Pulse Oximetry 94 Oxygen Delivery Method Oxygen Flow Rate 06/11/24 22:30 06/11/24 23:00 06/11/24 23:01 Pulse Rate 71 66 65 Respiratory Rate 26 H 16 15 Blood Pressure Pulse Oximetry 93 96 96 Oxygen Delivery Method Nasal Cannula Oxygen Flow Rate 3 06/11/24 23:01 06/11/24 23:30 06/11/24 23:31 Pulse Rate 65 Respiratory Rate 21 Blood Pressure 132/66 127/58 L Pulse Oximetry 95 Oxygen Delivery Method Oxygen Flow Rate 06/11/24 23:31 06/12/24 00:00 06/12/24 00:00 Pulse Rate 67 67 Respiratory Rate 23 23 Blood Pressure 144/64 H Pulse Oximetry 95 94 Oxygen Delivery Method Oxygen Flow Rate 06/12/24 00:30 06/12/24 00:30 06/12/24 01:00 Pulse Rate 67 67 Respiratory Rate 22 26 H Blood Pressure 141/65 H Pulse Oximetry 95 94 Oxygen Delivery Method Oxygen Flow Rate 06/12/24 01:30 06/12/24 01:30 06/12/24 02:00 Pulse Rate 63 72 Respiratory Rate 21 22 Blood Pressure 143/63 H Pulse Oximetry 98 92 Oxygen Delivery Method Room Air Oxygen Flow Rate 06/12/24 02:01 06/12/24 02:01 06/12/24 02:30 Pulse Rate 69 71 Respiratory Rate 22 23 Blood Pressure 149/68 H Pulse Oximetry 93 93 Oxygen Delivery Method Nasal Cannula Oxygen Flow Rate 3 06/12/24 02:31 02/12/25 02:31 06/12/24 02:36 Pulse Rate 76 68 Respiratory Rate 23 24 Blood Pressure 151/76 H Pulse Oximetry 91 Oxygen Delivery Method Oxygen Flow Rate 06/12/24 02:36 Pulse Rate Respiratory Rate Blood Pressure 143/76 H Pulse Oximetry Oxygen Delivery Method Oxygen Flow Rate MDM - Nausea/Vomiting/Diarrhea Lab Data 06/11/24 16:33 06/11/24 16:33 Labs: Lab Results 06/11/24 06/11/24 Range/Units 16:33 17:30 WBC 11.4 H (4.5-11.0) X10^3/uL RBC 5.35 (4.5-5.9) X10^6/uL Hgb 16.2 (13.5-17.5) g/dL Hct 50.3 (41-53) % MCV 94.1 (80-100) fL MCH 30.3 (26-34) PG MCHC 32.2 (30-36) % RDW 15.0 H (11.6-14.8) % Plt Count 171 (150-400) X10^3/uL Neut % (Auto) 94.4 H (50-75) % Lymph % (Auto) 2.5 L (25-40) % [place] % (Auto) 2.8 L (3-14) % Eos % (Auto) 0.2 L (2-4) % Baso % (Auto) 0.1 (0-2) % Neut # (Auto) 80776 H (8665-8477) /uL Lymph # (Auto) 300 L (8072-6085) /uL [place] # (Auto) 300 (0-900) /uL Eos # (Auto) 0 (0-450) /uL Baso # (Auto) 0 (0-100) /uL PT 12.7 H (9.4-12.5) SECONDS INR 1.1 (0.9-1.3) APTT 35 (25.1-36.5) SECONDS Sodium 137 (137-145) mmol/L Potassium 5.2 H (3.4-5.1) mmol/L Chloride 101 (98-107) mmol/L Carbon Dioxide 28 (22-32) mmol/L BUN 38 H (9-20) mg/dL Creatinine 1.38 H (0.66-1.25) mg/dL Estimated GFR 52 L (>60) mL/min BUN/Creatinine Ratio 27.5 H (6-22) Glucose 160 H (80-110) mg/dL Calcium 9.1 (8.4-10.2) mg/dL Magnesium 1.7 (1.6-2.3) mg/dL Total Bilirubin 0.7 (0.2-1.3) mg/dL AST 30 (17-59) IU/L ALT 28 (<50) IU/L Alkaline Phosphatase 58 (38-126) U/L Total Creatine Kinase 77 (55-170) U/L Troponin I < 0.012 (0.01-0.034) ng/mL NT-Pro-B Natriuret Pep 98 (<450) pg/mL Total Protein 7.3 (6.3-8.2) g/dL Albumin 4.5 (3.5-5.0) g/dL Globulin 2.8 (1.7-4.1) g/dL Albumin/Globulin Ratio 1.6 (1.0-2.8) Lipase 105 (23-300) U/L SARS-CoV-2 (PCR) Negative (Negative) Influenza A (RT-PCR) Flu a negative (NEGATIVE) Influenza B (RT-PCR) Flu b negative (NEGATIVE) RSV (PCR) Negative (Negative) Urine Dip Bedside Urine Glucose Negative Bedside Urine Bilirubin - Negative Bedside Urine Ketone - Negative Urine Specific [place] 1.020 Bedside Urine Occult Blood - Negative Bedside Urine pH 5.5 Bedside Urine Protein - Negative Bedside Urine Urobilinogen - Negative Bedside Urine Nitrite - Negative Bedside Urine Leukocytes - Negative Esterase Imaging Data Chest x-ray: Radiologist's Impression: PROCEDURE: XR CHEST 1V INDICATIONS: chest pain TECHNIQUE: One view of the chest was acquired. COMPARISON: [facility], CR, XR CHEST 1V, 01/06/2024, 1:58. FINDINGS: Surgical changes and devices: None. Lungs and pleura: Patchy opacity of the left lung base. No pneumothorax. No substantial pleural effusion. Mediastinum: Mediastinal contours appear normal. Heart size is normal. Bones and chest wall: No suspicious bony lesions. Overlying soft tissues appear unremarkable. IMPRESSION: Patchy opacity of the left lung base which may represent atelectasis versus possible pneumonia aspiration. Recommend follow up chest radiograph 4-6 weeks after treatment to document resolution of findings and/or return to baseline examination. Dictated by: Larry Cruz M.D. on 06/11/2024 at 17:04 ECG Data Attestation: I personally reviewed and interpreted this ECG as follows: Prior ECG tracings: available for review Interpretation: Sinus rhythm rate 88 UT interval 212 QRS [address] changes MDM Narrative Medical decision making narrative: MDM CC: Vomiting Complicating co-morbidities: Long-term care facility COPD Medical records reviewed: Previous ED visit Differential considered: Viral illness bowel obstruction Exam documented above, pertinent findings include: Awake alert appropriate 79-year-old male abdomen is soft nontender no peripheral edema mild crackles in lungs no significant respiratory distress Lab Test results independently reviewed as above. Pertinent findings: CBC mild leukocytosis 11.4 Slight hyperkalemia potassium 5.2 creatinine 1.38 which is baseline Troponin negative Viral panel negative Independently reviewed EKG as above No acute ischemia similar to prior no prolonged QT Imaging studies independently reviewed: Patchy opacity left lung base Consultations: [ ] Treatments: Zofran, Rocephin azithromycin Re-evaluations: Patient tolerating fluids membranes soft nontender Discussion: 79-year-old male long-term care facility multiple comorbidities presenting today with nausea and vomiting. Seems like vomiting was quickly controlled with 1 dose of Zofran he waited in the emergency department for number of hours. He was found to have mild leukocytosis of 11 with a probable left lower lobe pneumonia. He does not septic he is afebrile vitals are stable. At this time appropriate for outpatient management. He is tolerating fluids his abdomen is soft not complaining of any sort of pain see need for abdominal imaging at this time. He has no worsening shortness of breath or oxygen need Discharge Plan Departure Patient Disposition: Home Clinical Impression: Pneumonia Instructions: DI for Pneumonia -- Adult Activity Restrictions/Additional Instructions: *You have been diagnosed with pneumonia *What to do: At this time take antibiotics until gone I think this is the cause of your nausea *Continue to take medications as directed Amoxicillin 1000 mg 3 times a day for 5 days Azithromycin take as directed Zofran 4 mg every 8 hours for nausea or vomiting *Follow up with your primary care provider in 2-3 days or call [phone] *Return to ER if you should have persistent vomiting increasing shortness of breath altered mental status or any new, worsening or concerning symptoms Prescriptions: New amoxicillin 500 mg capsule 1,000 mg PO TID 5 Days Qty: 30 0RF azithromycin 250 mg tablet See Rx Instructions PO .COMPLEX Qty: 6 0RF Rx Instructions: For 250 mg dose pack: take 500 mg today (day 1), then 250 mg for 4 days (days 2-5) ondansetron 4 mg tablet,disintegrating 4 mg PO Q8H PRN (Reason: nausea and vomiting) Qty: 10 0RF No Action citalopram 20 mg Tablet 30 mg PO DAILY furosemide [Lasix] 40 mg Tablet 40 mg PO DAILY furosemide [Lasix] 80 mg Tablet 80 mg PO DAILY loratadine 10 mg Tablet 10 mg PO DAILY multivitamin with iron-mineral Tablet 1 tab PO DAILY potassium chloride 20 mEq Tablet Extended Release 40 meq PO DAILY trazodone 50 mg Tablet 25 mg PO BEDTIME acetaminophen 325 mg Tablet 650 mg PO BID cholecalciferol (vitamin D3) 125 mcg (5,000 unit) Tablet 5,000 unit PO DAILY albuterol sulfate 90 mcg/actuation HFA aerosol inhaler 2 puff INHALATION BID baclofen 10 mg Tablet 10 mg PO BID Biofreeze (menthol) 4 % Gel 1 applic TOPICAL BID metformin 500 mg Tablet 500 mg PO BID docusate sodium [Colace] 100 mg Capsule 200 mg PO BID nystatin 100,000 unit/gram Powder 1 applic TOPICAL BID hydrocodone-acetaminophen 5-325 mg Tablet 1 tab PO Q6H PRN (Reason: pain management) Rx Instructions: do not reorder once medication gone nystatin 100,000 unit/gram Powder 1 applic TOPICAL PRN (Reason: Rash) albuterol sulfate 90 mcg/actuation Hfa Aerosol Inhaler 2 puff INHALATION Q4H PRN (Reason: wheezing/SOB) Biofreeze (menthol) 4 % Gel 1 applic TOPICAL Q4H PRN (Reason: pain management) hydrocortisone 2.5 % Cream With Applicator topical Q8H PRN (Reason: rectal itching) sennosides [senna] 8.6 mg Tablet 8.6 mg PO Q12HR PRN (Reason: Constipation) acetaminophen [Tylenol] 325 mg Tablet 650 mg PO Q6H PRN (Reason: pain management) furosemide [Lasix] 40 mg tablet 40 mg PO DAILY Qty: 7 0RF prednisone 20 mg tablet 40 mg PO DAILY Qty: 10 0RF methylprednisolone [Medrol ([place])] 4 mg tablets,dose pack See Rx Instructions .ROUTE .COMPLEX Qty: 21 0RF Rx Instructions: orally per package directions famotidine 40 mg tablet 40 mg PO DAILY Qty: 7 0RF Referrals: Ellen Us ARNP [Primary Care Provider] - Stand Alone Forms: Patient Portal/API/Survey
[2024-06-12] MEDS: cefTRIAXone 1,000 MG in SODIUM CHLORIDE 0.9% 100 ML 200 MG IV (00:35)
--- NOTE | 2024-06-12 00:46 | PC.NURSE ---
Spoke to Lizzeth RODAS at [facility] at [phone]. Gave update of patient's status.
[2024-06-12] MEDS: AZITHROMYCIN 500 MG in DEXTROSE 5% IN WATER 250 ML 250 MG IV (01:11)
--- NOTE | 2024-06-12 01:48 | PC.NURSE ---
Pt has had no changes in status since this nurses last assessment. Pt has had oral fluids and IV antibiotics. He will return to [facility] via S after 3 am.
== END 2024-06-12 03:29 | disposition home or self-care (01) ==
PROVIDERS: Emergency Medicine; Emergency Provider Emergency Medicine; PCP Nurse Practitioner Gerontology
DX: J18.9 Pneumonia, unspecified organism (principal); R07.9 Chest pain, unspecified; J44.9 Chronic obstructive pulmonary disease, unspecified
CPT/HCPCS: 0241U; 36415; 51798; 71045; 80053; 81003; 82550; 83690; 83735; 83880; 84484; 85025; 85610; 85730; 93005; 93010; 96365; 96367; 99285; J0696

== ENCOUNTER 2024-08-13 22:50 | Inpatient (IN) | payer MEDICARE, SELFPAY ==
[2020-07-05 05:37] VITALS: BMI 41.7
[2024-08-13 22:57] VITALS: BP 128/62; PULSE 80; RESP 21; TEMP 37.8; O2SAT 92; BMI 38.2
--- NOTE | 2024-08-13 23:04 | DI.RAD.S_ITS ---
PROCEDURE: XR CHEST 1V INDICATIONS: short of breath TECHNIQUE: One view of the chest was acquired. COMPARISON: [facility], CR, XR CHEST 1V, 06/11/2024, 16:40. [facility], CR, XR CHEST 1V, 01/06/2024, 1:58. FINDINGS: Surgical changes and devices: None. Lungs and pleura: Bibasilar opacities suspicious for atelectasis or scarring versus pneumonia or aspiration. No pleural effusions or pneumothorax. Mediastinum: Mediastinal contours appear normal. Heart size is normal. Bones and chest wall: No suspicious bony lesions. Overlying soft tissues appear unremarkable. IMPRESSION: Bibasilar opacities may be secondary to atelectasis versus pneumonia or aspiration. Approved by: Erwin Mujica M.D. on 08/13/2024 at 23:33
--- NOTE | 2024-08-13 23:04 | EKG_ITS ---
[facility] [address] [place] [address] Test Date: 2024-08-13 Pat Name: Suman Baumann Department: [facility] Room: Gender: Male [employer] Designer: LACIE : 1945 Requested By: Order Number: [id number] Reading MD: Chris Loyd MD Measurements Intervals [place] Rate: 81 P: 84 TN: 228 QRS: -75 QRSD: 96 T: 49 QT: 368 QTc: 427 Interpretive Statements Sinus rhythm with 1st degree AV block Left axis deviation Inferior infarct , age undetermined Anterior infarct , age undetermined NO SIGNIFICANT CHANGE FROM PRIOR TRACING Electronically Signed On 08-14-2024 7:40:18 PDT by Chris Loyd MD
[2024-08-13 23:19] VITALS: PULSE 80; RESP 22; O2SAT 95
[2024-08-13 23:19] LABS: Add Manual Diff / Slide Review NO; Basophils Absolute Auto 0 /uL (0-100); Basophils Percent Auto 0.1 % (0-2); Eosinophils Absolute Auto 100 /uL (0-450); Eosinophils Percent Auto 0.7 % (2-4); Hematocrit 46.7 % (41-53); Hemoglobin 15.4 g/dL (13.5-17.5); Lymphocytes Absolute Auto 600 /uL (1100-4500); Lymphocytes Percent Auto 4.8 % (25-40); Mean Corpuscular Hemoglobin 30.3 PG (26-34); Mean Corpuscular Volume 91.8 fL (80-100); Monocytes Absolute Auto 900 /uL (0-900); Monocytes Percent Auto 6.8 % (3-14); Neutrophils Absolute Auto 11500 /uL (1500-7000); Neutrophils Percent Auto 87.6 % (50-75); Platelet Count 174 X10^3/uL (150-400); Red Blood Cell Count 5.09 X10^6/uL (4.5-5.9); Red Cell Distribution Width 15.1 % (11.6-14.8); White Blood Cell Count 13.1 X10^3/uL (4.5-11.0)
[2024-08-13 23:27] LABS: Alanine Aminotransferase 26 IU/L (<50); Albumin 4.2 g/dL (3.5-5.0); Albumin Globulin Ratio 1.6 (1.0-2.8); Alkaline Phosphatase 60 U/L (38-126); Aspartate Aminotransferase 30 IU/L (17-59); BUN Creatinine Ratio 21.5 (6-22); Bilirubin Total 0.6 mg/dL (0.2-1.3); Blood Urea Nitrogen 32 mg/dL (9-20); Calcium 9.1 mg/dL (8.4-10.2); Carbon Dioxide 30 mmol/L (22-32); Chloride 99 mmol/L (98-107); Creatine Kinase 90 U/L (55-170); Estimated Glomerular Filt Rate 47 mL/min (>60); Globulin 2.6 g/dL (1.7-4.1); Glucose 182 mg/dL (80-110); HEMOLYSIS 16 (0-50); Lactate (Lactic Acid) 2.2 mmol/L (0.7-2.1); Potassium 4.2 mmol/L (3.4-5.1); Sodium 137 mmol/L (137-145); Total Protein 6.8 g/dL (6.3-8.2)
[2024-08-13 23:30] VITALS: BP 141/69; PULSE 80; RESP 23; O2SAT 95
[2024-08-13 23:39] LABS: NT-proBNP (BNP-Adult 18+) 126 pg/mL (<450); Troponin I < 0.012 ng/mL (0.01-0.034)
[2024-08-13 23:44] LABS: Procalcitonin 0.111 ng/mL (<0.5)
[2024-08-14] VITALS (16 sets, daily range): BP systolic 113–159; BP diastolic 51–74; PULSE 64–79; RESP 17–23; TEMP 36.1–37.7; O2SAT 90–97; BMI 38.2
[2024-08-14] MEDS: PIPERACILLIN/TAZO 4.5 GM in SODIUM CHLORIDE 0.9% 100 ML IV
--- NOTE | 2024-08-14 00:02 | ED_ITS ---
HPI - SOB/Dyspnea General Chief Complaint: Shortness of Breath/Dyspnea Stated Complaint: SOB Time Seen by Provider: 08/13/24 23:04 Source: EMS Mode of arrival: EMS Limitations: physical limitation History of Present Illness HPI Narrative: Patient is a an 79-year-old male low is a long-term care facility chronic COPD oxygen as needed, hypertension diabetes cardiomegaly coronary artery disease, frequent pneumonia presenting today with fever and shortness of breath. He was awake alert oriented not having any complaints but is febrile with a temperature of a 100.6?. No abdominal pain nausea vomiting no chest pain. Appears to not feel well. He is normally on 2 L of oxygen but now requiring 4 received albuterol prior to my evaluation. Related Data Home Medications Medication Instructions Recorded Confirmed acetaminophen 325 mg tablet 1,000 mg PO BID 07/05/20 07/05/20 acetaminophen 325 mg tablet 650 mg PO Q6H PRN pain management 07/05/20 07/05/20 (Tylenol) albuterol sulfate 90 mcg/actuation 2 puff inhalation BID 07/05/20 08/13/24 aerosol inhaler albuterol sulfate 90 mcg/actuation 2 puff inhalation Q4H PRN 07/05/20 08/13/24 aerosol inhaler wheezing/SOB baclofen 10 mg tablet 10 mg PO BID 07/05/20 08/13/24 cholecalciferol (vitamin D3) 125 5,000 unit PO DAILY 07/05/20 07/05/20 mcg (5,000 unit) tablet citalopram 20 mg tablet 30 mg PO DAILY 07/05/20 07/05/20 docusate sodium 100 mg capsule 200 mg PO BID 07/05/20 07/05/20 (Colace) furosemide 80 mg tablet (Lasix) 80 mg PO DAILY 07/05/20 08/13/24 hydrocodone 5 mg-acetaminophen 325 1 tab PO Q6H PRN pain management 07/05/20 08/13/24 mg tablet hydrocortisone 2.5 % rectal cream ea topical Q8H PRN rectal itching 07/05/20 with applicator loratadine 10 mg tablet 10 mg PO DAILY 07/05/20 08/13/24 menthol 4 % topical gel (Biofreeze 1 applic topical BID 07/05/20 07/05/20 (menthol)) menthol 4 % topical gel (Biofreeze 1 applic topical Q4H PRN pain 07/05/20 07/05/20 (menthol)) management metformin 500 mg tablet 500 mg PO BID 07/05/20 08/13/24 multivitamin with iron-mineral 1 tab PO DAILY 07/05/20 07/05/20 nystatin 100,000 unit/gram topical 1 applic topical BID 07/05/20 08/13/24 powder potassium chloride 20 mEq 40 meq PO DAILY 07/05/20 08/13/24 tablet,extended release sennosides 8.6 mg tablet (senna) 8.6 mg PO Q12HR PRN Constipation 07/05/20 08/13/24 trazodone 50 mg tablet 25 mg PO BEDTIME 07/05/20 08/13/24 acetaminophen 500 mg tablet 1,000 mg PO TID 08/13/24 08/13/24 atorvastatin 40 mg tablet 40 mg PO DAILY 08/13/24 08/13/24 bupropion HCl 100 mg tablet mg PO 08/13/24 gabapentin 100 mg capsule 100 mg PO 3XD 08/13/24 08/13/24 sertraline 100 mg tablet 100 mg PO DAILY 08/13/24 08/13/24 tamsulosin 0.4 mg capsule mg PO DAILY 08/13/24 tiotropium bromide 2.5 inhalation 08/13/24 mcg/actuation mist for inhalation (Spiriva Respimat) Previous Rx's Medication Instructions Recorded furosemide 40 mg tablet (Lasix) 40 mg PO DAILY #7 tabs 10/19/20 famotidine 40 mg tablet 40 mg PO DAILY #7 tabs 12/24/20 methylprednisolone 4 mg tablets in See Rx Instructions PO .COMPLEX 12/24/20 a dose pack (Medrol ([place])) #21 ea prednisone 20 mg tablet 40 mg (2 x 20 mg) PO DAILY #10 tabs 01/06/24 azithromycin 250 mg tablet See Rx Instructions PO .COMPLEX #6 06/12/24 tabs ondansetron 4 mg disintegrating 4 mg PO Q8H PRN nausea and 06/12/24 tablet vomiting #10 tabs Allergies Allergy/AdvReac Type Severity Reaction Status Date / Time lisinopril Allergy Unknown Cough Verified 01/06/24 01:58 Patient History Medical History (Updated 08/14/24 @ 05:05 by Amadeorosalba Weiss MD) CKD (chronic kidney disease) stage 3, GFR 30-59 ml/min BPH w urinary obs/LUTS Nocturia Morbid obesity with BMI of 40.0-44.9, adult Atherosclerotic heart disease of [place] coronary artery without angina pectoris History of traumatic brain injury Other abnormalities of gait and mobility Muscle weakness (generalized) Major depressive disorder Essential hypertension Cardiomegaly Benign prostatic hyperplasia without lower urinary tract symptoms COPD (chronic obstructive pulmonary disease) Surgical History H/O left knee surgery History of ankle surgery History of hip surgery History of foot surgery Family History Mother Diabetes mellitus Hypertension Father Congestive heart failure Social History household members: caregiver Smoking Status: Former smoker alcohol intake: former tobacco type: cigarettes alcohol intake frequency: holidays/special occasions only Exam Initial Vital Signs Initial Vital Signs: Vital Signs Temperature 100.1 F H 08/13/24 22:57 Pulse Rate 80 08/13/24 22:57 Respiratory Rate 21 08/13/24 22:57 Blood Pressure 128/62 08/13/24 22:57 Pulse Oximetry 92 08/13/24 22:57 Oxygen Delivery Method Nasal Cannula 08/13/24 22:57 Oxygen Flow Rate 4 08/13/24 22:57 GENERAL: Alert chronically ill 79-year-old male and in no acute distress. HEENT: Head atraumatic,EOMI, pupils reactive, face symmetric, moist mucous membranes CARDIOVASCULAR: Regular rate and rhythm without murmurs, rubs or gallops. RESPIRATORY: Breath sounds equal bilaterally, no wheezes rales or rhonchi. ABDOMEN: Soft, nontender. Normoactive bowel sounds all 4 quadrants. No guarding or rebound. EXTREMITIES: Normal range of motion, no clubbing or edema. Neurovascularly intact NEUROLOGICAL: Awake alert appropriate appears to have some left facial droop SKIN: Warm, dry, no laceration, no petechiae, no rashes or lesions. Course Orders Ordered: ED Orders 08/13/24 23:01 Complete Blood Count AUTO DIFF Stat Comprehensive Metabolic Panel Stat Lactate (Lactic Acid) Stat NT-proBNP (BNP-Adult 18+) Stat Procalcitonin Stat Troponin & CK Cardiac Panel Stat 08/13/24 23:04 XR chest 1V Stat Urinalysis and Microscopic Stat EKG-12 Lead Stat 08/13/24 23:16 Covid-19 + FLU A/B + RSV - PCR Stat 08/13/24 23:48 Blood Culture Stat 08/14/24 01:44 CT angio chest PE protocol Stat Acetaminophen (Acetaminophen 325 Mg Tablet) 650 mg PO Q6H PRN PRN Reason: Fever/Mild Pain (1-3) Albuterol (Albuterol 2.5 Mg/3 Ml Neb (Adult)) 2.5 mg INH [id number] PRN PRN Reason: Shortness Of Breath Enoxaparin Sodium (Enoxaparin 30 Mg/0.3 Ml Syringe) 30 mg SUBCUT DAILY [facility] Sodium Chloride (Normal Saline 0.9%) 1,000 mls @ 125 mls/hr IV CONT JF Last Admin: 08/14/24 03:15 Dose: 125 mls/hr Documented By: HNGila Dextrose ([id number]) 100 mls @ 1,200 mls/hr IV PRN PRN PRN Reason: Hypoglycemia Piperacillin Sod/Tazobactam (Sod 3.375 gm/ Sodium Chloride) 100 mls @ 25 mls/hr IV Q8H [facility] Last Admin: 08/14/24 05:31 Dose: 25 mls/hr Documented By: MS Insulin Human Lispro (Insulin Lispro 100 Unit/Ml 3ml Vial) 0 unit SUBCUT ACHS JF; Protocol Naloxone HCl (Naloxone 0.4 Mg/Ml Vial) 0.2 mg IV Q2MIN PRN PRN Reason: Opiate Reversal Ondansetron HCl (Ondansetron 4 Mg Odt) 4 mg PO Q8HR PRN PRN Reason: Nausea And Vomiting Sodium Chloride (Sodium Chloride 0.9% Flush) 10 ml IV PRN PRN PRN Reason: Flush Sodium Chloride (Sodium Chloride 0.9% Flush) 10 ml IV BID JF Discontinued Medications Piperacillin Sod/Tazobactam (Sod 4.5 gm/ Sodium Chloride) 100 mls @ 200 mls/hr IV NOW ONE Stop: 08/13/24 23:49 Last Infusion: 08/14/24 00:43 Dose: Infused Documented By: Admin: 08/14/24 00:00 Dose: 200 mls/hr Documented By: ELLIE Methylprednisolone (Methylprednisolone 125 Mg/2 Ml Vial) 125 mg IV NOW ONE Stop: 08/14/24 03:09 Last Admin: 08/14/24 03:14 Dose: 125 mg Documented By: LILLY Vital Signs Vital signs: Vital Signs - 8 hr 08/13/24 22:57 08/13/24 23:19 08/13/24 23:30 Temperature 100.1 F H Pulse Rate 80 80 80 Respiratory Rate 21 22 23 Blood Pressure 128/62 141/69 H Pulse Oximetry 92 95 95 Oxygen Delivery Method Nasal Cannula Oxygen Flow Rate 4 08/14/24 00:00 08/14/24 00:30 08/14/24 01:00 Temperature 99.8 F H Pulse Rate 79 79 77 Respiratory Rate 22 23 20 Blood Pressure 153/68 H 159/74 H Pulse Oximetry 94 95 95 Oxygen Delivery Method Nasal Cannula Oxygen Flow Rate 4 08/14/24 01:00 08/14/24 01:30 08/14/24 01:31 Temperature Pulse Rate 75 75 Respiratory Rate 21 21 Blood Pressure 145/72 H Pulse Oximetry 95 96 Oxygen Delivery Method Oxygen Flow Rate 08/14/24 01:31 08/14/24 02:11 08/14/24 02:30 Temperature Pulse Rate 73 72 Respiratory Rate 20 20 Blood Pressure 143/65 H Pulse Oximetry 95 95 Oxygen Delivery Method Nasal Cannula Oxygen Flow Rate 4 08/14/24 03:00 08/14/24 03:30 Temperature Pulse Rate 71 70 Respiratory Rate 20 21 Blood Pressure Pulse Oximetry 92 97 Oxygen Delivery Method Nasal Cannula Oxygen Flow Rate 4 MDM - SOB/Dyspnea Lab Data 08/13/24 23:01 08/13/24 23:01 Labs: Lab Results 08/13/24 08/13/24 08/14/24 Range/Units 23:01 23:16 00:55 WBC 13.1 H (4.5-11.0) X10^3/uL RBC 5.09 (4.5-5.9) X10^6/uL Hgb 15.4 (13.5-17.5) g/dL Hct 46.7 (41-53) % MCV 91.8 (80-100) fL MCH 30.3 (26-34) PG MCHC 33.0 (30-36) % RDW 15.1 H (11.6-14.8) % Plt Count 174 (150-400) X10^3/uL Neut % (Auto) 87.6 H (50-75) % Lymph % (Auto) 4.8 L (25-40) % [place] % (Auto) 6.8 (3-14) % Eos % (Auto) 0.7 L (2-4) % Baso % (Auto) 0.1 (0-2) % Neut # (Auto) 33338 H (3822-4518) /uL Lymph # (Auto) 600 L (9350-2478) /uL [place] # (Auto) 900 (0-900) /uL Eos # (Auto) 100 (0-450) /uL Baso # (Auto) 0 (0-100) /uL Sodium 137 (137-145) mmol/L Potassium 4.2 (3.4-5.1) mmol/L Chloride 99 (98-107) mmol/L Carbon Dioxide 30 (22-32) mmol/L BUN 32 H (9-20) mg/dL Creatinine 1.49 H (0.66-1.25) mg/dL Estimated GFR 47 L (>60) mL/min BUN/Creatinine Ratio 21.5 (6-22) Glucose 182 H (80-110) mg/dL Lactate 2.2 H 1.6 (0.7-2.1) mmol/L Calcium 9.1 (8.4-10.2) mg/dL Total Bilirubin 0.6 (0.2-1.3) mg/dL AST 30 (17-59) IU/L ALT 26 (<50) IU/L Alkaline Phosphatase 60 (38-126) U/L Total Creatine Kinase 90 (55-170) U/L Troponin I < 0.012 (0.01-0.034) ng/mL NT-Pro-B Natriuret Pep 126 (<450) pg/mL Total Protein 6.8 (6.3-8.2) g/dL Albumin 4.2 (3.5-5.0) g/dL Globulin 2.6 (1.7-4.1) g/dL Albumin/Globulin Ratio 1.6 (1.0-2.8) Procalcitonin 0.111 (<0.5) ng/mL SARS-CoV-2 (PCR) Negative (Negative) Influenza A (RT-PCR) Flu a negative (NEGATIVE) Influenza B (RT-PCR) Flu b negative (NEGATIVE) RSV (PCR) Negative (Negative) Imaging Data Chest x-ray: Radiologist's Impression: PROCEDURE: XR CHEST 1V INDICATIONS: short of breath TECHNIQUE: One view of the chest was acquired. COMPARISON: Located Within [facility], CR, XR CHEST 1V, 06/11/2024, 16:40. Located Within [facility], CR, XR CHEST 1V, 01/06/2024, 1:58. FINDINGS: Surgical changes and devices: None. Lungs and pleura: Bibasilar opacities suspicious for atelectasis or scarring versus pneumonia or aspiration. No pleural effusions or pneumothorax. Mediastinum: Mediastinal contours appear normal. Heart size is normal. Bones and chest wall: No suspicious bony lesions. Overlying soft tissues appear unremarkable. IMPRESSION: Bibasilar opacities may be secondary to atelectasis versus pneumonia or aspiration. Approved by: Erwin Mujica M.D. on 08/13/2024 at 23:33 CT scan - chest: Radiologist's Impression: No pulmonary embolism aortic dissection or aneurysm. Phone windows demonstrate pleural parenchymal scarring lung apices. Central lobar emphysema dependent atelectasis ECG Data Attestation: I personally reviewed and interpreted this ECG as follows: Prior ECG tracings: available for review Interpretation: Sinus rhythm rate 81 MO interval 228 QRS 96 QTC 427 similar to previous EKGs no acute ischemia MDM Narrative Medical decision making narrative: MDM CC: Shortness of breath fever Complicating co-morbidities: COPD oxygen as needed, long-term care facility resident Data collected from: EMS, patient Medical records reviewed: Previous ED visit June diagnosed with pneumonia discharged back Differential considered: Pneumonia COPD CHF Exam documented above, pertinent findings include: Patient 79-year-old male chronically ill but appears weak though awake alert slightly coarse breath sounds bilaterally abdomen soft no peripheral edema Lab Test results independently reviewed as above. Pertinent findings: WBC 13.1 mild left shift no anemia hemoglobin 15.4 hematocrit 46.7 CMP normal electrolytes creatinine 1.49 Lactate 2.2-->1.6 Troponin negative BNP 126 Procalcitonin 0.111 Independently reviewed EKG as above Sinus rhythm no change Imaging studies independently reviewed: Chest x-ray bibasilar opacity CT chest shows no PE possible scarring Consultations: Dr. Weiss accepts to observation Treatments: Zosyn, Solu-Medrol albuterol Re-evaluations: Patient is sleeping and resting comfortably Discussion: Patient 79-year-old male history of COPD long-term care facility coronary artery disease with shortness of breath. He was found to be febrile temperature of a 100.6?. He was on oxygen now previous reports stay that he is on oxygen only as needed but he feels like he is on oxygen all the time now. He has no significant wheezing. No significant shortness of breath he does have mild leukocytosis of 13 initial elevated lactate of 2.2. And certain for pneumonia. He was an elevated curb 65 important score. Previously discharged with antibiotics for pneumonia now requiring more oxygen but does not appear to be in significant respiratory distress. PSI/PORT Score: Pneumonia Severity Index for CAP from [employer].Risk Ident on 08/14/2024 All calculations should be rechecked by clinician prior to use RESULT SUMMARY: 120 points Risk Class IV, 8.2-9.3% mortality. Hospitalization recommended based on risk. INPUTS: Age ?> 79 years Sex ?> 0 = Male snf resident ?> 10 = Yes Neoplastic disease ?> 0 = No Liver disease history ?> 0 = No CHF history ?> 0 = No Cerebrovascular disease history ?> 10 = Yes Renal disease history ?> 0 = No Altered mental status ?> 0 = No Respiratory rate >=0 breaths/min ?> 0 = No Systolic blood pressure <90 mmHg ?> 0 = No Temperature <35?C (95?F) or >39.9?C (103.8?F) ?> 0 = No Pulse >=25 beats/min ?> 0 = No pH <7.35 ?> 0 = No BUN >=0 mg/dL or >=1 mmol/L ?> 20 = Yes Sodium <130 mmol/L ?> 0 = No Glucose >=50 mg/dL or >=4 mmol/L ?> 0 = No Hematocrit <30% ?> 0 = No Partial pressure of oxygen <60 mmHg or <8 kPa ?> 0 = No Pleural effusion on x-ray ?> 0 = No CURB-65 Score for Pneumonia Severity from [employer].Risk Ident on 08/14/2024 All calculations should be rechecked by clinician prior to use RESULT SUMMARY: 2 points Moderate risk group: 6.8% 30-day mortality. Consider inpatient treatment or outpatient with close followup. INPUTS: Confusion ?> 0 = No BUN >19 mg/dL (>7 mmol/L urea) ?> 1 = Yes Respiratory Rate >=0 ?> 0 = No Systolic BP <90 mmHg or Diastolic BP <=0 mmHg ?> 0 = No Age >=5 ?> 1 = Yes Discharge Plan Departure Patient Disposition: Admitted as Observation Clinical Impression: Pneumonia, COPD exacerbation Admit Date/Time: 08/14/24 03:34 Admit Provider: Amadeo Ledezma
[2024-08-14 00:11] LABS: Influenza A - CEPHEID Flu A NEGATIVE (NEGATIVE); Influenza B - CEPHEID Flu B NEGATIVE (NEGATIVE); Respiratory Syncytial Virus Negative (Negative)
[2024-08-14 00:18] LABS: COVID-19 CEPHEID 4-PLEX PCR Negative (Negative)
[2024-08-14 00:46] LABS: Reflexed Lactate in 2 Hours Y
[2024-08-14 01:12] LABS: Lactate 2HR (Lactic Acid Rflx) 1.6 mmol/L (0.7-2.1)
--- NOTE | 2024-08-14 01:44 | DI.CT.S_ITS ---
PROCEDURE: CT ANGIO CHEST PE PROTOCOL INDICATIONS: hypoxia TECHNIQUE: After the administration of intravenous contrast, 2 mm thick sections acquired from the pulmonary apices to the posterior costophrenic angles. 3-dimensional maximum intensity projection (MIP) coronal and sagittal reformats were then acquired through the thorax. For radiation dose reduction, the following was used: automated exposure control, adjustment of mA and/or kV according to patient size. COMPARISON: [facility], CT, CT ABDOMEN PELVIS W CON, 02/26/2023, 1:33. NM, PET NECK TO MID THIGH, 05/13/2020, 9:52. [facility], CT, CT CHEST WO CON, 07/05/2020, 8:11. [facility], CT, CT CHEST WO CON, 10/14/2021, 10:26. [facility], CT, CT ANGIO CHEST PE PROTOCOL, 09/12/2019, 9:24. FINDINGS: Image quality: Portions of the lower pelvis are suboptimally evaluated secondary to metallic streak artifact from bilateral hip arthroplasty. Pulmonary arteries: Pulmonary arteries are normal in size, and demonstrate no intraluminal filling defects to suggest central pulmonary embolism. Lower Neck: No enlarged lymph nodes. Thyroid: No thyroid nodules which require sonographic follow up, per consensus guidelines. Axillae: No enlarged lymph nodes. Chest Wall: Unremarkable. Bones: Unremarkable. Lungs and Pleura: No pneumothorax or pleural effusions. Left lower lobe nodule measuring 1.6 cm. It is noted that this demonstrate low level activity on prior PET scan in 2020. There have been small alterations in size over multiple prior exams without overall consistent increased size. Heart: Heart size is normal. No pericardial effusion. Thoracic Vessels: No aortic aneurysm. Mediastinum and [place]: No enlarged lymph nodes. Esophagus: No wall thickening. Moderate hiatal hernia. Upper Abdomen: Unchanged bilateral right greater than left adrenal nodules. as well as partially visualized renal cysts. Unchanged hepatic hypoattenuating foci. IMPRESSION: No pulmonary embolus. Relatively stable pulmonary nodule. The above findings are concordant with preliminary report. Dictated by: Noa Headley M.D. on 08/14/2024 at 10:01 Approved by: Noa Headley M.D. on 08/14/2024 at 10:28
[2024-08-14] MEDS: methylPREDNISolone 125 MG/2 ML VIAL IV (03:14)
[2024-08-14] MEDS: SODIUM CHLORIDE 0.9% 1,000 ML 125 ML IV (03:15)
--- NOTE | 2024-08-14 04:43 | PM.HP.1 ---
History of Present Illness History of Present Illness Date Patient Seen: 08/14/24 Time Patient Seen: 05:00 Chief complaint: SOB Narrative: 79 y/o long-term resident of [facility] with PMH of COPD, CAD, obesity, impaired gait, BPH, who presented with worsening shortness of breath. He had few prior visits to the ER with COPD exacerbation and pneumonia. On today visit febrile with a temperature of a 100.6?. No abdominal pain nausea vomiting no chest pain. He is normally on 2 L of oxygen but now requires 4 L to saturate in 90-ies. CXR and CT chest showing likely bibasilar infiltrates. Admitted after Tx with steroid, bronchodilator and antibiotic. [facility] Medical History (Updated 08/14/24 @ 05:05 by Amadeo Weiss MD) CKD (chronic kidney disease) stage 3, GFR 30-59 ml/min BPH w urinary obs/LUTS Nocturia Morbid obesity with BMI of 40.0-44.9, adult Atherosclerotic heart disease of [place] coronary artery without angina pectoris History of traumatic brain injury Other abnormalities of gait and mobility Muscle weakness (generalized) Major depressive disorder Essential hypertension Cardiomegaly Benign prostatic hyperplasia without lower urinary tract symptoms COPD (chronic obstructive pulmonary disease) Surgical History H/O left knee surgery History of ankle surgery History of hip surgery History of foot surgery Family History Mother Diabetes mellitus Hypertension Father Congestive heart failure Social History household members: caregiver alcohol intake: former Meds Home Medications and Allergies Home Medications Medication Instructions Recorded Confirmed Type acetaminophen 325 mg tablet 1,000 mg PO BID 07/05/20 07/05/20 History acetaminophen 325 mg tablet 650 mg PO Q6H PRN pain management 07/05/20 07/05/20 History (Tylenol) albuterol sulfate 90 mcg/actuation 2 puff inhalation BID 07/05/20 08/13/24 History aerosol inhaler albuterol sulfate 90 mcg/actuation 2 puff inhalation Q4H PRN 07/05/20 08/13/24 History aerosol inhaler wheezing/SOB baclofen 10 mg tablet 10 mg PO BID 07/05/20 08/13/24 History cholecalciferol (vitamin D3) 125 5,000 unit PO DAILY 07/05/20 07/05/20 History mcg (5,000 unit) tablet citalopram 20 mg tablet 30 mg PO DAILY 07/05/20 07/05/20 History docusate sodium 100 mg capsule 200 mg PO BID 07/05/20 07/05/20 History (Colace) furosemide 80 mg tablet (Lasix) 80 mg PO DAILY 07/05/20 08/13/24 History hydrocodone 5 mg-acetaminophen 325 1 tab PO Q6H PRN pain management 07/05/20 08/13/24 History mg tablet hydrocortisone 2.5 % rectal cream ea topical Q8H PRN rectal itching 07/05/20 History with applicator loratadine 10 mg tablet 10 mg PO DAILY 07/05/20 08/13/24 History menthol 4 % topical gel (Biofreeze 1 applic topical BID 07/05/20 07/05/20 History (menthol)) menthol 4 % topical gel (Biofreeze 1 applic topical Q4H PRN pain 07/05/20 07/05/20 History (menthol)) management metformin 500 mg tablet 500 mg PO BID 07/05/20 08/13/24 History multivitamin with iron-mineral 1 tab PO DAILY 07/05/20 07/05/20 History nystatin 100,000 unit/gram topical 1 applic topical BID 07/05/20 08/13/24 History powder potassium chloride 20 mEq 40 meq PO DAILY 07/05/20 08/13/24 History tablet,extended release sennosides 8.6 mg tablet (senna) 8.6 mg PO Q12HR PRN Constipation 07/05/20 08/13/24 History trazodone 50 mg tablet 25 mg PO BEDTIME 07/05/20 08/13/24 History furosemide 40 mg tablet (Lasix) 40 mg PO DAILY #7 tabs 10/19/20 08/13/24 Rx famotidine 40 mg tablet 40 mg PO DAILY #7 tabs 12/24/20 Rx methylprednisolone 4 mg tablets in See Rx Instructions PO .COMPLEX 12/24/20 Rx a dose pack (Medrol ([place])) #21 ea prednisone 20 mg tablet 40 mg (2 x 20 mg) PO DAILY #10 tabs 01/06/24 Rx azithromycin 250 mg tablet See Rx Instructions PO .COMPLEX #6 06/12/24 Rx tabs ondansetron 4 mg disintegrating 4 mg PO Q8H PRN nausea and 06/12/24 08/13/24 Rx tablet vomiting #10 tabs acetaminophen 500 mg tablet 1,000 mg PO TID 08/13/24 08/13/24 History atorvastatin 40 mg tablet 40 mg PO DAILY 08/13/24 08/13/24 History bupropion HCl 100 mg tablet mg PO 08/13/24 History gabapentin 100 mg capsule 100 mg PO 3XD 08/13/24 08/13/24 History sertraline 100 mg tablet 100 mg PO DAILY 08/13/24 08/13/24 History tamsulosin 0.4 mg capsule mg PO DAILY 08/13/24 History tiotropium bromide 2.5 inhalation 08/13/24 History mcg/actuation mist for inhalation (Spiriva Respimat) Allergies Allergy/AdvReac Type Severity Reaction Status Date / Time lisinopril Allergy Unknown Cough Verified 01/06/24 01:58 Review of Systems Review of Systems Narrative: Unobtainable - oriented to self only. Assuming chronic cognitive deficits Exam Vital Signs (past 8 hours): - 08/13/24 22:57 08/13/24 23:19 08/13/24 23:30 Temperature 100.1 F H Pulse Rate 80 80 80 Respiratory Rate 21 22 23 Blood Pressure 128/62 141/69 H Pulse Oximetry 92 95 95 Oxygen Delivery Method Nasal Cannula Oxygen Flow Rate 08/14/24 00:00 08/14/24 00:30 08/14/24 01:00 Temperature 99.8 F H Pulse Rate 79 79 77 Respiratory Rate 22 23 20 Blood Pressure 153/68 H 159/74 H Pulse Oximetry 94 95 95 Oxygen Delivery Method Nasal Cannula Oxygen Flow Rate 4 08/14/24 01:00 08/14/24 01:30 08/14/24 01:31 Temperature Pulse Rate 75 75 Respiratory Rate 21 21 Blood Pressure 145/72 H Pulse Oximetry 95 96 Oxygen Delivery Method Oxygen Flow Rate 08/14/24 01:31 08/14/24 02:11 08/14/24 02:30 Temperature Pulse Rate 73 72 Respiratory Rate 20 20 Blood Pressure 143/65 H Pulse Oximetry 95 95 Oxygen Delivery Method Nasal Cannula Oxygen Flow Rate 4 08/14/24 03:00 08/14/24 03:30 08/14/24 03:46 Temperature Pulse Rate 71 70 Respiratory Rate 20 21 Blood Pressure 135/66 Pulse Oximetry 92 97 Oxygen Delivery Method Nasal Cannula Oxygen Flow Rate 4 08/14/24 03:46 08/14/24 04:00 08/14/24 04:00 Temperature Pulse Rate 66 65 Respiratory Rate 19 18 Blood Pressure 131/65 Pulse Oximetry 96 96 Oxygen Delivery Method Nasal Cannula Oxygen Flow Rate 4 Oxygen Delivery Method Nasal Cannula Oxygen Flow Rate 4 Narrative Exam Narrative: General - in no distress, obese, appears weak Psych - cognitive deficits, oriented to self RS - b/l wheezes CVS - RRR UG - Short Ext - 1 + edema b/l Skin - b/l lower leg wounds, pale Objective ECG Impression: NSR 81, !st degree AV block Imaging Chest x-ray: Radiologist's impression: Bibasilar opacities may be secondary to atelectasis versus pneumonia or aspiration. Labs 08/13/24 23:01 08/13/24 23:01 Labs: Laboratory Results - last 24 hr 08/13/24 08/13/24 08/14/24 23:01 23:16 00:55 WBC 13.1 H RBC 5.09 Hgb 15.4 Hct 46.7 MCV 91.8 MCH 30.3 MCHC 33.0 RDW 15.1 H Plt Count 174 Neut % (Auto) 87.6 H Lymph % (Auto) 4.8 L [place] % (Auto) 6.8 Eos % (Auto) 0.7 L Baso % (Auto) 0.1 Neut # (Auto) 23028 H Lymph # (Auto) 600 L [place] # (Auto) 900 Eos # (Auto) 100 Baso # (Auto) 0 Sodium 137 Potassium 4.2 Chloride 99 Carbon Dioxide 30 BUN 32 H Creatinine 1.49 H Estimated GFR 47 L BUN/Creatinine Ratio 21.5 Glucose 182 H Lactate 2.2 H 1.6 Calcium 9.1 Total Bilirubin 0.6 AST 30 ALT 26 Alkaline Phosphatase 60 Total Creatine Kinase 90 Troponin I < 0.012 NT-Pro-B Natriuret Pep 126 Total Protein 6.8 Albumin 4.2 Globulin 2.6 Albumin/Globulin Ratio 1.6 Procalcitonin 0.111 SARS-CoV-2 (PCR) Negative Influenza A (RT-PCR) Flu a negative Influenza B (RT-PCR) Flu b negative RSV (PCR) Negative Assessment & Plan Assessment and plan (1) Pneumonia: Status: Acute (2) COPD exacerbation: Status: Acute (3) Morbid obesity with BMI of 40.0-44.9, adult: Status: Acute (4) Diabetes mellitus type 2, controlled, without complications: 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: unspecified correction insulin use status Qualified Code(s): E11.9 - Type 2 diabetes mellitus without complications Status: Acute (5) Major depressive disorder: Status: Acute (6) Essential hypertension: Status: Acute (7) BPH w urinary obs/LUTS: Status: Acute (8) Cognitive deficits: Status: Acute (9) Impaired mobility and activities of daily living: Status: Acute (10) CKD (chronic kidney disease) stage 3, GFR 30-59 ml/min: Status: Acute Assessment & Plan narrative: Pneumonia - empiric Zosyn - SHAREPOINT ARCHITECT for swallow evaluation - increased oxygen need COPD - acute exacerbation - had IV steroid in ED - bronchodilators DM - clarify home meds - CCD, SS Depression - clarify home meds BPH - has catheter - clarify home meds DVT prohylaxis - Lovenox Patient consented to a real time, audio-video telemedicine visit with electronic stethoscope and RN assisting during the exam. Patient located at [place], [place]. Provider located in [place]. Time-Based Coding :: [TOTAL MINUTES] spent with patient and on the chart (including review of chart, obtaining history, exam, reviewing outside data, placing orders, documenting exam and treatment plan, and counseling patient) on [DATE].
[2024-08-14] MEDS: PIPERACILLIN/TAZO 3.375 GM in SODIUM CHLORIDE 0.9% 100 ML IV ×3 (05:31→22:05)
[2024-08-14 06:37] LABS: Add Manual Diff / Slide Review NO; Basophils Absolute Auto 0 /uL (0-100); Basophils Percent Auto 0.2 % (0-2); Eosinophils Absolute Auto 0 /uL (0-450); Eosinophils Percent Auto 0.3 % (2-4); Hemoglobin 14.5 g/dL (13.5-17.5); Lymphocytes Absolute Auto 600 /uL (1100-4500); Lymphocytes Percent Auto 5.1 % (25-40); Mean Corpuscular HGB Conc 33.8 % (30-36); Mean Corpuscular Hemoglobin 30.9 PG (26-34); Mean Corpuscular Volume 91.4 fL (80-100); Monocytes Absolute Auto 300 /uL (0-900); Monocytes Percent Auto 2.8 % (3-14); Neutrophils Absolute Auto 10300 /uL (1500-7000); Neutrophils Percent Auto 91.6 % (50-75); Platelet Count 162 X10^3/uL (150-400); Red Blood Cell Count 4.71 X10^6/uL (4.5-5.9); Red Cell Distribution Width 14.9 % (11.6-14.8); White Blood Cell Count 11.2 X10^3/uL (4.5-11.0)
[2024-08-14 06:49] LABS: BUN Creatinine Ratio 21.2 (6-22); Blood Urea Nitrogen 31 mg/dL (9-20); Calcium 8.6 mg/dL (8.4-10.2); Carbon Dioxide 29 mmol/L (22-32); Chloride 101 mmol/L (98-107); Estimated Glomerular Filt Rate 48 mL/min (>60); Glucose 139 mg/dL (80-110); HEMOLYSIS 18 (0-50); Potassium 4.3 mmol/L (3.4-5.1); Sodium 137 mmol/L (137-145)
--- NOTE | 2024-08-14 07:21 | PC.WOUNDPHOT ---
Photos by Temi RODAS [id number]
--- NOTE | 2024-08-14 07:46 | P.HP_ITS ---
History of Present Illness History of Present Illness Chief complaint: SOB Narrative: From night doctor: 79 y/o long-term resident of [facility] with PMH of COPD, CAD, obesity, impaired gait, BPH, who presented with worsening shortness of breath. He had few prior visits to the ER with COPD exacerbation and pneumonia. On today visit febrile with a temperature of a 100.6?. No abdominal pain nausea vomiting no chest pain. He is normally on 2 L of oxygen but now requires 4 L to saturate in 90-ies. CXR and CT chest showing likely bibasilar infiltrates. Admitted after Tx with steroid, bronchodilator and antibiotic. S: He feels little bit better, he has been coughing for several days. He was little short of breath and does admit to some confusion. He denies any pain. He has been constipated with no bowel movement for about 4 days. He stays at [facility]. There were concerns about the condition of him when he came in with statements of him being quite unkempt and possibly covered with feces. He does not seem to know anything about that to have any additional information. [facility] Medical History CKD (chronic kidney disease) stage 3, GFR 30-59 ml/min BPH w urinary obs/LUTS Nocturia Morbid obesity with BMI of 40.0-44.9, adult Atherosclerotic heart disease of [place] coronary artery without angina pectoris History of traumatic brain injury Other abnormalities of gait and mobility Muscle weakness (generalized) Major depressive disorder Essential hypertension Cardiomegaly Benign prostatic hyperplasia without lower urinary tract symptoms COPD (chronic obstructive pulmonary disease) Surgical History H/O left knee surgery History of ankle surgery History of hip surgery History of foot surgery Family History Mother Diabetes mellitus Hypertension Father Congestive heart failure Social History household members: caregiver Smoking Status: Former smoker alcohol intake: former Meds Home Medications and Allergies Home Medications Medication Instructions Recorded Confirmed Type albuterol sulfate 90 mcg/actuation 2 puff inhalation BID 07/05/20 08/13/24 History aerosol inhaler baclofen 10 mg tablet 10 mg PO BID 07/05/20 08/13/24 History cholecalciferol (vitamin D3) 125 5,000 unit PO DAILY 07/05/20 08/14/24 History mcg (5,000 unit) tablet docusate sodium 100 mg capsule 200 mg PO BID 07/05/20 08/14/24 History (Colace) hydrocodone 5 mg-acetaminophen 325 1 tab PO Q6H PRN pain management 07/05/20 08/13/24 History mg tablet loratadine 10 mg tablet 10 mg PO DAILY 07/05/20 08/13/24 History metformin 500 mg tablet 500 mg PO BID 07/05/20 08/13/24 History multivitamin with iron-mineral 1 tab PO DAILY 07/05/20 08/14/24 History nystatin 100,000 unit/gram topical 1 applic topical BID 07/05/20 08/13/24 History powder potassium chloride 20 mEq 40 meq PO DAILY 07/05/20 08/13/24 History tablet,extended release sennosides 8.6 mg tablet (senna) 8.6 mg PO Q12HR PRN Constipation 07/05/20 08/13/24 History trazodone 50 mg tablet 25 mg PO BEDTIME 07/05/20 08/13/24 History prednisone 20 mg tablet 40 mg (2 x 20 mg) PO DAILY #10 tabs 01/06/24 08/14/24 Rx ondansetron 4 mg disintegrating 4 mg PO Q8H PRN nausea and 06/12/24 08/13/24 Rx tablet vomiting #10 tabs acetaminophen 500 mg tablet 1,000 mg PO TID 08/13/24 08/13/24 History atorvastatin 40 mg tablet 40 mg PO DAILY 08/13/24 08/13/24 History bupropion HCl 100 mg tablet 100 mg PO TID 08/13/24 08/14/24 History gabapentin 100 mg capsule 100 mg PO 3XD 08/13/24 08/13/24 History sertraline 100 mg tablet 100 mg PO DAILY 08/13/24 08/13/24 History tamsulosin 0.4 mg capsule 0.4 mg PO DAILY 08/13/24 08/14/24 History tiotropium bromide 2.5 2 puff inhalation DAILY 08/13/24 08/14/24 History mcg/actuation mist for inhalation (Spiriva Respimat) famotidine 40 mg tablet 40 mg PO DAILY PRN Acid Reflux 08/14/24 08/14/24 History furosemide 40 mg tablet (Lasix) 80 mg PO QAM 08/14/24 08/14/24 History Allergies Allergy/AdvReac Type Severity Reaction Status Date / Time lisinopril Allergy Unknown Cough Verified 01/06/24 01:58 Review of Systems Review of Systems Narrative: All else reviewed and otherwise unremarkable except as noted in the history and physical. Exam Vital Signs (past 8 hours): - 08/14/24 00:00 08/14/24 00:30 08/14/24 01:00 Temperature 99.8 F H Pulse Rate 79 79 77 Respiratory Rate 22 23 20 Blood Pressure 153/68 H 159/74 H Pulse Oximetry 94 95 95 Oxygen Delivery Method Nasal Cannula Oxygen Flow Rate 4 08/14/24 01:00 08/14/24 01:30 08/14/24 01:31 Temperature Pulse Rate 75 75 Respiratory Rate 21 21 Blood Pressure 145/72 H Pulse Oximetry 95 96 Oxygen Delivery Method Oxygen Flow Rate 08/14/24 01:31 08/14/24 02:11 08/14/24 02:30 Temperature Pulse Rate 73 72 Respiratory Rate 20 20 Blood Pressure 143/65 H Pulse Oximetry 95 95 Oxygen Delivery Method Nasal Cannula Oxygen Flow Rate 4 08/14/24 03:00 08/14/24 03:30 08/14/24 03:46 Temperature Pulse Rate 71 70 Respiratory Rate 20 21 Blood Pressure 135/66 Pulse Oximetry 92 97 Oxygen Delivery Method Nasal Cannula Oxygen Flow Rate 4 08/14/24 03:46 08/14/24 04:00 08/14/24 04:00 Temperature Pulse Rate 66 65 Respiratory Rate 19 18 Blood Pressure 131/65 Pulse Oximetry 96 96 Oxygen Delivery Method Nasal Cannula Oxygen Flow Rate 4 08/14/24 04:36 08/14/24 04:36 08/14/24 04:36 Temperature 97.0 F L Pulse Rate 66 Respiratory Rate 20 Blood Pressure 124/56 L Pulse Oximetry 94 94 Oxygen Delivery Method Nasal Cannula Nasal Cannula Oxygen Flow Rate 4 4 Oxygen Delivery Method Nasal Cannula Oxygen Flow Rate 4 Narrative Exam Narrative: NAD, alert and oriented, fluent speech, calm. Normocephalic skull, EOMI, anicteric sclera, symmetric pupils. Oropharynx unremarkable, no droop. Neck supple, midline trachea, no adenopathy. Lungs clear, normal rate and effort. Heart regular, no murmur gallop or rub. Abdomen is soft, non distended and non tender. Extremities are free of edema. Skin is free of rash or lesions. Joints are not swollen or deformed. Judgment appears to be normal. Objective ECG Impression: NSR 81, !st degree AV block Imaging Chest x-ray: Radiologist's impression: Bibasilar opacities may be secondary to atelectasis versus pneumonia or aspiration. Labs 08/14/24 05:58 08/14/24 05:58 Labs: Laboratory Results - last 24 hr 08/13/24 08/13/24 08/14/24 23:01 23:16 00:55 WBC 13.1 H RBC 5.09 Hgb 15.4 Hct 46.7 MCV 91.8 MCH 30.3 MCHC 33.0 RDW 15.1 H Plt Count 174 Neut % (Auto) 87.6 H Lymph % (Auto) 4.8 L [place] % (Auto) 6.8 Eos % (Auto) 0.7 L Baso % (Auto) 0.1 Neut # (Auto) 39582 H Lymph # (Auto) 600 L [place] # (Auto) 900 Eos # (Auto) 100 Baso # (Auto) 0 Sodium 137 Potassium 4.2 Chloride 99 Carbon Dioxide 30 BUN 32 H Creatinine 1.49 H Estimated GFR 47 L BUN/Creatinine Ratio 21.5 Glucose 182 H Lactate 2.2 H 1.6 Calcium 9.1 Total Bilirubin 0.6 AST 30 ALT 26 Alkaline Phosphatase 60 Total Creatine Kinase 90 Troponin I < 0.012 NT-Pro-B Natriuret Pep 126 Total Protein 6.8 Albumin 4.2 Globulin 2.6 Albumin/Globulin Ratio 1.6 Procalcitonin 0.111 SARS-CoV-2 (PCR) Negative Influenza A (RT-PCR) Flu a negative Influenza B (RT-PCR) Flu b negative RSV (PCR) Negative 08/14/24 05:58 WBC 11.2 H RBC 4.71 Hgb 14.5 Hct 43.0 MCV 91.4 MCH 30.9 MCHC 33.8 RDW 14.9 H Plt Count 162 Neut % (Auto) 91.6 H Lymph % (Auto) 5.1 L [place] % (Auto) 2.8 L Eos % (Auto) 0.3 L Baso % (Auto) 0.2 Neut # (Auto) 02620 H Lymph # (Auto) 600 L [place] # (Auto) 300 Eos # (Auto) 0 Baso # (Auto) 0 Sodium 137 Potassium 4.3 Chloride 101 Carbon Dioxide 29 BUN 31 H Creatinine 1.46 H Estimated GFR 48 L BUN/Creatinine Ratio 21.2 Glucose 139 H Lactate Calcium 8.6 Total Bilirubin AST ALT Alkaline Phosphatase Total Creatine Kinase Troponin I NT-Pro-B Natriuret Pep Total Protein Albumin Globulin Albumin/Globulin Ratio Procalcitonin SARS-CoV-2 (PCR) Influenza A (RT-PCR) Influenza B (RT-PCR) RSV (PCR) Assessment & Plan Assessment & Plan narrative: Pneumonia, present on admission and active. 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 - acute exacerbation - had IV steroid in ED - bronchodilators DM 2, present on admission and active. - clarify home meds - CCD, SS Depression, present on admission and active. - clarify home meds BPH, present on admission and active. - has catheter - clarify home meds PLAN: -stop IV fluids. -continue IV antibiotics for another midnight and wean oxygen as able. -monitor mental status. -therapy assessment for mobility. The patient is anticipated to need 2 midnights for treatment of his acute medical condition. DVT prohylaxis - Lovenox Time-Based Coding :: 35 min spent with patient and on the chart (including review of chart, obtaining history, exam, reviewing outside data, placing orders, documenting exam and treatment plan, and counseling patient) on 08/14. Quality MIPS - Admit The patient?s Advance Care plan is not present because I confirmed today that the patient does not wish or was not able to name a surrogate decision maker or provide an Advance Care Plan.: Yes MIPS - Meds 'Current medications' to include all prescriptions, [id number] products, herbals, cannabis/cannabidiol products, and vitamin/mineral/dietary (nutritional) supplements. I have utilized all available resources to obtain, update, or review the patient?s current medications. [If Yes, STOP here]: Yes
[2024-08-14] MEDS: ENOXAPARIN 30 MG/0.3 ML SYRINGE SUBCUT (09:05)
[2024-08-14] MEDS: SODIUM CHLORIDE 0.9% FLUSH 10 ML IV ×3 (09:06→22:16)
[2024-08-14] MEDS: ACETAMINOPHEN 325 MG TABLET 650 MG PO (09:06)
[2024-08-14] MEDS: INSULIN LISPRO 100 UNIT/ML 3ML VIAL SUBCUT ×2 (09:07→12:38)
--- NOTE | 2024-08-14 13:37 | CM.DANOTE ---
Initial DCP Assessment Note Pt is a 79 yo male, resident at [facility], arrives with complaint of shortness of breath, admitted for management of PNA and acute exacerbation of COPD. PCP: Ellen Us Payer: [facility] Reviewed chart, pt discussed in multidisciplinary rounds this morning. IV abx continue, attempt today to wean O2, therapy assessments pending. Patient confirms living at [facility], receives assist with all ADLs and plans to return. Patient's point of contact is daughter Aylin P [phone]. No barriers identified at this time to patient's return to [facility] w/ staff to assist; close outpatient f/u recommended. CM team will plan to follow clinical course closely. Communication with daughter and with [facility] staff would be helpful. KODY Avila Discharge Planning/Care Management CM Discharge Assessment Start: 08/14/24 13:29 Freq: Status: Active Protocol: Document 08/14/24 13:29 [email or web address] (Rec: 08/14/24 13:37 [email or web address] [id number]) Discharge Planning Assessment Assigned Diorama Model Maker KODY Jackson DPOA/Assigned Designee Name Aylin Shultz, oswaldo ( [place]) P [phone], Advance Directives? Yes: POLST Advance Directives on File Yes History Provided By Patient,Medical Record Prior Living Arrangements Assisted Living Household Members caregiver Type of transporation used prior to Relies on Others admit Facility Name Admitted From: [facility] Willing to Return to Facility? Yes Independent with ADL's No Is patient alert and oriented? Yes: Cognitive deficits Needs Assistance With Bathing,Grooming,Meal Prep, Toileting,Managing Medications ,Home Chores / Shopping Comment has all needed DME at his Assisted living facility Comment Patient plans to return to [facility] Barriers to Discharge No Comment No barriers to return to [facility] identified at this time, CM team following closely. Discharge Plan Assisted Living Facility Transportation Arrangement BLS vs wheelchair van Additional Comment None needed currently, following closely.
--- NOTE | 2024-08-14 15:34 | ST.IPCSEOM ---
Visit Care Team Role Provider Type DANISHA Lay Primary Care Provider Non-Staff Specialty: Medical Address: [address], [place], [address] Email: Sarah Bailey DO Emergency Provider Physician Specialty: Emergency Medicine Address: [address] [place] [address], [id number] Email: [email or web address] Amadeo Weiss MD Admit Provider Physician Attending Provider Specialty: Internal Medicine Address: [address] [place] [address], [facility] Email: [email or web address] Diagnoses Type 2 diabetes mellitus without complications (08/14/24) Morbid (severe) obesity due to excess calories (08/14/24) Major depressive disorder, single episode, unspecified (08/14/24) Essential (primary) hypertension (08/14/24) Pneumonia, unspecified organism (08/14/24) Chronic obstructive pulmonary disease with (acute) exacerbation (08/14/24) Other obstructive and reflux uropathy (08/14/24) Chronic kidney disease, stage 3 unspecified (08/14/24) Benign prostatic hyperplasia with lower urinary tract symptoms (08/14/24) Other symptoms and signs involving cognitive functions and awareness (08/14/24) Body mass index [BMI] 40.0-44.9, adult (08/14/24) Other reduced mobility (08/14/24) Other specified health status (08/14/24) Past Medical History (Last Reviewed 08/14/24 @ 07:47 by Hemanth Perez MD) Atherosclerotic heart disease of [place] coronary artery without angina pectoris (Medical) Benign prostatic hyperplasia without lower urinary tract symptoms (Medical) BPH w urinary obs/LUTS (Medical) Cardiomegaly (Medical) CKD (chronic kidney disease) stage 3, GFR 30-59 ml/min (Medical) COPD (chronic obstructive pulmonary disease) (Medical) Essential hypertension (Medical) History of traumatic brain injury (Medical) Major depressive disorder (Medical) Morbid obesity with BMI of 40.0-44.9, adult (Medical) Muscle weakness (generalized) (Medical) Nocturia (Medical) Other abnormalities of gait and mobility (Medical) Speech-Language Pathology Swallow Evaluation SHELLFISH WEIGHER Clinical Swallow Evaluation Start: 08/14/24 14:42 Freq: Status: Active Protocol: Document 08/14/24 14:43 MM (Rec: 08/14/24 15:32 MM Desktop) Clinical Swallow Evaluation Session Time Visit Start Time 13:15 Visit Stop Time 13:35 Total Visit Minutes [address] Weiss Reason for Referral swallow evaluation Setting Assessment Location Acute Care Visit Type Note Type Initial evaluation Patient Information Identification Type Name History Pt is an 79 yo male, long-term resident at [facility] who was admitted to [facility] on 08/14/2024 d/t c/o worsening shortness of breath . He has had previous visits to ER with COPD exacerbation and pneumonia. Upon admission he was febrile with a temperature of 100.6?. He uses 2L of supplemental oxygen at baseline, but required 4L at the time of admission for hypoxemia. CXR and CT revealed bibasilar opacities may be secondary to atelectasis versus pneumonia or aspiration . He was treated with steroid , bronchodilator, and antibiotic. His WBC is elevated to 11.2 at this time. Subjective Observations Pt found sitting upright in bed, alert, on 3L supplemental oxygen via nasal cannula. RN cleared ST to work with pt, pt agreeable to participate in clinical swallow evaluation. Pt endorsed intermittent coughing /c PO intake, denied further c/o dysphagia. Pt reported his baseline diet is regular solids with thin liquids. Pt endorsed hx of COPD exacerbations and PNA. Reported by Patient/Caregiver Pain/Discomfort No Other Symptoms Coughing,History of aspiration or pneumonia Comment Pt endorsed intermittent coughing /c PO intake. Current Diet Regular (IDDSI 7) Baseline Feeding Method Independent in self-feeding The IDDSI Framework Protocol: IDDSI.1 Objective Assessment Mental Status Alert,Responsive,Cooperative Oral Integrity WFL Dentition Missing teeth Lip Function Within normal limits Observation of Lips at Rest Symmetrical Pucker Within normal limits Lip Retraction Within normal limits Tongue Function Within normal limits Tongue Protrusion Within normal limits Tongue Lateralization Within normal limits Jaw Function Within normal limits Observation of Jaw at Rest Within normal limits Jaw Opening Within normal limits Jaw Closing Within normal limits Hard/Soft Palate Function Within normal limits Observations of Hard/Soft Palate Within normal limits Respiratory Sufficiency Mild impairment Comment Pt observed to have upper dentition only, no lower dentition. Adequate oral health. OME indicated CN V, VII, IX/X, and XII grossly intact bilaterally. Prior to PO trials pt observed to have intermittent cough and consistent wheezing which pt endorsed is his baseline. Pt requiring 3L of supplemental oxygen via nasal cannula to sustain O2 saturations in 90s. Food and Liquid Trials Position During Assessment Upright (90 degrees) Liquids Trialed Thin (IDDSI 0) Solid Trials Purred (IDDSI 4),Soft & Bite- sized (IDDSI 6),Regular (IDDSI 7) Administration Type Tea spoon,Cup single sip,Cup consecutive sips,Straw, Dependent feeding Oral Impairment Within normal limits Oral Phase Comments Pt self-fed PO trials with set up assistance. Pt observed across trials of thin liquids via tsp, cup single sip, cup consecutive sips, straw single sip, straw consecutive sips, puree (apple sauce) via tsp x3 , soft and bite sized (diced peaches) via tsp x3, and regular texture (debby cracker) x1. Pt exhibited adequate bolus retrieval from spoon, straw, and cup, oral containment, bolus manipulation, and oral clearance. Pt independently utilized thin liquid wash following solid trials to facilitate complete oral clearance. Pharyngeal Phase Comments No overt signs/symptoms of aspiration noted. Pt's O2 saturations in 90s throughout PO trials. No globus sensation reported. However, cannot rule out silent aspiration in the setting of CXR/CT chest revealing bibasilar opacities that may be secondary to atelectasis versus pneumonia or aspiration, recommend further evaluation /c use of imaging via modified barium swallow study (MBSS). The IDDSI Framework Protocol: IDDSI.1 Findings Swallowing Function Comments Unable to rule out possible silent aspiration. Comments COPD exacerbation/PNA Prognosis Fair Based on Age,History of aspiration/ aspiration pneumonia, Comorbidities Comment Oral phase WFL, no overt signs /symptoms of aspiration or report of globus sensation, however, unable to rule out possible silent aspiration without use of imaging. Impact on Safety and Functioning Risk for aspiration Comments COPD with requirement of supplemental oxygen, elevated WBC Recommendations Instrumental Assessment Yes Recommended Solids Regular (IDDSI 7) Recommended Liquids Thin (IDDSI 0) Other Recommendations Recommend further evaluation with use of imaging via MBSS to rule out/confirm possible silent aspiration in the setting of CXR/CT chest concerning for possible pneumonia/aspiration given pt' s risk factors including COPD with requirement of supplemental oxygen to maintain pulmonary stability and elevated WBC. RN and MD notified re: MBSS recommendation, MBSS order placed, MBSS scheduled for tomorrow, 08/15/2024, at 10:[address] services may be warranted pending results of MBSS. Safety Precautions/Swallowing 1 to 1 distant supervision, Recommendations Feed only when alert,Reduce distractions,Remain upright ( 90 degrees) during all oral intake,Upright position at least 30 minutes after meals, Small bites and sips when eating,Slow rate; swallow between bites,Alternate liquids and solids,Strict oral care after intake Medication Recommendations As Tolerated Discharge Recommendations alf facility,[facility]PC care facility Education Patient/Caregiver Education Described results of evaluation,Patient expressed understanding of evaluation, Patient expressed agreement with goals & treatment plans, Patient expressed understanding of safety precautions Goals Short-term Goals Pt will consume the safest and most efficient least restrictive diet with no s/s of dysphagia in order to meet nutrition/hydration needs. Long-term Goals Pt will participate in MBSS in order to guide POC.
--- NOTE | 2024-08-14 15:37 | SLP.IPNOTE ---
ST recommending further evaluation of pharyngeal swallow with use of imaging via MBSS to rule out/confirm possible silent aspiration in the setting of CXR/CT chest concerning for possible pneumonia/aspiration. RN and MD notified re: MBSS recommendation, MBSS order placed, MBSS scheduled for tomorrow, 08/15/2024, at 10:00 AM.
[2024-08-14 15:44] LABS: Appearance Urine UA CLEAR; Bilirubin Urine UA NEGATIVE (NEGATIVE); Glucose Urine UA NEGATIVE (Negative); Ketones Urine UA TRACE (NEGATIVE); Leukocyte Esterase Urine UA NEGATIVE (NEGATIVE); Nitrite Urine UA NEGATIVE (Negative); Occult Blood Urine UA NEGATIVE (Negative); Protein Urine UA TRACE (Negative); Specific Gravity Urine UA 1.025 (1.000-1.035); Urobilinogen Urine UA 0.2 E.U./dL (0.2)
[2024-08-14 15:51] LABS: Bacteria Urine Few (2-10); Color Urine UA Dark Yellow; RBC Urine None Seen (0-5/HPF); Squamous Epithelial Cell Urine None Seen (0-5/HPF); Urine Volume 10mL (spun); WBC Urine None Seen (0-5/HPF)
[2024-08-14 15:52] LABS: Culture Indicated Urine Cult Not Indicated; Mucus Urine 1+ (Negative)
--- NOTE | 2024-08-14 19:32 | PC.NURSE ---
Tried calling [facility] several times today to complete assessment. The phone would ring 5 x and then auto hang up. Care management called but they have no number either. Later in the day Nick called from [facility] to find out what was going on with Mr. Baumann. Facility updated and their questions were answered. The spouse has not been called and they will call her Aurelia [phone]. Apparently she is out of the country at this time. They assisted this proposal lead writer in completing the admission.
[2024-08-14 20:10] LABS: Adenovirus F 40/41 Not Detected (Not Detect); Astrovirus Not Detected (Not Detect); Campylobacter Not Detected (Not Detect); Clostridium difficile toxin AB Not Detected (Not Detect); Cryptosporidium Not Detected (Not Detect); Cyclospora cayetanensis Not Detected (Not Detect); Entamoeba histolytica Not Detected (Not Detect); Enteroaggregative E.coli Not Detected (Not Detect); Enteropathogenic E.coli Not Detected (Not Detect); Enterotoxigenic E.coli It/st Not Detected (Not Detect); Giardia lamblia Not Detected (Not Detect); Norovirus GI/GII Detected (Not Detect); Plesiomonsa shigelloides Not Detected (Not Detect); Rotavirus A Not Detected (Not Detect); Salmonella Not Detected (Not Detect); Sapovirus Not Detected (Not Detect); Shiga-like toxin-prod E.coli Not Detected (Not Detect); Shigella/Enteroinvasive E.coli Not Detected (Not Detect); Vibrio Not Detected (Not Detect); Vibrio cholerae Not Detected (Not Detect); Yersinia enterocolitica Not Detected (Not Detect)
[2024-08-14 21:37] LABS: Acinetobacter calcoa-baumannii Not Detected (Not Detect); Bacteroides fragilis Not Detected (Not Detect); Candida albicans Not Detected (Not Detect); Candida auris Not Detected (Not Detect); Candida glabrata Not Detected (Not Detect); Candida krusei Not Detected (Not Detect); Candida parapsilosis Not Detected (Not Detect); Candida tropicalis Not Detected (Not Detect); Cryptococcus neoformans/gatti Not Detected (Not Detect); Enterobacter cloacae complex Not Detected (Not Detect); Enterobacterales Not Detected (Not Detect); Enterococcus faecalis Not Detected (Not Detect); Enterococcus faecium Not Detected (Not Detect); Haemophilus influenzae Not Detected (Not Detect); Klebsiella aerogenes Not Detected (Not Detect); Listeria monocytogenes Not Detected (Not Detect); Neisseria meningitidis Not Detected (Not Detect); Proteus species Not Detected (Not Detect); Pseudomonas aeruginosa Not Detected (Not Detect); Salmonella species Not Detected (Not Detect); Serratia marcescens Not Detected (Not Detect); Staphylococcus epidermidis Not Detected (Not Detect); Staphylococcus lugdunensis Not Detected (Not Detect); Staphylococcus species Not Detected (Not Detect); Stenotrophomonas maltophilia Not Detected (Not Detect); Streptococcus agalactiae (Gr B Not Detected (Not Detect); Streptococcus pneumonia Not Detected (Not Detect); Streptococcus pyogenes (Gr A) Not Detected (Not Detect); Streptococcus species Detected (Not Detect)
[2024-08-14] MEDS: SERTRALINE 50 MG TABLET 100 MG PO (22:14)
[2024-08-14] MEDS: buPROPion 100 MG TABLET PO (22:15)
[2024-08-15] MEDS: PIPERACILLIN/TAZO 3.375 GM in SODIUM CHLORIDE 0.9% 100 ML IV ×3 (06:30→22:19)
--- NOTE | 2024-08-15 07:22 | P.PN_ITS ---
Subjective Subjective Interval history: Summary: 79-year-old male with aspiration pneumonia and acute hypoxic respiratory failure, improving on antibiotics. S: He was improving. His modified barium swallow was essentially normal with 1 very small penetration of thin liquids. Recommendations are for face swelling procedures including bolt upright and thin liquids with a tension to swallowing safety. The patient has less cough, he does take oxygen 2 L chronically and stays at [facility]. It looks as though he might be stable for discharge back on August 16. He was agreeable to this. Exam Vital Signs (past 8 hours): Fraction of Inspired Oxygen 30 SaO2/FiO2 Ratio 300 Oxygen Delivery Method Nasal Cannula Oxygen Flow Rate 3 Narrative Exam Narrative: NAD, alert and oriented. Fluent speech. He was on 2 L of oxygen. Lungs are clear, normal rate and effort. Heart is regular, no murmur gallop or rub. Abdomen is soft, non distended. Extremities are free of edema. Objective ECG Impression: Impression: NSR 81, !st degree AV block Imaging Chest x-ray: Radiologist's impression: Chest x-ray: Radiologist's impression: Bibasilar opacities may be secondary to atelectasis versus pneumonia or aspiration. Labs 08/14/24 05:58 08/14/24 05:58 Labs: Laboratory Results - last 24 hr 08/13/24 08/14/24 08/14/24 23:48 15:10 18:15 Urine Color Dark yellow Urine Appearance Clear Urine pH 5.0 Ur Specific [place] 1.025 Urine Protein Trace H Urine Glucose (UA) Negative Urine Ketones Trace H Urine Occult Blood Negative Urine Nitrate Negative Urine Bilirubin Negative Urine Urobilinogen 0.2 Ur Leukocyte Esterase Negative Urine RBC None seen Urine WBC None seen Ur Squamous Epith Cells None seen Urine Bacteria Few (2-10) H Urine Mucus 1+ H Ur Culture Indicated? Cult not indicated Vol Urine Centrifuged 10ml (spun) Stl C. cayetanensis PCR Not detected Stool Rotavirus (PCR) Not detected Stool Adenovirus (PCR) Not detected Stool Astrovirus (PCR) Not detected Stool Cryptosporidium PCR Not detected Stl E.coli Shiga Tox PCR Not detected St Sh/Enteroin Ecoli PCR Not detected Stl Enterotoxigenic E PCR Not detected Stool EPEC (PCR) Not detected Stl E. histolytica PCR Not detected Stool Giardia Lamblia PCR Not detected Stool Sapovirus (PCR) Not detected Stl P. shigelloides PCR Not detected St Y.enterocolitica PCR Not detected Stool Vibrio (PCR) Not detected Stl Vibrio cholerae PCR Not detected Stl Enteroaggr Ecoli PCR Not detected Stl Norovirus GI/GII PCR Detected A.calcoaceticus-baumannii cmplx PCR Not detected Bacteroides fragilis Not detected Campylobacter (PCR) Not detected Martha albicans (PCR) Not detected Martha auris (PCR) Not detected C. glabrata (PCR) Not detected C. krusei (PCR) Not detected C. parapsilosis (PCR) Not detected C. tropicalis (PCR) Not detected C. difficile Tox (PCR) Not detected C. neoform/gattii (PCR) Not detected Enterobacterales (PCR) Not detected E. cloacae complex PCR Not detected Enterococc faecalis PCR Not detected Enterococc faecium PCR Not detected E. coli (PCR) Not detected H. influenzae (PCR) Not detected Klebsiella aerogenes (PCR) Not detected Klebsiella oxytoca PCR Not detected Klebsiella pneumoniae Not detected List. monocytogenes PCR Not detected N. meningitidis (PCR) Not detected Proteus species (PCR) Not detected Salmonella (PCR) Not detected Salmonella spp. (PCR) Not detected Serratia marcescens PCR Not detected Staphylococcus sp PCR Not detected Staph aureus (PCR) Not detected mecA/C & MREJ Resist Gene Not applicable mecA/C-Methicil Resis Gene Not applicable mcr-1 Colistin Res Gene PCR Not applicable Staph epidermidis (PCR) Not detected Staph lugdunensis PCR Not detected S. maltophilia (PCR) Not detected Streptococcus sp PCR Detected Group A Strep (PCR) Not detected Strep agalactiae (PCR) Not detected Strep pneumoniae (PCR) Not detected P. aeruginosa (PCR) Not detected Yamileth/B-Vanco Res Genes Not applicable blaIMP Car res Gene PCR Not applicable KPC-Carbap Res Gene PCR Not applicable blaNDM Car Res Gene PCR Not applicable OXA-48 Carbapenem Resis Gene (PCR) Not applicable blaVIM Car Res Gene PCR Not applicable CTX-M Gene Resistance (PCR) Not applicable PFSH Medical History CKD (chronic kidney disease) stage 3, GFR 30-59 ml/min BPH w urinary obs/LUTS Nocturia Morbid obesity with BMI of 40.0-44.9, adult Atherosclerotic heart disease of [place] coronary artery without angina pectoris History of traumatic brain injury Other abnormalities of gait and mobility Muscle weakness (generalized) Major depressive disorder Essential hypertension Cardiomegaly Benign prostatic hyperplasia without lower urinary tract symptoms COPD (chronic obstructive pulmonary disease) Surgical History H/O left knee surgery History of ankle surgery History of hip surgery History of foot surgery Family History Mother Diabetes mellitus Hypertension Father Congestive heart failure Social History household members: caregiver Smoking Status: Former smoker alcohol intake: former Assessment & Plan Assessment & Plan narrative: 1. Pneumonia (probable aspiration), present on admission and active. - empiric Zosyn - CARROTING MACHINE OPERATOR for swallow evaluation 2. Acute on chronic hypoxic respiratory failure, present on admission and improving. 3. COPD exacerbation, present on admission and improving. - acute exacerbation - had IV steroid in ED - bronchodilators 4. DM 2, present on admission and active. - clarify home meds - CCD, SS 5. Depression, present on admission and active. - clarify home meds 6. BPH, present on admission and active. - has catheter (says this was placed in ED) - clarify home meds 7. Urinary retention, present on admission and active. -has a coude catheter in place, looks like this is placed in the ER on June 11. PLAN: -ambulate with physical therapy and discharge planning. -continue IV antibiotics for another midnight and wean oxygen as able. -clarify that the catheter has been in since June. Patient will likely need a follow up urology appointment if this is the case. -probable return to [facility] on August 16 on oral antibiotics. JOSH: 08/16, [facility] MISTRY The patient is anticipated to need 2 midnights for treatment of his acute medical condition. Time-Based Coding :: [TOTAL MINUTES] spent with patient and on the chart (including review of chart, obtaining history, exam, reviewing outside data, placing orders, documenting exam and treatment plan, and counseling patient) on [DATE].
[2024-08-15] MEDS: INSULIN LISPRO 100 UNIT/ML 3ML VIAL SUBCUT (08:13)
[2024-08-15] MEDS: buPROPion 100 MG TABLET PO ×3 (08:13→20:58)
[2024-08-15] MEDS: SODIUM CHLORIDE 0.9% FLUSH 10 ML IV ×2 (08:13→20:58)
[2024-08-15] MEDS: ENOXAPARIN 40 MG/0.4 ML SYRINGE SUBCUT (08:13)
[2024-08-15 08:44] VITALS: BP 120/51; PULSE 57; RESP 16; TEMP 36.4; O2SAT 98
[2024-08-15 09:28] VITALS: O2SAT 97
--- NOTE | 2024-08-15 12:01 | CM.DPNOTE ---
DCP Cont Reviewed chart. Patient discussed in multidisciplinary rounds. JOSH 08/16. Placed call to [facility] P [phone] ext [phone] and ext [phone]. Left messages on both extensions asking for call back to discuss patient. Placed call to Mela [employer], [employer] P [phone] ext [phone], LM. Placed call to Daniel Duran, linux vmware administrator for [facility] and [facility] office P [phone] ext [phone], cell P [phone]; updated Daniel w/patient's JOSH w/ no anticipated changes from baseline. Daniel plans to update the nurse at [facility] personally today and requests this CM team call him tomorrow w/discharge update. According to RN Gina's note, patient's spouse Aurelia P [phone] is [place], reportedly is out of the country. Placed call to spouse and had to LM. Also placed call to the two numbers listed in patient's chart for daughter Aylin, one was a private [employer] and the other was a busy signal. Plan: Discharge back to [facility] 08/16 is anticipated. Likely via facility van. CM team following clinical course closely for coordination of discharge plan. ALFREDITO
[2024-08-15 12:29] VITALS: BP 118/45; PULSE 58; RESP 16; TEMP 36.2; O2SAT 95
--- NOTE | 2024-08-15 13:55 | ST.SWALLOW ---
Visit Care Team Role Provider Type DANISHA Lay Primary Care Provider Non-Staff Specialty: Medical Address: [address], [place], [address] Email: Sarah Bailey DO Emergency Provider Physician Specialty: Emergency Medicine Address: [address] [place] [address], [id number] Email: [email or web address] Amadeo Weiss MD Admit Provider Physician Attending Provider Specialty: Internal Medicine Address: [address] [place] [address], [id number] Email: [email or web address] Modified Barium Swallow Study READING EFFICIENCY COURSE DIRECTOR Modified Barium Swallow Study Start: 08/14/24 14:42 Freq: Status: Active Protocol: Document 08/15/24 10:35 SS (Rec: 08/15/24 10:43 SS Desktop) Modified Barium Swallow Study Total Time Visit Start Time 10:00 Visit Stop Time 10:30 Total Visit Minutes [address] Hemanth Perez Reason for Referral Suspected aspiration PNA Setting Setting Acute Care Patient Information Identification Type Name,Date of Patient History Pt is an 79 yo male, long-term resident at [facility] who was admitted to [facility] on 08/14/2024 d/t c/o worsening shortness of breath . He has had previous visits to ER with COPD exacerbation and pneumonia. Upon admission he was febrile with a temperature of 100.6?. He uses 2L of supplemental oxygen at baseline, but required 4L at the time of admission for hypoxemia. CXR and CT revealed bibasilar opacities may be secondary to atelectasis versus pneumonia or aspiration . He was treated with steroid , bronchodilator, and antibiotic. His WBC is elevated to 11.2 at this time. Clinical swallow evaluation was completed on 08/14. MBSS was recommended to rule out/ confirm possible silent aspiration. Modified Barium Swallow Study (MBSS) completed in order to visualize and assess swallow function and anatomy, determine aspiration risk, make appropriate and updated diet and treatment recommendations, as well as to identify need for additional referrals. Subjective Observations Pt was seated in the fluoroscopy chair with directions and procedures described for him. He indicated he understood and agreed to proceed. Patient Positioning Position View Lateral Imaging Lateral View Textures Administered Trials Presented Thin Liquid via Spoon (IDDSI 0 ),Thin Liquid via Cup (IDDSI 0 ),Thin Liquid via Straw (IDDSI 0),Puree (IDDSI 4),Regular ( IDDSI 7) Barium Tablet Yes The IDDSI Framework Protocol: IDDSI.1 Oral Impairment Source: The Modified Barium Swallow Impairment Profile (MBSImP??) Lip Closure Interlabial escape; no progression to anterior lip Tongue Control During Bolus Hold Escape to lateral buccal cavity/floor of mouth (FOM) Bolus Preparation/Mastication Disorganized chewing/mashing with solid pieces of bolus unchewed Bolus Transport/Lingual Motion Slowed tongue motion Oral Residue Residue collection on oral structures Location Floor of mouth,Palate,Tongue, Lateral sulci Initiation of Pharyngeal Swallow Bolus head at pyriforms Additional Oral Impairment Observations Mild Impairment. Oral acceptance of bolus was WFL. Patient demonstrated inadequate labial seal resulting in interlabial escape. Bolus formation was disorganized and inefficient. Anterior-posterior transit of the bolus was sluggish/slowed. Mastication was prolonged. There were moderate amounts of oral residue, primarily with solids, requiring multiple attempts at AP transit to propel posteriorly. Oral bolus control was mildly reduced resulting in bolus escape. Pharyngeal Impairment Source: The Modified Barium Swallow Impairment Profile (MBSImP??) Soft Palate Elevation No bolus between soft palate & pharyngeal wall Laryngeal Elevation Part.sup.move.thyroid cart/ part.approx.arytenoids to epiglot.petiole Anterior Hyoid Excursion Partial anterior movement Pharyngeal Residue Collection of residue within/ on pharyngeal structures Additional Pharyngeal Impairment Moderate Impairment. Swallow Observations was initiated with liquids and solids at the pyriform sinuses. Velopharyngeal closure was WFL. Hyoid/ laryngeal elevation was judged to be reduced. The epiglottis did invert; inversion is characterized as incomplete, particularly with liquids. Tongue base retraction was reduced. Pharyngeal stripping wave was significantly reduced . Cricopharyngeal opening appeared adequate and did not appear to impede bolus flow into the esophagus, though somewhat difficult to definitely discern given severity of pharyngeal stripping impairment. Post- swallow residue was moderate, primarily at the base of tongue, posterior pharyngeal wall, valleculae and pyriform sinuses with puree. Pt inconsistently sensate to residue and attempted to clear with multiple dry swallows (4 +), either independently, or cued, though residue remained after attempts. Penetration occurred during the swallow with thin liquids by teaspoon, cup, and straw, puree, and regular solids. Penetration did reach the level of the vocal folds and ranged from transient to deep. A cued cough and second swallow were effective in clearing some of the penetrated material. Trace aspiration occurred during the swallow with x1 thin liquids by straw. Aspiration was not sensed. A cued cough was minimally effective in clearing aspirated material from the airway. Penetration / Aspiration Scale (PAS): Thin 7: Material enters the airway, passes below the vocal folds, and is not ejected from the airway despite effort Pudding / Semi-solid 1: No material enters the airway Regular 1: No material enters the airway Tablet 1: No material enters the airway Compensatory Strategies: The following compensatory strategies were trialed with the following results: - chin tuck: did not eliminate penetration or reduce depth of penetration consistently; did not appear to significantly reduce pharyngeal residue - liquid rinse: some residual material was cleared, though not all - required multiple liquid rinses. - repeat swallow: some material was cleared, though not all A/P View The IDDSI Framework Protocol: IDDSI.1 Clinical Impressions Dysphagia Type Oral,Pharyngeal Findings Pt demonstrates mild oral phase dysphagia and moderate pharyngeal phase dysphagia. Oral phase deficits c/b by prolonged and disorganized mastication and bolus formation in addition to slowed AP transit; these deficits resulted in moderate amounts of oral residue primarily across solids requiring multiple attempts by pt to propel posteriorly prior to swallow initiation. Pharyngeal phase deficits c/b delayed swallow initiation with thin liquids and solids ( initiated at pyriform sinus) and reduced hyolaryngeal elevation/excursion resulting in incomplete and sluggish epiglottic inversion. Base of tongue retraction and pharyngeal stripping wave were notably reduced, resulting in severe pharyngeal residue at the base of tongue, posterior pharyngeal wall, valleculae, and pyriform sinus across solid consistencies. Pt inconsistently able to sensate to pharyngeal residue and attempted to clear with multiple spontaneous/cued swallows; however, moderate pharyngeal residue remained despite multiple attempts. Liquid wash, dry swallows, and chin tuck were all trialed and resulted in some clearance of pharyngeal residue, though not all. Pt was visualized with x1 instance of trace aspiration which he did not sense, with rapid consecutive sips of thin liquids. Consistent penetration was noted with thin liquids, puree , and regular solids, ranging from transient to deep reaching the level of the vocal folds. Multiple strategies were trialed and were somewhat effective in eliminating or reducing depth of penetration. Recommend continuation of thin liquids and regular solids. While pt may benefit from a softer diet given the severity of pharyngeal weakness resulting in notable residue which increases pt's risk of aspiration, he wishes to remain on a regular texture diet at this time following education re: risks and benefits. Recommend small, single sips of thin liquids with 1:1 assistance for self- feeding and verbal cues for appropriate rate and intake size. Recommend alternating solids and liquids and utilizing slow rate with intake of solids. Pt will benefit from frequent oral care, including after all meals, to minimize colonization of oral pathogens that can increase pt's risk of developing aspiration pneumonia if aspirated. Recommend pt sit fully upright during all intake and for 30- minutes after to aid pharyngeal clearance of residue. Pt may benefit from initiation of a structured swallowing exercise program and rehabilitative exercises to address to aforementioned oropharyngeal deficits and improve cough strength for airway protection at next level of care. Treatment at current level of care to focus of use of compensatory strategies with all PO intake. Rehabilitation Potential Fair Patient Appropriate for Therapy Yes Recommendations Diet Liquids Order Thin (IDDSI 0) Diet Order Regular (IDDSI 7) Medication Recommendation Whole,Whole in Carrier,One at a Time Additional Dietary Needs Single Sips,Controlled Sips,No Straws,1:1 Supervision, Encourage to Self-Feed, Reminders to Use Strategies Aspiration Precautions Recommended Precautions Upright at 90 Degrees, Alternate Liquids/Solids,Small Bites/Sips,Liquids from Cup Treatment Plan Therapy Recommendations Inpatient Speech Therapy, Outpatient Speech Therapy,Base of Tongue Exercises Therapy Strategy Recommendations Sitting Upright (90 deg),No Straw,Liquids from Cup,Small Bites and Sips,Alternate Liquids/Solids Placement Recommendation After Discharge [facility] Facility, Inpatient Rehab Facility
[2024-08-15 16:00] VITALS: BP 129/52; PULSE 55; RESP 16; TEMP 36.1; O2SAT 97
[2024-08-15 20:30] VITALS: BP 123/60; PULSE 60; RESP 18; TEMP 36.1; O2SAT 94
[2024-08-15] MEDS: SERTRALINE 50 MG TABLET 100 MG PO (20:58)
[2024-08-16] VITALS: BP 132/76; PULSE 84; RESP 19; TEMP 37.1; O2SAT 94
[2024-08-16 04:00] VITALS: BP 132/78; PULSE 86; RESP 19; TEMP 36.5; O2SAT 95
[2024-08-16] MEDS: PIPERACILLIN/TAZO 3.375 GM in SODIUM CHLORIDE 0.9% 100 ML IV (05:38)
[2024-08-16 07:54] VITALS: BP 139/62; PULSE 56; RESP 18; TEMP 36.2; O2SAT 92
[2024-08-16 08:16] VITALS: O2SAT 92
[2024-08-16] MEDS: buPROPion 100 MG TABLET PO (09:17)
[2024-08-16] MEDS: ENOXAPARIN 40 MG/0.4 ML SYRINGE SUBCUT (09:17)
[2024-08-16] MEDS: SODIUM CHLORIDE 0.9% FLUSH 10 ML IV (09:18)
[2024-08-16 11:00] VITALS: BP 151/68; PULSE 53; RESP 20; TEMP 36.4; O2SAT 92
--- NOTE | 2024-08-16 12:54 | PM.DS.IH.1 ---
History of Present Illness History of Present Illness Date Patient Seen: 08/16/24 Time Patient Seen: 08:15 Chief complaint: SOB Narrative: 79 y/o long-term resident of [facility] with PMH of COPD, CAD, obesity, impaired gait, BPH, who presented with worsening shortness of breath. He had few prior visits to the ER with COPD exacerbation and pneumonia. On today visit febrile with a temperature of a 100.6?. No abdominal pain nausea vomiting no chest pain. He is normally on 2 L of oxygen but now requires 4 L to saturate in 90-ies. CXR and CT chest showing likely bibasilar infiltrates. Admitted after Tx with steroid, bronchodilator and antibiotic. He feels little bit better, he has been coughing for several days. He was little short of breath and does admit to some confusion. He denies any pain. He has been constipated with no bowel movement for about 4 days. He stays at [facility]. There were concerns about the condition of him when he came in with statements of him being quite unkempt and possibly covered with feces. He does not seem to know anything about that to have any additional information. Discharge Providers Provider Date of admission: 08/14/24 03:34 Discharge Date: 08/16/24 Primary care physician: DANISHA Lay Consults: 08/14/24 06:32 Consult to Speech Therapy Evaluate & Treat Comment: Physician Instructions: Evaluate and treat Discharge provider: Earl Anderson MD Summary Hospital Course Discharge Diagnosis: 1. Pneumonia (probable aspiration) 2. Acute on chronic hypoxic respiratory failure. 3. COPD exacerbation. 4. DM 2. 5. Depression. 6. BPH. 7. Urinary retention, present on admission and active. Hospital Course: The patient was admitted and treated with broad-spectrum antibiotics. Speech therapy was consulted with modified barium swallow showing only trace aspiration clearing with cough and compensatory strategies, and a regular texture diet with thin liquids was recommended, with upright posture with eating and attention to swallowing safety recommended. He improved significantly during his hospitalization. He is normally on oxygen 2 L at his care facility. He has a chronic indwelling Short coude catheter placed in the emergency department in June with outpatient urologic consultation recommended. His COPD appeared stable with a single dose of IV steroids in the emergency department and bronchodilators, with out further complications. No other issues arose. Status at Discharge Cognitive/behavioral status at discharge: oriented Functional status at discharge: uses cane/walker Overall status at discharge: patient is progressing back to baseline Time Spent with Patient Time spent: Greater than 30 minutes Exam Vital Signs (past 8 hours): - 08/16/24 07:00 08/16/24 07:54 08/16/24 08:16 Temperature 97.2 F L Pulse Rate 56 L Respiratory Rate 18 Blood Pressure 139/62 Pulse Oximetry 92 92 Oxygen Delivery Method Nasal Cannula Room Air Oxygen Flow Rate 08/16/24 11:00 Temperature 97.6 F Pulse Rate 53 L Respiratory Rate 20 Blood Pressure 151/68 H Pulse Oximetry 92 Oxygen Delivery Method Oxygen Flow Rate 0 Fraction of Inspired Oxygen 30 SaO2/FiO2 Ratio 300 Oxygen Delivery Method Room Air Oxygen Flow Rate 0 Narrative Exam Narrative: NAD, alert and oriented. Fluent speech. He was on 2 L of oxygen. Lungs are clear, normal rate and effort. Heart is regular, no murmur gallop or rub. Abdomen is soft, non distended. Extremities are free of edema. Objective ECG Impression: Impression: NSR 81, !st degree AV block Imaging Chest x-ray: Radiologist's impression: Chest x-ray: Radiologist's impression: Bibasilar opacities may be secondary to atelectasis versus pneumonia or aspiration. Labs 08/14/24 05:58 08/14/24 05:58 Labs: Laboratory Results - last 24 hr 08/13/24 08/14/24 08/14/24 23:48 15:10 18:15 Urine Color Dark yellow Urine Appearance Clear Urine pH 5.0 Ur Specific [place] 1.025 Urine Protein Trace H Urine Glucose (UA) Negative Urine Ketones Trace H Urine Occult Blood Negative Urine Nitrate Negative Urine Bilirubin Negative Urine Urobilinogen 0.2 Ur Leukocyte Esterase Negative Urine RBC None seen Urine WBC None seen Ur Squamous Epith Cells None seen Urine Bacteria Few (2-10) H Urine Mucus 1+ H Ur Culture Indicated? Cult not indicated Vol Urine Centrifuged 10ml (spun) Stl C. cayetanensis PCR Not detected Stool Rotavirus (PCR) Not detected Stool Adenovirus (PCR) Not detected Stool Astrovirus (PCR) Not detected Stool Cryptosporidium PCR Not detected Stl E.coli Shiga Tox PCR Not detected St Sh/Enteroin Ecoli PCR Not detected Stl Enterotoxigenic E PCR Not detected Stool EPEC (PCR) Not detected Stl E. histolytica PCR Not detected Stool Giardia Lamblia PCR Not detected Stool Sapovirus (PCR) Not detected Stl P. shigelloides PCR Not detected St Y.enterocolitica PCR Not detected Stool Vibrio (PCR) Not detected Stl Vibrio cholerae PCR Not detected Stl Enteroaggr Ecoli PCR Not detected Stl Norovirus GI/GII PCR Detected A.calcoaceticus-baumannii cmplx PCR Not detected Bacteroides fragilis Not detected Campylobacter (PCR) Not detected Martha albicans (PCR) Not detected Martha auris (PCR) Not detected C. glabrata (PCR) Not detected C. krusei (PCR) Not detected C. parapsilosis (PCR) Not detected C. tropicalis (PCR) Not detected C. difficile Tox (PCR) Not detected C. neoform/gattii (PCR) Not detected Enterobacterales (PCR) Not detected E. cloacae complex PCR Not detected Enterococc faecalis PCR Not detected Enterococc faecium PCR Not detected E. coli (PCR) Not detected H. influenzae (PCR) Not detected Klebsiella aerogenes (PCR) Not detected Klebsiella oxytoca PCR Not detected Klebsiella pneumoniae Not detected List. monocytogenes PCR Not detected N. meningitidis (PCR) Not detected Proteus species (PCR) Not detected Salmonella (PCR) Not detected Salmonella spp. (PCR) Not detected Serratia marcescens PCR Not detected Staphylococcus sp PCR Not detected Staph aureus (PCR) Not detected mecA/C & MREJ Resist Gene Not applicable mecA/C-Methicil Resis Gene Not applicable mcr-1 Colistin Res Gene PCR Not applicable Staph epidermidis (PCR) Not detected Staph lugdunensis PCR Not detected S. maltophilia (PCR) Not detected Streptococcus sp PCR Detected Group A Strep (PCR) Not detected Strep agalactiae (PCR) Not detected Strep pneumoniae (PCR) Not detected P. aeruginosa (PCR) Not detected Yamileth/B-Vanco Res Genes Not applicable blaIMP Car res Gene PCR Not applicable KPC-Carbap Res Gene PCR Not applicable blaNDM Car Res Gene PCR Not applicable OXA-48 Carbapenem Resis Gene (PCR) Not applicable blaVIM Car Res Gene PCR Not applicable CTX-M Gene Resistance (PCR) Not applicable PFSH Medical History CKD (chronic kidney disease) stage 3, GFR 30-59 ml/min BPH w urinary obs/LUTS Nocturia Morbid obesity with BMI of 40.0-44.9, adult Atherosclerotic heart disease of [place] coronary artery without angina pectoris History of traumatic brain injury Other abnormalities of gait and mobility Muscle weakness (generalized) Major depressive disorder Essential hypertension Cardiomegaly Benign prostatic hyperplasia without lower urinary tract symptoms COPD (chronic obstructive pulmonary disease) Surgical History H/O left knee surgery History of ankle surgery History of hip surgery History of foot surgery Family History Mother Diabetes mellitus Hypertension Father Congestive heart failure Social History household members: caregiver Smoking Status: Former smoker alcohol intake: former Discharge Plan Discharge Plan Patient Disposition: Assisted Living Transfer to: [facility] Under care of provider: PCP followup 1 week; urology consult advised Consult as needed: Dental, Hearing, Mental health, Podiatry and Vision Discharge orders & Medications Discharge Orders: Discharge (Order); Ordered 08/16/24 Ordered By: Earl Anderson Prescriptions: New amoxicillin-pot clavulanate 875-125 mg tablet 1 tab PO BID Qty: 10 0RF Continued loratadine 10 mg Tablet 10 mg PO DAILY multivitamin with iron-mineral Tablet 1 tab PO DAILY potassium chloride 20 mEq Tablet Extended Release 40 meq PO DAILY trazodone 50 mg Tablet 25 mg PO BEDTIME cholecalciferol (vitamin D3) 125 mcg (5,000 unit) Tablet 5,000 unit PO DAILY albuterol sulfate 90 mcg/actuation HFA aerosol inhaler 2 puff INHALATION BID baclofen 10 mg Tablet 10 mg PO BID metformin 500 mg Tablet 500 mg PO BIDWM docusate sodium [Colace] 100 mg Capsule 200 mg PO BID Patient Comments: No Longer takes. Rx Instructions: HOLD FOR LOOSE STOOLS nystatin 100,000 unit/gram Powder 1 applic TOPICAL BID sennosides [senna] 8.6 mg Tablet 8.6 mg PO BID PRN (Reason: Constipation) ondansetron 4 mg tablet,disintegrating 4 mg PO Q8H PRN (Reason: nausea and vomiting) Qty: 10 0RF atorvastatin 40 mg tablet 40 mg PO BEDTIME sertraline 100 mg tablet 100 mg PO DAILY acetaminophen 500 mg tablet 1,000 mg PO TID bupropion HCl 100 mg tablet 100 mg PO TID tamsulosin 0.4 mg capsule 0.4 mg PO BEDTIME gabapentin 100 mg capsule 100 mg PO TID Spiriva Respimat 2.5 mcg/actuation mist 2 puff inhalation DAILY furosemide [Lasix] 40 mg tablet 80 mg PO DAILY furosemide [Lasix] 40 mg Tablet 40 mg PO 1600 Discontinued hydrocodone-acetaminophen 5-325 mg Tablet 1 tab PO Q6H PRN (Reason: pain management) Rx Instructions: do not reorder once medication gone Follow up/Referrals: Ellen Us ARNP [Primary Care Provider] - Visit Report/Discharge Packet Stand Alone Forms: Patient Portal/API, Stroke Signs & Symptoms Discharge Data Primary Care Provider: Ellen Us Quality MIPS - Admit I confirm the patient?s Advance Care Plan is present, Code status is documented, Surrogate decision maker is in patient?s record [If Yes, STOP here]: Yes MIPS - Meds 'Current medications' to include all prescriptions, ywqz-sxo-xrqoiiv products, herbals, cannabis/cannabidiol products, and vitamin/mineral/dietary (nutritional) supplements. I have utilized all available resources to obtain, update, or review the patient?s current medications. [If Yes, STOP here]: Yes MIPS - DC The patient has a history of heart transplant or Left Ventricular Assist Device (LVAD). If yes, STOP here.: No The patient has current or prior documentation of left ventricular ejection fraction (LVEF) less than or equal to 40%, or moderate or severely depressed left ventricular systolic function.: No A. The patient was prescribed or already taking an Angiotensin-Converting Enzyme (CARLOS) Inhibitor, or Angiotensin Receptor Joie (ARB).: No B. The patient was prescribed or already taking a beta-joie. [If Yes to Both A & B, STOP here]: No Patient not prescribed/taking CARLOS or ARB, no reason given.: No Patient not prescribed/taking beta-joie, no reason given.: No PROFEE Charge Codes Discharge inpatient/observation: [id number]
--- NOTE | 2024-08-16 13:46 | CM.DPNOTE ---
DC Note Discharge today back to [facility] ([facility]), patient aware and agreeable to this plan. Placed call to [facility] defense travel administrator Daniel Duran P [phone], updated. [facility] full service vending driver Donal on his way, ETA approx 1:30pm, Donal will bring a wheelchair. New antibiotic Rx has been electronically transmitted to [facility] pharmacy. Plan: Discharge back to [facility] today via wheelchair van. ALFREDITO
--- NOTE | 2024-08-16 13:53 | PC.NURSE ---
IV and tele removed. D/c summary printed and handed to facility personnel. Pt exited via w/c with facility personnel.
== END 2024-08-16 13:54 | DRG 177 ==
LOC: ED 08-14 03:34 → AC 08-14 07:45
PROVIDERS: Hospitalist; Admitting Provider Internal Medicine; Emergency Provider Emergency Medicine; PCP Nurse Practitioner Gerontology; Visit Provider Internal Medicine
DX: J69.0 Pneumonitis due to inhalation of food and vomit (principal); J96.21 Acute and chronic respiratory failure with hypoxia; J44.1 Chronic obstructive pulmonary disease with (acute) exacerbation; N13.8 Other obstructive and reflux uropathy; E66.01 Morbid (severe) obesity due to excess calories; F32.9 Major depressive disorder, single episode, unspecified; N40.1 Benign prostatic hyperplasia with lower urinary tract symptoms; E11.22 Type 2 diabetes mellitus with diabetic chronic kidney disease; N18.30 Chronic kidney disease, stage 3 unspecified; R33.8 Other retention of urine; I12.9 Hypertensive chronic kidney disease with stage 1 through stage 4 chronic kidney disease, or unspecified chronic kidney disease; I25.10 Atherosclerotic heart disease of native coronary artery without angina pectoris; Z68.38 Body mass index [BMI] 38.0-38.9, adult; Z87.891 Personal history of nicotine dependence; Z79.84 Long term (current) use of oral hypoglycemic drugs
CPT/HCPCS: 0241U; 36415; 71045; 71275; 74230; 80048; 80053; 81001; 82550; 82962; 83605; 83880; 84145; 84484; 85025; 87040; 87077; 87154; 87186; 87507; 92610; 92611; 93005; 94762; 96365; 96375; 99285; J1650; J1815; J2543; J2919; Q9967

== ENCOUNTER 2024-09-29 10:00 | Emergency (ER) | payer MEDICARE, SELFPAY ==
[2024-08-14 03:39] VITALS: BMI 38.2
[2024-09-29] VITALS (21 sets, daily range): BP systolic 126–207; BP diastolic 59–77; PULSE 57–72; RESP 16–20; TEMP 37.1; O2SAT 89–99; BMI 35.5
--- NOTE | 2024-09-29 10:18 | DI.CT.S_ITS ---
PROCEDURE: CT ABDOMEN PELVIS W CON INDICATIONS: r/o SBO TECHNIQUE: After the administration of intravenous contrast, axial sections acquired from the lung bases to the pubic symphysis. Coronal and sagittal reformats were performed. For radiation dose reduction, the following was used: automated exposure control, adjustment of mA and/or kV according to patient size. COMPARISON: [facility], CT, CT ABDOMEN PELVIS W CON, 02/26/2023, 1:33. FINDINGS: Image quality: Diagnostic. Lower Chest: Bibasilar dependent atelectasis is seen. Heart size is enlarged, no pericardial effusion. Moderate size hiatal hernia. ABDOMEN: Liver: No solid mass. Moderate hepatic steatosis. Well-circumscribed hypodensities scattered in liver parenchyma unchanged from prior study and likely represent hepatic cysts. Gallbladder: No radiopaque gallstones or wall thickening. Biliary ducts: No biliary dilation. Pancreas: No ductal dilation. Spleen: Size is within normal limits. Adrenal Glands: No adrenal nodules. Kidneys and Ureters: No hydronephrosis. No solid mass. Simple appearing bilateral renal cysts are again seen unchanged from prior study. No complex renal cystic lesion which requires follow up. Stomach and Bowel: There is no evidence of bowel obstruction. No gastric or small bowel wall thickening. No colonic wall thickening. Large amount of fecal matter throughout the colon is seen extending to sigmoid colon and rectum concerning for fecal impaction. No abscess collection. Peritoneum: No abnormal intraperitoneal fluid. No free air. Ventral Wall: No significant ventral hernia. Abdominal Nodes: No retroperitoneal or mesenteric adenopathy by size criteria. Vessels: Aorta and inferior vena cava are normal in size. PELVIS: Pelvic Organs: Unremarkable. Bladder: No bladder wall thickening, accounting for underdistention. Pelvic Nodes: No enlarged lymph nodes. Miscellaneous: No inguinal hernias are seen. Bones: No aggressive osseous abnormality. Postsurgical changes are noted in bilateral hip joints from prior bilateral total hip arthroplasty. Degenerative disc disease throughout lower thoracic and lumbar spine is seen. IMPRESSION: 1. Moderate to severe constipation and fecal impaction. No evidence of bowel obstruction or abnormal bowel wall thickening. No free fluid or free air. No abscess collection. 2. No obstructing renal stones or hydronephrosis. Bilateral renal cysts not significantly changed from prior study. 3. Other findings as above, not significantly changed from prior studies. Dictated by: Kris Cooper M.D. on 09/29/2024 at 12:18 Approved by: Kris Cooper M.D. on 09/29/2024 at 12:20
[2024-09-29 10:31] LABS: Add Manual Diff / Slide Review NO; Basophils Absolute Auto 0 /uL (0-100); Basophils Percent Auto 0.2 % (0-2); Eosinophils Absolute Auto 0 /uL (0-450); Eosinophils Percent Auto 0.3 % (2-4); Hematocrit 44.8 % (41-53); Hemoglobin 14.8 g/dL (13.5-17.5); Lymphocytes Absolute Auto 700 /uL (1100-4500); Lymphocytes Percent Auto 7.7 % (25-40); Mean Corpuscular Hemoglobin 30.6 PG (26-34); Mean Corpuscular Volume 92.5 fL (80-100); Monocytes Absolute Auto 500 /uL (0-900); Monocytes Percent Auto 5.4 % (3-14); Neutrophils Absolute Auto 8300 /uL (1500-7000); Neutrophils Percent Auto 86.4 % (50-75); Platelet Count 186 X10^3/uL (150-400); Red Blood Cell Count 4.85 X10^6/uL (4.5-5.9); Red Cell Distribution Width 15.2 % (11.6-14.8); White Blood Cell Count 9.6 X10^3/uL (4.5-11.0)
--- NOTE | 2024-09-29 10:36 | DI.CT.S_ITS ---
PROCEDURE: CT STROKE INDICATIONS: facial droop TECHNIQUE: Noncontrast 4.5 mm thick angled axial sections acquired from the foramen magnum to the vertex, with coronal reformats. For radiation dose reduction, the following was used: automated exposure control, adjustment of mA and/or kV according to patient size. COMPARISON: [facility], CT, CT HEAD/BRAIN WO CON, 10/19/2020, 14:46. FINDINGS: Image quality: Diagnostic. CSF spaces: Basal cisterns are patent. No extra-axial fluid collections. The ventricles are symmetric in size and shape. Brain: No intracranial bleeds . Patient's known 19 mm hyperdense parafalcine left parietal extra-axial mass remains unchanged and is consistent with calcified meningioma. There is cerebral volume loss, with resultant ventricular and sulcal prominence. There are periventricular and deep white matter chronic small vessel ischemic changes. There is intracranial internal carotid artery atherosclerosis. Skull and face: Calvarium and visualized facial bones appear intact, without suspicious lesions. Sinuses: Visualized sinuses and mastoids are clear. IMPRESSION: 1. No acute intracranial pathology. No significant changes from prior study. Findings were reported to ordering ER physician at the time of dictation. This study fulfills neurological imaging criteria for inclusion or exclusion of acute stroke therapies based on available published neurological guidelines. Dictated by: Kris Cooper M.D. on 09/29/2024 at 10:54 Approved by: Kris Cooper M.D. on 09/29/2024 at 10:57
--- NOTE | 2024-09-29 10:36 | DI.CT.S_ITS ---
PROCEDURE: CT ANGIO HEAD AND NECK INDICATIONS: facial droop TECHNIQUE: After the administration of intravenous contrast, 1 mm thick sections acquired from the aortic arch through the [place]. 3-dimensional zzkjrzq-dvgdzoeir-rsdnacjwfl (MIP) and/or volume rendering reformats were acquired of the central intracranial vasculature and neck separately. For radiation dose reduction, the following was used: automated exposure control, adjustment of mA and/or kV according to patient size. COMPARISON: None. FINDINGS: Image quality: Diagnostic. Patient motion is noted. Cerebral CT Angiogram: Internal carotid arteries: No acute findings. Intracranial ICA are patent with no significant stenosis. No occlusion. No aneurysm. Anterior cerebral arteries: Unremarkable. No significant stenosis. No occlusion. No aneurysm. Middle cerebral arteries: Unremarkable. No significant stenosis. No occlusion. No aneurysm. Posterior cerebral arteries: Unremarkable. No significant stenosis. No occlusion. No aneurysm. Basilar artery: Unremarkable. No significant stenosis. No occlusion. No aneurysm. Vertebral arteries: Unremarkable as visualized. Dural venous sinuses: Unremarkable given phase of enhancement. Other: Arterial phase appearance of the brain parenchyma is unremarkable. Neck CT Angiogram: Internal carotid arteries: Unremarkable. No significant stenosis. No dissection or occlusion. Common carotid arteries: Unremarkable. No significant stenosis. No dissection or occlusion. External carotid arteries: Unremarkable. No occlusion. Vertebral arteries: Unremarkable. No significant stenosis. No dissection or occlusion. Aortic Arch and Mediastinum: Partially visualized aortic arch unremarkable without evidence of aneurysm. Origins of the great vessels unremarkable. Other: Arterial phase soft tissues of the neck and chest are unremarkable. IMPRESSION: 1. Slightly degraded study due to patient motion. 2. No hemodynamically significant stenosis or aneurysm is seen in the intracranial circulation. 3. No hemodynamically significant stenosis are noted in bilateral neck arteries. Any quantitative measurements of stenosis were performed using NASCET criteria. Dictated by: Kris Cooper M.D. on 09/29/2024 at 11:00 Approved by: Kris Cooper M.D. on 09/29/2024 at 11:01
--- NOTE | 2024-09-29 10:38 | ED.NAVMDI ---
HPI - Nausea/Vomiting/Diarrhea General Chief complaint: Nausea/Vomiting/Diarrhea Stated complaint: N/V Time Seen by Provider: 09/29/24 10:10 Source: patient and EMS History of Present Illness HPI Narrative: Patient is an 79-year-old male with history of COPD, CHF, diabetes, sent in from assisted living facility for vomiting. Per report, patient has had multiple episodes of vomiting starting the evening prior to presentation. Has also had an episode of diarrhea. Patient denies any chest pain, shortness of breath, fever. Related Data Home Medications Medication Instructions Recorded Confirmed albuterol sulfate 90 mcg/actuation 2 puff inhalation BID 07/05/20 08/14/24 aerosol inhaler baclofen 10 mg tablet 10 mg PO BID 07/05/20 08/14/24 cholecalciferol (vitamin D3) 125 5,000 unit PO DAILY 07/05/20 08/14/24 mcg (5,000 unit) tablet docusate sodium 100 mg capsule 200 mg PO BID 07/05/20 08/14/24 (Colace) loratadine 10 mg tablet 10 mg PO DAILY 07/05/20 08/14/24 metformin 500 mg tablet 500 mg PO BIDWM 07/05/20 08/14/24 multivitamin with iron-mineral 1 tab PO DAILY 07/05/20 08/14/24 nystatin 100,000 unit/gram topical 1 applic topical BID 07/05/20 08/13/24 powder potassium chloride 20 mEq 40 meq PO DAILY 07/05/20 08/14/24 tablet,extended release sennosides 8.6 mg tablet (senna) 8.6 mg PO BID PRN Constipation 07/05/20 08/14/24 trazodone 50 mg tablet 25 mg PO BEDTIME 07/05/20 08/14/24 acetaminophen 500 mg tablet 1,000 mg PO TID 08/13/24 08/13/24 atorvastatin 40 mg tablet 40 mg PO BEDTIME 08/13/24 08/14/24 bupropion HCl 100 mg tablet 100 mg PO TID 08/13/24 08/14/24 gabapentin 100 mg capsule 100 mg PO TID 08/13/24 08/14/24 sertraline 100 mg tablet 100 mg PO DAILY 08/13/24 08/14/24 tamsulosin 0.4 mg capsule 0.4 mg PO BEDTIME 08/13/24 08/14/24 tiotropium bromide 2.5 2 puff inhalation DAILY 08/13/24 08/14/24 mcg/actuation mist for inhalation (Spiriva Respimat) furosemide 40 mg tablet (Lasix) 40 mg PO 1600 08/14/24 08/14/24 furosemide 40 mg tablet (Lasix) 80 mg PO DAILY 08/14/24 08/14/24 Previous Rx's Medication Instructions Recorded ondansetron 4 mg disintegrating 4 mg PO Q8H PRN nausea and 06/12/24 tablet vomiting #10 tabs amoxicillin 875 mg-potassium 1 tab PO BID #10 tabs 08/16/24 clavulanate 125 mg tablet Allergies Allergy/AdvReac Type Severity Reaction Status Date / Time lisinopril Allergy Unknown Cough Verified 01/06/24 01:58 Review of Systems Review of Systems ROS Unobtainable: All systems reviewed & are unremarkable except as noted in HPI and below Constitutional Constitutional: Denies fever(s) Patient History Medical History CKD (chronic kidney disease) stage 3, GFR 30-59 ml/min BPH w urinary obs/LUTS Nocturia Morbid obesity with BMI of 40.0-44.9, adult 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 History of traumatic brain injury Other abnormalities of gait and mobility Muscle weakness (generalized) Major depressive disorder Essential hypertension Cardiomegaly Benign prostatic hyperplasia without lower urinary tract symptoms COPD (chronic obstructive pulmonary disease) Surgical History H/O left knee surgery History of ankle surgery History of hip surgery History of foot surgery Family History Mother Diabetes mellitus Hypertension Father Congestive heart failure Social History household members: caregiver alcohol intake: former tobacco type: cigarettes alcohol intake frequency: holidays/special occasions only Exam Initial Vital Signs Initial Vital Signs: Vital Signs Temperature 98.7 F 09/29/24 10:03 Pulse Rate 71 09/29/24 10:03 Respiratory Rate 16 09/29/24 10:03 Blood Pressure 131/65 09/29/24 10:03 Pulse Oximetry 96 09/29/24 10:03 Oxygen Delivery Method Room Air 09/29/24 10:03 Const General: No acute distress Nutritional Appearance: obese GI Palpation: soft and No tender Course Orders Ordered: Discontinued Medications Ondansetron HCl (Ondansetron 4 Mg/2 Ml Inj) 4 mg IV NOW PRN PRN Reason: Nausea And Vomiting Ondansetron HCl (Ondansetron 4 Mg Odt) 4 mg PO NOW PRN PRN Reason: Nausea And Vomiting Reevaluation(s) Reevaluation #1: Called into room when patient's O2 sats dropped to 88%, patient noted to have right-sided facial droop. He remains arousable to voice, generally lethargic. Does have persistent facial droop with effort. Will plan for code stroke. Patient will defer a point of care glucose, CT head non-con and CTA head and neck. Time: 10:38 Vital Signs Vital signs: Vital Signs - 8 hr 09/29/24 10:03 Temperature 98.7 F Pulse Rate 71 Respiratory Rate 16 Blood Pressure 131/65 Pulse Oximetry 96 Oxygen Delivery Method Room Air MDM - Nausea/Vomiting/Diarrhea Differential Diagnosis Differential diagnosis: Likely food poisoning, gastroenteritis, clostridium difficile infection, drug-induced nausea and vomiting, dehydration and other (Vertigo, posterior CVA) Medical Records Attestation: I reviewed the patient's medical records. Lab Data Attestation: I reviewed the patient's lab results. 09/29/24 10:24 09/29/24 10:24 Labs: Lab Results 09/29/24 09/29/24 Range/Units 10:24 14:28 WBC 9.6 (4.5-11.0) X10^3/uL RBC 4.85 (4.5-5.9) X10^6/uL Hgb 14.8 (13.5-17.5) g/dL Hct 44.8 (41-53) % MCV 92.5 (80-100) fL MCH 30.6 (26-34) PG MCHC 33.0 (30-36) % RDW 15.2 H (11.6-14.8) % Plt Count 186 (150-400) X10^3/uL Neut % (Auto) 86.4 H (50-75) % Lymph % (Auto) 7.7 L (25-40) % [place] % (Auto) 5.4 (3-14) % Eos % (Auto) 0.3 L (2-4) % Baso % (Auto) 0.2 (0-2) % Neut # (Auto) 8300 H (4611-3967) /uL Lymph # (Auto) 700 L (8203-2792) /uL [place] # (Auto) 500 (0-900) /uL Eos # (Auto) 0 (0-450) /uL Baso # (Auto) 0 (0-100) /uL Sodium 138 (137-145) mmol/L Potassium 4.5 (3.4-5.1) mmol/L Chloride 100 (98-107) mmol/L Carbon Dioxide 30 (22-32) mmol/L BUN 25 H (9-20) mg/dL Creatinine 1.30 H (0.66-1.25) mg/dL Estimated GFR 56 L (>60) mL/min BUN/Creatinine Ratio 19.2 (6-22) Glucose 139 H (70-99) mg/dL Lactate 1.6 (0.7-2.1) mmol/L Calcium 9.4 (8.4-10.2) mg/dL Total Bilirubin 0.5 (0.2-1.3) mg/dL AST 25 (17-59) IU/L ALT 20 (<50) IU/L Alkaline Phosphatase 55 (38-126) U/L Troponin I < 0.012 (0.01-0.034) ng/mL Total Protein 7.2 (6.3-8.2) g/dL Albumin 4.5 (3.5-5.0) g/dL Globulin 2.7 (1.7-4.1) g/dL Albumin/Globulin Ratio 1.7 (1.0-2.8) Lipase 192 (23-300) U/L Urine Color Yellow Urine Appearance Clear Urine pH 5.5 (4.5-8.0) Ur Specific [place] 1.010 (1.000-1.035) Urine Protein Negative (Negative) Urine Glucose (UA) Negative (Negative) g/dL Urine Ketones Negative (NEGATIVE) Urine Occult Blood Negative (Negative) Urine Nitrate Negative (Negative) Urine Bilirubin Negative (NEGATIVE) Urine Urobilinogen 0.2 (0.2) E.U./dL Ur Leukocyte Esterase Negative (NEGATIVE) Urine RBC None seen (0-5/HPF) Urine WBC 0-1/hpf (0-5/HPF) Ur Squamous Epith Cells None seen (0-5/HPF) Urine Bacteria None seen (None) Ur Culture Indicated? Cult not indicated Vol Urine Centrifuged 10ml (spun) Point of Care Testing Glucose POC [address] scan - head: Attestation: I personally reviewed and interpreted this imaging study as follows: My Impression: Notable for hyperdense circular abnormality in the posterior midline, most consistent with calcified meningioma on independent review ECG Data Attestation: I personally reviewed and interpreted this ECG as follows: Prior ECG tracings: available for review Interpretation: EKG demonstrating sinus rhythm at a rate of 64, MA 232, QTC 427, similar when compared to prior including first-degree AV block with prolonged MA, without evidence of acute ischemic changes on independent review MDM Narrative Medical decision making narrative: Differential includes SBO, gastroenteritis, C diff, colitis, electrolyte abnormality, kidney injury, dehydration. Called back to the room given change in patient's mental status, notable for right sided facial droop activated as a code stroke and sent for CT imaging. Patient arousable in with return to baseline mental status following imaging. Without further emesis and workup largely without acute abnormalities or findings to suggest dehydration, electrolyte abnormality, infection requiring antibiotics or admission. Discharge Plan Departure Patient Disposition: Assisted Living Clinical Impression: Nausea, Vomiting, and Diarrhea, Calcified cerebral meningioma Instructions: DI for Nausea -- Adult Activity Restrictions/Additional Instructions: You were seen in the emergency department for your nausea and vomiting. Evaluation here was overall reassuring and did not demonstrate any evidence of an acute process that would require intervention or admission to the hospital. Your CT imaging did demonstrate a large stool burden however we are reassured as you have had a bowel movement here. Please follow-up closely with your primary care doctor for re-evaluation and further management. If you develop worsening nausea, vomiting, or unable to tolerate fluids, have urinary symptoms, or other symptoms that are concerning to you, please return to the emergency department for further evaluation. Prescriptions: No Action loratadine 10 mg Tablet 10 mg PO DAILY multivitamin with iron-mineral Tablet 1 tab PO DAILY potassium chloride 20 mEq Tablet Extended Release 40 meq PO DAILY trazodone 50 mg Tablet 25 mg PO BEDTIME cholecalciferol (vitamin D3) 125 mcg (5,000 unit) Tablet 5,000 unit PO DAILY albuterol sulfate 90 mcg/actuation HFA aerosol inhaler 2 puff INHALATION BID baclofen 10 mg Tablet 10 mg PO BID metformin 500 mg Tablet 500 mg PO BIDWM docusate sodium [Colace] 100 mg Capsule 200 mg PO BID Patient Comments: No Longer takes. Rx Instructions: HOLD FOR LOOSE STOOLS nystatin 100,000 unit/gram Powder 1 applic TOPICAL BID sennosides [senna] 8.6 mg Tablet 8.6 mg PO BID PRN (Reason: Constipation) ondansetron 4 mg tablet,disintegrating 4 mg PO Q8H PRN (Reason: nausea and vomiting) Qty: 10 0RF atorvastatin 40 mg tablet 40 mg PO BEDTIME sertraline 100 mg tablet 100 mg PO DAILY acetaminophen 500 mg tablet 1,000 mg PO TID bupropion HCl 100 mg tablet 100 mg PO TID tamsulosin 0.4 mg capsule 0.4 mg PO BEDTIME gabapentin 100 mg capsule 100 mg PO TID Spiriva Respimat 2.5 mcg/actuation mist 2 puff inhalation DAILY furosemide [Lasix] 40 mg tablet 80 mg PO DAILY furosemide [Lasix] 40 mg Tablet 40 mg PO 1600 amoxicillin-pot clavulanate 875-125 mg tablet 1 tab PO BID Qty: 10 0RF Referrals: Ellen Us ARNP [Primary Care Provider] -
--- NOTE | 2024-09-29 10:39 | PC.NURSE ---
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 h/o COPD non O2 dependent. Alerted RN that pt's R side of mouth appeared to have droop and flat nasolabial fold. Pt assessed by this RN. mild flaccidity of R arm as well as R droop. Code stroke called. aware. Glucose 124. placed on 2L O2 via NC. Pt to CT with RNx2 and DI.
[2024-09-29 10:42] LABS: Lactate (Lactic Acid) 1.6 mmol/L (0.7-2.1)
[2024-09-29 10:43] LABS: Alanine Aminotransferase 20 IU/L (<50); Albumin 4.5 g/dL (3.5-5.0); Albumin Globulin Ratio 1.7 (1.0-2.8); Alkaline Phosphatase 55 U/L (38-126); Aspartate Aminotransferase 25 IU/L (17-59); BUN Creatinine Ratio 19.2 (6-22); Bilirubin Total 0.5 mg/dL (0.2-1.3); Blood Urea Nitrogen 25 mg/dL (9-20); Calcium 9.4 mg/dL (8.4-10.2); Carbon Dioxide 30 mmol/L (22-32); Chloride 100 mmol/L (98-107); Estimated Glomerular Filt Rate 56 mL/min (>60); Globulin 2.7 g/dL (1.7-4.1); Glucose 139 mg/dL (70-99); HEMOLYSIS < 15 (0-50); Lipase 192 U/L (23-300); Potassium 4.5 mmol/L (3.4-5.1); Sodium 138 mmol/L (137-145); Total Protein 7.2 g/dL (6.3-8.2)
[2024-09-29 10:55] LABS: Troponin I < 0.012 ng/mL (0.01-0.034)
--- NOTE | 2024-09-29 10:55 | EKG_ITS ---
[facility] [address] [place] [address] Test Date: 2024-09-29 Pat Name: Suman Baumann Department: [facility] Room: Gender: Male [employer]: : [id number] Requested By: Order Number: [id number] Reading MD: Ramírez Larson Measurements Intervals [place] Rate: 64 P: 50 NE: 232 QRS: -72 QRSD: 108 T: 69 QT: 414 QTc: 427 Interpretive Statements Sinus rhythm with sinus arrhythmia with 1st degree AV block Left axis deviation Low voltage QRS Inferior infarct , age undetermined Cannot rule out Anterior infarct , age undetermined Electronically Signed On 09-29-2024 18:36:54 PDT by Ramírez Larson
--- NOTE | 2024-09-29 11:27 | PC.NURSE ---
Pt sitting up in bed. Remains on 2L NC. [place], [id number], oriented.
--- NOTE | 2024-09-29 14:00 | PC.NURSE ---
Pt produced copious incontinent BM & urine. Incontinent care & shira care performed & brief changed. Full linen change on bed & gown changed. Pt feet elevated & tipped to right side.
[2024-09-29 14:36] LABS: Appearance Urine UA CLEAR; Bilirubin Urine UA NEGATIVE (NEGATIVE); Color Urine UA YELLOW; Glucose Urine UA NEGATIVE (Negative); Ketones Urine UA NEGATIVE (NEGATIVE); Leukocyte Esterase Urine UA NEGATIVE (NEGATIVE); Nitrite Urine UA NEGATIVE (Negative); Occult Blood Urine UA NEGATIVE (Negative); Protein Urine UA NEGATIVE (Negative); Urobilinogen Urine UA 0.2 E.U./dL (0.2); pH Urine UA 5.5 (4.5-8.0)
[2024-09-29 14:50] LABS: RBC Urine None Seen (0-5/HPF); Urine Volume 10mL (spun); WBC Urine 0-1/HPF (0-5/HPF)
[2024-09-29 14:52] LABS: Bacteria Urine None Seen; Culture Indicated Urine Cult Not Indicated; Squamous Epithelial Cell Urine None Seen (0-5/HPF)
== END 2024-09-29 16:28 ==
PROVIDERS: Emergency Provider Student in an Organized Health Care Education/Training Program; PCP Nurse Practitioner Gerontology
DX: R11.2 Nausea with vomiting, unspecified (principal); D32.0 Benign neoplasm of cerebral meninges; R29.810 Facial weakness; R19.7 Diarrhea, unspecified
CPT/HCPCS: 70450; 70496; 70498; 74177; 80053; 81001; 82962; 83605; 83690; 84484; 85025; 93005; 96374; 99285; Q9967

== ENCOUNTER → 2024-10-09 07:46 | Outpatient (ROUT) | payer MEDICARE, SELFPAY ==
[2024-08-14 03:39] VITALS: BMI 38.2
[2024-10-09 07:59] LABS: Hematocrit 41.7 % (41-53); Hemoglobin 13.8 g/dL (13.5-17.5); Mean Corpuscular HGB Conc 33.1 % (30-36); Mean Corpuscular Hemoglobin 30.5 PG (26-34); Mean Corpuscular Volume 92.1 fL (80-100); Platelet Count 165 X10^3/uL (150-400); Red Blood Cell Count 4.53 X10^6/uL (4.5-5.9); Red Cell Distribution Width 15.2 % (11.6-14.8); White Blood Cell Count 6.2 X10^3/uL (4.5-11.0)
[2024-10-09 08:08] LABS: Hemoglobin A1C% w Est Avg Glu 5.3 % (4.0-6.0)
[2024-10-09 08:13] LABS: BUN Creatinine Ratio 21.5 (6-22); Blood Urea Nitrogen 29 mg/dL (9-20); Calcium 8.9 mg/dL (8.4-10.2); Carbon Dioxide 32 mmol/L (22-32); Chloride 99 mmol/L (98-107); Cholesterol 87 mg/dL (140-199); Estimated Glomerular Filt Rate 53 mL/min (>60); Glucose 81 mg/dL (70-99); HDL Cholesterol 25 mg/dL (40-60); HEMOLYSIS < 15 (0-50); LDL Cholesterol Calculated 41 mg/dL (<100); Magnesium 1.8 mg/dL (1.6-2.3); Potassium 4.3 mmol/L (3.4-5.1); Sodium 139 mmol/L (137-145); Triglycerides 103 mg/dL (35-150)
[2024-10-09 09:01] LABS: Vitamin B12 518 pg/mL (239-931)
== END ==
LOC: LAB 07:47
PROVIDERS: PCP Nurse Practitioner Gerontology; Visit Provider Hospitalist
DX: E11.8 Type 2 diabetes mellitus with unspecified complications (principal); D64.9 Anemia, unspecified
CPT/HCPCS: 36415; 80048; 80061; 82306; 82607; 83036; 83735; 85027

== ENCOUNTER → 2024-10-16 07:57 | Outpatient (ROUT) | payer MEDICARE, SELFPAY ==
[2024-08-14 03:39] VITALS: BMI 38.2
[2024-10-16 08:37] LABS: Hematocrit 43.4 % (41-53); Hemoglobin 14.2 g/dL (13.5-17.5); Mean Corpuscular HGB Conc 32.7 % (30-36); Mean Corpuscular Hemoglobin 30.1 PG (26-34); Mean Corpuscular Volume 92.1 fL (80-100); Platelet Count 153 X10^3/uL (150-400); Red Blood Cell Count 4.71 X10^6/uL (4.5-5.9); Red Cell Distribution Width 14.9 % (11.6-14.8); White Blood Cell Count 6.2 X10^3/uL (4.5-11.0)
[2024-10-16 08:48] LABS: Blood Urea Nitrogen 25 mg/dL (9-20); Calcium 8.9 mg/dL (8.4-10.2); Carbon Dioxide 29 mmol/L (22-32); Chloride 103 mmol/L (98-107); Cholesterol 93 mg/dL (140-199); Estimated Glomerular Filt Rate > 60 mL/min (>60); Glucose 96 mg/dL (70-99); HDL Cholesterol 27 mg/dL (40-60); HEMOLYSIS 28 (0-50); LDL Cholesterol Calculated 47 mg/dL (<100); Magnesium 1.9 mg/dL (1.6-2.3); Potassium 4.4 mmol/L (3.4-5.1); Sodium 138 mmol/L (137-145); Triglycerides 93 mg/dL (35-150)
[2024-10-16 09:31] LABS: Hemoglobin A1C% w Est Avg Glu 5.4 % (4.0-6.0)
[2024-10-16 09:36] LABS: Vitamin B12 404 pg/mL (239-931)
[2024-10-16 10:21] LABS: Vitamin D 25 Hydroxy (D3) 64.8 ng/mL (30.0-100.0)
== END ==
LOC: LAB 07:58
PROVIDERS: PCP Nurse Practitioner Gerontology; Visit Provider Registered Nurse
DX: E11.40 Type 2 diabetes mellitus with diabetic neuropathy, unspecified (principal); I10 Essential (primary) hypertension; E66.01 Morbid (severe) obesity due to excess calories; I25.10 Atherosclerotic heart disease of native coronary artery without angina pectoris; I51.7 Cardiomegaly
CPT/HCPCS: 36415; 80048; 80061; 82306; 82607; 83036; 83735; 85027

== ENCOUNTER 2024-10-22 01:17 | Emergency (ER) | payer MEDICARE, SELFPAY ==
[2024-08-14 03:39] VITALS: BMI 38.2
[2024-10-22] VITALS (19 sets, daily range): BP systolic 126–166; BP diastolic 59–75; PULSE 57–67; RESP 15–27; TEMP 36.7; O2SAT 87–96; BMI 38.7
[2024-10-22] MEDS: ALBUTEROL/IPRATROPIUM 3 ML AMPUL INH (01:40)
[2024-10-22 01:55] LABS: Add Manual Diff / Slide Review NO; Basophils Absolute Auto 0 /uL (0-100); Basophils Percent Auto 0.3 % (0-2); Eosinophils Absolute Auto 200 /uL (0-450); Hemoglobin 14.2 g/dL (13.5-17.5); Lymphocytes Absolute Auto 1000 /uL (1100-4500); Lymphocytes Percent Auto 15.6 % (25-40); Mean Corpuscular HGB Conc 32.9 % (30-36); Mean Corpuscular Hemoglobin 30.4 PG (26-34); Mean Corpuscular Volume 92.3 fL (80-100); Monocytes Absolute Auto 500 /uL (0-900); Monocytes Percent Auto 8.1 % (3-14); Neutrophils Absolute Auto 4500 /uL (1500-7000); Platelet Count 146 X10^3/uL (150-400); Red Blood Cell Count 4.66 X10^6/uL (4.5-5.9); White Blood Cell Count 6.2 X10^3/uL (4.5-11.0)
[2024-10-22 02:02] LABS: Alanine Aminotransferase 18 IU/L (<50); Albumin Globulin Ratio 1.6 (1.0-2.8); Alkaline Phosphatase 47 U/L (38-126); Aspartate Aminotransferase 22 IU/L (17-59); BUN Creatinine Ratio 18.9 (6-22); Bilirubin Total 0.4 mg/dL (0.2-1.3); Blood Urea Nitrogen 24 mg/dL (9-20); Calcium 8.8 mg/dL (8.4-10.2); Carbon Dioxide 29 mmol/L (22-32); Chloride 102 mmol/L (98-107); Estimated Glomerular Filt Rate 57 mL/min (>60); Globulin 2.5 g/dL (1.7-4.1); Glucose 148 mg/dL (70-99); HEMOLYSIS 41 (0-50); Lipase 275 U/L (23-300); Potassium 4.4 mmol/L (3.4-5.1); Sodium 138 mmol/L (137-145); Total Protein 6.5 g/dL (6.3-8.2)
--- NOTE | 2024-10-22 02:40 | DI.CT.S_ITS ---
PROCEDURE: CT ABDOMEN PELVIS W CON INDICATIONS: N/V/Abd pain TECHNIQUE: After the administration of intravenous contrast, axial sections acquired from the lung bases to the pubic symphysis. Coronal and sagittal reformats were performed. For radiation dose reduction, the following was used: automated exposure control, adjustment of mA and/or kV according to patient size. COMPARISON: [facility], CT, CT ABDOMEN PELVIS W CON, 02/26/2023, 1:33. [facility], CT, CT ABDOMEN PELVIS W CON, 09/29/2024, 11:17. FINDINGS: Image quality: Diagnostic. Lower Chest: Moderate hiatal hernia. Lower esophageal wall thickening, likely reactive . ABDOMEN: Liver: No solid mass. Hepatic cysts are present. Gallbladder: No radiopaque gallstones or wall thickening. Biliary ducts: No biliary dilation. Pancreas: No ductal dilation. Spleen: Size is within normal limits. Adrenal Glands: Stable 3.1 cm right adrenal nodule compared with 2022, statistically benign. Kidneys and Ureters: No hydronephrosis. Subcentimeter hypoattenuating and hyperattenuating lesions are similar to prior. Nonobstructing 3 mm left-sided nephrolithiasis. stable 1 cm exophytic hyper attenuating right renal lesion. Stomach and Bowel: Normal colonic caliber, without significant wall thickening. Moderate colonic stool load. Peritoneum: No abnormal intraperitoneal fluid. No free air. Ventral Wall: No significant ventral hernia. Abdominal Nodes: No retroperitoneal or mesenteric adenopathy by size criteria. Vessels: Aorta and inferior vena cava are normal in size. PELVIS: Pelvic Organs: Unremarkable. Bladder: No bladder wall thickening, accounting for underdistention. Pelvic Nodes: No enlarged lymph nodes. Miscellaneous: No inguinal hernias are seen. Bones: No aggressive osseous abnormality. IMPRESSION: Large colonic stool load without obstipation. Suspected reactive esophageal wall thickening. Multiple hyperattenuating and hypoattenuating subcentimeter renal lesions, not significantly changed in size compared with prior, favoring benign hemorrhagic/proteinaceous cysts. Indolent renal cell carcinoma is also consideration, but less likely. Other ancillary findings as above. Dictated by: David Knight M.D. on 10/22/2024 at 8:39 Approved by: David Knight M.D. on 10/22/2024 at 8:54
--- NOTE | 2024-10-22 02:52 | ED.NAVMDI ---
HPI - Nausea/Vomiting/Diarrhea General Chief complaint: Nausea/Vomiting/Diarrhea Stated complaint: vomitting Time Seen by Provider: 10/22/24 01:48 Source: patient Mode of arrival: EMS History of Present Illness HPI Narrative: 79-year-old male, current resident at [facility], complains of feeling nauseated with nonbloody emesis earlier this evening. Denies pain to chest, abdomen, flank, back, arms, legs, neck, head, face. Denies focal weakness to face arm or leg. Denies focal numbness to face arm or leg. Denies any shortness of breath, cough, fevers, chills, sore throat. Related Data Home Medications ?Medication ?Instructions ?Recorded ?Confirmed albuterol sulfate 90 mcg/actuation 2 puff inhalation BID 07/05/20 08/14/24 aerosol inhaler baclofen 10 mg tablet 10 mg PO BID 07/05/20 08/14/24 cholecalciferol (vitamin D3) 125 5,000 unit PO DAILY 07/05/20 08/14/24 mcg (5,000 unit) tablet docusate sodium 100 mg capsule 200 mg PO BID 07/05/20 08/14/24 (Colace) loratadine 10 mg tablet 10 mg PO DAILY 07/05/20 08/14/24 metformin 500 mg tablet 500 mg PO BIDWM 07/05/20 08/14/24 multivitamin with iron-mineral 1 tab PO DAILY 07/05/20 08/14/24 nystatin 100,000 unit/gram topical 1 applic topical BID 07/05/20 08/13/24 powder potassium chloride 20 mEq 40 meq PO DAILY 07/05/20 08/14/24 tablet,extended release sennosides 8.6 mg tablet (senna) 8.6 mg PO BID PRN Constipation 07/05/20 08/14/24 trazodone 50 mg tablet 25 mg PO BEDTIME 07/05/20 08/14/24 acetaminophen 500 mg tablet 1,000 mg PO TID 08/13/24 08/13/24 atorvastatin 40 mg tablet 40 mg PO BEDTIME 08/13/24 08/14/24 bupropion HCl 100 mg tablet 100 mg PO TID 08/13/24 08/14/24 gabapentin 100 mg capsule 100 mg PO TID 08/13/24 08/14/24 sertraline 100 mg tablet 100 mg PO DAILY 08/13/24 08/14/24 tamsulosin 0.4 mg capsule 0.4 mg PO BEDTIME 08/13/24 08/14/24 tiotropium bromide 2.5 2 puff inhalation DAILY 08/13/24 08/14/24 mcg/actuation mist for inhalation (Spiriva Respimat) furosemide 40 mg tablet (Lasix) 40 mg PO 1600 08/14/24 08/14/24 furosemide 40 mg tablet (Lasix) 80 mg PO DAILY 08/14/24 08/14/24 Previous Rx's ?Medication ?Instructions ?Recorded ondansetron 4 mg disintegrating 4 mg PO Q8H PRN nausea and 06/12/24 tablet vomiting #10 tabs amoxicillin 875 mg-potassium 1 tab PO BID #10 tabs 08/16/24 clavulanate 125 mg tablet Allergies Allergy/AdvReac Type Severity Reaction Status Date / Time lisinopril Allergy Unknown Cough Verified 10/22/24 01:46 Patient History Medical History CKD (chronic kidney disease) stage 3, GFR 30-59 ml/min BPH w urinary obs/LUTS Nocturia Morbid obesity with BMI of 40.0-44.9, adult Atherosclerotic heart disease of [place] coronary artery without angina pectoris History of traumatic brain injury Other abnormalities of gait and mobility Muscle weakness (generalized) Major depressive disorder Essential hypertension Cardiomegaly Benign prostatic hyperplasia without lower urinary tract symptoms COPD (chronic obstructive pulmonary disease) Surgical History H/O left knee surgery History of ankle surgery History of hip surgery History of foot surgery Family History Mother Diabetes mellitus Hypertension Father Congestive heart failure Social History household members: caregiver Smoking Status: Former smoker alcohol intake: former Smoking Status: Former smoker tobacco type: cigarettes alcohol intake frequency: holidays/special occasions only Exam Narrative Exam Narrative: GENERAL: Well-developed patient, in mild distress. HEAD: Atraumatic. Normocephalic. EYES: Pupils equal round and reactive. Extraocular motions intact. No scleral icterus. No injection or drainage. ENT: Nose without bleeding, purulent drainage. Throat without erythema, tonsillar hypertrophy or exudate. Airway patent. NECK: Trachea midline. Non tender CARDIOVASCULAR: Regular rate and rhythm without murmurs, gallops, or rubs. RESPIRATORY: Clear to auscultation. Breath sounds equal bilaterally. No wheezes, rales, or rhonchi. GASTROINTESTINAL: Abdomen soft, non-tender, nondistended. EXTREMITIES: No edema or joint tenderness. BACK: Nontender without deformity or crepitance. No flank tenderness. NEURO: AOx3. Motor functions grossly nonfocal. SKIN: No rash or erythema of visible areas Initial Vital Signs Initial Vital Signs: Vital Signs Pulse Rate 65 10/22/24 01:36 Respiratory Rate 23 10/22/24 01:36 Pulse Oximetry 92 10/22/24 01:36 Course Orders Ordered: Discontinued Medications Albuterol/Ipratropium (Albuterol/Ipratropium 3 Ml Ampul) 3 ml INH NOW ONE Stop: 10/22/24 01:36 Last Admin: 10/22/24 01:40 Dose: 3 ml Documented By: JOBY Famotidine (Famotidine 20 Mg/2 Ml Vial) 20 mg IV NOW JF Last Admin: 10/22/24 03:43 Dose: 20 mg Documented By: ELLIE Ondansetron HCl (Ondansetron 4 Mg/2 Ml Inj) 4 mg IV NOW PRN PRN Reason: Nausea And Vomiting Ondansetron HCl (Ondansetron 4 Mg Odt) 4 mg PO NOW PRN PRN Reason: Nausea And Vomiting Ondansetron HCl (Ondansetron 4 Mg/2 Ml Inj) 4 mg IV NOW ONE Stop: 10/22/24 02:56 Last Admin: 10/22/24 03:43 Dose: 4 mg Documented By: ELLIE Ondansetron HCl (Ondansetron 4 Mg Odt Prepack) 1 bottle MISC DIRECTED ONE Stop: 10/22/24 04:45 Last Admin: 10/22/24 05:19 Dose: 1 bottle Documented By: ELLIE Vital Signs Vital signs: Vital Signs - 8 hr 10/22/24 01:36 10/22/24 01:40 10/22/24 01:41 Temperature 98.1 F Pulse Rate 65 65 64 Respiratory Rate 23 27 H 20 Blood Pressure 142/68 H Pulse Oximetry 92 92 94 Oxygen Delivery Method Nasal Cannula Nasal Cannula Oxygen Flow Rate 2 2 Fraction of Inspired Oxygen 28 10/22/24 01:41 10/22/24 01:41 10/22/24 02:00 Temperature Pulse Rate 65 67 Respiratory Rate 27 H 23 Blood Pressure 142/68 H Pulse Oximetry 92 91 Oxygen Delivery Method Oxygen Flow Rate Fraction of Inspired Oxygen 10/22/24 02:01 10/22/24 02:01 10/22/24 02:30 Temperature Pulse Rate 64 Respiratory Rate 23 Blood Pressure 143/63 H 166/75 H Pulse Oximetry 91 Oxygen Delivery Method Oxygen Flow Rate Fraction of Inspired Oxygen 10/22/24 02:30 10/22/24 03:00 10/22/24 03:01 Temperature Pulse Rate 66 62 62 Respiratory Rate 22 22 18 Blood Pressure Pulse Oximetry 92 87 L 88 L Oxygen Delivery Method Nasal Cannula Room Air Oxygen Flow Rate 2 Fraction of Inspired Oxygen 10/22/24 03:01 10/22/24 03:31 Temperature Pulse Rate 63 Respiratory Rate Blood Pressure 144/66 H Pulse Oximetry 95 Oxygen Delivery Method Nasal Cannula Oxygen Flow Rate 2 Fraction of Inspired Oxygen MDM - Nausea/Vomiting/Diarrhea Lab Data Attestation: I reviewed the patient's lab results. Lab results narrative: White blood cell count 6200, hemoglobin 14.2, platelets adequate. Glucose 148. BUN 24 with creatinine 1.27, serum CO2 29, electrolytes unremarkable. Liver functions and lipase normal. 10/22/24 01:43 10/22/24 01:43 Labs: Lab Results 10/22/24 10/22/24 Range/Units 01:43 03:45 WBC 6.2 (4.5-11.0) X10^3/uL RBC 4.66 (4.5-5.9) X10^6/uL Hgb 14.2 (13.5-17.5) g/dL Hct 43.0 (41-53) % MCV 92.3 (80-100) fL MCH 30.4 (26-34) PG MCHC 32.9 (30-36) % RDW 15.0 H (11.6-14.8) % Plt Count 146 L (150-400) X10^3/uL Neut % (Auto) 73.0 (50-75) % Lymph % (Auto) 15.6 L (25-40) % Waldo % (Auto) 8.1 (3-14) % Eos % (Auto) 3.0 (2-4) % Baso % (Auto) 0.3 (0-2) % Neut # (Auto) 4500 (1603-6262) /uL Lymph # (Auto) 1000 L (0829-8577) /uL Waldo # (Auto) 500 (0-900) /uL Eos # (Auto) 200 (0-450) /uL Baso # (Auto) 0 (0-100) /uL Sodium 138 (137-145) mmol/L Potassium 4.4 (3.4-5.1) mmol/L Chloride 102 (98-107) mmol/L Carbon Dioxide 29 (22-32) mmol/L BUN 24 H (9-20) mg/dL Creatinine 1.27 H (0.66-1.25) mg/dL Estimated GFR 57 L (>60) mL/min BUN/Creatinine Ratio 18.9 (6-22) Glucose 148 H (70-99) mg/dL Calcium 8.8 (8.4-10.2) mg/dL Total Bilirubin 0.4 (0.2-1.3) mg/dL AST 22 (17-59) IU/L ALT 18 (<50) IU/L Alkaline Phosphatase 47 (38-126) U/L Troponin I < 0.012 < 0.012 (0.01-0.034) ng/mL Total Protein 6.5 (6.3-8.2) g/dL Albumin 4.0 (3.5-5.0) g/dL Globulin 2.5 (1.7-4.1) g/dL Albumin/Globulin Ratio 1.6 (1.0-2.8) Lipase 275 (23-300) U/L ECG Data Attestation: I personally reviewed and interpreted this ECG as follows: Interpretation: Normal sinus rhythm with first-degree AV block, AR interval [address] segment elevation or depression changes. QRS 92. QTC 402. MDM Narrative Medical decision making narrative: 79-year-old male with nausea and vomiting. No diarrhea. No significant abdominal tenderness, but some obesity/protuberant, could not discern any obvious fluid wave. Denies chest pain shortness of breath. Denies headache. Unclear cause of nausea and vomiting. DDx for his nausea and vomiting would consider acute abdominal process, ACS, [employer], other. IV Zofran, IV Pepcid. Labs pending. Renal function adequate. CT abdomen and pelvis imaging ordered. CT abdomen and pelvis with IV contrast. Impressions: ?No evidence of colitis diverticulitis bowel obstruction obstructive uropathy or acute appendicitis. Large volume of stool within the colon compatible with constipation.. See tele radiology report. EKG shows no obvious acute ischemic changes. Troponin to be added to original draw, then interval troponin to be sent. Initial and interval repeat troponin negative/unmeasurable. Patient unable to ambulate at baseline, tolerated oral fluids. Discharged home back to [facility]. Consider use of [id number] MiraLax for large colonic stool burden noted on CT imaging abdomen. Homepack ODT-zofran dispensed. DC back to care facility. Discharge Plan Departure Patient Disposition: Home Clinical Impression: Nausea and vomiting, Constipation Activity Restrictions/Additional Instructions: Nausea and vomiting of unclear cause. No fever on triage. No significant abdominal tenderness on examination. EKG and serial blood tests not suggestive of heart attack as cause of your nausea and vomiting. Lab testing screen unremarkable. CT abdomen and pelvis imaging showed lots of colonic stool, but no obstruction, no acute abdominal process. It is possible that constipation might be a component of your nausea and vomiting, though there is no obstructive changes of the intestines at this time. Consider use of vtyl-jlo-hqtemvv MiraLax laxative to help loosen the stool of constipation. Consider taking ondansetron as needed for control of nausea and vomiting. Drink plenty of fluids. Recheck symptoms with your regular doctor if not improved in the next couple of days. Return to this/nearest emergency department for any change worsening symptoms or any concerns prior. Prescriptions: No Action loratadine 10 mg Tablet 10 mg PO DAILY multivitamin with iron-mineral Tablet 1 tab PO DAILY potassium chloride 20 mEq Tablet Extended Release 40 meq PO DAILY trazodone 50 mg Tablet 25 mg PO BEDTIME cholecalciferol (vitamin D3) 125 mcg (5,000 unit) Tablet 5,000 unit PO DAILY albuterol sulfate 90 mcg/actuation HFA aerosol inhaler 2 puff INHALATION BID baclofen 10 mg Tablet 10 mg PO BID metformin 500 mg Tablet 500 mg PO BIDWM docusate sodium [Colace] 100 mg Capsule 200 mg PO BID Patient Comments: No Longer takes. Rx Instructions: HOLD FOR LOOSE STOOLS nystatin 100,000 unit/gram Powder 1 applic TOPICAL BID sennosides [senna] 8.6 mg Tablet 8.6 mg PO BID PRN (Reason: Constipation) ondansetron 4 mg tablet,disintegrating 4 mg PO Q8H PRN (Reason: nausea and vomiting) Qty: 10 0RF atorvastatin 40 mg tablet 40 mg PO BEDTIME sertraline 100 mg tablet 100 mg PO DAILY acetaminophen 500 mg tablet 1,000 mg PO TID bupropion HCl 100 mg tablet 100 mg PO TID tamsulosin 0.4 mg capsule 0.4 mg PO BEDTIME gabapentin 100 mg capsule 100 mg PO TID Spiriva Respimat 2.5 mcg/actuation mist 2 puff inhalation DAILY furosemide [Lasix] 40 mg tablet 80 mg PO DAILY furosemide [Lasix] 40 mg Tablet 40 mg PO 1600 amoxicillin-pot clavulanate 875-125 mg tablet 1 tab PO BID Qty: 10 0RF Referrals: Ellen Us ARNP [Primary Care Provider, Medical] Stand Alone Forms: Patient Portal/API
--- NOTE | 2024-10-22 03:36 | EKG_ITS ---
[facility] [address] [place] [address] Test Date: 2024-10-22 Pat Name: Suman Baumann Department: 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
[2024-10-22] MEDS: ONDANSETRON 4 MG/2 ML INJ IV (03:43)
[2024-10-22] MEDS: FAMOTIDINE 20 MG/2 ML VIAL IV (03:43)
[2024-10-22 03:55] LABS: Troponin I < 0.012 ng/mL (0.01-0.034)
[2024-10-22 04:23] LABS: Troponin I < 0.012 ng/mL (0.01-0.034)
[2024-10-22] MEDS: ONDANSETRON 4 MG ODT PREPACK 1 BOTTLE MISC (05:19)
== END 2024-10-22 07:00 | disposition home or self-care (01) ==
PROVIDERS: Emergency Provider Emergency Medicine; PCP Nurse Practitioner Gerontology
DX: R11.2 Nausea with vomiting, unspecified (principal); K59.00 Constipation, unspecified; R10.9 Unspecified abdominal pain
CPT/HCPCS: 36415; 74177; 80053; 83690; 84484; 85025; 93005; 93010; 94640; 96374; 96375; 99285; J2405; Q9967

== ENCOUNTER 2025-01-09 19:10 | Emergency (ER) | payer MEDICARE, SELFPAY ==
[2024-08-14 03:39] VITALS: BMI 38.2
[2025-01-09] VITALS (13 sets, daily range): BP systolic 98–145; BP diastolic 53–70; PULSE 54–123; RESP 12–24; TEMP 36.8; O2SAT 89–97; BMI 34.4
--- NOTE | 2025-01-09 19:30 | EKG_ITS ---
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
--- NOTE | 2025-01-09 19:30 | DI.RAD.S_ITS ---
PROCEDURE: XR CHEST 1V INDICATIONS: Chest Pain TECHNIQUE: One view of the chest was acquired. COMPARISON: [facility], CR, XR CHEST 1V, 08/13/2024, 23:03. [facility], CR, XR CHEST 1V, 06/11/2024, 16:40. FINDINGS AND IMPRESSION: Mild left lung base opacity, possibly atelectasis or mild airspace disease. Consider future imaging surveillance to assess for resolution. No pleural effusions. Unchanged cardiomediastinal contours. Normal heart size. Degenerative osseous changes. Dictated by: Bravo Thomas M.D. on 01/09/2025 at 20:10 Approved by: Bravo Thomas M.D. on 01/09/2025 at 20:11
[2025-01-09 19:41] LABS: INR 1.1 (0.9-1.3); Prothrombin Time 11.9 SECONDS (9.4-12.5)
[2025-01-09 19:44] LABS: PTT Partial Thromboplastin Tim 29 SECONDS (25.1-36.5)
[2025-01-09 19:50] LABS: Add Manual Diff / Slide Review NO; Hematocrit 45.7 % (41-53); Hemoglobin 15.1 g/dL (13.5-17.5); Lymphocytes Absolute Auto 1500 /uL (1100-4500); Mean Corpuscular HGB Conc 33.0 % (30-36); Mean Corpuscular Hemoglobin 30.2 PG (26-34); Mean Corpuscular Volume 91.7 fL (80-100); Platelet Count 162 X10^3/uL (150-400)
[2025-01-09 20:05] LABS: Alanine Aminotransferase 18 IU/L (<50); Albumin 4.2 g/dL (3.5-5.0); Albumin Globulin Ratio 1.6 (1.0-2.8); Alkaline Phosphatase 57 U/L (38-126); Blood Urea Nitrogen 34 mg/dL (9-20); Calcium 8.9 mg/dL (8.4-10.2); Carbon Dioxide 28 mmol/L (22-32); Chloride 98 mmol/L (98-107); Creatine Kinase 55 U/L (55-170); Estimated Glomerular Filt Rate 48 mL/min (>60); Globulin 2.7 g/dL (1.7-4.1); Glucose 96 mg/dL (70-99); HEMOLYSIS 20 (0-50); Lipase 204 U/L (23-300); Magnesium 1.9 mg/dL (1.6-2.3); Potassium 4.0 mmol/L (3.4-5.1); Sodium 138 mmol/L (137-145); Total Protein 6.9 g/dL (6.3-8.2)
--- NOTE | 2025-01-09 20:13 | ED.CHESTPAIN ---
HPI - Chest Pain General Chief Complaint: Chest Pain Stated Complaint: Chest pain x 5 months Time Seen by Provider: 01/09/25 20:13 Source: EMS History of Present Illness HPI narrative: 79-year-old male resident of [facility] rehab facility, DNR code status, chart history of COPD on oxygen, hypertension, type 2 diabetes with neuropathy, cardiomegaly, CAD, morbid obesity, chronic pain, BPH, prior traumatic brain injury, nontender umbilical hernia. Recent transfer per admit H and P from [facility] to [facility] [address] on 12/30/2024. States that he has upper abdominal lower chest discomfort, apparently months in duration, of unclear cause, recently increased the last few days, decided to be checked out tonight at this time. Denies fevers chills. Denies recent change in chronic cough. Denies painful frequent urination. No trauma falls new activities. Last bowel movement normal. Does not believe he is having loose stools, no black or red stools. H&P from [facility] admission 12/30/2024, DNR code status indicated. Related Data Home Medications ?Medication ?Instructions ?Recorded ?Confirmed albuterol sulfate 90 mcg/actuation 2 puff inhalation BID 07/05/20 01/09/25 aerosol inhaler baclofen 10 mg tablet 10 mg PO BID 07/05/20 01/09/25 cholecalciferol (vitamin D3) 125 5,000 unit PO DAILY 07/05/20 01/09/25 mcg (5,000 unit) tablet docusate sodium 100 mg capsule 200 mg PO BID 07/05/20 01/09/25 (Colace) loratadine 10 mg tablet 10 mg PO DAILY 07/05/20 01/09/25 metformin 500 mg tablet 500 mg PO BIDWM 07/05/20 01/09/25 multivitamin with iron-mineral 1 tab PO DAILY 07/05/20 01/09/25 nystatin 100,000 unit/gram topical 1 applic topical BID 07/05/20 01/09/25 powder potassium chloride 20 mEq 40 meq PO DAILY 07/05/20 01/09/25 tablet,extended release sennosides 8.6 mg tablet (senna) 8.6 mg PO BID PRN Constipation 07/05/20 01/09/25 trazodone 50 mg tablet 25 mg PO BEDTIME 07/05/20 01/09/25 acetaminophen 500 mg tablet 1,000 mg PO TID 08/13/24 01/09/25 atorvastatin 40 mg tablet 40 mg PO BEDTIME 08/13/24 01/09/25 bupropion HCl 100 mg tablet 100 mg PO TID 08/13/24 01/09/25 gabapentin 100 mg capsule 100 mg PO TID 08/13/24 01/09/25 sertraline 100 mg tablet 100 mg PO DAILY 08/13/24 01/09/25 tamsulosin 0.4 mg capsule 0.4 mg PO BEDTIME 08/13/24 01/09/25 tiotropium bromide 2.5 1 puff inhalation DAILY 08/13/24 01/09/25 mcg/actuation mist for inhalation (Spiriva Respimat) furosemide 40 mg tablet (Lasix) 40 mg PO 1600 08/14/24 01/09/25 furosemide 40 mg tablet (Lasix) 80 mg PO DAILY 08/14/24 01/09/25 diclofenac sodium 1 % topical gel See Rx Instructions topical 01/09/25 01/09/25 .COMPLEX PRN pain salmeterol xinafoate 50 mcg inhalation BID 01/09/25 01/09/25 torsemide 40 mg tablet 40 mg PO DAILY 01/09/25 01/09/25 umeclidinium 62.5 mcg/actuation 1 inh inhalation DAILY COPD 01/09/25 01/09/25 blister powder for inhalation (Incruse Ellipta) Previous Rx's ?Medication ?Instructions ?Recorded ondansetron 4 mg disintegrating 4 mg PO Q8H PRN nausea and 06/12/24 tablet vomiting #10 tabs amoxicillin 875 mg tablet 875 mg PO BID dental infection 7 01/10/25 days #14 tabs doxycycline hyclate 100 mg capsule 100 mg PO DAILY #20 caps 01/10/25 prednisone 20 mg tablet 40 mg (2 x 20 mg) PO DAILY 5 days 01/10/25 #10 tabs Allergies Allergy/AdvReac Type Severity Reaction Status Date / Time lisinopril Allergy Unknown Cough Verified 10/22/24 01:46 Patient History Medical History CKD (chronic kidney disease) stage 3, GFR 30-59 ml/min BPH w urinary obs/LUTS Nocturia Morbid obesity with BMI of 40.0-44.9, adult Atherosclerotic heart disease of [place] coronary artery without angina pectoris History of traumatic brain injury Other abnormalities of gait and mobility Muscle weakness (generalized) Major depressive disorder Essential hypertension Cardiomegaly Benign prostatic hyperplasia without lower urinary tract symptoms COPD (chronic obstructive pulmonary disease) Surgical History H/O left knee surgery History of ankle surgery History of hip surgery History of foot surgery Family History Mother Diabetes mellitus Hypertension Father Congestive heart failure Social History household members: caregiver alcohol intake: former tobacco type: cigarettes alcohol intake frequency: holidays/special occasions only Exam Narrative Exam Narrative: GENERAL: Well-developed patient, in mild distress. HEAD: Atraumatic. Normocephalic. EYES: Pupils equal round and reactive. Extraocular motions intact. No scleral icterus. No injection or drainage. ENT: Nose without bleeding, purulent drainage. Throat without erythema, tonsillar hypertrophy or exudate. Airway patent. NECK: Trachea midline. Non tender CARDIOVASCULAR: Regular rate and rhythm without murmurs, gallops, or rubs. RESPIRATORY: Clear to auscultation. Breath sounds equal bilaterally. No wheezes, rales, or rhonchi. GASTROINTESTINAL: Abdomen soft, non-tender, nondistended. EXTREMITIES: No edema or joint tenderness. BACK: Nontender without deformity or crepitance. No flank tenderness. NEURO: AOx3. Motor functions grossly nonfocal. SKIN: No rash or erythema of visible areas Initial Vital Signs Initial Vital Signs: Vital Signs Temperature 98.2 F 01/09/25 19:30 Pulse Rate 67 01/09/25 19:30 Respiratory Rate 24 01/09/25 19:30 Blood Pressure 132/70 01/09/25 19:30 Pulse Oximetry 93 01/09/25 19:30 Oxygen Delivery Method Nasal Cannula 01/09/25 19:30 Oxygen Flow Rate 2 01/09/25 19:30 Course Orders Ordered: ED Orders 01/09/25 21:27 CT abdomen pelvis w con Stat CT angio chest PE protocol Stat Discontinued Medications Al Hydrox/Mg Hydrox/Simethicone (Mag Hydrox/Alum/Simeth 30 Ml Udc) 30 ml PO NOW ONE Stop: 01/09/25 21:34 Last Admin: 01/09/25 22:11 Dose: 30 ml Documented By: MELISSA Albuterol (Albuterol Hfa Prepack) 1 box MISC DIRECTED ONE Stop: 01/10/25 01:17 Last Admin: 01/10/25 01:45 Dose: 1 box Documented By: MELISSA Aspirin (Aspirin 81 Mg Chew Tab) 324 mg PO NOW ONE Stop: 01/09/25 19:31 Last Admin: 01/09/25 21:44 Dose: Not Given Documented By: MELISSA Doxycycline Hyclate (Doxycycline Hyclate 100 Mg Tablet) 100 mg PO NOW ONE Stop: 01/10/25 01:09 Last Admin: 01/10/25 01:45 Dose: 100 mg Documented By: MELISSA Ceftriaxone Sodium 1,000 mg/ (Sodium Chloride) 100 mls @ 200 mls/hr IV NOW ONE Stop: 01/10/25 01:09 Last Infusion: 01/10/25 03:03 Dose: Infused Documented By: Admin: 01/10/25 01:45 Dose: 200 mls/hr Documented By: MELISSA Methylprednisolone (Methylprednisolone Succ 125 Mg/2 Ml Vial) 125 mg IV NOW ONE Stop: 01/10/25 01:18 Last Admin: 01/10/25 01:45 Dose: 125 mg Documented By: MELISSA Pantoprazole Sodium (Pantoprazole 40 Mg Vial) 40 mg IV NOW ONE Stop: 01/09/25 21:34 Last Admin: 01/09/25 22:10 Dose: 40 mg Documented By: MELISSA Vital Signs Vital signs: Vital Signs - 8 hr 01/09/25 21:00 01/09/25 21:00 01/09/25 21:30 Pulse Rate 59 L 57 L Respiratory Rate 20 18 Blood Pressure 140/67 Pulse Oximetry 93 90 L Oxygen Delivery Method Oxygen Flow Rate 01/09/25 21:30 01/09/25 22:05 01/09/25 22:06 Pulse Rate 57 L Respiratory Rate Blood Pressure 145/65 H 98/60 Pulse Oximetry 89 L Oxygen Delivery Method Oxygen Flow Rate 01/09/25 22:06 01/09/25 22:10 01/09/25 22:10 Pulse Rate 88 123 H Respiratory Rate 12 18 Blood Pressure 106/53 L Pulse Oximetry 92 91 Oxygen Delivery Method Oxygen Flow Rate 01/09/25 22:30 01/09/25 22:31 01/09/25 22:31 Pulse Rate 64 55 L Respiratory Rate 22 20 Blood Pressure 125/59 L Pulse Oximetry 95 97 Oxygen Delivery Method Oxygen Flow Rate 01/09/25 23:00 01/09/25 23:00 01/09/25 23:30 Pulse Rate 54 L 56 L Respiratory Rate 17 19 Blood Pressure 112/57 L Pulse Oximetry 95 97 Oxygen Delivery Method Oxygen Flow Rate 01/09/25 23:30 01/10/25 00:00 01/10/25 00:00 Pulse Rate 54 L Respiratory Rate 19 Blood Pressure 122/58 L 148/67 H Pulse Oximetry 96 Oxygen Delivery Method Oxygen Flow Rate 01/10/25 00:30 01/10/25 00:30 01/10/25 01:00 Pulse Rate 56 L Respiratory Rate 17 Blood Pressure 126/58 L 146/69 H Pulse Oximetry 93 Oxygen Delivery Method Oxygen Flow Rate 01/10/25 01:00 01/10/25 01:30 01/10/25 01:30 Pulse Rate 56 L 58 L Respiratory Rate 20 21 Blood Pressure 153/79 H Pulse Oximetry 93 89 L Oxygen Delivery Method Oxygen Flow Rate 01/10/25 02:00 01/10/25 02:01 01/10/25 02:01 Pulse Rate 66 85 Respiratory Rate 21 17 Blood Pressure 133/73 Pulse Oximetry 95 95 Oxygen Delivery Method Oxygen Flow Rate 01/10/25 02:30 01/10/25 02:30 01/10/25 03:00 Pulse Rate 54 L 96 H Respiratory Rate 20 19 Blood Pressure 151/67 H Pulse Oximetry 95 95 Oxygen Delivery Method Nasal Cannula Oxygen Flow Rate 3 01/10/25 03:01 01/10/25 03:01 01/10/25 03:30 Pulse Rate 79 56 L Respiratory Rate 19 25 H Blood Pressure 122/60 Pulse Oximetry 95 Oxygen Delivery Method Nasal Cannula Oxygen Flow Rate 2 01/10/25 03:31 01/10/25 03:31 Pulse Rate 56 L Respiratory Rate 19 Blood Pressure 142/67 H Pulse Oximetry Oxygen Delivery Method Oxygen Flow Rate MDM - Chest Pain Lab Data 01/09/25 19:10 01/09/25 19:10 Labs: Lab Results 01/09/25 Range/Units 19:10 WBC 6.9 (4.5-11.0) X10^3/uL RBC 4.98 (4.5-5.9) X10^6/uL Hgb 15.1 (13.5-17.5) g/dL Hct 45.7 (41-53) % MCV 91.7 (80-100) fL MCH 30.2 (26-34) PG MCHC 33.0 (30-36) % RDW 15.1 H (11.6-14.8) % Plt Count 162 (150-400) X10^3/uL Neut % (Auto) 67.4 (50-75) % Lymph % (Auto) 21.9 L (25-40) % [place] % (Auto) 8.0 (3-14) % Eos % (Auto) 2.5 (2-4) % Baso % (Auto) 0.2 (0-2) % Neut # (Auto) 4600 (3982-1630) /uL Lymph # (Auto) 1500 (1521-9975) /uL [place] # (Auto) 600 (0-900) /uL Eos # (Auto) 200 (0-450) /uL Baso # (Auto) 0 (0-100) /uL PT 11.9 (9.4-12.5) SECONDS INR 1.1 (0.9-1.3) APTT 29 (25.1-36.5) SECONDS Sodium 138 (137-145) mmol/L Potassium 4.0 (3.4-5.1) mmol/L Chloride 98 (98-107) mmol/L Carbon Dioxide 28 (22-32) mmol/L BUN 34 H (9-20) mg/dL Creatinine 1.46 H (0.66-1.25) mg/dL Estimated GFR 48 L (>60) mL/min BUN/Creatinine Ratio 23.3 H (6-22) Glucose 96 (70-99) mg/dL Calcium 8.9 (8.4-10.2) mg/dL Magnesium 1.9 (1.6-2.3) mg/dL Total Bilirubin 0.6 (0.2-1.3) mg/dL AST 23 (17-59) IU/L ALT 18 (<50) IU/L Alkaline Phosphatase 57 (38-126) U/L Total Creatine Kinase 55 (55-170) U/L Troponin I < 0.012 (0.01-0.034) ng/mL NT-Pro-B Natriuret Pep 56 (<450) pg/mL Total Protein 6.9 (6.3-8.2) g/dL Albumin 4.2 (3.5-5.0) g/dL Globulin 2.7 (1.7-4.1) g/dL Albumin/Globulin Ratio 1.6 (1.0-2.8) Lipase 204 (23-300) U/L Imaging Data Chest x-ray: Radiologist's Impression: [address] [address] XRay Report Signed Patient: Suman Baumann MR#: [id number] : 1945 Acct:[id number] Age/Sex: 79 / M Date of Service: 01/09/25 Loc: ED Accession Number: [id number] Procedure: XR chest 1V Ordering Provider: Deangelo Hightower MD PROCEDURE: XR CHEST 1V INDICATIONS: Chest Pain TECHNIQUE: One view of the chest was acquired. COMPARISON: [facility], CR, XR CHEST 1V, 08/13/2024, 23:03. [facility], CR, XR CHEST 1V, 06/11/2024, 16:40. FINDINGS AND IMPRESSION: Mild left lung base opacity, possibly atelectasis or mild airspace disease. Consider future imaging surveillance to assess for resolution. No pleural effusions. Unchanged cardiomediastinal contours. Normal heart size. Degenerative osseous changes. Dictated by: Bravo Thomas M.D. on 01/09/2025 at 20:10 Approved by: Bravo Thomas M.D. on 01/09/2025 at 20:11 CT angio chest PE protocol: Radiologist's Impression: [address] [address] [address] Scan Report Signed Patient: Suman Baumann MR#: [id number] : 1945 Acct:[id number] Age/Sex: 79 / M Date of Service: 01/09/25 Loc: ED Accession Number: [id number] Procedure: CT angio chest PE protocol Ordering Provider: Deangelo Hightower MD PROCEDURE: CT ANGIO CHEST PE PROTOCOL INDICATIONS: chest pain TECHNIQUE: After the administration of intravenous contrast, 2 mm thick sections acquired from the pulmonary apices to the posterior costophrenic angles. 3-dimensional maximum intensity projection (MIP) coronal and sagittal reformats were then acquired through the thorax. For radiation dose reduction, the following was used: automated exposure control, adjustment of mA and/or kV according to patient size. COMPARISON: [facility], CT, CT ABDOMEN PELVIS W CON, 01/09/2025, 21:52. [facility], CT, CT ANGIO CHEST PE PROTOCOL, 08/14/2024, 1:51. FINDINGS: Image quality: Diagnostic. Pulmonary arteries: Pulmonary arteries are enlarged measuring 4.0 cm. They demonstrate no intraluminal filling defects to suggest central pulmonary embolism. Lower Neck: No enlarged lymph nodes. Thyroid: No thyroid nodules which require sonographic follow up, per consensus guidelines. Axillae: No enlarged lymph nodes. Chest Wall: Unremarkable. Bones: Unremarkable. Lungs and Pleura: No pneumothorax or pleural effusions. Left lower lobe nodule measures 1.5 cm compared to 1.6 cm on prior exam. Heart: Heart size is normal. No pericardial effusion. Thoracic Vessels: No aortic aneurysm. Mediastinum and Sarahy: No enlarged lymph nodes. Esophagus: No wall thickening. No hiatal hernia. Upper Abdomen: Partially visualized left renal cyst. Right adrenal mass. Significant colonic stool. Hepatic cysts. IMPRESSION: No pulmonary embolus. Unchanged appearance of previously identified lower nodule. Enlarged pulmonary arteries consistent with artery hypertension. Abdominal findings as above. Please see abdominal CT report of 01/09/2025 for further details. Dictated by: Noa Headley M.D. on 01/09/2025 at 22:44 Approved by: Noa Headley M.D. on 01/09/2025 at 22:47 CT scan - abdomen/pelvis: Radiologist's Impression: [address] [address] [address] Scan Report Signed Patient: Suman Baumann MR#: [id number] : 1945 Acct:[id number] Age/Sex: 79 / M Date of Service: 01/09/25 Loc: ED Accession Number: [id number] Procedure: CT abdomen pelvis w con Ordering Provider: Deangelo Hightower MD PROCEDURE: CT ABDOMEN PELVIS W CON INDICATIONS: chest abd pain TECHNIQUE: After the administration of intravenous contrast, axial sections acquired from the lung bases to the pubic symphysis. Coronal and sagittal reformats were performed. For radiation dose reduction, the following was used: automated exposure control, adjustment of mA and/or kV according to patient size. COMPARISON: [facility], CT, CT ABDOMEN PELVIS W CON, 02/26/2023, 1:33. [facility], CT, CT ABDOMEN PELVIS W CON, 10/22/2024, 3:01. FINDINGS: Image quality: Diagnostic. Lower Chest: Portions of the lower pelvis are suboptimally evaluated secondary to metallic streak artifact from hip arthroplasty. ABDOMEN: Liver: Steatosis. Hypoattenuating foci are unchanged. Gallbladder: No radiopaque gallstones or wall thickening. Biliary ducts: No biliary dilation. Pancreas: No ductal dilation. Spleen: Size is within normal limits. Adrenal Glands: Unchanged right adrenal nodule.. Kidneys and Ureters: No obstruction. Unchanged 3 mm left renal calcification. Bilateral low-attenuation renal foci. Previous I so/hyperdense exophytic focus posterior to the right kidney is unchanged. Stomach and Bowel: Normal colonic caliber, without significant wall thickening. Moderate colonic stool. Significant impaction at the rectum. Peritoneum: No abnormal intraperitoneal fluid. No free air. Ventral Wall: No significant ventral hernia. Abdominal Nodes: No retroperitoneal or mesenteric adenopathy by size criteria. Vessels: Aorta and inferior vena cava are normal in size. PELVIS: Pelvic Organs: Unremarkable. Bladder: No bladder wall thickening, accounting for underdistention. Pelvic Nodes: No enlarged lymph nodes. Miscellaneous: No inguinal hernias are seen. Bones: No aggressive osseous abnormality. Hip arthroplasties. IMPRESSION: Low-attenuation hepatic foci with the larger most consistent with simple cysts. The smaller lesions are too small to definitively characterize although unchanged. Significant colonic stool without obstruction. Unchanged right adrenal mass, likely benign given stability since 2022. . Unchanged nonobstructing left renal calculus. Unchanged hypo and iso/hyperattenuating renal foci. Dictated by: Noa Headley M.D. on 01/09/2025 at 22:47 Approved by: Noa Headley M.D. on 01/09/2025 at 22:50 ECG Data Attestation: I personally reviewed and interpreted this ECG as follows: Interpretation: 2011, sinus rhythm with arrhythmia, first-degree AV block. Ventricular rate 62. No obvious ST segment elevation/depression changes. RI 240, QRS 92, QTC 420. MDM Narrative Medical decision making narrative: 79-year-old male recently admitted to [facility] earlier this month, complains of many weeks duration of lower chest discomfort, increased over the recent days. History of COPD noted. Afebrile, sirs screen negative. Lungs clear. No respiratory distress. No oxygen requirement. EKG, chest x-ray labs pending. IV Solu-Medrol, albuterol nebulized. EKG shows sinus rhythm, no tachycardia, no obvious ischemic changes. Chest x-ray showed left basilar infiltrate versus atelectasis, see radiology report. Blood cultures, IV ceftriaxone, oral doxycycline. Renal function adequate. CT chest angio PE protocol, with IV only CT abdomen and pelvis imaging ordered. CT angiogram chest showed no PE, no infiltrates mentioned, stable pulmonary nodule noted, pulmonary hypertension changes noted. See radiology report. CT abdomen and pelvis with IV contrast. Nonobstructing kidney stones noted, likely liver cysts, colonic stool noted without obstruction, small hypoattenuated renal foci, unchanged right renal mass possible adenoma. See radiology report. Discharged home with regimen for pulmonary toilet, albuterol/spacer, prescription for oral doxycycline, prednisone, for possible COPD exacerbation. And use bowel regimen at nursing facility if needed. Follow up with PCP or [facility] medical provider. Discharge back to [facility]. S transport back to care facility. Discharge Plan Departure Patient Disposition: Home Clinical Impression: Chest pain, COPD exacerbation, Lung nodule, Kidney cysts, Adrenal adenoma Activity Restrictions/Additional Instructions: Resident of local [facility], ongoing weeks duration of chest discomfort, recently increased. EKG and blood testing not suggestive of heart attack at this time. Chest x-ray with possible atelectasis versus pneumonia change. Initial antibiotics initiated IV ceftriaxone and oral doxycycline. CT angiogram chest showed no acute changes, no aortic problems, no blood clots, no infiltrate/pneumonia, no fluid overload changes, pulmonary nodule incidentally noted which can be further worked up as an outpatient. CT abdomen and pelvis showed no acute changes, possible cyst changes kidneys, possible adenoma changes adrenals, all or incidental findings that could be worked up as an outpatient. Further oral antibiotics doxycycline to use as an outpatient for now for possible COPD exacerbation. Albuterol inhaler with spacer to use at your care facility, 2 puffs 4 times daily. Recheck with your regular doctor advised in the next couple of days. Take prednisone steroid for the next few days for help control COPD exacerbation symptoms. Return to this/nearest emergency department for any change worsening symptoms or any concerns prior. Prescriptions: New doxycycline hyclate 100 mg capsule 100 mg PO DAILY Qty: 20 0RF amoxicillin 875 mg tablet 875 mg PO BID 7 Days Qty: 14 0RF prednisone 20 mg tablet 40 mg PO DAILY 5 Days Qty: 10 0RF No Action loratadine 10 mg Tablet 10 mg PO DAILY multivitamin with iron-mineral Tablet 1 tab PO DAILY potassium chloride 20 mEq Tablet Extended Release 40 meq PO DAILY trazodone 50 mg Tablet 25 mg PO BEDTIME cholecalciferol (vitamin D3) 125 mcg (5,000 unit) Tablet 5,000 unit PO DAILY albuterol sulfate 90 mcg/actuation HFA aerosol inhaler 2 puff INHALATION BID baclofen 10 mg Tablet 10 mg PO BID metformin 500 mg Tablet 500 mg PO BIDWM docusate sodium [Colace] 100 mg Capsule 200 mg PO BID Patient Comments: No Longer takes. Rx Instructions: HOLD FOR LOOSE STOOLS nystatin 100,000 unit/gram Powder 1 applic TOPICAL BID sennosides [senna] 8.6 mg Tablet 8.6 mg PO BID PRN (Reason: Constipation) ondansetron 4 mg tablet,disintegrating 4 mg PO Q8H PRN (Reason: nausea and vomiting) Qty: 10 0RF atorvastatin 40 mg tablet 40 mg PO BEDTIME sertraline 100 mg tablet 100 mg PO DAILY acetaminophen 500 mg tablet 1,000 mg PO TID bupropion HCl 100 mg tablet 100 mg PO TID tamsulosin 0.4 mg capsule 0.4 mg PO BEDTIME gabapentin 100 mg capsule 100 mg PO TID Spiriva Respimat 2.5 mcg/actuation mist 1 puff inhalation DAILY furosemide [Lasix] 40 mg tablet 80 mg PO DAILY furosemide [Lasix] 40 mg Tablet 40 mg PO 1600 diclofenac sodium 1 % gel See Rx Instructions topical .COMPLEX PRN (Reason: pain) Rx Instructions: topically apply to back as needed PRN; apply to back/lower/upper topically as needed for pain Incruse Ellipta 62.5 mcg/actuation blister with device 1 inh inhalation DAILY torsemide 40 mg tablet 40 mg PO DAILY salmeterol xinafoate 50 mcg inhalation BID Rx Instructions: Salmeterol Xinafoate Inhalation Aerosol Powder Breath Activated 50mcg/ACT 1 Inhalation orally BID for COPD Referrals: Ellen Us ARNP [Primary Care Provider, Medical] Stand Alone Forms: Patient Portal/API
[2025-01-09 20:16] LABS: NT-proBNP (BNP-Adult 18+) 56 pg/mL (<450); Troponin I < 0.012 ng/mL (0.01-0.034)
--- NOTE | 2025-01-09 20:34 | PC.NURSE ---
brief changed and bed sheets changed.
--- NOTE | 2025-01-09 21:27 | DI.CT.S_ITS ---
PROCEDURE: CT ANGIO CHEST PE PROTOCOL INDICATIONS: chest pain TECHNIQUE: After the administration of intravenous contrast, 2 mm thick sections acquired from the pulmonary apices to the posterior costophrenic angles. 3-dimensional maximum intensity projection (MIP) coronal and sagittal reformats were then acquired through the thorax. For radiation dose reduction, the following was used: automated exposure control, adjustment of mA and/or kV according to patient size. COMPARISON: [facility], CT, CT ABDOMEN PELVIS W CON, 01/09/2025, 21:52. [facility], CT, CT ANGIO CHEST PE PROTOCOL, 08/14/2024, 1:51. FINDINGS: Image quality: Diagnostic. Pulmonary arteries: Pulmonary arteries are enlarged measuring 4.0 cm. They demonstrate no intraluminal filling defects to suggest central pulmonary embolism. Lower Neck: No enlarged lymph nodes. Thyroid: No thyroid nodules which require sonographic follow up, per consensus guidelines. Axillae: No enlarged lymph nodes. Chest Wall: Unremarkable. Bones: Unremarkable. Lungs and Pleura: No pneumothorax or pleural effusions. Left lower lobe nodule measures 1.5 cm compared to 1.6 cm on prior exam. Heart: Heart size is normal. No pericardial effusion. Thoracic Vessels: No aortic aneurysm. Mediastinum and [place]: No enlarged lymph nodes. Esophagus: No wall thickening. No hiatal hernia. Upper Abdomen: Partially visualized left renal cyst. Right adrenal mass. Significant colonic stool. Hepatic cysts. IMPRESSION: No pulmonary embolus. Unchanged appearance of previously identified lower nodule. Enlarged pulmonary arteries consistent with artery hypertension. Abdominal findings as above. Please see abdominal CT report of 01/09/2025 for further details. Dictated by: Noa Headley M.D. on 01/09/2025 at 22:44 Approved by: Noa Headley M.D. on 01/09/2025 at 22:47
--- NOTE | 2025-01-09 21:27 | DI.CT.S_ITS ---
PROCEDURE: CT ABDOMEN PELVIS W CON INDICATIONS: chest abd pain TECHNIQUE: After the administration of intravenous contrast, axial sections acquired from the lung bases to the pubic symphysis. Coronal and sagittal reformats were performed. For radiation dose reduction, the following was used: automated exposure control, adjustment of mA and/or kV according to patient size. COMPARISON: [facility], CT, CT ABDOMEN PELVIS W CON, 02/26/2023, 1:33. [facility], CT, CT ABDOMEN PELVIS W CON, 10/22/2024, 3:01. FINDINGS: Image quality: Diagnostic. Lower Chest: Portions of the lower pelvis are suboptimally evaluated secondary to metallic streak artifact from hip arthroplasty. ABDOMEN: Liver: Steatosis. Hypoattenuating foci are unchanged. Gallbladder: No radiopaque gallstones or wall thickening. Biliary ducts: No biliary dilation. Pancreas: No ductal dilation. Spleen: Size is within normal limits. Adrenal Glands: Unchanged right adrenal nodule.. Kidneys and Ureters: No obstruction. Unchanged 3 mm left renal calcification. Bilateral low-attenuation renal foci. Previous I so/hyperdense exophytic focus posterior to the right kidney is unchanged. Stomach and Bowel: Normal colonic caliber, without significant wall thickening. Moderate colonic stool. Significant impaction at the rectum. Peritoneum: No abnormal intraperitoneal fluid. No free air. Ventral Wall: No significant ventral hernia. Abdominal Nodes: No retroperitoneal or mesenteric adenopathy by size criteria. Vessels: Aorta and inferior vena cava are normal in size. PELVIS: Pelvic Organs: Unremarkable. Bladder: No bladder wall thickening, accounting for underdistention. Pelvic Nodes: No enlarged lymph nodes. Miscellaneous: No inguinal hernias are seen. Bones: No aggressive osseous abnormality. Hip arthroplasties. IMPRESSION: Low-attenuation hepatic foci with the larger most consistent with simple cysts. The smaller lesions are too small to definitively characterize although unchanged. Significant colonic stool without obstruction. Unchanged right adrenal mass, likely benign given stability since 2022. . Unchanged nonobstructing left renal calculus. Unchanged hypo and iso/hyperattenuating renal foci. Dictated by: Noa Headley M.D. on 01/09/2025 at 22:47 Approved by: Noa Headley M.D. on 01/09/2025 at 22:50
[2025-01-09] MEDS: PANTOPRAZOLE 40 MG VIAL IV (22:10)
[2025-01-09] MEDS: MAG HYDROX/ALUM/SIMETH 30 ML UDC PO (22:11)
[2025-01-10] VITALS (11 sets, daily range): BP systolic 122–153; BP diastolic 58–79; PULSE 54–96; RESP 17–25; O2SAT 89–96
[2025-01-10] MEDS: methylPREDNISolone succ 125 MG/2 ML VIAL IV (01:45)
[2025-01-10] MEDS: ALBUTEROL HFA PREPACK 1 BOX MISC (01:45)
[2025-01-10] MEDS: DOXYCYCLINE HYCLATE 100 MG TABLET PO (01:45)
--- NOTE | 2025-01-10 02:40 | PC.NURSE ---
Call to Javier, primary RN at [facility]. Report given and will call him back after ETA for BLS transport.
--- NOTE | 2025-01-10 03:45 | PC.NURSE ---
clean dry brief placed on pt, and new gown placed on pt
== END 2025-01-10 04:09 | disposition home or self-care (01) ==
PROVIDERS: Emergency Provider Emergency Medicine; PCP Nurse Practitioner Gerontology
DX: R07.9 Chest pain, unspecified (principal); J44.1 Chronic obstructive pulmonary disease with (acute) exacerbation; R91.1 Solitary pulmonary nodule; N28.1 Cyst of kidney, acquired; D35.00 Benign neoplasm of unspecified adrenal gland; F17.210 Nicotine dependence, cigarettes, uncomplicated; E11.9 Type 2 diabetes mellitus without complications
CPT/HCPCS: 36415; 71045; 71275; 74177; 80053; 82550; 83690; 83735; 83880; 84484; 85025; 85610; 85730; 93005; 93010; 96365; 96375; 99285; J0696; J2470; J2919; Q9967